=== PATIENT | male | born 1980 | race African-American/Black ===

== ENCOUNTER 2017-09-01 13:06 | Inpatient (IN) | payer OTHER ==
[2017-09-01 18:17] VITALS: BMI 33.3
--- NOTE | 2017-09-01 19:35 | HP ---
CIWA Score - CIWA Score Nausea/Vomitin-Mild Nausea/No Vomiting Muscle Tremors: 4-Moderate,w/Arms Extend Anxiety: 4-Mod. Anxious/Guarded Agitation: 4-Moderately Restless Paroxysmal Sweats: 1-Minimal Palms Moist Orientation: 0-Oriented Tacttile Disturbances: 0-None Auditory Disturbances: 0-None Visual Disturbances: 0-None Headache: 0-None Present CIWA-Ar Total Score: 14 Admission ROS BHS - HPI Chief Complaint: WITHDRAWAL SX Allergies/Adverse Reactions: Allergies Allergy/AdvReac Type Severity Reaction Status Date / Time No Known Allergies Allergy Verified 08/18/15 16:48 History of Present Illness: 36 YEARS OLD MALE WITH LONG HISTORY OF ALCOHOL COCAINE NICOTINE DEPENDENCE, HAS DIABETES II TREATED WITH METFORMIN 500 MG BID DENIES MENTAL ILLNESS IS ADMITTED TO DETOX Exam Limitations: No Limitations - Ebola screening Have you traveled outside of the country in the last 21 days: No (N) Have you had contact with anyone from an Ebola affected area: No Have you been sick,other than usual withdrawal symptoms: No Do you have a fever: No - Review of Systems Constitutional: Changes in sleep, Weight Stable EENT: reports: No Symptoms Reported Respiratory: reports: Cough Cardiac: reports: No Symptoms Reported GI: reports: Nausea, Poor Fluid Intake, Abdominal cramping : reports: No Symptoms Reported Musculoskeletal: reports: No Symptoms Reported Integumentary: reports: Dryness Neuro: reports: Tremors Endocrine: reports: No Symptoms Reported Hematology: reports: No Symptoms Reported Psychiatric: reports: Judgement Intact, Mood/Affect Appropiate, Orientated x3 Other Systems: Reviewed and Negative Patient History - Patient Medical History Hx Anemia: No Hx Asthma: No Hx Chronic Obstructive Pulmonary Disease (COPD): No Hx Cancer: No Hx Cardiac Disorders: No Hx Congestive Heart Failure: No Hx Hypertension: No Hx Hypercholesterolemia: No Hx Pacemaker: No HX Cerebrovascular Accident: No Hx Seizures: No Hx Dementia: No Hx Diabetes: No Hx Gastrointestinal Disorders: No Hx Liver Disease: No Hx Genitourinary Disorders: No Hx Sexually Transmitted Disorders: No Hx Renal Disease (ESRD): Yes (kidney stone 2012 lazer surgery) Hx Thyroid Disease: No Hx Human Immunodeficiency Virus (HIV): No (negative ) Hx Hepatitis C: No Hx Depression: No Hx Suicide Attempt: No Hx Bipolar Disorder: No Hx Schizophrenia: No - Patient Surgical History Past Surgical History: Yes Hx Neurologic Surgery: No Hx Cataract Extraction: No Hx Cardiac Surgery: No Hx Lung Surgery: No Hx Breast Surgery: No Hx Breast Biopsy: No Hx Abdominal Surgery: No Hx Appendectomy: Yes (age 15) Hx Cholecystectomy: No Hx Genitourinary Surgery: No Hx Orthopedic Surgery: No Other Surgical History: kidney stone 2012 Anesthesia Reaction: No - PPD History Previous Implant?: Yes Documented Results: Negative w/proof Implanted On Prior [facility] Admission?: Yes Date: 08/20/15 PPD to be Administered?: Yes - Smoking Cessation Smoking history: Current every day smoker Have you smoked in the past 12 months: Yes Aproximately how many cigarettes per day: 10 Cigars Per Day: 0 Hx Chewing Tobacco Use: No Initiated information on smoking cessation: Yes 'Breaking Loose' booklet given: 09/01/17 - Substance & Tx. History Hx Alcohol Use: Yes Hx Substance Use: Yes Substance Use Type: Alcohol, Cocaine Hx Substance Use Treatment: Yes (2014 [facility]) - Substances Abused Alcohol Route: Oral Frequency: Daily Amount used: [place] Age of first use: 19 Date of Last Use: 09/01/17 Family Disease History - Family Disease History Family Disease History: Diabetes: Father (type 2), Sister (type 2), CA: Mother ( ), Other: Mother Admission Physical Exam S - Vital Signs Vital Signs: Vital Signs - 24 hr 09/01/17 18:15 Temperature 96.4 F L Pulse Rate 93 H Respiratory 20 Rate Blood Pressure 144/76 - Physical General Appearance: Yes: Appropriately Dressed, Mild Distress, Obese, Tremorous , Irritable, Sweating, Anxious HEENTM: Yes: Hearing grossly Normal, Normal ENT Inspection, Normocephalic, Normal Voice Respiratory: Yes: Chest Non-Tender, Lungs Clear, Normal Breath Sounds, No Respiratory Distress, No Accessory Muscle Use Neck: Yes: Supple, Trachea in good position Breast: Yes: Breasts Symetrical Cardiology: Yes: Regular Rhythm, S1, S2, Tachycardia Abdominal: Yes: Normal Bowel Sounds, Non Tender, Soft Genitourinary: Yes: Within Normal Limits Back: Yes: Normal Inspection Musculoskeletal: Yes: full range of Motion, Gait Steady Extremities: Yes: Normal Inspection, Normal Range of Motion, Non-Tender, Tremors Neurological: Yes: Fully Oriented, Alert, Motor Strength 5/5, Normal Mood/Affect , Normal Response Integumentary: Yes: Dry, Warm Lymphatic: Yes: Within Normal Limits - Diagnostic (1) Alcohol dependence with uncomplicated withdrawal Current Visit: Yes Status: Acute (2) Nicotine dependence Current Visit: Yes Status: Acute Qualifiers: Nicotine product type: cigarettes Substance use status: in withdrawal Qualified Code(s): F17.213 - Nicotine dependence, cigarettes, with withdrawal; F17.213 - Nicotine dependence, cigarettes, with withdrawal (3) Cocaine dependence, uncomplicated Current Visit: Yes Status: Chronic (4) Diabetes mellitus type II, controlled, with no complications Current Visit: Yes Status: Chronic Qualifiers: 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
[2017-09-01] MEDS ORDERED: diphenhydrAMINE HCL 50 MG CAPSULE PO PRN (19:36)
[2017-09-01] MEDS ORDERED: MENTHOL/PHENOL 1 EACH UD MM PRN (19:36)
[2017-09-01] MEDS ORDERED: ACETAMINOPHEN 325 MG TABLET (FP) PO PRN (19:36)
[2017-09-01] MEDS ORDERED: MAGNESIUM HYDROX 2400MG/30ML ORAL SUSPENSION 30 ML CUP PO PRN (19:36)
[2017-09-01] MEDS ORDERED: IBUPROFEN 400 MG TABLET (FP) PO PRN (19:36)
[2017-09-01] MEDS ORDERED: P-EPHED 60MG/TRIPROLIDI 2.5MG TABLET PO PRN (19:36)
[2017-09-01] MEDS ORDERED: MAG HYDROX/AL HYDROX/SIMETH 30 ML UNIT-DOSE CUP PO PRN (19:36)
[2017-09-01] MEDS ORDERED: MAGNESIUM CITRATE 300 ML BOTTLE PO PRN (19:36)
[2017-09-01] MEDS ORDERED: LOPERAMIDE HCL 2 MG CAPSULE PO PRN (19:36)
[2017-09-01] MEDS ORDERED: chlordiazePOXIDE HCL 25 MG CAPSULE PO PRN (19:36)
[2017-09-01] MEDS ORDERED: guaiFENesin/D-METHORPHAN HB 10 ML UNIT-DOSE CUPS PO PRN (19:36)
[2017-09-02] MEDS: chlordiazePOXIDE HCL 25 MG CAPSULE PO SCH ×5 (00:01→22:13)
[2017-09-02] MEDS: THIAMINE HCL 100 MG TABLET (FP) PO SCH ×2 (00:01→22:13)
[2017-09-02] MEDS: MINERAL OIL/PETROLAT/WATER TOPICAL CREAM 113 GM JAR TP SCH ×2 (00:01→22:14)
[2017-09-02] MEDS: metFORMIN HCL 500 MG TABLET (FP) PO SCH ×2 (06:16→17:32)
[2017-09-02] MEDS: NICOTINE POLACRILEX 2 MG GUM BUC PRN (06:19)
[2017-09-02 09:47] LABS: MCH 26.8 pg (25.7-33.7); MCHC 31.8 g/dl (32.0-35.9); MEAN CELL VOLUME 84.5 fl (80-96); MEAN PLT VOLUME 8.6 fl (7.5-11.1); PLATELET COUNT 192 K/MM3 (134-434); RDW 17.6 % (11.9-15.9); WHITE BLOOD COUNT 5.5 K/mm3 (4.0-10.0)
[2017-09-02] MEDS: PRENATAL VITAMINS W/ FOLIC ACID TABLET (FP) PO SCH (10:22)
[2017-09-02] MEDS: NICOTINE 14 MG/24 HOURS TOPICAL PATCH TD SCH (10:24)
[2017-09-02 10:29] LABS: ALBUMIN 3.1 g/dl (3.4-5.0); ALK PHOS 125 U/L (45-117); ANION GAP 7 (8-16); BILIRUBIN,TOTAL 0.6 mg/dL (0.2-1.0); CALCIUM 8.1 mg/dL (8.5-10.1); CO2 29 mmol/L (21-32); CREATININE 0.9 mg/dL (0.7-1.3); GLUCOSE,RANDOM 220 mg/dL (74-106); SGOT/AST 17 U/L (15-37); SGPT/ALT 30 U/L (12-78); TOT PROT 6.6 g/dl (6.4-8.2)
--- NOTE | 2017-09-02 10:33 | PN ---
[facility] CIWA - CIWA Score Nausea/Vomitin Muscle Tremors: 3 Anxiety: 3 Agitation: 2 Paroxysmal Sweats: 2 Orientation: 0-Oriented Tacttile Disturbances: 1-Very Mild Itch/Numbness Auditory Disturbances: 1-Very Mild Visual Disturbances: 0-None Headache: 2-Mild CIWA-Ar Total Score: 17 S Progress Note (SOAP) Subjective: alert,irritable,anxious,interrupted sleep,tremor Objective: 09/02/17 10:31 Vital Signs Temperature 96.3 F L 09/02/17 10:00 Pulse Rate 90 09/02/17 10:00 Respiratory Rate 18 09/02/17 10:00 Blood Pressure 138/79 09/02/17 10:00 O2 Sat by Pulse Oximetry (%) ekg nsr no chest pain,no sob,no dizziness Laboratory Last Values WBC 5.5 K/mm3 (4.0-10.0) 09/02/17 07:00 RBC 5.08 M/mm3 (4.00-5.60) 09/02/17 07:00 Hgb 13.6 GM/dL (11.7-16.9) 09/02/17 07:00 Hct 42.9 % (35.4-49) 09/02/17 07:00 MCV 84.5 fl (80-96) 09/02/17 07:00 MCH 26.8 pg (25.7-33.7) 09/02/17 07:00 MCHC 31.8 g/dl (32.0-35.9) L 09/02/17 07:00 RDW 17.6 % (11.9-15.9) H D 09/02/17 07:00 Plt Count 192 K/MM3 (134-434) 09/02/17 07:00 MPV 8.6 fl (7.5-11.1) 09/02/17 07:00 POC Glucometer 210 UNITS (()) 09/02/17 06:12 RPR Titer Nonreactive (NONREACTIVE) 09/02/17 07:00 lab pending Assessment: 09/02/17 10:32 withdrawal symptom Plan: continue detox
--- NOTE | 2017-09-02 15:39 | CONSULT ---
[facility] Psychiatric Consult - Data Date of interview: 09/02/17 Admission source: [facility]
[2017-09-03] MEDS: chlordiazePOXIDE HCL 25 MG CAPSULE PO SCH ×3 (05:55→17:38)
[2017-09-03] MEDS: metFORMIN HCL 500 MG TABLET (FP) PO SCH ×2 (07:03→17:36)
[2017-09-03] MEDS: PRENATAL VITAMINS W/ FOLIC ACID TABLET (FP) PO SCH (10:10)
[2017-09-03] MEDS: NICOTINE 14 MG/24 HOURS TOPICAL PATCH TD SCH (10:10)
[2017-09-03] MEDS: NICOTINE POLACRILEX 2 MG GUM BUC PRN ×2 (10:11→22:10)
--- NOTE | 2017-09-03 11:07 | PN ---
S CIWA - CIWA Score Nausea/Vomitin Muscle Tremors: 3 Anxiety: 2 Agitation: 2 Paroxysmal Sweats: 1-Minimal Palms Moist Orientation: 0-Oriented Tacttile Disturbances: 1-Very Mild Itch/Numbness Auditory Disturbances: 1-Very Mild Visual Disturbances: 0-None Headache: 2-Mild CIWA-Ar Total Score: 15 BHS Progress Note (SOAP) Subjective: alert,irritable,anxious,interrupted sleep,tremor Objective: 09/03/17 11:05 Vital Signs Temperature 96.3 F L 09/03/17 06:26 Pulse Rate 80 09/03/17 10:00 Respiratory Rate 18 09/03/17 10:00 Blood Pressure 142/89 09/03/17 10:00 O2 Sat by Pulse Oximetry (%) Laboratory Last Values WBC 5.5 K/mm3 (4.0-10.0) 09/02/17 07:00 RBC 5.08 M/mm3 (4.00-5.60) 09/02/17 07:00 Hgb 13.6 GM/dL (11.7-16.9) 09/02/17 07:00 Hct 42.9 % (35.4-49) 09/02/17 07:00 MCV 84.5 fl (80-96) 09/02/17 07:00 MCH 26.8 pg (25.7-33.7) 09/02/17 07:00 MCHC 31.8 g/dl (32.0-35.9) L 09/02/17 07:00 RDW 17.6 % (11.9-15.9) H D 09/02/17 07:00 Plt Count 192 K/MM3 (134-434) 09/02/17 07:00 MPV 8.6 fl (7.5-11.1) 09/02/17 07:00 Sodium 139 mmol/L (136-145) 09/02/17 07:00 Potassium 4.0 mmol/L (3.5-5.1) 09/02/17 07:00 Chloride 103 mmol/L (98-107) 09/02/17 07:00 Carbon Dioxide 29 mmol/L (21-32) 09/02/17 07:00 Anion Gap 7 (8-16) L 09/02/17 07:00 BUN 10 mg/dL (7-18) D 09/02/17 07:00 Creatinine 0.9 mg/dL (0.7-1.3) 09/02/17 07:00 Creat Clearance w eGFR > 60 (>60) 09/02/17 07:00 POC Glucometer 197 UNITS (()) 09/03/17 07:00 Random Glucose 220 mg/dL (74-106) H 09/02/17 07:00 Calcium 8.1 mg/dL (8.5-10.1) L 09/02/17 07:00 Total Bilirubin 0.6 mg/dL (0.2-1.0) D 09/02/17 07:00 AST 17 U/L (15-37) 09/02/17 07:00 ALT 30 U/L (12-78) D 09/02/17 07:00 Alkaline Phosphatase 125 U/L (45-117) H 09/02/17 07:00 Total Protein 6.6 g/dl (6.4-8.2) 09/02/17 07:00 Albumin 3.1 g/dl (3.4-5.0) L 09/02/17 07:00 RPR Titer Nonreactive (NONREACTIVE) 09/02/17 07:00 Assessment: 09/03/17 11:05 withdrawal symptom,bgm monitoring Plan: continue detox
--- NOTE | 2017-09-03 11:57 | EKG ---
Test Reason : Blood Pressure : / mmHG Vent. Rate : 079 BPM Atrial Rate : 079 BPM P-R Int : 160 ms QRS Dur : 096 ms QT Int : 390 ms P-R-T Axes : 067 077 031 degrees QTc Int : 447 ms NORMAL SINUS RHYTHM POSSIBLE LEFT ATRIAL ENLARGEMENT BORDERLINE ECG NO PREVIOUS ECGS AVAILABLE Confirmed by MANOLO CUENCA, GRAHAM ([id number]) on 09/03/2017 11:56:50 AM Referred By: Confirmed By:GRAHAM FRENCH MD
[2017-09-03 13:44] LABS: URINE APPEARANCE CLEAR; URINE BILIRUBIN NEGATIVE (NEGATIVE); URINE BLOOD NEGATIVE (NEGATIVE); URINE COLOR YELLOW; URINE GLUCOSE (UA) 3+ (NEGATIVE); URINE KETONE NEGATIVE (NEGATIVE); URINE NITRITE NEGATIVE (NEGATIVE); URINE PROTEIN NEGATIVE (NEGATIVE); URINE UROBILINOGEN NEGATIVE mg/dL (0.2-1.0)
[2017-09-03 17:43] LABS: URINE LEUK ESTERASE Negative (NEGATIVE)
[2017-09-03] MEDS: THIAMINE HCL 100 MG TABLET (FP) PO SCH (22:07)
[2017-09-03] MEDS: chlordiazePOXIDE 5 MG CAPSULE PO SCH (22:07)
[2017-09-03] MEDS: MINERAL OIL/PETROLAT/WATER TOPICAL CREAM 113 GM JAR TP SCH (22:29)
[2017-09-04] MEDS: chlordiazePOXIDE 5 MG CAPSULE PO SCH ×3 (05:12→17:32)
[2017-09-04] MEDS: metFORMIN HCL 500 MG TABLET (FP) PO SCH ×2 (08:33→17:20)
--- NOTE | 2017-09-04 09:43 | PN ---
BHS Progress Note (SOAP) Subjective: alert,irritable,anxious,interrupted sleep Objective: 09/04/17 09:40 Vital Signs Temperature 96.8 F L 09/04/17 06:28 Pulse Rate 95 H 09/04/17 06:28 Respiratory Rate 20 09/04/17 06:28 Blood Pressure 113/69 09/04/17 06:28 O2 Sat by Pulse Oximetry (%) Assessment: 09/04/17 09:40 withdrawal symptom 09/04/17 09:42 Plan: continue detox,discharge in am
[2017-09-04] MEDS: NICOTINE 14 MG/24 HOURS TOPICAL PATCH TD SCH (10:33)
[2017-09-04] MEDS: PRENATAL VITAMINS W/ FOLIC ACID TABLET (FP) PO SCH (10:33)
[2017-09-04] MEDS: NICOTINE POLACRILEX 2 MG GUM BUC PRN ×2 (10:33→22:10)
[2017-09-04] MEDS: THIAMINE HCL 100 MG TABLET (FP) PO SCH (22:10)
[2017-09-04] MEDS: chlordiazePOXIDE HCL 10 MG CAPSULE PO SCH (22:10)
[2017-09-04] MEDS: MINERAL OIL/PETROLAT/WATER TOPICAL CREAM 113 GM JAR TP SCH (22:11)
[2017-09-05] MEDS: chlordiazePOXIDE HCL 10 MG CAPSULE PO SCH ×2 (05:17→10:24)
--- NOTE | 2017-09-05 08:07 | DS ---
[facility] Detox Discharge Summary Admission Date: 09/01/17 Discharge Date: 09/05/17 - History Present History: Alcohol Dependence, Cocaine Dependence Additional Comments: follow up with after care program as arrangement Pertinent Past History: nicotine dependence type 2 dm - Physical Exam Results Vital Signs: Vital Signs Temperature 96.3 F L 09/05/17 06:29 Pulse Rate 70 09/05/17 06:29 Respiratory Rate 18 09/05/17 06:29 Blood Pressure 117/71 09/05/17 06:29 O2 Sat by Pulse Oximetry (%) Pertinent Admission Physical Exam Findings: withdrawal symptom - Treatment Hospital Course: Detox Protocol Followed, Detoxed Safely, Responded well, Discharged Condition Good Patient has Accepted a Rehab Referral to: declined - Medication Discharge Medications: Ambulatory Orders Metformin HCl [Glucophage -] 500 mg PO BID 09/01/17 - Diagnosis (1) Alcohol dependence with uncomplicated withdrawal Current Visit: Yes Status: Acute (2) Nicotine dependence Current Visit: Yes Status: Acute Qualifiers: Nicotine product type: cigarettes Substance use status: in withdrawal Qualified Code(s): F17.213 - Nicotine dependence, cigarettes, with withdrawal; F17.213 - Nicotine dependence, cigarettes, with withdrawal (3) Cocaine dependence, uncomplicated Current Visit: Yes Status: Chronic (4) Diabetes mellitus type II, controlled, with no complications Current Visit: Yes Status: Chronic 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
[2017-09-05] MEDS: metFORMIN HCL 500 MG TABLET (FP) PO SCH (08:13)
[2017-09-05 09:45] VITALS: BP 132/78; PULSE 82; TEMP 98.4
[2017-09-05] MEDS: NICOTINE 14 MG/24 HOURS TOPICAL PATCH TD SCH (10:22)
[2017-09-05] MEDS: NICOTINE POLACRILEX 2 MG GUM BUC PRN (10:22)
[2017-09-05] MEDS: PRENATAL VITAMINS W/ FOLIC ACID TABLET (FP) PO SCH (10:22)
== END 2017-09-05 10:35 | disposition home or self-care (01) | DRG 774 ==
LOC: ASASADMIT 13:06 → YASAS 13:06 → Y6N 23:26
PROVIDERS: ADMIT Internal Medicine; ATTEND Internal Medicine
PROC: HZ2ZZZZ Detoxification Services for Substance Abuse Treatment (ICD-10-PCS; principal; 2017-09-01)
DX: F10.230 Alcohol dependence with withdrawal, uncomplicated (principal); F14.20 Cocaine dependence, uncomplicated; F17.213 Nicotine dependence, cigarettes, with withdrawal; E11.9 Type 2 diabetes mellitus without complications; Z79.84 Long term (current) use of oral hypoglycemic drugs; Z87.442 Personal history of urinary calculi
CPT/HCPCS: 36415; 80053; 81003; 85027; 86593; 93005; 93010

== ENCOUNTER 2018-03-04 12:17 | Inpatient (IN) | payer OTHER ==
[2018-03-04 13:07] VITALS: BMI 34.2
--- NOTE | 2018-03-04 13:47 | HP ---
CIWA Score - CIWA Score Nausea/Vomitin-Mild Nausea/No Vomiting Muscle Tremors: 4-Moderate,w/Arms Extend Anxiety: 4-Mod. Anxious/Guarded Agitation: 4-Moderately Restless Paroxysmal Sweats: 1-Minimal Palms Moist Orientation: 0-Oriented Tacttile Disturbances: 1-Very Mild Itch/Numbness Auditory Disturbances: 0-None Visual Disturbances: 0-None Headache: 0-None Present CIWA-Ar Total Score: 15 Admission ROS S - HPI Chief Complaint: withdrawal sx Allergies/Adverse Reactions: Allergies Allergy/AdvReac Type Severity Reaction Status Date / Time No Known Allergies Allergy Verified 03/04/18 13:34 History of Present Illness: 37 years old male with long history of alcohol nicotine dependence has diabetes ii and depression is admitted to detox Exam Limitations: No Limitations - Ebola screening Have you traveled outside of the country in the last 21 days: No Have you had contact with anyone from an Ebola affected area: No Have you been sick,other than usual withdrawal symptoms: No Do you have a fever: No - Review of Systems Constitutional: Changes in sleep, Weight Stable EENT: reports: No Symptoms Reported Respiratory: reports: No Symptoms reported Cardiac: reports: No Symptoms Reported GI: reports: Diarrhea, Nausea, Poor Fluid Intake, Indigestion, Abdominal cramping : reports: No Symptoms Reported Musculoskeletal: reports: No Symptoms Reported Integumentary: reports: No Symptoms Reported Neuro: reports: Tremors Endocrine: reports: No Symptoms Reported Hematology: reports: No Symptoms Reported Psychiatric: reports: Judgement Intact, Orientated x3, Depressed Other Systems: Reviewed and Negative Patient History - Patient Medical History Hx Anemia: No Hx Asthma: No Hx Chronic Obstructive Pulmonary Disease (COPD): No Hx Cancer: No Hx Cardiac Disorders: No Hx Congestive Heart Failure: No Hx Hypertension: No Hx Hypercholesterolemia: No Hx Pacemaker: No HX Cerebrovascular Accident: No Hx Seizures: No Hx Dementia: No Hx Diabetes: No Hx Gastrointestinal Disorders: Yes Hx Liver Disease: No Hx Genitourinary Disorders: No Hx Sexually Transmitted Disorders: No Hx Renal Disease (ESRD): No (kidney stone 2013 lazer surgery) Hx Thyroid Disease: No Hx Human Immunodeficiency Virus (HIV): No (negative ) Hx Hepatitis C: No Hx Depression: Yes Hx Suicide Attempt: No Hx Bipolar Disorder: No Hx Schizophrenia: No - Patient Surgical History Past Surgical History: Yes Hx Neurologic Surgery: No Hx Cataract Extraction: No Hx Cardiac Surgery: No Hx Lung Surgery: No Hx Breast Surgery: No Hx Breast Biopsy: No Hx Abdominal Surgery: No Hx Appendectomy: Yes (age 15) Hx Cholecystectomy: No Hx Genitourinary Surgery: No Hx Orthopedic Surgery: No Other Surgical History: kidney stone 2012 Anesthesia Reaction: No - PPD History Previous Implant?: Yes Documented Results: Negative w/proof Implanted On Prior [facility] Admission?: Yes Date: 09/04/17 PPD to be Administered?: No - Smoking Cessation Smoking history: Current every day smoker Have you smoked in the past 12 months: Yes Aproximately how many cigarettes per day: 10 Cigars Per Day: 0 Hx Chewing Tobacco Use: No Initiated information on smoking cessation: Yes 'Breaking Loose' booklet given: 03/04/18 - Substance & Tx. History Hx Alcohol Use: Yes Hx Substance Use: Yes Substance Use Type: Alcohol, Cocaine, Tranquilizers Hx Substance Use Treatment: Yes (08/2017) - Substances Abused Alcohol Route: Oral Frequency: Daily Amount used: 8 can beer/ 1 pint vodka Age of first use: 19 Date of Last Use: 03/04/18 Crack Route: Smoking Frequency: Daily Amount used: $50 Age of first use: 21 Date of Last Use: 03/03/18 Family Disease History - Family Disease History Family Disease History: Diabetes: Father (type 2), Sister (type 2), CA: Mother ( ), Other: Mother Admission Physical Exam S - Vital Signs Vital Signs: Vital Signs - 24 hr 03/04/18 13:03 Temperature 98.2 F Pulse Rate 90 Respiratory 20 Rate Blood Pressure 128/78 - Physical General Appearance: Yes: Moderate Distress, Obese, Tremorous, Irritable, Sweating, Anxious HEENTM: Yes: Hearing grossly Normal, Normocephalic, Normal Voice Respiratory: Yes: Chest Non-Tender, Lungs Clear, Normal Breath Sounds, No Respiratory Distress, No Accessory Muscle Use Neck: Yes: Supple, Trachea in good position Breast: Yes: Within Normal Limits, Breasts Symetrical Cardiology: Yes: Regular Rhythm, Regular Rate, S1, S2 Abdominal: Yes: Normal Bowel Sounds, Non Tender, Flat Genitourinary: Yes: Within Normal Limits Back: Yes: Normal Inspection Musculoskeletal: Yes: full range of Motion, Gait Steady Extremities: Yes: Normal Inspection, Normal Range of Motion, Non-Tender, Tremors Neurological: Yes: Fully Oriented, Alert, Motor Strength 5/5, Normal Response, Depressed Affect Integumentary: Yes: Warm Lymphatic: Yes: Within Normal Limits - Diagnostic (1) Dry skin Current Visit: Yes Status: Chronic (2) Alcohol dependence with uncomplicated withdrawal Current Visit: Yes Status: Acute (3) Nicotine dependence Current Visit: Yes Status: Acute Qualifiers: Nicotine product type: cigarettes Substance use status: in withdrawal Qualified Code(s): F17.213 - Nicotine dependence, cigarettes, with withdrawal (4) Diabetes mellitus type II, controlled, with no complications Current Visit: Yes Status: Chronic Qualifiers: 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
[2018-03-04] MEDS ORDERED: chlordiazePOXIDE HCL 25 MG CAPSULE PO PRN (13:53)
[2018-03-04] MEDS ORDERED: LOPERAMIDE HCL 2 MG CAPSULE PO PRN (13:53)
[2018-03-04] MEDS ORDERED: guaiFENesin/D-METHORPHAN HB 10 ML UNIT-DOSE CUPS PO PRN (13:53)
[2018-03-04] MEDS ORDERED: MAGNESIUM CITRATE 300 ML BOTTLE PO PRN (13:53)
[2018-03-04] MEDS ORDERED: ACETAMINOPHEN 325 MG TABLET (FP) PO PRN (13:53)
[2018-03-04] MEDS ORDERED: MENTHOL/PHENOL 1 EACH UD MM PRN (13:53)
[2018-03-04] MEDS ORDERED: MAGNESIUM HYDROX 2400MG/30ML ORAL SUSPENSION 30 ML CUP PO PRN (13:53)
[2018-03-04] MEDS ORDERED: P-EPHED 60MG/TRIPROLIDI 2.5MG TABLET PO PRN (13:53)
[2018-03-04] MEDS ORDERED: MAG HYDROX/AL HYDROX/SIMETH 30 ML UNIT-DOSE CUP PO PRN (13:53)
[2018-03-04] MEDS ORDERED: IBUPROFEN 400 MG TABLET (FP) PO PRN (13:53)
[2018-03-04] MEDS ORDERED: NICOTINE 14 MG/24 HOURS TOPICAL PATCH TD PRN (15:30)
[2018-03-04] MEDS ORDERED: metFORMIN HCL 500 MG TABLET (FP) PO SCH ×2 (16:30→22:00)
--- NOTE | 2018-03-04 16:54 | CONSULT ---
[facility] Psychiatric Consult - Data Date of interview: 03/04/18 Admission source: [facility] Identifying data: Pt. is a 37 year old single male, without kids, unemployed, homeless, and not receiving financial assistance. This is one of multiple admissions for patient. Pt. admitted to detox for alcohol and cocaine dependence. Substance Abuse History: Following information confirmed with Mr. Larose: - Smoking Cessation. Smoking history: Current every day smoker. Have you smoked in the past 12 months: Yes. Aproximately how many cigarettes per day: 10. Cigars Per Day: 0. Hx Chewing Tobacco Use: No. Initiated information on smoking cessation: Yes. 'Breaking Loose' booklet given: 03/04/18. - Substance & Tx. History. Hx Alcohol Use: Yes. Hx Substance Use: Yes. Substance Use Type : Alcohol, Cocaine, Tranquilizers. Hx Substance Use Treatment: Yes (08/2017). - Substances Abused. Alcohol. Route: Oral. Frequency: Daily. Amount used : 8 can beer/ 1 pint vodka. Age of first use: 19. Date of Last Use: 03/04/18. Crack. Route: Smoking. Frequency: Daily. Amount used: $50. Age of first use: 21. Date of Last Use: 03/03/18 Medical History: kidney stone 2012 laser surgery, Appendectomy 2012 Psychiatric History: Pt. denies h/o psychiatric hospitalizations, suicide attempt, and outpatient care. Physical/Sexual Abuse/Trauma History: Denies. Mental Status Exam - Mental Status Exam Alert and Oriented to: Time, Place, Person Cognitive Function: Good Patient Appearance: Unkempt, Disheveled (Patient is maldorous) Mood: Euthymic Affect: Appropriate Patient Behavior: Cooperative Speech Pattern: Appropriate Voice Loudness: Normal Thought Process: Goal Oriented Hallucinations: Denies Suicidal Ideation: Denies Homicidal Ideation: Denies Insight/Judgement: Poor Sleep: Poorly Appetite: Fair Muscle strength/Tone: Normal Gait/Station: Normal Psychiatric Findings - Problem List ([place] 1, 2,3) (1) Alcohol dependence with uncomplicated withdrawal Current Visit: Yes Status: Acute (2) Cocaine dependence, uncomplicated Current Visit: Yes Status: Chronic (3) Nicotine dependence Current Visit: Yes Status: Chronic Qualifiers: Nicotine product type: cigarettes Substance use status: in withdrawal Qualified Code(s): F17.213 - Nicotine dependence, cigarettes, with withdrawal (4) Insomnia Current Visit: Yes Status: Acute - Initial Treatment Plan Initial Treatment Plan: Psychoeducation provided. Detoxification provided. Ambien 5mg qhs prn ordered. Benefits and side effects discussed. Pt. made aware of the risk of parsomnia. Verbal consent given. Will continue to monitor.
[2018-03-04] MEDS ORDERED: INSULIN (NOVOLOG) ASPART 100 UNITS/ML 10ML VIAL ONE (17:16)
[2018-03-04] MEDS: INSULIN SLIDING SCALE (NOVOLOG) 1 VIAL SQ SCH ×2 (17:25→23:04)
[2018-03-04] MEDS: metFORMIN HCL 500 MG TABLET (FP) PO SCH (17:25)
[2018-03-04 19:05] LABS: URINE APPEARANCE CLEAR; URINE BILIRUBIN NEGATIVE (<2.0 mg/dL); URINE BLOOD NEGATIVE (NEGATIVE); URINE COLOR STRAW; URINE GLUCOSE (UA) 2+ (NEGATIVE); URINE KETONE NEGATIVE (NEGATIVE); URINE LEUK ESTERASE NEGATIVE (NEGATIVE); URINE NITRITE NEGATIVE (NEGATIVE); URINE PROTEIN NEGATIVE (NEGATIVE); URINE UROBILINOGEN NEGATIVE mg/dL (0.2-1.0)
[2018-03-04] MEDS ORDERED: MELATONIN 5 MG TABLETS PO PRN (22:00)
[2018-03-04] MEDS: ZOLPIDEM TARTRATE 5 MG TABLET PO PRN (22:36)
[2018-03-04] MEDS: NICOTINE POLACRILEX 2 MG GUM BUC PRN (22:36)
[2018-03-04] MEDS: THIAMINE HCL 100 MG TABLET (FP) PO SCH (22:36)
[2018-03-04] MEDS: chlordiazePOXIDE HCL 25 MG CAPSULE PO SCH (22:36)
[2018-03-05] MEDS: chlordiazePOXIDE HCL 25 MG CAPSULE PO SCH ×4 (05:49→22:04)
[2018-03-05] MEDS ORDERED: INSULIN (NOVOLOG) ASPART 100 UNITS/ML 10ML VIAL ONE ×4 (05:55→21:31)
[2018-03-05] MEDS: INSULIN SLIDING SCALE (NOVOLOG) 1 VIAL SQ SCH ×4 (06:59→22:04)
[2018-03-05] MEDS: metFORMIN HCL 500 MG TABLET (FP) PO SCH ×2 (06:59→17:53)
[2018-03-05] MEDS: PRENATAL VITAMINS W/ FOLIC ACID TABLET (FP) PO SCH (10:09)
[2018-03-05 11:12] LABS: HEMATOCRIT 40.7 % (35.4-49); MCH 27.1 pg (25.7-33.7); MCHC 31.9 g/dl (32.0-35.9); MEAN CELL VOLUME 85.1 fl (80-96); MEAN PLT VOLUME 9.6 fl (7.5-11.1); PLATELET COUNT 238 K/MM3 (134-434); RBC 4.78 M/mm3 (4.00-5.60); RDW 15.8 % (11.9-15.9); WHITE BLOOD COUNT 6.2 K/mm3 (4.0-10.0)
--- NOTE | 2018-03-05 11:26 | EKG ---
Test Reason : Blood Pressure : / mmHG Vent. Rate : 094 BPM Atrial Rate : 094 BPM P-R Int : 160 ms QRS Dur : 086 ms QT Int : 354 ms P-R-T Axes : 072 079 043 degrees QTc Int : 442 ms NORMAL SINUS RHYTHM RIGHT ATRIAL ENLARGEMENT NONSPECIFIC T WAVE ABNORMALITY ABNORMAL ECG WHEN COMPARED WITH ECG OF 01-SEP-2017 23:12, NO SIGNIFICANT CHANGE WAS FOUND Confirmed by KVNG HERNÁNDEZ MD ([id number]) on 03/05/2018 11:25:55 AM Referred By: Confirmed By:KVNG HERNÁNDEZ MD
[2018-03-05 11:29] LABS: CHLORIDE 102 mmol/L (98-107); POTASSIUM 4.4 mmol/L (3.5-5.1); SODIUM 136 mmol/L (136-145)
[2018-03-05 11:51] LABS: ALBUMIN 3.8 g/dl (3.4-5.0); ALK PHOS 124 U/L (45-117); ANION GAP 9 (8-16); BILIRUBIN,TOTAL 0.2 mg/dL (0.2-1.0); BLOOD UREA NITROGEN 7 mg/dL (7-18); CALCIUM 8.4 mg/dL (8.5-10.1); CO2 25 mmol/L (21-32); GLUCOSE,RANDOM 267 mg/dL (74-106); SGOT/AST 21 U/L (15-37); SGPT/ALT 36 U/L (12-78); TOT PROT 7.8 g/dl (6.4-8.2)
--- NOTE | 2018-03-05 12:19 | PN ---
S CIWA - CIWA Score Nausea/Vomitin-Mild Nausea/No Vomiting Muscle Tremors: 4-Moderate,w/Arms Extend Anxiety: 3 Agitation: 3 Paroxysmal Sweats: 1-Minimal Palms Moist Orientation: 0-Oriented Tacttile Disturbances: 1-Very Mild Itch/Numbness Auditory Disturbances: 0-None Visual Disturbances: 0-None Headache: 0-None Present CIWA-Ar Total Score: 13 BHS Progress Note (SOAP) Subjective: sweat tremor gi distress anxiety restlessness Objective: 03/05/18 12:18 Vital Signs Temperature 98.4 F 03/05/18 09:53 Pulse Rate 90 03/05/18 09:53 Respiratory Rate 18 03/05/18 09:53 Blood Pressure 133/76 03/05/18 09:53 O2 Sat by Pulse Oximetry (%) Laboratory Last Values WBC 6.2 K/mm3 (4.0-10.0) 03/05/18 06:00 RBC 4.78 M/mm3 (4.00-5.60) 03/05/18 06:00 Hgb 13.0 GM/dL (11.7-16.9) 03/05/18 06:00 Hct 40.7 % (35.4-49) 03/05/18 06:00 MCV 85.1 fl (80-96) 03/05/18 06:00 MCH 27.1 pg (25.7-33.7) 03/05/18 06:00 MCHC 31.9 g/dl (32.0-35.9) L 03/05/18 06:00 RDW 15.8 % (11.9-15.9) D 03/05/18 06:00 Plt Count 238 K/MM3 (134-434) D 03/05/18 06:00 MPV 9.6 fl (7.5-11.1) D 03/05/18 06:00 Sodium 136 mmol/L (136-145) 03/05/18 06:00 Potassium 4.4 mmol/L (3.5-5.1) 03/05/18 06:00 Chloride 102 mmol/L (98-107) 03/05/18 06:00 Carbon Dioxide 25 mmol/L (21-32) 03/05/18 06:00 Anion Gap 9 (8-16) 03/05/18 06:00 BUN 7 mg/dL (7-18) D 03/05/18 06:00 Creatinine 1.0 mg/dL (0.7-1.3) 03/05/18 06:00 Creat Clearance w eGFR > 60 (>60) 03/05/18 06:00 POC Glucometer 176 UNITS (80-120) 03/05/18 05:51 Random Glucose 267 mg/dL (74-106) H D 03/05/18 06:00 Calcium 8.4 mg/dL (8.5-10.1) L 03/05/18 06:00 Total Bilirubin 0.2 mg/dL (0.2-1.0) D 03/05/18 06:00 AST 21 U/L (15-37) D 03/05/18 06:00 ALT 36 U/L (12-78) 03/05/18 06:00 Alkaline Phosphatase 124 U/L (45-117) H 03/05/18 06:00 Total Protein 7.8 g/dl (6.4-8.2) 03/05/18 06:00 Albumin 3.8 g/dl (3.4-5.0) D 03/05/18 06:00 Urine Color Straw 03/04/18 16:00 Urine Appearance Clear 03/04/18 16:00 Urine pH 5.0 (5.0-8.0) 03/04/18 16:00 Ur Specific Midnight 1.011 (1.001-1.035) 03/04/18 16:00 Urine Protein Negative (NEGATIVE) 03/04/18 16:00 Urine Glucose (UA) 2+ (NEGATIVE) H 03/04/18 16:00 Urine Ketones Negative (NEGATIVE) 03/04/18 16:00 Urine Blood Negative (NEGATIVE) 03/04/18 16:00 Urine Nitrite Negative (NEGATIVE) 03/04/18 16:00 Urine Bilirubin Negative (<2.0 mg/dL) 03/04/18 16:00 Urine Urobilinogen Negative mg/dL (0.2-1.0) 03/04/18 16:00 Ur Leukocyte Esterase Negative (NEGATIVE) 03/04/18 16:00 lab noted Assessment: 03/05/18 12:19 withdrawal sx Plan: continue detox
[2018-03-05] MEDS: THIAMINE HCL 100 MG TABLET (FP) PO SCH (22:04)
[2018-03-05] MEDS: ZOLPIDEM TARTRATE 5 MG TABLET PO PRN (22:41)
[2018-03-06] MEDS: chlordiazePOXIDE HCL 25 MG CAPSULE PO SCH ×3 (05:05→17:26)
[2018-03-06] MEDS: metFORMIN HCL 500 MG TABLET (FP) PO SCH ×2 (07:03→17:25)
[2018-03-06] MEDS ORDERED: INSULIN (NOVOLOG) ASPART 100 UNITS/ML 10ML VIAL ONE ×3 (07:07→17:11)
[2018-03-06] MEDS: INSULIN SLIDING SCALE (NOVOLOG) 1 VIAL SQ SCH ×4 (07:10→22:38)
--- NOTE | 2018-03-06 09:44 | PN ---
S CIWA - CIWA Score Nausea/Vomitin Muscle Tremors: 3 Anxiety: 3 Agitation: 3 Paroxysmal Sweats: 2 Orientation: 0-Oriented Tacttile Disturbances: 0-None Auditory Disturbances: 0-None Visual Disturbances: 0-None Headache: 0-None Present CIWA-Ar Total Score: 14 [facility] Progress Note (SOAP) Subjective: nausea, sweats, interrupted sleep, anxiety, tremors, Objective: 03/06/18 09:43 Vital Signs - 24 hr 03/05/18 03/05/18 03/05/18 09:53 14:19 18:00 Temperature 98.4 F 98.2 F 98.2 F Pulse Rate 90 91 H 92 H Respiratory 18 18 18 Rate Blood Pressure 133/76 149/83 134/67 03/05/18 03/06/18 03/06/18 22:00 00:30 03:30 Temperature 98.1 F Pulse Rate 89 Respiratory 16 18 18 Rate Blood Pressure 138/76 03/06/18 07:13 Temperature 97.2 F L Pulse Rate 76 Respiratory 18 Rate Blood Pressure 115/65 Laboratory Tests 03/04/18 03/04/18 03/04/18 13:56 16:00 16:23 WBC RBC Hgb Hct MCV MCH MCHC RDW Plt Count MPV Sodium Potassium Chloride Carbon Dioxide Anion Gap BUN Creatinine Creat Clearance w eGFR POC Glucometer 294 294 Random Glucose Calcium Total Bilirubin AST ALT Alkaline Phosphatase Total Protein Albumin Urine Color Straw Urine Appearance Clear Urine pH 5.0 Ur Specific [place] 1.011 Urine Protein Negative Urine Glucose (UA) 2+ H Urine Ketones Negative Urine Blood Negative Urine Nitrite Negative Urine Bilirubin Negative Urine Urobilinogen Negative Ur Leukocyte Esterase Negative RPR Titer 03/05/18 03/05/18 03/05/18 05:51 06:00 06:00 WBC 6.2 RBC 4.78 Hgb 13.0 Hct 40.7 MCV 85.1 MCH 27.1 MCHC 31.9 L RDW 15.8 D Plt Count 238 D MPV 9.6 D Sodium 136 Potassium 4.4 Chloride 102 Carbon Dioxide 25 Anion Gap 9 BUN 7 D Creatinine 1.0 Creat Clearance w eGFR > 60 POC Glucometer 176 Random Glucose 267 H D Calcium 8.4 L Total Bilirubin 0.2 D AST 21 D ALT 36 Alkaline Phosphatase 124 H Total Protein 7.8 Albumin 3.8 D Urine Color Urine Appearance Urine pH Ur Specific [place] Urine Protein Urine Glucose (UA) Urine Ketones Urine Blood Urine Nitrite Urine Bilirubin Urine Urobilinogen Ur Leukocyte Esterase RPR Titer 03/05/18 03/05/18 03/05/18 06:00 12:27 16:25 WBC RBC Hgb Hct MCV MCH MCHC RDW Plt Count MPV Sodium Potassium Chloride Carbon Dioxide Anion Gap BUN Creatinine Creat Clearance w eGFR POC Glucometer 230 222 Random Glucose Calcium Total Bilirubin AST ALT Alkaline Phosphatase Total Protein Albumin Urine Color Urine Appearance Urine pH Ur Specific [place] Urine Protein Urine Glucose (UA) Urine Ketones Urine Blood Urine Nitrite Urine Bilirubin Urine Urobilinogen Ur Leukocyte Esterase RPR Titer Nonreactive 03/05/18 03/06/18 21:11 05:06 WBC RBC Hgb Hct MCV MCH MCHC RDW Plt Count MPV Sodium Potassium Chloride Carbon Dioxide Anion Gap BUN Creatinine Creat Clearance w eGFR POC Glucometer 294 187 Random Glucose Calcium Total Bilirubin AST ALT Alkaline Phosphatase Total Protein Albumin Urine Color Urine Appearance Urine pH Ur Specific [place] Urine Protein Urine Glucose (UA) Urine Ketones Urine Blood Urine Nitrite Urine Bilirubin Urine Urobilinogen Ur Leukocyte Esterase RPR Titer Assessment: 03/06/18 09:44 withdrawal sx - cont detox, fluids, encourage ambulation
[2018-03-06] MEDS: PRENATAL VITAMINS W/ FOLIC ACID TABLET (FP) PO SCH (10:26)
[2018-03-06] MEDS: NICOTINE POLACRILEX 2 MG GUM BUC PRN (17:26)
--- NOTE | 2018-03-06 17:33 | PN ---
S Progress Note Note: Psychiatric nurse practitioner note: Pt. reports difficulty sleeping after accepting ambien 5mg. Pt. requesting ambien to be increased to 10mg. Pt. reports favorable effect from accepting ambien 10mg in the past. Will order ambien 10mg. Benefits and side effects discussed. Pt made aware of the risk of parasomnia. Verbal consent given.
[2018-03-06] MEDS: ZOLPIDEM TARTRATE 10 MG TABLET (PARK CARE ONLY) PO PRN (22:13)
[2018-03-06] MEDS: chlordiazePOXIDE 5 MG CAPSULE PO SCH (22:13)
[2018-03-06] MEDS: THIAMINE HCL 100 MG TABLET (FP) PO SCH (22:13)
[2018-03-07] MEDS: chlordiazePOXIDE 5 MG CAPSULE PO SCH ×3 (05:22→18:10)
[2018-03-07] MEDS: NICOTINE POLACRILEX 2 MG GUM BUC PRN ×2 (06:25→22:08)
[2018-03-07] MEDS: metFORMIN HCL 500 MG TABLET (FP) PO SCH ×2 (06:27→18:10)
[2018-03-07] MEDS: INSULIN SLIDING SCALE (NOVOLOG) 1 VIAL SQ SCH ×4 (07:31→22:07)
[2018-03-07] MEDS ORDERED: INSULIN (NOVOLOG) ASPART 100 UNITS/ML 10ML VIAL ONE ×4 (07:32→22:03)
[2018-03-07] MEDS: PRENATAL VITAMINS W/ FOLIC ACID TABLET (FP) PO SCH (10:19)
--- NOTE | 2018-03-07 15:09 | PN ---
BHS Progress Note (SOAP) Subjective: sweats shakes sleep disturbance Objective: 03/07/18 15:08 A & O x 3 Vital Signs Temperature 98.2 F 03/07/18 14:28 Pulse Rate 93 H 03/07/18 14:28 Respiratory Rate 20 03/07/18 14:28 Blood Pressure 142/84 03/07/18 14:28 O2 Sat by Pulse Oximetry (%) Assessment: 03/07/18 15:09 withdrawal sx Plan: continue detox
[2018-03-07] MEDS: chlordiazePOXIDE HCL 10 MG CAPSULE PO SCH (22:07)
[2018-03-07] MEDS: ZOLPIDEM TARTRATE 10 MG TABLET (PARK CARE ONLY) PO PRN (22:08)
[2018-03-07] MEDS: THIAMINE HCL 100 MG TABLET (FP) PO SCH (22:08)
[2018-03-08] MEDS: chlordiazePOXIDE HCL 10 MG CAPSULE PO SCH (05:18)
[2018-03-08] MEDS ORDERED: INSULIN (NOVOLOG) ASPART 100 UNITS/ML 10ML VIAL ONE (05:20)
[2018-03-08 06:22] VITALS: BP 106/82; PULSE 83; TEMP 97.9
[2018-03-08] MEDS: INSULIN SLIDING SCALE (NOVOLOG) 1 VIAL SQ SCH (06:29)
[2018-03-08] MEDS: metFORMIN HCL 500 MG TABLET (FP) PO SCH (06:29)
--- NOTE | 2018-03-08 12:45 | DS ---
[facility] Summary Admission Date: 03/04/18 Discharge Date: 03/08/18 - History Present History: Alcohol Dependence Additional Comments: 37 years old male admitted on 03/04/18 for alcohol withdrawal sx completed detox regimen tolerated well denies alcohol withdrawal sx alert oriented x 3 [facility] to [facility] - Physical Exam Results Vital Signs: Vital Signs Temperature 97.9 F 03/08/18 06:00 Pulse Rate 83 03/08/18 06:00 Respiratory Rate 18 03/08/18 06:00 Blood Pressure 106/82 03/08/18 06:00 O2 Sat by Pulse Oximetry (%) Pertinent Admission Physical Exam Findings: withdrawal sx Vital Signs Temperature 97.9 F 03/08/18 06:00 Pulse Rate 83 03/08/18 06:00 Respiratory Rate 18 03/08/18 06:00 Blood Pressure 106/82 03/08/18 06:00 O2 Sat by Pulse Oximetry (%) Laboratory Last Values WBC 6.2 K/mm3 (4.0-10.0) 03/05/18 06:00 RBC 4.78 M/mm3 (4.00-5.60) 03/05/18 06:00 Hgb 13.0 GM/dL (11.7-16.9) 03/05/18 06:00 Hct 40.7 % (35.4-49) 03/05/18 06:00 MCV 85.1 fl (80-96) 03/05/18 06:00 MCH 27.1 pg (25.7-33.7) 03/05/18 06:00 MCHC 31.9 g/dl (32.0-35.9) L 03/05/18 06:00 RDW 15.8 % (11.9-15.9) D 03/05/18 06:00 Plt Count 238 K/MM3 (134-434) D 03/05/18 06:00 MPV 9.6 fl (7.5-11.1) D 03/05/18 06:00 Sodium 136 mmol/L (136-145) 03/05/18 06:00 Potassium 4.4 mmol/L (3.5-5.1) 03/05/18 06:00 Chloride 102 mmol/L (98-107) 03/05/18 06:00 Carbon Dioxide 25 mmol/L (21-32) 03/05/18 06:00 Anion Gap 9 (8-16) 03/05/18 06:00 BUN 7 mg/dL (7-18) D 03/05/18 06:00 Creatinine 1.0 mg/dL (0.7-1.3) 03/05/18 06:00 Creat Clearance w eGFR > 60 (>60) 03/05/18 06:00 POC Glucometer 176 UNITS (80-120) 03/08/18 05:15 Random Glucose 267 mg/dL (74-106) H D 03/05/18 06:00 Calcium 8.4 mg/dL (8.5-10.1) L 03/05/18 06:00 Total Bilirubin 0.2 mg/dL (0.2-1.0) D 03/05/18 06:00 AST 21 U/L (15-37) D 03/05/18 06:00 ALT 36 U/L (12-78) 03/05/18 06:00 Alkaline Phosphatase 124 U/L (45-117) H 03/05/18 06:00 Total Protein 7.8 g/dl (6.4-8.2) 03/05/18 06:00 Albumin 3.8 g/dl (3.4-5.0) D 03/05/18 06:00 Urine Color Straw 03/04/18 16:00 Urine Appearance Clear 03/04/18 16:00 Urine pH 5.0 (5.0-8.0) 03/04/18 16:00 Ur Specific [place] 1.011 (1.001-1.035) 03/04/18 16:00 Urine Protein Negative (NEGATIVE) 03/04/18 16:00 Urine Glucose (UA) 2+ (NEGATIVE) H 03/04/18 16:00 Urine Ketones Negative (NEGATIVE) 03/04/18 16:00 Urine Blood Negative (NEGATIVE) 03/04/18 16:00 Urine Nitrite Negative (NEGATIVE) 03/04/18 16:00 Urine Bilirubin Negative (<2.0 mg/dL) 03/04/18 16:00 Urine Urobilinogen Negative mg/dL (0.2-1.0) 03/04/18 16:00 Ur Leukocyte Esterase Negative (NEGATIVE) 03/04/18 16:00 RPR Titer Nonreactive (NONREACTIVE) 03/05/18 06:00 lab noted - Treatment Hospital Course: Detox Protocol Followed, Detoxed Safely, Responded well, Discharged Condition Good, Rehab Referral Accepted Patient has Accepted a Rehab Referral to: [facility] - Medication Discharge Medications: Ambulatory Orders metFORMIN HCL [Glucophage -] 500 mg PO BID #60 tab 03/08/18 - Diagnosis (1) Dry skin Status: Chronic (2) Alcohol dependence with uncomplicated withdrawal Status: Acute (3) Nicotine dependence Status: Chronic Qualifiers: Nicotine product type: cigarettes Substance use status: in withdrawal Qualified Code(s): F17.213 - Nicotine dependence, cigarettes, with withdrawal (4) Diabetes mellitus type II, controlled, with no complications Status: Chronic Qualifiers: Diabetes mellitus terminal gauger insulin use: without terminal gauger use Qualified Code(s): E11.9 - Type 2 diabetes mellitus without complications - AMA Did Patient Leave Against Medical Advice: No
== END 2018-03-08 10:05 | disposition home or self-care (01) | DRG 773 ==
LOC: YASAS 12:17 → Y6N 15:17
PROVIDERS: ADMIT Internal Medicine; ATTEND Internal Medicine
PROC: HZ2ZZZZ Detoxification Services for Substance Abuse Treatment (ICD-10-PCS; principal; 2018-03-04)
DX: F11.23 Opioid dependence with withdrawal (principal); F14.20 Cocaine dependence, uncomplicated; F17.213 Nicotine dependence, cigarettes, with withdrawal; F32.9 Major depressive disorder, single episode, unspecified; F10.282 Alcohol dependence with alcohol-induced sleep disorder; E11.9 Type 2 diabetes mellitus without complications; Z79.84 Long term (current) use of oral hypoglycemic drugs; G47.00 Insomnia, unspecified; L85.3 Xerosis cutis; Z87.442 Personal history of urinary calculi
CPT/HCPCS: 36415; 80053; 81003; 82962; 85027; 86593; 93005; 93010

== ENCOUNTER 2018-04-03 11:16 | Inpatient (IN) | payer OTHER ==
[2018-04-03 12:08] VITALS: BMI 33.9
--- NOTE | 2018-04-03 13:26 | HP ---
Admission ROS [facility] - [facility] Chief Complaint: i am here for rehab from alcohol and cocaine Allergies/Adverse Reactions: Allergies Allergy/AdvReac Type Severity Reaction Status Date / Time No Known Allergies Allergy Verified 04/03/18 13:26 History of Present Illness: this 37 years old male with alcohol and ccoaine dependence,seeking rehab,last detox [facility] 03/04/18 to 03/08/18 type 2 dm on medication nicotine dependence appendectomy 1996 lap cholecystectomy 2013 ongest sobriety 7 months - Ebola screening Have you traveled outside of the country in the last 21 days: No (N) Have you had contact with anyone from an Ebola affected area: No Have you been sick,other than usual withdrawal symptoms: No Do you have a fever: No - Review of Systems Constitutional: No Symptoms Reported EENT: reports: No Symptoms Reported Respiratory: reports: No Symptoms reported Cardiac: reports: No Symptoms Reported GI: reports: No Symptoms Reported (s/p appendectomy s/p lap cholecystectomy) : reports: No Symptoms Reported Musculoskeletal: reports: No Symptoms Reported Integumentary: reports: No Symptoms Reported Neuro: reports: No Symptoms reported Endocrine: reports: No Symptoms Reported Hematology: reports: No Symptoms Reported Psychiatric: reports: No Sypmtoms Reported, Mood/Affect Appropiate, Orientated x3 Patient History - Patient Medical History Hx Anemia: No Hx Asthma: No Hx Chronic Obstructive Pulmonary Disease (COPD): No Hx Cancer: No Hx Cardiac Disorders: No Hx Congestive Heart Failure: No Hx Hypertension: No Hx Hypercholesterolemia: No Hx Pacemaker: No HX Cerebrovascular Accident: No Hx Seizures: No Hx Dementia: No Hx Diabetes: No Hx Gastrointestinal Disorders: Yes (s/p lap cholecystectomy) Hx Liver Disease: No Hx Genitourinary Disorders: No Hx Sexually Transmitted Disorders: No Hx Renal Disease (ESRD): No Hx Thyroid Disease: No Hx Human Immunodeficiency Virus (HIV): No (negative 2016 last) Hx Hepatitis C: No Hx Depression: Yes (no medication) Hx Suicide Attempt: No Hx Bipolar Disorder: No Hx Schizophrenia: No Other Medical History: no suicidal,no homicidal - Patient Surgical History Past Surgical History: Yes Hx Neurologic Surgery: No Hx Cataract Extraction: No Hx Cardiac Surgery: No Hx Lung Surgery: No Hx Breast Surgery: No Hx Breast Biopsy: No Hx Abdominal Surgery: No Hx Appendectomy: Yes (age 15) Hx Cholecystectomy: Yes (lap cholecystectomy in 2013) Hx Genitourinary Surgery: No Hx Section: No Hx Orthopedic Surgery: No Anesthesia Reaction: No - PPD History Previous Implant?: Yes Documented Results: Negative w/proof Date: 09/04/17 Results: 0 mm PPD to be Administered?: No - Smoking Cessation Smoking history: Current every day smoker Have you smoked in the past 12 months: Yes Aproximately how many cigarettes per day: 10 Cigars Per Day: 0 Hx Chewing Tobacco Use: No Initiated information on smoking cessation: Yes 'Breaking Loose' booklet given: 04/03/18 - Substance & Tx. History Hx Alcohol Use: Yes Hx Substance Use: No Substance Use Type: Alcohol Hx Substance Use Treatment: Yes ([facility] 03/04/18 to 03/08/18) - Substances Abused Alcohol Route: Oral Frequency: Daily Amount used: 1pint of vodka/8 of 25 ozs of beer Age of first use: 19 Date of Last Use: 03/29/18 Family Disease History - Family Disease History Family Disease History: Diabetes: Father (type 2), Sister (type 2), CA: Mother ( ,cancer of lung,alcohol), Other: Mother Admission Physical Exam [facility] - Vital Signs Vital Signs: Vital Signs - 24 hr 04/03/18 12:04 Temperature 97.8 F Pulse Rate 80 Respiratory 18 Rate Blood Pressure 129/82 - Physical General Appearance: Yes: Within Normal Limits HEENTM: Yes: Normal ENT Inspection, Normocephalic, SHELIA Respiratory: Yes: Lungs Clear, Normal Breath Sounds, No Respiratory Distress Neck: Yes: Within Normal Limits, Supple, Trachea in good position Breast: Yes: Within Normal Limits Cardiology: Yes: Within Normal Limits, Regular Rhythm, Regular Rate, S1, S2 Abdominal: Yes: Within Normal Limits, Normal Bowel Sounds, Non Tender, Flat, Soft Genitourinary: Yes: Within Normal Limits Back: Yes: Within Normal Limits Musculoskeletal: Yes: Back pain, Muscle Pain Extremities: Yes: Within Normal Limits, Normal Range of Motion, Tremors Neurological: Yes: forklift material handler II-XII NML intact, Fully Oriented, Alert, Motor Strength 5/5 Integumentary: Yes: Within Normal Limits - Diagnostic (1) Alcohol dependence Current Visit: Yes Status: Acute (2) DM type 2 (diabetes mellitus, type 2) Current Visit: Yes Status: Acute (3) Nicotine dependence Current Visit: No Status: Chronic Qualifiers: Nicotine product type: cigarettes Substance use status: in withdrawal Qualified Code(s): F17.213 - Nicotine dependence, cigarettes, with withdrawal (4) Insomnia Current Visit: No Status: Acute (5) Depression Current Visit: Yes Status: Acute Cleared for Admission [facility] - Detox or Rehab Claeared for Rehab Admission: Yes [facility] Breath Alcohol Content Breath Alcohol Content: 0 Urine Drug Screen - Results Drug Screen Negative: No Urine Drug Screen Results: JUAN LUIS-Cocaine, BZO-Benzodiazepines, TCA-Tricyclic Antidepress Inpatient Rehab Admission - Initial Determination Are CD services needed?: Yes Free of communicable disease: Yes Not in need of hospitalization: Yes - Rehab Admission Criteria Previous failed treatment: Yes Poor recovery environment: Yes Comorbidities: Yes Lacks judgement: No Patient is meeting Inpatient Rehab admission criteria:: Yes
[2018-04-03] MEDS ORDERED: LOPERAMIDE HCL 2 MG CAPSULE PO PRN (13:39)
[2018-04-03] MEDS ORDERED: MAGNESIUM HYDROX 2400MG/30ML ORAL SUSPENSION 30 ML CUP PO PRN (13:39)
[2018-04-03] MEDS ORDERED: ACETAMINOPHEN 325 MG TABLET (FP) PO PRN (13:39)
[2018-04-03] MEDS ORDERED: MAG HYDROX/AL HYDROX/SIMETH 30 ML UNIT-DOSE CUP PO PRN (13:39)
[2018-04-03] MEDS ORDERED: IBUPROFEN 400 MG TABLET (FP) PO PRN (13:39)
[2018-04-03] MEDS ORDERED: hydrOXYzine PAMOATE 50 MG CAPSULE (FP) PO PRN (13:39)
[2018-04-03] MEDS ORDERED: P-EPHED 60MG/TRIPROLIDI 2.5MG TABLET PO PRN (13:39)
[2018-04-03] MEDS ORDERED: MAGNESIUM CITRATE 300 ML BOTTLE PO PRN (13:39)
[2018-04-03] MEDS ORDERED: MENTHOL/PHENOL 1 EACH UD MM PRN (13:39)
[2018-04-03] MEDS: metFORMIN HCL 500 MG TABLET (FP) PO SCH (18:31)
[2018-04-03] MEDS: NICOTINE POLACRILEX 2 MG GUM BUC PRN (18:31)
[2018-04-03] MEDS: THIAMINE HCL 100 MG TABLET (FP) PO SCH (21:45)
[2018-04-03] MEDS ORDERED: MELATONIN 5 MG TABLETS PO PRN (22:00)
[2018-04-04] MEDS: NICOTINE POLACRILEX 2 MG GUM BUC PRN ×2 (06:40→21:30)
[2018-04-04] MEDS: metFORMIN HCL 500 MG TABLET (FP) PO SCH ×2 (06:40→17:03)
[2018-04-04] MEDS: PRENATAL VITAMINS W/ FOLIC ACID TABLET (FP) PO SCH (10:03)
[2018-04-04 10:42] LABS: HEMATOCRIT 41.3 % (35.4-49); HEMOGLOBIN 13.5 GM/dL (11.7-16.9); MCH 27.4 pg (25.7-33.7); MCHC 32.6 g/dl (32.0-35.9); MEAN PLT VOLUME 9.7 fl (7.5-11.1); PLATELET COUNT 345 K/MM3 (134-434); RBC 4.92 M/mm3 (4.00-5.60); RDW 15.5 % (11.9-15.9); WHITE BLOOD COUNT 7.6 K/mm3 (4.0-10.0)
[2018-04-04 10:47] LABS: CHLORIDE 99 mmol/L (98-107); POTASSIUM 4.3 mmol/L (3.5-5.1); SODIUM 135 mmol/L (136-145)
[2018-04-04 10:54] LABS: ALBUMIN 3.3 g/dl (3.4-5.0); ALK PHOS 119 U/L (45-117); ANION GAP 4 (8-16); BILIRUBIN,TOTAL 0.4 mg/dL (0.2-1.0); BLOOD UREA NITROGEN 13 mg/dL (7-18); CALCIUM 8.3 mg/dL (8.5-10.1); CO2 32 mmol/L (21-32); GLUCOSE,RANDOM 280 mg/dL (74-106); SGOT/AST 34 U/L (15-37); SGPT/ALT 74 U/L (12-78); TOT PROT 7.8 g/dl (6.4-8.2)
[2018-04-04] MEDS ORDERED: MELATONIN 5 MG TABLETS PO PRN ×2 (12:11→22:00)
[2018-04-04] MEDS: THIAMINE HCL 100 MG TABLET (FP) PO SCH (21:30)
[2018-04-04] MEDS ORDERED: SUVOREXANT 10 MG TABLET PO PRN (22:00)
[2018-04-04] MEDS: guaiFENesin/D-METHORPHAN HB 10 ML UNIT-DOSE CUPS PO PRN (22:21)
[2018-04-05] MEDS: metFORMIN HCL 500 MG TABLET (FP) PO SCH ×2 (06:27→16:10)
[2018-04-05] MEDS: NICOTINE POLACRILEX 2 MG GUM BUC PRN ×4 (06:28→23:03)
[2018-04-05] MEDS: PRENATAL VITAMINS W/ FOLIC ACID TABLET (FP) PO SCH (10:01)
[2018-04-05 11:02] LABS: URINE APPEARANCE CLEAR; URINE BILIRUBIN NEGATIVE (<2.0 mg/dL); URINE BLOOD NEGATIVE (NEGATIVE); URINE COLOR STRAW; URINE GLUCOSE (UA) 3+ (NEGATIVE); URINE KETONE NEGATIVE (NEGATIVE); URINE LEUK ESTERASE NEGATIVE (NEGATIVE); URINE NITRITE NEGATIVE (NEGATIVE); URINE PROTEIN NEGATIVE (NEGATIVE); URINE UROBILINOGEN NEGATIVE mg/dL (0.2-1.0)
[2018-04-05] MEDS: THIAMINE HCL 100 MG TABLET (FP) PO SCH (23:01)
--- NOTE | 2018-04-06 06:29 | HP ---
Psychiatrist Admission - Data Date of interview: 04/06/18 Admission source: [facility] detox Identifying data: This is the first [facility] admission for this 37 years old single Black male, unemployed, homeless Medical History: Significant for type 2 diabetes mellitus, history of lap cholecystectomy in 2013 and appendectomy in 1996. Smokes 10 cigarettes daily Psychiatric History: Denies historyof previous psychiatric treatment Physical/Sexual Abuse/Trauma History: Denies history of emotional, physical or sexual abuse as well as DV relationship. No service Additional Comment: Reports history of multiple previous misdemeanor arrests. Denied being on probation at present Vital Signs: Vital Signs - 24 hr 04/05/18 04/05/18 04/06/18 07:20 10:00 00:30 Temperature 97.7 F Pulse Rate 87 86 Respiratory 18 18 16 Rate Blood Pressure 130/73 129/74 04/06/18 03:30 Temperature Pulse Rate Respiratory 18 Rate Blood Pressure Allergies/Adverse Reactions: Allergies Allergy/AdvReac Type Severity Reaction Status Date / Time No Known Allergies Allergy Verified 04/03/18 13:26 Concur with the findings of this exam: Yes - Substance Abuse/Tx History Hx Alcohol Use: Yes Hx Substance Use: No Substance Use Type: Alcohol (Started drinking alcohol at age 19, consumes one pint of vodka & 8x 25oz of beer daily. Last drank on 03/29/18) Hx Substance Use Treatment: Yes (3 previous inpatient detox admissions @ [facility]) Mental Status Exam - Mental Status Exam Alert and Oriented to: Time, Place, Person Cognitive Function: Fair Patient Appearance: Disheveled Mood: Hopeful, Euthymic Patient Behavior: Cooperative Speech Pattern: Clear Voice Loudness: Normal Thought Process: Intact, Goal Oriented Hallucinations: Denies Suicidal Ideation: Denies Homicidal Ideation: Denies Insight/Judgement: Fair Sleep: Poorly Appetite: Good Muscle strength/Tone: Normal Gait/Station: Normal Psychiatric Findings - Problem List ([place] 1, 2,3) (1) Alcohol dependence Current Visit: Yes Status: Acute (2) Nicotine dependence Current Visit: No Status: Chronic Qualifiers: Nicotine product type: cigarettes Substance use status: in withdrawal Qualified Code(s): F17.213 - Nicotine dependence, cigarettes, with withdrawal (3) Alcohol-induced sleep disorder Current Visit: Yes Status: Acute (4) DM type 2 (diabetes mellitus, type 2) Current Visit: Yes Status: Chronic (5) Dry skin Current Visit: No Status: Chronic - Initial Treatment Plan Initial Treatment Plan: 1) Start Belsomra 10 mg po HS prn for insomnia. 2) Monitor progress
[2018-04-06] MEDS: metFORMIN HCL 500 MG TABLET (FP) PO SCH ×2 (07:06→16:57)
[2018-04-06] MEDS: PRENATAL VITAMINS W/ FOLIC ACID TABLET (FP) PO SCH (09:53)
[2018-04-06] MEDS: NICOTINE POLACRILEX 2 MG GUM BUC PRN ×2 (09:54→16:59)
[2018-04-06] MEDS: THIAMINE HCL 100 MG TABLET (FP) PO SCH (23:05)
[2018-04-06] MEDS: MELATONIN 5 MG TABLETS PO PRN (23:06)
--- NOTE | 2018-04-07 00:52 | EKG ---
Test Reason : Blood Pressure : / mmHG Vent. Rate : 087 BPM Atrial Rate : 087 BPM P-R Int : 160 ms QRS Dur : 100 ms QT Int : 362 ms P-R-T Axes : 061 070 024 degrees QTc Int : 435 ms NORMAL SINUS RHYTHM POSSIBLE LEFT ATRIAL ENLARGEMENT LEFT VENTRICULAR HYPERTROPHY ABNORMAL ECG WHEN COMPARED WITH ECG OF 04-MAR-2018 16:22, NO SIGNIFICANT CHANGE WAS FOUND Confirmed by HILARIO CUENCA, HAMILTON ([id number]) on 04/07/2018 12:52:14 AM Referred By: Morenita NATARAJAN Confirmed By:HAMILTON RICH MD
[2018-04-07] MEDS: guaiFENesin/D-METHORPHAN HB 10 ML UNIT-DOSE CUPS PO PRN ×2 (06:31→16:36)
[2018-04-07] MEDS: metFORMIN HCL 500 MG TABLET (FP) PO SCH ×2 (06:32→16:33)
[2018-04-07] MEDS: PRENATAL VITAMINS W/ FOLIC ACID TABLET (FP) PO SCH (10:25)
[2018-04-07] MEDS: NICOTINE POLACRILEX 2 MG GUM BUC PRN ×3 (10:26→22:00)
[2018-04-07] MEDS: THIAMINE HCL 100 MG TABLET (FP) PO SCH (21:58)
[2018-04-07] MEDS: SUVOREXANT 10 MG TABLET PO PRN (22:00)
[2018-04-08] MEDS: PRENATAL VITAMINS W/ FOLIC ACID TABLET (FP) PO SCH (10:19)
[2018-04-08] MEDS: NICOTINE POLACRILEX 2 MG GUM BUC PRN (10:20)
[2018-04-08] MEDS: metFORMIN HCL 500 MG TABLET (FP) PO SCH ×2 (10:20→16:58)
[2018-04-08] MEDS ORDERED: INSULIN (NOVOLOG) ASPART 100 UNITS/ML 10ML VIAL ONE (16:57)
[2018-04-08] MEDS: INSULIN SLIDING SCALE (NOVOLOG) 1 VIAL SQ SCH (16:58)
[2018-04-08] MEDS: THIAMINE HCL 100 MG TABLET (FP) PO SCH (21:55)
[2018-04-08] MEDS: SUVOREXANT 10 MG TABLET PO PRN (21:55)
[2018-04-08] MEDS: guaiFENesin/D-METHORPHAN HB 10 ML UNIT-DOSE CUPS PO PRN (21:56)
[2018-04-09] MEDS: INSULIN SLIDING SCALE (NOVOLOG) 1 VIAL SQ SCH ×2 (06:13→17:43)
[2018-04-09] MEDS: metFORMIN HCL 500 MG TABLET (FP) PO SCH ×2 (06:13→17:42)
[2018-04-09] MEDS: NICOTINE POLACRILEX 2 MG GUM BUC PRN (06:14)
[2018-04-09] MEDS: PRENATAL VITAMINS W/ FOLIC ACID TABLET (FP) PO SCH (10:07)
--- NOTE | 2018-04-09 14:08 | PN ---
S Progress Note Note: Patient reports Belsomra effective, no side-effects, will r/n
[2018-04-09] MEDS ORDERED: INSULIN (NOVOLOG) ASPART 100 UNITS/ML 10ML VIAL ONE (17:06)
[2018-04-09] MEDS: THIAMINE HCL 100 MG TABLET (FP) PO SCH (22:15)
[2018-04-09] MEDS: MELATONIN 5 MG TABLETS PO PRN (22:16)
[2018-04-10] MEDS: metFORMIN HCL 500 MG TABLET (FP) PO SCH ×2 (06:43→16:48)
[2018-04-10] MEDS: INSULIN SLIDING SCALE (NOVOLOG) 1 VIAL SQ SCH ×2 (07:00→16:49)
[2018-04-10] MEDS ORDERED: INSULIN (NOVOLOG) ASPART 100 UNITS/ML 10ML VIAL ONE (07:53)
[2018-04-10] MEDS: PRENATAL VITAMINS W/ FOLIC ACID TABLET (FP) PO SCH (10:11)
[2018-04-10] MEDS: NICOTINE POLACRILEX 2 MG GUM BUC PRN ×2 (14:49→21:39)
[2018-04-10] MEDS: THIAMINE HCL 100 MG TABLET (FP) PO SCH (21:37)
[2018-04-10] MEDS ORDERED: SUVOREXANT 10 MG TABLET PO PRN (21:39)
[2018-04-11] MEDS: metFORMIN HCL 500 MG TABLET (FP) PO SCH ×2 (06:21→16:44)
[2018-04-11] MEDS: INSULIN SLIDING SCALE (NOVOLOG) 1 VIAL SQ SCH ×2 (07:05→16:45)
[2018-04-11] MEDS ORDERED: INSULIN (NOVOLOG) ASPART 100 UNITS/ML 10ML VIAL ONE (07:05)
[2018-04-11] MEDS: NICOTINE POLACRILEX 2 MG GUM BUC PRN ×3 (09:57→19:47)
[2018-04-11] MEDS: PRENATAL VITAMINS W/ FOLIC ACID TABLET (FP) PO SCH (09:57)
[2018-04-11] MEDS: THIAMINE HCL 100 MG TABLET (FP) PO SCH (21:40)
[2018-04-12] MEDS: NICOTINE POLACRILEX 2 MG GUM BUC PRN ×3 (06:23→21:37)
[2018-04-12] MEDS: metFORMIN HCL 500 MG TABLET (FP) PO SCH ×2 (06:23→16:48)
[2018-04-12] MEDS: INSULIN SLIDING SCALE (NOVOLOG) 1 VIAL SQ SCH ×2 (07:34→16:49)
[2018-04-12] MEDS ORDERED: INSULIN (NOVOLOG) ASPART 100 UNITS/ML 10ML VIAL ONE (07:34)
[2018-04-12] MEDS: PRENATAL VITAMINS W/ FOLIC ACID TABLET (FP) PO SCH (10:17)
[2018-04-12] MEDS: MELATONIN 5 MG TABLETS PO PRN (21:37)
[2018-04-12] MEDS: THIAMINE HCL 100 MG TABLET (FP) PO SCH (21:37)
[2018-04-13] MEDS: metFORMIN HCL 500 MG TABLET (FP) PO SCH ×2 (06:14→16:48)
[2018-04-13] MEDS: INSULIN SLIDING SCALE (NOVOLOG) 1 VIAL SQ SCH ×2 (06:14→16:49)
[2018-04-13] MEDS: NICOTINE POLACRILEX 2 MG GUM BUC PRN ×2 (06:16→21:39)
[2018-04-13] MEDS: PRENATAL VITAMINS W/ FOLIC ACID TABLET (FP) PO SCH (10:12)
--- NOTE | 2018-04-13 17:44 | PN ---
Thierry Progress Note Note: Psychiatry Attending's note : Requested renewal of belsomra. Treatment plan revisited. Dose confirmed.No adverse effects. Belsomra 10 mg po hs prn. Re-ordered for 3 days.
[2018-04-13] MEDS: SUVOREXANT 10 MG TABLET PO PRN (21:39)
[2018-04-13] MEDS: THIAMINE HCL 100 MG TABLET (FP) PO SCH (21:39)
[2018-04-14] MEDS: metFORMIN HCL 500 MG TABLET (FP) PO SCH ×2 (06:43→16:45)
[2018-04-14] MEDS ORDERED: INSULIN (NOVOLOG) ASPART 100 UNITS/ML 10ML VIAL ONE ×2 (07:03→16:45)
[2018-04-14] MEDS: INSULIN SLIDING SCALE (NOVOLOG) 1 VIAL SQ SCH ×2 (07:04→16:46)
[2018-04-14] MEDS: PRENATAL VITAMINS W/ FOLIC ACID TABLET (FP) PO SCH (10:26)
[2018-04-14] MEDS: NICOTINE POLACRILEX 2 MG GUM BUC PRN (10:27)
[2018-04-14] MEDS: MELATONIN 5 MG TABLETS PO PRN (21:45)
[2018-04-14] MEDS: SUVOREXANT 10 MG TABLET PO PRN (21:45)
[2018-04-14] MEDS: THIAMINE HCL 100 MG TABLET (FP) PO SCH (21:45)
[2018-04-15] MEDS: metFORMIN HCL 500 MG TABLET (FP) PO SCH ×2 (06:33→16:53)
[2018-04-15] MEDS: NICOTINE POLACRILEX 2 MG GUM BUC PRN ×5 (06:35→21:41)
[2018-04-15] MEDS: INSULIN SLIDING SCALE (NOVOLOG) 1 VIAL SQ SCH ×2 (07:04→16:54)
[2018-04-15] MEDS ORDERED: INSULIN (NOVOLOG) ASPART 100 UNITS/ML 10ML VIAL ONE (07:04)
[2018-04-15] MEDS: PRENATAL VITAMINS W/ FOLIC ACID TABLET (FP) PO SCH (10:23)
[2018-04-15] MEDS: MELATONIN 5 MG TABLETS PO PRN (21:41)
[2018-04-15] MEDS: SUVOREXANT 10 MG TABLET PO PRN (21:41)
[2018-04-15] MEDS: THIAMINE HCL 100 MG TABLET (FP) PO SCH (21:41)
[2018-04-16] MEDS: metFORMIN HCL 500 MG TABLET (FP) PO SCH ×2 (06:28→16:54)
[2018-04-16] MEDS: NICOTINE POLACRILEX 2 MG GUM BUC PRN ×3 (06:31→21:43)
[2018-04-16] MEDS ORDERED: INSULIN (NOVOLOG) ASPART 100 UNITS/ML 10ML VIAL ONE (07:07)
[2018-04-16] MEDS: INSULIN SLIDING SCALE (NOVOLOG) 1 VIAL SQ SCH ×2 (07:07→16:55)
[2018-04-16] MEDS: PRENATAL VITAMINS W/ FOLIC ACID TABLET (FP) PO SCH (09:55)
--- NOTE | 2018-04-16 10:59 | PN ---
[facility] Progress Note Note: Renewal of orders. Belsomra 10 mg po hs prn. Chart reviewed. Drug is well tolerated. Renewed for 3 days.
[2018-04-16] MEDS: SUVOREXANT 10 MG TABLET PO PRN (21:42)
[2018-04-16] MEDS: THIAMINE HCL 100 MG TABLET (FP) PO SCH (21:42)
[2018-04-16] MEDS: MELATONIN 5 MG TABLETS PO PRN (21:43)
[2018-04-17] MEDS: metFORMIN HCL 500 MG TABLET (FP) PO SCH ×2 (06:07→17:42)
[2018-04-17] MEDS ORDERED: INSULIN (NOVOLOG) ASPART 100 UNITS/ML 10ML VIAL ONE ×3 (07:35→17:24)
[2018-04-17] MEDS: INSULIN SLIDING SCALE (NOVOLOG) 1 VIAL SQ SCH ×2 (07:36→17:42)
[2018-04-17] MEDS: NICOTINE POLACRILEX 2 MG GUM BUC PRN ×3 (09:55→22:06)
[2018-04-17] MEDS: PRENATAL VITAMINS W/ FOLIC ACID TABLET (FP) PO SCH (09:55)
[2018-04-17] MEDS: THIAMINE HCL 100 MG TABLET (FP) PO SCH (22:06)
[2018-04-18] MEDS: metFORMIN HCL 500 MG TABLET (FP) PO SCH ×2 (06:39→16:55)
[2018-04-18] MEDS: INSULIN SLIDING SCALE (NOVOLOG) 1 VIAL SQ SCH ×2 (06:41→16:56)
[2018-04-18] MEDS: PRENATAL VITAMINS W/ FOLIC ACID TABLET (FP) PO SCH (10:10)
[2018-04-18] MEDS: NICOTINE POLACRILEX 2 MG GUM BUC PRN ×2 (10:11→17:22)
--- NOTE | 2018-04-18 16:17 | PN ---
S Progress Note Note: Psychiatry Attending's note : Belsomra 10 mg po hs prn. No report of adverse effects. Effective at this dose. Renewed on this date.
--- NOTE | 2018-04-18 17:44 | PN ---
S Progress Note Note: Vital Signs Temperature 97.3 F L 04/18/18 07:02 Pulse Rate 84 04/18/18 07:02 Respiratory Rate 18 04/18/18 07:02 Blood Pressure 131/78 04/18/18 07:02 O2 Sat by Pulse Oximetry (%) lesion on back of head bacitracin top qd continue to monitor
[2018-04-18] MEDS: BACITRACIN 0.9 GM PACKET TP SCH (18:51)
[2018-04-18] MEDS ORDERED: SUVOREXANT 10 MG TABLET PO PRN (22:00)
[2018-04-18] MEDS: THIAMINE HCL 100 MG TABLET (FP) PO SCH (22:32)
[2018-04-19] MEDS: metFORMIN HCL 500 MG TABLET (FP) PO SCH ×2 (06:06→17:33)
[2018-04-19] MEDS: INSULIN SLIDING SCALE (NOVOLOG) 1 VIAL SQ SCH ×2 (06:07→17:33)
[2018-04-19] MEDS: NICOTINE POLACRILEX 2 MG GUM BUC PRN ×4 (06:09→21:21)
[2018-04-19] MEDS: BACITRACIN 0.9 GM PACKET TP SCH (10:07)
[2018-04-19] MEDS: PRENATAL VITAMINS W/ FOLIC ACID TABLET (FP) PO SCH (10:07)
--- NOTE | 2018-04-19 14:49 | PN ---
Psychiatric Progress Note Vital Signs: Vital Signs Period Temp Pulse Resp BP Sys/Nicholson Pulse Ox Last 24 Hr 98.3 F 91 18-18 132/73 Date of Session: 04/19/18 Chief Complaint:: Discharge Note HPI: Patient adressing Alcohol Depenence comorbid with Nicotine Dependence and Alcohol-induced Sleep Disorder Current Medications: Active Medications Generic Name Dose Route Start Last Admin Trade Name Freq PRN Reason Stop Dose Admin Acetaminophen 650 mg 04/03/18 13:39 Tylenol - PO Q4H PRN FEVER Al Hydroxide/Mg Hydroxide 30 ml 04/03/18 13:39 Mylanta Oral Suspension - PO Q6H PRN DYSPEPSIA Bacitracin 0.9 gm 04/18/18 17:45 04/19/18 10:07 Bacitracin - TP 0.[address] Administration Eucalyptus/Menthol/Phenol/Sorbitol 1 each 04/03/18 13:39 Cepastat Lozenge - MM Q4H PRN SORE THROAT Guaifenesin 10 ml 04/03/18 13:39 04/08/18 21:56 Robitussin Dm - PO 10 ml Q6H PRN Administration COUGH Hydroxyzine Pamoate 50 mg 04/03/18 13:39 04/03/18 21:46 Vistaril - PO 50 mg Q4H PRN Administration AGITATION Ibuprofen 400 mg 04/03/18 13:39 Motrin - PO Q6H PRN Pain level 4-6 Insulin Aspart 1 vial 04/08/18 16:30 04/19/18 06:07 Novolog Vial Sliding Scale - SQ [address] Administration Protocol Loperamide HCl 4 mg 04/03/18 13:39 Imodium - PO Q6H PRN DIARRHEA Magnesium Citrate 300 ml 04/03/18 13:39 Citroma - PO Q48H PRN CONSTIPATION Magnesium Hydroxide 30 ml 04/03/18 13:39 Milk Of Magnesia - PO DAILY PRN CONSTIPATION Metformin HCl 500 mg 04/03/18 16:30 04/19/18 06:06 Glucophage - PO 500 mg BID@0700,1630 RD Administration Nicotine Polacrilex 2 mg 04/03/18 13:39 04/19/18 10:08 Nicorette Gum - BUC 2 mg Q2H PRN Administration NICOTINE REPLACEMENT RX Multivit/Folic Acid/Iron 1 tab 04/04/18 10:00 04/19/18 10:07 Vitamins ([facility]) - PO [address] Administration Pseudoephedrine/Triprolidine 1 combo 04/03/18 13:39 Actifed - PO TID PRN NASAL CONGESTION Suvorexant 10 mg 04/18/18 22:00 Belsomra PO HS PRN INSOMNIA Thiamine HCl 100 mg 04/03/18 22:00 04/18/18 22:32 Vitamin B1 - PO Not Given HS RD Current Side Effect: No Lab tests ordered: Yes Lab tests reviewed: Yes Provider note:: Patient will complete this program on 04/20/18. He has met his treatment goals and will continue to address his issues in longterm residential treatment at [facility]. Told selling underwriter that from his participation in this program, he has gained insight into his addiction and has acquired knowledge on relapse prevention. He responded well to Belsomra for insomnia. He is stable for discharge on 04/20/18 Total face to face time:: 35 Mental Status Exam - Mental Status Exam Alert and Oriented to: Time, Place, Person Cognitive Function: Fair Patient Appearance: Well Groomed Mood: Hopeful, Euthymic Affect: Appropriate Patient Behavior: Cooperative Speech Pattern: Clear Voice Loudness: Normal Thought Process: Intact, Goal Oriented Thought Disorder: Not Present Hallucinations: Denies Suicidal Ideation: Denies Homicidal Ideation: Denies Insight/Judgement: Fair Sleep: Fair Appetite: Good Muscle strength/Tone: Normal Gait/Station: Normal Psychiatric Treatment Plan - Problem List (1) Alcohol dependence Current Visit: Yes (2) Nicotine dependence Current Visit: No Qualifiers: Nicotine product type: cigarettes Substance use status: in withdrawal Qualified Code(s): F17.213 - Nicotine dependence, cigarettes, with withdrawal (3) Alcohol-induced sleep disorder Current Visit: Yes (4) DM type 2 (diabetes mellitus, type 2) Current Visit: Yes (5) Dry skin Current Visit: No Initial treatment plan: Patient maria luisa be discharged tomorrow and referred to [facility] for longterm residential treatment
[2018-04-19] MEDS ORDERED: INSULIN (NOVOLOG) ASPART 100 UNITS/ML 10ML VIAL ONE (17:04)
[2018-04-19] MEDS: THIAMINE HCL 100 MG TABLET (FP) PO SCH (21:20)
[2018-04-20] MEDS: metFORMIN HCL 500 MG TABLET (FP) PO SCH (06:03)
[2018-04-20] MEDS: INSULIN SLIDING SCALE (NOVOLOG) 1 VIAL SQ SCH (06:04)
[2018-04-20] MEDS: NICOTINE POLACRILEX 2 MG GUM BUC PRN ×2 (06:17→09:38)
[2018-04-20 07:08] VITALS: BP 126/78; PULSE 86; TEMP 98.7
[2018-04-20] MEDS: PRENATAL VITAMINS W/ FOLIC ACID TABLET (FP) PO SCH (09:37)
[2018-04-20] MEDS: BACITRACIN 0.9 GM PACKET TP SCH (09:38)
== END 2018-04-20 09:45 | disposition home or self-care (01) | DRG 58 ==
LOC: YASAS 11:16 → Y3W 15:03
PROVIDERS: ADMIT Psychiatry & Neurology Psychiatry; ATTEND Psychiatry & Neurology Psychiatry
PROC: HZ42ZZZ Group Counseling for Substance Abuse Treatment, Cognitive-Behavioral (ICD-10-PCS; principal; 2018-04-03)
DX: F10.282 Alcohol dependence with alcohol-induced sleep disorder (principal); F17.213 Nicotine dependence, cigarettes, with withdrawal; F32.9 Major depressive disorder, single episode, unspecified; E11.9 Type 2 diabetes mellitus without complications; L98.8 Other specified disorders of the skin and subcutaneous tissue; Z79.4 Long term (current) use of insulin; Z79.84 Long term (current) use of oral hypoglycemic drugs
CPT/HCPCS: 36415; 80053; 81003; 82962; 85027; 86593; 93005; 93010

== ENCOUNTER 2018-05-25 10:31 | Inpatient (IN) | payer OTHER ==
[2018-05-25 11:54] VITALS: BMI 34.9
--- NOTE | 2018-05-25 13:02 | HP ---
CIWA Score - CIWA Score Nausea/Vomitin-Mild Nausea/No Vomiting Muscle Tremors: 2 Anxiety: 3 Agitation: 3 Paroxysmal Sweats: 1-Minimal Palms Moist Orientation: 2-Disoriented Date<2 days Tacttile Disturbances: 0-None Auditory Disturbances: 0-None Visual Disturbances: 0-None Headache: 0-None Present CIWA-Ar Total Score: 12 Admission ROS S - HPI Chief Complaint: ETOH WITHDRAWAL SYMPTOMS AND CRACK/COCAINE DEPENDENCE. Allergies/Adverse Reactions: Allergies Allergy/AdvReac Type Severity Reaction Status Date / Time No Known Allergies Allergy Verified 05/25/18 12:09 History of Present Illness: PATIENT PRESENT WITH ETOH WITHDRAWAL SYMPTOMS AND CRACK/COCAINE DEPENDENCE. PATIENT STARTED DRINKING AT AGE 19. DRINKS UP TO 80 OZ. OF BEER AND ONE PINT OF LIQUOR DAILY. DENIES HX OF SEIZURES. STARTED ALSO SMOKING CRACK/COCAINE AT AGE 21. SMOKES UP TO 50 DOLLARS A DAY. LAST DRINK AND CRACK USE WAS YESTERDAY. LONGEST PERIOD OF SOBRIETY OF 7 MONTHS. PMH INCLUDES DM. NONCOMPLIANT WITH MEDS AND DIET. DENIES SI/HI AND SUICIDE ATTEMPTS. Exam Limitations: No Limitations - Ebola screening Have you traveled outside of the country in the last 21 days: No Have you had contact with anyone from an Ebola affected area: No Have you been sick,other than usual withdrawal symptoms: No Do you have a fever: No - Review of Systems Constitutional: Chills, Changes in sleep EENT: reports: No Symptoms Reported Respiratory: reports: No Symptoms reported Cardiac: reports: No Symptoms Reported GI: reports: Diarrhea, Poor Fluid Intake, Abdominal cramping : reports: No Symptoms Reported Musculoskeletal: reports: No Symptoms Reported Integumentary: reports: Sweating Neuro: reports: Headache, Tremors Endocrine: reports: No Symptoms Reported Hematology: reports: No Symptoms Reported Psychiatric: reports: Anxious, Depressed, other (DATE UNKNOWN) Patient History - Patient Medical History Hx Anemia: No Hx Asthma: No Hx Chronic Obstructive Pulmonary Disease (COPD): No Hx Cancer: No Hx Cardiac Disorders: No Hx Congestive Heart Failure: No Hx Hypertension: No Hx Hypercholesterolemia: No Hx Pacemaker: No HX Cerebrovascular Accident: No Hx Seizures: No Hx Dementia: No Hx Diabetes: Yes (tYPE ii) Hx Gastrointestinal Disorders: No Hx Liver Disease: No Hx Genitourinary Disorders: No Hx Sexually Transmitted Disorders: No Hx Renal Disease (ESRD): No Hx Thyroid Disease: No Hx Human Immunodeficiency Virus (HIV): No (negative 2016 last) Hx Hepatitis C: No Hx Depression: Yes Hx Suicide Attempt: No Hx Bipolar Disorder: No Hx Schizophrenia: No - Patient Surgical History Past Surgical History: Yes Hx Neurologic Surgery: No Hx Cataract Extraction: No Hx Cardiac Surgery: No Hx Lung Surgery: No Hx Breast Surgery: No Hx Breast Biopsy: No Hx Abdominal Surgery: No Hx Appendectomy: Yes (age 15) Hx Cholecystectomy: Yes (lap cholecystectomy in 2013) Hx Genitourinary Surgery: No Hx Orthopedic Surgery: No Anesthesia Reaction: No - PPD History Previous Implant?: Yes Documented Results: Negative w/proof Implanted On Prior R Admission?: Yes Date: 09/04/17 Results: 0 MM PPD to be Administered?: No - Smoking Cessation Smoking history: Current every day smoker Have you smoked in the past 12 months: Yes Aproximately how many cigarettes per day: 10 Cigars Per Day: 0 Hx Chewing Tobacco Use: No Initiated information on smoking cessation: Yes 'Breaking Loose' booklet given: 05/25/18 - Substance & Tx. History Hx Alcohol Use: Yes Hx Substance Use: Yes Substance Use Type: Alcohol, Cocaine Hx Substance Use Treatment: Yes - Substances Abused Alcohol Route: Oral Frequency: Daily Amount used: 2 40 OZ BEERS Age of first use: 19 Date of Last Use: 05/24/18 Crack Route: Smoking Frequency: Daily Amount used: $50 Age of first use: 21 Date of Last Use: 05/24/18 Family Disease History - Family Disease History Family Disease History: Diabetes: Father (type 2), Sister (type 2), CA: Mother ( ,cancer of lung,alcohol), Other: Mother Admission Physical Exam S - Vital Signs Vital Signs: Vital Signs - 24 hr 05/25/18 11:52 Temperature 97.2 F L Pulse Rate 105 H Respiratory 20 Rate Blood Pressure 162/89 Cleared for Admission S - Detox or Rehab S Level of Care: Medically Managed Detox Regimen/Protocol: Librium S Breath Alcohol Content Breath Alcohol Content: 0 Urine Drug Screen - Results Drug Screen Negative: No Urine Drug Screen Results: JUAN LUIS-Cocaine
[2018-05-25] MEDS ORDERED: MENTHOL/PHENOL 1 EACH UD MM PRN (13:09)
[2018-05-25] MEDS ORDERED: hydrOXYzine PAMOATE 50 MG CAPSULE (FP) PO PRN (13:09)
[2018-05-25] MEDS ORDERED: MAGNESIUM HYDROX 2400MG/30ML ORAL SUSPENSION 30 ML CUP PO PRN (13:09)
[2018-05-25] MEDS ORDERED: LOPERAMIDE HCL 2 MG CAPSULE PO PRN (13:09)
[2018-05-25] MEDS ORDERED: MAG HYDROX/AL HYDROX/SIMETH 30 ML UNIT-DOSE CUP PO PRN (13:09)
[2018-05-25] MEDS ORDERED: MAGNESIUM CITRATE 300 ML BOTTLE PO PRN (13:09)
[2018-05-25] MEDS ORDERED: ACETAMINOPHEN 325 MG TABLET (FP) PO PRN (13:09)
[2018-05-25] MEDS ORDERED: P-EPHED 60MG/TRIPROLIDI 2.5MG TABLET PO PRN (13:09)
[2018-05-25] MEDS ORDERED: guaiFENesin/D-METHORPHAN HB 10 ML UNIT-DOSE CUPS PO PRN (13:09)
[2018-05-25] MEDS ORDERED: IBUPROFEN 400 MG TABLET (FP) PO PRN (13:09)
[2018-05-25] MEDS ORDERED: chlordiazePOXIDE HCL 25 MG CAPSULE PO PRN (13:13)
[2018-05-25] MEDS ORDERED: INSULIN (NOVOLOG) ASPART 100 UNITS/ML 10ML VIAL SQ ONE (14:15)
[2018-05-25] MEDS ORDERED: chlordiazePOXIDE HCL 25 MG CAPSULE PO ONE (14:15)
[2018-05-25 14:53] LABS: HEMATOCRIT 39.5 % (35.4-49); HEMOGLOBIN 12.8 GM/dL (11.7-16.9); MCH 26.3 pg (25.7-33.7); MCHC 32.5 g/dl (32.0-35.9); PLATELET COUNT 214 K/MM3 (134-434); RBC 4.88 M/mm3 (4.00-5.60); RDW 14.9 % (11.9-15.9); WHITE BLOOD COUNT 7.7 K/mm3 (4.0-10.0)
[2018-05-25 15:02] LABS: CHLORIDE 95 mmol/L (98-107); POTASSIUM 4.3 mmol/L (3.5-5.1); SODIUM 133 mmol/L (136-145)
[2018-05-25 15:09] LABS: ALBUMIN 3.7 g/dl (3.4-5.0); ALK PHOS 119 U/L (45-117); ANION GAP 9 (8-16); BLOOD UREA NITROGEN 10 mg/dL (7-18); CALCIUM 8.6 mg/dL (8.5-10.1); CO2 29 mmol/L (21-32); CREATININE 1.2 mg/dL (0.7-1.3); SGOT/AST 36 U/L (15-37); SGPT/ALT 49 U/L (12-78); TOT PROT 7.9 g/dl (6.4-8.2)
[2018-05-25 15:29] LABS: GLUCOSE,RANDOM 404 mg/dL (74-106)
[2018-05-25] MEDS ORDERED: INSULIN (NOVOLOG) ASPART 100 UNITS/ML 10ML VIAL ONE (17:20)
[2018-05-25] MEDS: metFORMIN HCL 500 MG TABLET (FP) PO SCH (17:31)
[2018-05-25] MEDS: INSULIN SLIDING SCALE (NOVOLOG) 1 VIAL SQ SCH (17:32)
[2018-05-25] MEDS: chlordiazePOXIDE HCL 25 MG CAPSULE PO SCH ×2 (17:32→22:07)
[2018-05-25] MEDS: NICOTINE POLACRILEX 4 MG GUM BUC PRN ×2 (18:10→23:42)
[2018-05-25 18:48] LABS: URINE APPEARANCE CLEAR; URINE BILIRUBIN NEGATIVE (<2.0 mg/dL); URINE COLOR YELLOW; URINE GLUCOSE (UA) 2+ (NEGATIVE); URINE KETONE TRACE (NEGATIVE); URINE LEUK ESTERASE NEGATIVE (NEGATIVE); URINE NITRITE NEGATIVE (NEGATIVE)
[2018-05-25 19:15] LABS: URINE PROTEIN 1+ (NEGATIVE)
[2018-05-25 19:18] LABS: URINE HYALINE CAST 3 /lpf; URINE MUCUS FEW
[2018-05-25] MEDS ORDERED: MELATONIN 5 MG TABLETS PO PRN (22:00)
[2018-05-25] MEDS: THIAMINE HCL 100 MG TABLET (FP) PO SCH (22:06)
[2018-05-26] MEDS: chlordiazePOXIDE HCL 25 MG CAPSULE PO SCH ×4 (06:00→22:25)
[2018-05-26] MEDS: metFORMIN HCL 500 MG TABLET (FP) PO SCH ×2 (06:11→16:44)
[2018-05-26] MEDS ORDERED: INSULIN (NOVOLOG) ASPART 100 UNITS/ML 10ML VIAL ONE ×2 (06:39→16:29)
[2018-05-26] MEDS: INSULIN SLIDING SCALE (NOVOLOG) 1 VIAL SQ SCH ×2 (06:44→16:44)
[2018-05-26] MEDS: NICOTINE POLACRILEX 4 MG GUM BUC PRN ×2 (10:40→22:25)
[2018-05-26] MEDS: PRENATAL VITAMINS W/ FOLIC ACID TABLET (FP) PO SCH (10:40)
--- NOTE | 2018-05-26 12:10 | EKG ---
Test Reason : Blood Pressure : / mmHG Vent. Rate : 088 BPM Atrial Rate : 088 BPM P-R Int : 158 ms QRS Dur : 088 ms QT Int : 372 ms P-R-T Axes : 069 075 021 degrees QTc Int : 450 ms NORMAL SINUS RHYTHM RIGHT ATRIAL ENLARGEMENT BORDERLINE ECG Confirmed by MD BENJI, SHIRA (2012) on 05/26/2018 12:09:30 PM Referred By: Confirmed By:SHIRA LEBLANC MD
--- NOTE | 2018-05-26 12:22 | PN ---
S CIWA - CIWA Score Nausea/Vomitin-No Nausea/No Vomiting Muscle Tremors: 4-Moderate,w/Arms Extend Anxiety: 4-Mod. Anxious/Guarded Agitation: 3 Paroxysmal Sweats: 1-Minimal Palms Moist Orientation: 0-Oriented Tacttile Disturbances: 0-None Auditory Disturbances: 0-None Visual Disturbances: 0-None Headache: 0-None Present CIWA-Ar Total Score: 12 BHS Progress Note (SOAP) Subjective: ANXIETY,SWEATS,FATIGUE. Objective: 05/26/18 12:22 Vital Signs 05/26/18 05/26/18 06:12 09:17 Temperature 97.9 F 98.1 F Pulse Rate 98 H 95 H Respiratory 18 20 Rate Blood Pressure 142/85 144/80 Laboratory Tests 05/25/18 05/25/18 05/25/18 12:16 13:00 13:00 WBC 7.7 RBC 4.88 Hgb 12.8 Hct 39.5 MCV 81.0 MCH 26.3 MCHC 32.5 RDW 14.9 Plt Count 214 D MPV 9.0 Sodium 133 L Potassium 4.3 Chloride 95 L Carbon Dioxide 29 Anion Gap 9 BUN 10 Creatinine 1.2 Creat Clearance w eGFR > 60 POC Glucometer 425 Random Glucose 404 H* D Calcium 8.6 Total Bilirubin 1.0 AST 36 ALT 49 D Alkaline Phosphatase 119 H Total Protein 7.9 Albumin 3.7 Urine Color Urine Appearance Urine pH Ur Specific [place] Urine Protein Urine Glucose (UA) Urine Ketones Urine Blood Urine Nitrite Urine Bilirubin Urine Urobilinogen Ur Leukocyte Esterase Urine WBC (Auto) Urine RBC (Auto) Hyaline Casts Urine Mucus 05/25/18 05/25/18 05/25/18 15:37 16:46 17:30 WBC RBC Hgb Hct MCV MCH MCHC RDW Plt Count MPV Sodium Potassium Chloride Carbon Dioxide Anion Gap BUN Creatinine Creat Clearance w eGFR POC Glucometer 346 209 Random Glucose Calcium Total Bilirubin AST ALT Alkaline Phosphatase Total Protein Albumin Urine Color Yellow Urine Appearance Clear Urine pH 5.0 Ur Specific [place] 1.018 Urine Protein 1+ H Urine Glucose (UA) 2+ H Urine Ketones Trace H Urine Blood Negative Urine Nitrite Negative Urine Bilirubin Negative Urine Urobilinogen 2.0 Ur Leukocyte Esterase Negative Urine WBC (Auto) 1 Urine RBC (Auto) 1 Hyaline Casts 3 Urine Mucus Few 05/26/18 06:09 WBC RBC Hgb Hct MCV MCH MCHC RDW Plt Count MPV Sodium Potassium Chloride Carbon Dioxide Anion Gap BUN Creatinine Creat Clearance w eGFR POC Glucometer 360 Random Glucose Calcium Total Bilirubin AST ALT Alkaline Phosphatase Total Protein Albumin Urine Color Urine Appearance Urine pH Ur Specific [place] Urine Protein Urine Glucose (UA) Urine Ketones Urine Blood Urine Nitrite Urine Bilirubin Urine Urobilinogen Ur Leukocyte Esterase Urine WBC (Auto) Urine RBC (Auto) Hyaline Casts Urine Mucus Assessment: 05/26/18 12:22 WITHDRAWAL SX Plan: CONTINUE DETOX
--- NOTE | 2018-05-26 13:23 | CONSULT ---
[facility] Psychiatric Consult - Data Date of interview: 05/26/18 Admission source: [facility] Identifying data: Readmission to [facility] for this 37 y/o AA male seeking detox treatment on for alcohol and cocaine (crack) dependence.Patient is single without children,homeless,unemployed and reportedly deprived of any source of income. Substance Abuse History: Confirmed by patient.Smoking history: Current every day smoker. Have you smoked in the past 12 months: Yes. Aproximately how many cigarettes per day: 10. Cigars Per Day: 0. Hx Chewing Tobacco Use: No. Initiated information on smoking cessation: Yes. 'Breaking Loose' booklet given : 05/25/18. - Substance & Tx. History. Hx Alcohol Use: Yes. Hx Substance Use : Yes. Substance Use Type: Alcohol, Cocaine. Hx Substance Use Treatment: Yes. - Substances Abused. Alcohol. Route: Oral. Frequency: Daily. Amount used: 2 40 OZ BEERS. Age of first use: 19. Date of Last Use: 05/24/18. Crack. Route: Smoking. Frequency: Daily. Amount used: $50. Age of first use : 21. Date of Last Use: 05/24/18 Medical History: Diabetes mellitus and a history of appendectomy (1996) + cholecystectomy (2013). Psychiatric History: Patient denies. Physical/Sexual Abuse/Trauma History: Patient denies. Additional Comment: Urine Drug Screen Results: JUAN LUIS-Cocaine.Noted. Mental Status Exam - Mental Status Exam Alert and Oriented to: Time, Place, Person Cognitive Function: Good Patient Appearance: Well Groomed (obese) Mood: Withdrawn, Hopeful Affect: Appropriate, Normal Range Patient Behavior: Fatigued, Cooperative Speech Pattern: Clear, Appropriate Voice Loudness: Normal Thought Process: Intact, Goal Oriented Thought Disorder: Not Present Hallucinations: Denies Suicidal Ideation: Denies Homicidal Ideation: Denies Insight/Judgement: Poor Sleep: Well Appetite: Good Muscle strength/Tone: Normal Gait/Station: Normal Psychiatric Findings - Problem List ([place] 1, 2,3) (1) Alcohol dependence with uncomplicated withdrawal Current Visit: Yes Status: Acute (2) Cocaine dependence, uncomplicated Current Visit: Yes Status: Acute (3) Nicotine dependence Current Visit: Yes Status: Acute Qualifiers: Nicotine product type: cigarettes Substance use status: in withdrawal Qualified Code(s): F17.213 - Nicotine dependence, cigarettes, with withdrawal - Initial Treatment Plan Initial Treatment Plan: Psychoeducation.Sleep hygiene.Detoxification.Observation.
[2018-05-26] MEDS: THIAMINE HCL 100 MG TABLET (FP) PO SCH (22:25)
[2018-05-27] MEDS: chlordiazePOXIDE HCL 25 MG CAPSULE PO SCH ×2 (06:06→10:44)
[2018-05-27] MEDS: metFORMIN HCL 500 MG TABLET (FP) PO SCH ×2 (07:55→16:40)
[2018-05-27] MEDS: INSULIN SLIDING SCALE (NOVOLOG) 1 VIAL SQ SCH ×2 (07:55→16:40)
--- NOTE | 2018-05-27 10:40 | PN ---
[facility] CIWA - CIWA Score Nausea/Vomitin-No Nausea/No Vomiting Muscle Tremors: 4-Moderate,w/Arms Extend Anxiety: 4-Mod. Anxious/Guarded Agitation: 4-Moderately Restless Paroxysmal Sweats: 1-Minimal Palms Moist Orientation: 0-Oriented Tacttile Disturbances: 0-None Auditory Disturbances: 0-None Visual Disturbances: 0-None Headache: 0-None Present CIWA-Ar Total Score: 13 S Progress Note (SOAP) Subjective: ANXIETY,SWEATS,FATIGUE. OOB AMBULATING WITH STEADY GAIT. Objective: 05/27/18 10:38 Vital Signs 05/27/18 05/27/18 05/27/18 03:30 06:14 09:18 Temperature 97.4 F L 97.7 F Pulse Rate 85 98 H Respiratory 20 18 20 Rate Blood Pressure 124/83 135/86 Laboratory Tests 05/25/18 05/25/18 05/25/18 12:16 13:00 13:00 WBC 7.7 RBC 4.88 Hgb 12.8 Hct 39.5 MCV 81.0 MCH 26.3 MCHC 32.5 RDW 14.9 Plt Count 214 D MPV 9.0 Sodium 133 L Potassium 4.3 Chloride 95 L Carbon Dioxide 29 Anion Gap 9 BUN 10 Creatinine 1.2 Creat Clearance w eGFR > 60 POC Glucometer 425 Random Glucose 404 H* D Calcium 8.6 Total Bilirubin 1.0 AST 36 ALT 49 D Alkaline Phosphatase 119 H Total Protein 7.9 Albumin 3.7 Urine Color Urine Appearance Urine pH Ur Specific [place] Urine Protein Urine Glucose (UA) Urine Ketones Urine Blood Urine Nitrite Urine Bilirubin Urine Urobilinogen Ur Leukocyte Esterase Urine WBC (Auto) Urine RBC (Auto) Hyaline Casts Urine Mucus 05/25/18 05/25/18 05/25/18 15:37 16:46 17:30 WBC RBC Hgb Hct MCV MCH MCHC RDW Plt Count MPV Sodium Potassium Chloride Carbon Dioxide Anion Gap BUN Creatinine Creat Clearance w eGFR POC Glucometer 346 209 Random Glucose Calcium Total Bilirubin AST ALT Alkaline Phosphatase Total Protein Albumin Urine Color Yellow Urine Appearance Clear Urine pH 5.0 Ur Specific [place] 1.018 Urine Protein 1+ H Urine Glucose (UA) 2+ H Urine Ketones Trace H Urine Blood Negative Urine Nitrite Negative Urine Bilirubin Negative Urine Urobilinogen 2.0 Ur Leukocyte Esterase Negative Urine WBC (Auto) 1 Urine RBC (Auto) 1 Hyaline Casts 3 Urine Mucus Few 05/26/18 05/26/18 06:09 16:19 WBC RBC Hgb Hct MCV MCH MCHC RDW Plt Count MPV Sodium Potassium Chloride Carbon Dioxide Anion Gap BUN Creatinine Creat Clearance w eGFR POC Glucometer 360 458 Random Glucose Calcium Total Bilirubin AST ALT Alkaline Phosphatase Total Protein Albumin Urine Color Urine Appearance Urine pH Ur Specific [place] Urine Protein Urine Glucose (UA) Urine Ketones Urine Blood Urine Nitrite Urine Bilirubin Urine Urobilinogen Ur Leukocyte Esterase Urine WBC (Auto) Urine RBC (Auto) Hyaline Casts Urine Mucus Assessment: 05/27/18 10:39 WITHDRAWAL SX Plan: CONTINUE DETOX
[2018-05-27] MEDS: PRENATAL VITAMINS W/ FOLIC ACID TABLET (FP) PO SCH (10:43)
[2018-05-27] MEDS: NICOTINE POLACRILEX 4 MG GUM BUC PRN ×3 (11:04→22:06)
[2018-05-27] MEDS ORDERED: INSULIN (NOVOLOG) ASPART 100 UNITS/ML 10ML VIAL ONE (16:30)
[2018-05-27] MEDS: chlordiazePOXIDE 5 MG CAPSULE PO SCH ×2 (16:40→22:06)
[2018-05-27] MEDS: THIAMINE HCL 100 MG TABLET (FP) PO SCH (22:06)
[2018-05-28] MEDS: chlordiazePOXIDE 5 MG CAPSULE PO SCH ×2 (05:39→10:59)
[2018-05-28] MEDS ORDERED: INSULIN (NOVOLOG) ASPART 100 UNITS/ML 10ML VIAL ONE ×2 (06:07→16:32)
[2018-05-28] MEDS: metFORMIN HCL 500 MG TABLET (FP) PO SCH ×2 (06:16→16:44)
[2018-05-28] MEDS: INSULIN SLIDING SCALE (NOVOLOG) 1 VIAL SQ SCH ×2 (06:17→16:46)
[2018-05-28] MEDS: PRENATAL VITAMINS W/ FOLIC ACID TABLET (FP) PO SCH (10:59)
[2018-05-28] MEDS: NICOTINE POLACRILEX 4 MG GUM BUC PRN ×3 (11:00→22:07)
--- NOTE | 2018-05-28 11:13 | PN ---
B[facility] Progress Note (SOAP) Subjective: ALERT O X 3. OOB AMBULATING WITH STEADY GAIT. REPORTS DETOX PROCEEDING WELL. Objective: 05/28/18 11:12 Vital Signs 05/28/18 05/28/18 05/28/18 03:30 06:22 09:39 Temperature 97.8 F 98.8 F Pulse Rate 78 103 H Respiratory 18 18 20 Rate Blood Pressure 126/88 150/89 Laboratory Results - last 24 hr 05/25/18 05/27/18 13:00 16:21 POC Glucometer 420 RPR Titer Nonreactive Assessment: 05/28/18 11:12 WITHDRAWAL SX Plan: CONTINUE DETOX
[2018-05-28] MEDS: chlordiazePOXIDE HCL 10 MG CAPSULE PO SCH ×2 (16:44→22:06)
[2018-05-28] MEDS: THIAMINE HCL 100 MG TABLET (FP) PO SCH (22:06)
[2018-05-29] MEDS: chlordiazePOXIDE HCL 10 MG CAPSULE PO SCH ×2 (06:03→10:34)
[2018-05-29] MEDS: metFORMIN HCL 500 MG TABLET (FP) PO SCH (06:03)
[2018-05-29] MEDS: NICOTINE POLACRILEX 4 MG GUM BUC PRN ×2 (06:05→10:34)
[2018-05-29] MEDS: INSULIN SLIDING SCALE (NOVOLOG) 1 VIAL SQ SCH (06:55)
[2018-05-29 09:55] VITALS: BP 129/79; PULSE 60; TEMP 97.6
[2018-05-29] MEDS: PRENATAL VITAMINS W/ FOLIC ACID TABLET (FP) PO SCH (10:34)
--- NOTE | 2018-05-29 13:26 | PN ---
BHS Progress Note (SOAP) Subjective: DETOX COMPLETED. ALERT O X 3. NAD. PT IS REFERRED TO [facility]. Objective: 05/29/18 13:23 Vital Signs 05/29/18 05/29/18 06:31 09:54 Temperature 97.1 F L 97.6 F Pulse Rate 80 60 Respiratory 18 20 Rate Blood Pressure 126/82 129/79 Laboratory Tests 05/25/18 05/25/18 05/25/18 12:16 13:00 13:00 WBC 7.7 RBC 4.88 Hgb 12.8 Hct 39.5 MCV 81.0 MCH 26.3 MCHC 32.5 RDW 14.9 Plt Count 214 D MPV 9.0 Sodium 133 L Potassium 4.3 Chloride 95 L Carbon Dioxide 29 Anion Gap 9 BUN 10 Creatinine 1.2 Creat Clearance w eGFR > 60 POC Glucometer 425 Random Glucose 404 H* D Calcium 8.6 Total Bilirubin 1.0 AST 36 ALT 49 D Alkaline Phosphatase 119 H Total Protein 7.9 Albumin 3.7 Urine Color Urine Appearance Urine pH Ur Specific [place] Urine Protein Urine Glucose (UA) Urine Ketones Urine Blood Urine Nitrite Urine Bilirubin Urine Urobilinogen Ur Leukocyte Esterase Urine WBC (Auto) Urine RBC (Auto) Hyaline Casts Urine Mucus RPR Titer 05/25/18 05/25/18 05/25/18 13:00 15:37 16:46 WBC RBC Hgb Hct MCV MCH MCHC RDW Plt Count MPV Sodium Potassium Chloride Carbon Dioxide Anion Gap BUN Creatinine Creat Clearance w eGFR POC Glucometer 346 209 Random Glucose Calcium Total Bilirubin AST ALT Alkaline Phosphatase Total Protein Albumin Urine Color Urine Appearance Urine pH Ur Specific [place] Urine Protein Urine Glucose (UA) Urine Ketones Urine Blood Urine Nitrite Urine Bilirubin Urine Urobilinogen Ur Leukocyte Esterase Urine WBC (Auto) Urine RBC (Auto) Hyaline Casts Urine Mucus RPR Titer Nonreactive 05/25/18 05/26/18 05/26/18 17:30 06:09 16:19 WBC RBC Hgb Hct MCV MCH MCHC RDW Plt Count MPV Sodium Potassium Chloride Carbon Dioxide Anion Gap BUN Creatinine Creat Clearance w eGFR POC Glucometer 360 458 Random Glucose Calcium Total Bilirubin AST ALT Alkaline Phosphatase Total Protein Albumin Urine Color Yellow Urine Appearance Clear Urine pH 5.0 Ur Specific [place] 1.018 Urine Protein 1+ H Urine Glucose (UA) 2+ H Urine Ketones Trace H Urine Blood Negative Urine Nitrite Negative Urine Bilirubin Negative Urine Urobilinogen 2.0 Ur Leukocyte Esterase Negative Urine WBC (Auto) 1 Urine RBC (Auto) 1 Hyaline Casts 3 Urine Mucus Few RPR Titer 05/27/18 05/28/18 05/29/18 16:21 16:25 06:02 WBC RBC Hgb Hct MCV MCH MCHC RDW Plt Count MPV Sodium Potassium Chloride Carbon Dioxide Anion Gap BUN Creatinine Creat Clearance w eGFR POC Glucometer 420 486 248 Random Glucose Calcium Total Bilirubin AST ALT Alkaline Phosphatase Total Protein Albumin Urine Color Urine Appearance Urine pH Ur Specific [place] Urine Protein Urine Glucose (UA) Urine Ketones Urine Blood Urine Nitrite Urine Bilirubin Urine Urobilinogen Ur Leukocyte Esterase Urine WBC (Auto) Urine RBC (Auto) Hyaline Casts Urine Mucus RPR Titer Assessment: 05/29/18 13:24 MEDICALLY STABLE Plan: D/C PT TODAY.
--- NOTE | 2018-05-29 13:31 | DS ---
[facility] Detox Discharge Summary Admission Date: 05/25/18 Discharge Date: 05/29/18 - History Present History: Alcohol Dependence, Cocaine Dependence Additional Comments: DETOX COMPLETED. ALERT O X 3. NAD. Pertinent Past History: PLEASE SEE DX BELOW - Physical Exam Results Vital Signs: Vital Signs Temperature 97.6 F 05/29/18 09:54 Pulse Rate 60 05/29/18 09:54 Respiratory Rate 20 05/29/18 09:54 Blood Pressure 129/79 05/29/18 09:54 O2 Sat by Pulse Oximetry (%) Pertinent Admission Physical Exam Findings: WITHDRAWAL SX - Treatment Hospital Course: Detox Protocol Followed, Detoxed Safely, Responded well, Discharged Condition Good, Rehab Referral Accepted Patient has Accepted a Rehab Referral to: [facility] - Medication Discharge Medications: Ambulatory Orders metFORMIN HCL [Glucophage -] 500 mg PO BID@[id number],1630 #60 tablet 05/29/18 - Diagnosis (1) Alcohol dependence with uncomplicated withdrawal Status: Acute (2) Cocaine dependence, uncomplicated Status: Acute (3) Nicotine dependence Status: Acute Qualifiers: Nicotine product type: cigarettes Substance use status: in withdrawal Qualified Code(s): F17.213 - Nicotine dependence, cigarettes, with withdrawal (4) DM type 2 (diabetes mellitus, type 2) Status: Chronic Qualifiers: Diabetes mellitus senior living insulin use: without senior living use Diabetes mellitus complication status: without complication Qualified Code(s): E11.9 - Type 2 diabetes mellitus without complications (5) Dry skin Status: Chronic (6) Obesity (BMI 30.0-34.9) Status: Chronic - AMA Did Patient Leave Against Medical Advice: No
== END 2018-05-29 10:42 | disposition home or self-care (01) | DRG 774 ==
LOC: YASAS 10:31 → Y3N 14:06
PROVIDERS: ADMIT Surgery; ATTEND Surgery
PROC: HZ2ZZZZ Detoxification Services for Substance Abuse Treatment (ICD-10-PCS; principal; 2018-05-25)
DX: F10.230 Alcohol dependence with withdrawal, uncomplicated (principal); F14.20 Cocaine dependence, uncomplicated; F17.213 Nicotine dependence, cigarettes, with withdrawal; F32.9 Major depressive disorder, single episode, unspecified; E11.9 Type 2 diabetes mellitus without complications; Z79.84 Long term (current) use of oral hypoglycemic drugs; L85.3 Xerosis cutis; E66.9 Obesity, unspecified; Z68.34 Body mass index [BMI] 34.0-34.9, adult; Z59.0 Homelessness
CPT/HCPCS: 36415; 80053; 81003; 81015; 82962; 85027; 86593; 93005; 93010

== ENCOUNTER 2018-06-22 14:58 | Inpatient (IN) | payer OTHER ==
[2018-06-22 15:42] VITALS: BMI 34.4
--- NOTE | 2018-06-22 17:53 | HP ---
"CIWA Score - CIWA Score Nausea/Vomitin-No Nausea/No Vomiting Muscle Tremors: 4-Moderate,w/Arms Extend Anxiety: 3 Agitation: 3 Paroxysmal Sweats: 4-Forehead w/Sweat Beads Orientation: 0-Oriented Tacttile Disturbances: 0-None Auditory Disturbances: 0-None Visual Disturbances: 0-None Headache: 0-None Present CIWA-Ar Total Score: 14 Admission ROS BHS - HPI Chief Complaint: Here for detox from alcohol but I also smoke crack. Allergies/Adverse Reactions: Allergies Allergy/AdvReac Type Severity Reaction Status Date / Time No Known Allergies Allergy Verified 06/22/18 18:36 History of Present Illness: 37 yom w/ hx alcohol use since age 19. Cocaine/crack use since age 20. Currently uses both daily. Recently detoxed, but because of uncontrolled diabetes this admission is necessary. Denies hx seizures or blackouts. Smokes 1/2 PPD . Started smoking at age 21. States does not want the nicotine patch but will take the gum. Hx depression w/o medication hx. Denies thoughts of harming self or others. Hx. DM. Last took Metformin on 05/29/18 at [facility]. Current FBG is 276. Search Terms: Magdiel Larose, 1980 Search Date: 06/22/2018 05:30:57 PM The Drug Utilization Report below displays all of the controlled substance prescriptions, if any, that your patient has filled in the last twelve months. The information displayed on this report is compiled from pharmacy submissions to the Department, and accurately reflects the information as submitted by the pharmacies. This report was requested by: Faviola Troy | Reference #: [id number] There are no results for the search terms that you entered. Exam Limitations: No Limitations - Ebola screening Have you traveled outside of the country in the last 21 days: No Have you had contact with anyone from an Ebola affected area: No Have you been sick,other than usual withdrawal symptoms: No Do you have a fever: No - Review of Systems Constitutional: Diaphoresis, Changes in sleep (Difficulty falling asleep) EENT: reports: No Symptoms Reported Respiratory: reports: No Symptoms reported, Other (Snores a lot.) Cardiac: reports: No Symptoms Reported GI: reports: No Symptoms Reported : reports: No Symptoms Reported Musculoskeletal: reports: No Symptoms Reported Integumentary: reports: No Symptoms Reported Neuro: reports: Tremors, Weakness Endocrine: reports: Increased Thirst (In past few days.), Increased Urine ( During last few days. Denies burning, pain, blood w/ urination.) Hematology: reports: No Symptoms Reported Psychiatric: reports: Orientated x3, Agitated, Anxious, Depressed (Hx depression x 1 year, associated w/ grief. Denies thoughts of harm to self or others.) Patient History - Patient Medical History Hx Anemia: No Hx Asthma: No Hx Chronic Obstructive Pulmonary Disease (COPD): No Hx Cancer: No Hx Cardiac Disorders: No Hx Congestive Heart Failure: No Hx Hypertension: No Hx Hypercholesterolemia: No Hx Pacemaker: No HX Cerebrovascular Accident: No Hx Seizures: No Hx Dementia: No Hx Diabetes: Yes (Type II DM ) Hx Gastrointestinal Disorders: No Hx Liver Disease: No Hx Genitourinary Disorders: No Hx Sexually Transmitted Disorders: No Hx Renal Disease (ESRD): No Hx Thyroid Disease: No Hx Human Immunodeficiency Virus (HIV): No (negative 2015 last ) Hx Hepatitis C: No Hx Depression: Yes (Denies suicide or violent ideation) Hx Suicide Attempt: No Hx Bipolar Disorder: No Hx Schizophrenia: No - Patient Surgical History Past Surgical History: Yes Hx Neurologic Surgery: No Hx Cataract Extraction: No Hx Cardiac Surgery: No Hx Lung Surgery: No Hx Breast Surgery: No Hx Breast Biopsy: No Hx Abdominal Surgery: No Hx Appendectomy: Yes (age 15) Hx Cholecystectomy: Yes (lap cholecystectomy in 2013) Hx Genitourinary Surgery: No Hx Section: No Hx Orthopedic Surgery: No Anesthesia Reaction: No - PPD History Previous Implant?: Yes Documented Results: Negative w/proof Implanted On Prior [facility] Admission?: Yes Date: 09/04/17 Results: 0 MM PPD to be Administered?: No - Smoking Cessation Smoking history: Current every day smoker Have you smoked in the past 12 months: Yes Aproximately how many cigarettes per day: 10 Cigars Per Day: 0 Hx Chewing Tobacco Use: No Initiated information on smoking cessation: Yes 'Breaking Loose' booklet given: 06/22/18 - Substance & Tx. History Hx Alcohol Use: Yes Hx Substance Use: Yes Substance Use Type: Alcohol, Cocaine (Crack) Hx Substance Use Treatment: Yes (Detoxes and rehab) - Substances Abused Alcohol Route: Oral Frequency: Daily Amount used: 8 cans - 25 oz beers Age of first use: 19 Date of Last Use: 06/22/18 ( 2 am) Crack Route: Smoking Frequency: Daily Amount used: $100 Age of first use: 21 Date of Last Use: 06/22/18 (2 am ) Family Disease History - Family Disease History Family Disease History: Diabetes: Father (type 2), Sister (type 2), CA: Mother ( ,cancer of lung,alcohol), Other: Mother Admission Physical Exam [facility] - Vital Signs Vital Signs: Vital Signs - 24 hr 06/22/18 15:33 Temperature 97.8 F Pulse Rate 90 Respiratory 18 Rate Blood Pressure 136/76 - Physical General Appearance: Yes: Mild Distress, Tremorous, Irritable, Sweating, Anxious HEENTM: Yes: EOMI, Hearing grossly Normal, Normal Voice, SHELIA Respiratory: Yes: Chest Non-Tender, Lungs Clear, Normal Breath Sounds Neck: Yes: No masses,lesions,Nodules, Supple Breast: Yes: Breast Exam Deferred Cardiology: Yes: Regular Rhythm, Regular Rate, S1, S2 Abdominal: Yes: Normal Bowel Sounds, Non Tender, Soft, Protuberent (Increased abdominal adiposity.) Genitourinary: Yes: Within Normal Limits Back: Yes: Normal Inspection Musculoskeletal: Yes: full range of Motion, Gait Steady Extremities: Yes: Normal Capillary Refill, Normal Range of Motion, Non-Tender, Tremors (Mild tremors of hands when arms extended) Neurological: Yes: english horn player II-XII NML intact, Fully Oriented, Motor Strength 5/5, Normal Mood/Affect Integumentary: Yes: Normal Color, Dry, Warm Lymphatic: Yes: Within Normal Limits - Diagnostic (1) Alcohol dependence with uncomplicated withdrawal Current Visit: No Status: Acute (2) Cocaine dependence, uncomplicated Current Visit: No Status: Acute (3) Nicotine dependence Current Visit: No Status: Acute Qualifiers: Nicotine product type: cigarettes Substance use status: in withdrawal Qualified Code(s): F17.213 - Nicotine dependence, cigarettes, with withdrawal (4) DM type 2 (diabetes mellitus, type 2) Current Visit: Yes Status: Chronic Qualifiers: Diabetes mellitus superintendent terminal insulin use: without superintendent terminal use Diabetes mellitus complication status: without complication Qualified Code(s): E11.9 - Type 2 diabetes mellitus without complications Cleared for Admission [facility] - Detox or Rehab [facility] Level of Care: Medically Managed Detox Regimen/Protocol: Librium BHS Breath Alcohol Content Breath Alcohol Content: 0 Urine Drug Screen - Results Drug Screen Negative: No Urine Drug Screen Results: THC-Marijuana, JUAN LUIS-Cocaine"
[2018-06-22] MEDS ORDERED: guaiFENesin/D-METHORPHAN HB 10 ML UNIT-DOSE CUPS PO PRN (19:11)
[2018-06-22] MEDS ORDERED: MAGNESIUM CITRATE 300 ML BOTTLE PO PRN (19:11)
[2018-06-22] MEDS ORDERED: P-EPHED 60MG/TRIPROLIDI 2.5MG TABLET PO PRN (19:11)
[2018-06-22] MEDS ORDERED: chlordiazePOXIDE HCL 25 MG CAPSULE PO PRN (19:11)
[2018-06-22] MEDS ORDERED: IBUPROFEN 400 MG TABLET (FP) PO PRN (19:11)
[2018-06-22] MEDS ORDERED: hydrOXYzine PAMOATE 25 MG CAPSULE (FP) PO PRN (19:11)
[2018-06-22] MEDS ORDERED: MAG HYDROX/AL HYDROX/SIMETH 30 ML UNIT-DOSE CUP PO PRN (19:11)
[2018-06-22] MEDS ORDERED: ACETAMINOPHEN 325 MG TABLET (FP) PO PRN (19:11)
[2018-06-22] MEDS ORDERED: MENTHOL/PHENOL 1 EACH UD MM PRN (19:11)
[2018-06-22] MEDS ORDERED: LOPERAMIDE HCL 2 MG CAPSULE PO PRN (19:11)
[2018-06-22] MEDS ORDERED: MAGNESIUM HYDROX 2400MG/30ML ORAL SUSPENSION 30 ML CUP PO PRN (19:11)
[2018-06-22] MEDS ORDERED: chlordiazePOXIDE HCL 25 MG CAPSULE PO ONE (20:23)
[2018-06-22] MEDS: metFORMIN HCL 500 MG TABLET (FP) PO SCH (20:27)
[2018-06-22] MEDS: THIAMINE HCL 100 MG TABLET (FP) PO SCH (22:11)
[2018-06-22] MEDS ORDERED: INSULIN (NOVOLOG) ASPART 100 UNITS/ML 10ML VIAL ONE (22:15)
[2018-06-22] MEDS: INSULIN SLIDING SCALE (NOVOLOG) 1 VIAL SQ SCH (22:16)
[2018-06-22] MEDS: chlordiazePOXIDE HCL 25 MG CAPSULE PO SCH (22:49)
[2018-06-23 01:39] LABS: URINE APPEARANCE CLEAR; URINE BILIRUBIN NEGATIVE (<2.0 mg/dL); URINE COLOR LTYELLOW; URINE GLUCOSE (UA) 3+ (NEGATIVE); URINE KETONE NEGATIVE (NEGATIVE); URINE LEUK ESTERASE NEGATIVE (NEGATIVE); URINE NITRITE NEGATIVE (NEGATIVE); URINE PROTEIN NEGATIVE (NEGATIVE); URINE UROBILINOGEN NEGATIVE mg/dL (0.2-1.0)
[2018-06-23] MEDS: chlordiazePOXIDE HCL 25 MG CAPSULE PO SCH ×4 (06:27→22:18)
[2018-06-23] MEDS: metFORMIN HCL 500 MG TABLET (FP) PO SCH ×2 (06:29→16:58)
[2018-06-23] MEDS: NICOTINE POLACRILEX 2 MG GUM BC PRN ×3 (06:31→22:18)
[2018-06-23] MEDS ORDERED: INSULIN (NOVOLOG) ASPART 100 UNITS/ML 10ML VIAL ONE ×4 (07:20→22:16)
[2018-06-23] MEDS: INSULIN SLIDING SCALE (NOVOLOG) 1 VIAL SQ SCH ×4 (08:36→22:16)
[2018-06-23] MEDS: PRENATAL VITAMINS W/ FOLIC ACID TABLET (FP) PO SCH (10:15)
[2018-06-23 11:03] LABS: HEMATOCRIT 40.5 % (35.4-49); HEMOGLOBIN 12.9 GM/dL (11.7-16.9); MCH 27.3 pg (25.7-33.7); MCHC 31.9 g/dl (32.0-35.9); MEAN CELL VOLUME 85.5 fl (80-96); PLATELET COUNT 171 K/MM3 (134-434); RBC 4.73 M/mm3 (4.00-5.60); RDW 17.3 % (11.9-15.9); WHITE BLOOD COUNT 8.8 K/mm3 (4.0-10.0)
[2018-06-23 11:16] LABS: ALBUMIN 3.6 g/dl (3.4-5.0); ALK PHOS 125 U/L (45-117); ANION GAP 9 (8-16); BILIRUBIN,TOTAL 0.2 mg/dL (0.2-1.0); BLOOD UREA NITROGEN 17 mg/dL (7-18); CALCIUM 8.5 mg/dL (8.5-10.1); CHLORIDE 102 mmol/L (98-107); CO2 28 mmol/L (21-32); CREATININE 1.2 mg/dL (0.7-1.3); POTASSIUM 4.1 mmol/L (3.5-5.1); SGOT/AST 17 U/L (15-37); SGPT/ALT 30 U/L (12-78); SODIUM 139 mmol/L (136-145); TOT PROT 7.6 g/dl (6.4-8.2)
[2018-06-23 11:29] LABS: GLUCOSE,RANDOM 306 mg/dL (74-106)
--- NOTE | 2018-06-23 14:31 | PN ---
S CIWA - CIWA Score Nausea/Vomitin Muscle Tremors: 3 Anxiety: 3 Agitation: 3 Paroxysmal Sweats: 1-Minimal Palms Moist Orientation: 0-Oriented Tacttile Disturbances: 1-Very Mild Itch/Numbness Auditory Disturbances: 1-Very Mild Visual Disturbances: 0-None Headache: 2-Mild CIWA-Ar Total Score: 17 BHS Progress Note (SOAP) Subjective: alert,irritable,anxious,interrupted sleep,tremor,pain in the body Objective: 06/23/18 14:28 Vital Signs Temperature 96.3 F L 06/23/18 13:19 Pulse Rate 84 06/23/18 13:19 Respiratory Rate 18 06/23/18 13:19 Blood Pressure 121/77 06/23/18 13:19 O2 Sat by Pulse Oximetry (%) ekg nsr,normal ecg qt/qtc 370/424 Laboratory Last Values WBC 8.8 K/mm3 (4.0-10.0) 06/23/18 07:00 RBC 4.73 M/mm3 (4.00-5.60) 06/23/18 07:00 Hgb 12.9 GM/dL (11.7-16.9) 06/23/18 07:00 Hct 40.5 % (35.4-49) 06/23/18 07:00 MCV 85.5 fl (80-96) 06/23/18 07:00 MCH 27.3 pg (25.7-33.7) 06/23/18 07:00 MCHC 31.9 g/dl (32.0-35.9) L 06/23/18 07:00 RDW 17.3 % (11.9-15.9) H 06/23/18 07:00 Plt Count 171 K/MM3 (134-434) D 06/23/18 07:00 MPV 10.0 fl (7.5-11.1) D 06/23/18 07:00 Platelet Comment No clumping noted 06/23/18 07:00 Sodium 139 mmol/L (136-145) 06/23/18 07:00 Potassium 4.1 mmol/L (3.5-5.1) 06/23/18 07:00 Chloride 102 mmol/L (98-107) 06/23/18 07:00 Carbon Dioxide 28 mmol/L (21-32) 06/23/18 07:00 Anion Gap 9 (8-16) 06/23/18 07:00 BUN 17 mg/dL (7-18) 06/23/18 07:00 Creatinine 1.2 mg/dL (0.7-1.3) 06/23/18 07:00 Creat Clearance w eGFR > 60 (>60) 06/23/18 07:00 POC Glucometer 296 UNITS (80-120) 06/23/18 11:23 Random Glucose 306 mg/dL (74-106) H* D 06/23/18 07:00 Calcium 8.5 mg/dL (8.5-10.1) 06/23/18 07:00 Total Bilirubin 0.2 mg/dL (0.2-1.0) 06/23/18 07:00 AST 17 U/L (15-37) D 06/23/18 07:00 ALT 30 U/L (12-78) D 06/23/18 07:00 Alkaline Phosphatase 125 U/L (45-117) H 06/23/18 07:00 Total Protein 7.6 g/dl (6.4-8.2) 06/23/18 07:00 Albumin 3.6 g/dl (3.4-5.0) 06/23/18 07:00 Urine Color Ltyellow 06/22/18 23:19 Urine Appearance Clear 06/22/18 23:19 Urine pH 5.0 (5.0-8.0) 06/22/18 23:19 Ur Specific [place] 1.032 (1.001-1.035) 06/22/18 23:19 Urine Protein Negative (NEGATIVE) 06/22/18 23:19 Urine Glucose (UA) 3+ (NEGATIVE) H 06/22/18 23:19 Urine Ketones Negative (NEGATIVE) 06/22/18 23:19 Urine Blood Negative (NEGATIVE) 06/22/18 23:19 Urine Nitrite Negative (NEGATIVE) 06/22/18 23:19 Urine Bilirubin Negative (<2.0 mg/dL) 06/22/18 23:19 Urine Urobilinogen Negative mg/dL (0.2-1.0) 06/22/18 23:19 Ur Leukocyte Esterase Negative (NEGATIVE) 06/22/18 23:19 HIV 1&2 Antibody Screen Negative 06/23/18 07:00 HIV P24 Antigen Negative 08/07/18 07:00 Assessment: 06/23/18 14:30 withdrawal symptom Plan: continue detox,bgm monitoring
--- NOTE | 2018-06-23 16:29 | EKG ---
Test Reason : Blood Pressure : / mmHG Vent. Rate : 079 BPM Atrial Rate : 079 BPM P-R Int : 160 ms QRS Dur : 084 ms QT Int : 370 ms P-R-T Axes : 064 072 034 degrees QTc Int : 424 ms NORMAL SINUS RHYTHM NORMAL ECG WHEN COMPARED WITH ECG OF 25-MAY-2018 15:07, NO SIGNIFICANT CHANGE WAS FOUND Confirmed by Yony Oneal MD ([id number]) on 06/23/2018 4:29:05 PM Referred By: Confirmed By:Yony Oneal MD
[2018-06-23] MEDS: THIAMINE HCL 100 MG TABLET (FP) PO SCH (22:17)
[2018-06-24] MEDS: chlordiazePOXIDE HCL 25 MG CAPSULE PO SCH ×3 (05:17→16:38)
[2018-06-24] MEDS: metFORMIN HCL 500 MG TABLET (FP) PO SCH ×2 (07:00→16:38)
[2018-06-24] MEDS ORDERED: INSULIN (NOVOLOG) ASPART 100 UNITS/ML 10ML VIAL ONE ×4 (07:33→22:20)
[2018-06-24] MEDS: INSULIN SLIDING SCALE (NOVOLOG) 1 VIAL SQ SCH ×4 (07:35→22:20)
[2018-06-24] MEDS: PRENATAL VITAMINS W/ FOLIC ACID TABLET (FP) PO SCH (10:47)
--- NOTE | 2018-06-24 13:25 | PN ---
S CIWA - CIWA Score Nausea/Vomitin Muscle Tremors: 3 Anxiety: 2 Agitation: 2 Paroxysmal Sweats: 1-Minimal Palms Moist Orientation: 0-Oriented Tacttile Disturbances: 1-Very Mild Itch/Numbness Auditory Disturbances: 1-Very Mild Visual Disturbances: 0-None Headache: 2-Mild CIWA-Ar Total Score: 15 S Progress Note (SOAP) Subjective: alert,irritable,anxious,interrupted sleep,tremor Objective: 06/24/18 13:21 Vital Signs Temperature 97.5 F L 06/24/18 09:30 Pulse Rate 80 06/24/18 09:30 Respiratory Rate 18 06/24/18 09:30 Blood Pressure 119/70 06/24/18 09:30 O2 Sat by Pulse Oximetry (%) Assessment: 06/24/18 13:22 withdrawal symptom 06/24/18 13:22 Laboratory Last Values WBC 8.8 K/mm3 (4.0-10.0) 06/23/18 07:00 RBC 4.73 M/mm3 (4.00-5.60) 06/23/18 07:00 Hgb 12.9 GM/dL (11.7-16.9) 06/23/18 07:00 Hct 40.5 % (35.4-49) 06/23/18 07:00 MCV 85.5 fl (80-96) 06/23/18 07:00 MCH 27.3 pg (25.7-33.7) 06/23/18 07:00 MCHC 31.9 g/dl (32.0-35.9) L 06/23/18 07:00 RDW 17.3 % (11.9-15.9) H 06/23/18 07:00 Plt Count 171 K/MM3 (134-434) D 06/23/18 07:00 MPV 10.0 fl (7.5-11.1) D 06/23/18 07:00 Platelet Comment No clumping noted 06/23/18 07:00 Sodium 139 mmol/L (136-145) 06/23/18 07:00 Potassium 4.1 mmol/L (3.5-5.1) 06/23/18 07:00 Chloride 102 mmol/L (98-107) 06/23/18 07:00 Carbon Dioxide 28 mmol/L (21-32) 06/23/18 07:00 Anion Gap 9 (8-16) 06/23/18 07:00 BUN 17 mg/dL (7-18) 06/23/18 07:00 Creatinine 1.2 mg/dL (0.7-1.3) 06/23/18 07:00 Creat Clearance w eGFR > 60 (>60) 06/23/18 07:00 POC Glucometer 261 UNITS (80-120) 06/24/18 10:54 Random Glucose 306 mg/dL (74-106) H* D 06/23/18 07:00 Calcium 8.5 mg/dL (8.5-10.1) 06/23/18 07:00 Total Bilirubin 0.2 mg/dL (0.2-1.0) 06/23/18 07:00 AST 17 U/L (15-37) D 06/23/18 07:00 ALT 30 U/L (12-78) D 06/23/18 07:00 Alkaline Phosphatase 125 U/L (45-117) H 06/23/18 07:00 Total Protein 7.6 g/dl (6.4-8.2) 06/23/18 07:00 Albumin 3.6 g/dl (3.4-5.0) 06/23/18 07:00 Urine Color Ltyellow 06/22/18 23:19 Urine Appearance Clear 06/22/18 23:19 Urine pH 5.0 (5.0-8.0) 06/22/18 23:19 Ur Specific [place] 1.032 (1.001-1.035) 06/22/18 23:19 Urine Protein Negative (NEGATIVE) 06/22/18 23:19 Urine Glucose (UA) 3+ (NEGATIVE) H 06/22/18 23:19 Urine Ketones Negative (NEGATIVE) 06/22/18 23:19 Urine Blood Negative (NEGATIVE) 06/22/18 23:19 Urine Nitrite Negative (NEGATIVE) 06/22/18 23:19 Urine Bilirubin Negative (<2.0 mg/dL) 06/22/18 23:19 Urine Urobilinogen Negative mg/dL (0.2-1.0) 06/22/18 23:19 Ur Leukocyte Esterase Negative (NEGATIVE) 06/22/18 23:19 RPR Titer Nonreactive (NONREACTIVE) 06/23/18 07:00 HIV 1&2 Antibody Screen Negative 06/23/18 07:00 HIV P24 Antigen Negative 06/23/18 07:00 06/24/18 13:23 Plan: continue detox,bgm monitoring
--- NOTE | 2018-06-24 15:12 | CONSULT ---
[facility] Psychiatric Consult - Data Date of interview: 06/24/18 Admission source: [facility] Identifying data: Patient is a 37 year old single male, without kids, unemployed , and currently homeless. This is one of multiple admissions for patient. Pt. admitted for alcohol and crack dependence. Substance Abuse History: Smoking Cessation. Smoking history: Current every day smoker. Have you smoked in the past 12 months: Yes. Aproximately how many cigarettes per day: 10. Cigars Per Day: 0. Hx Chewing Tobacco Use: No. Initiated information on smoking cessation: Yes. 'Breaking Loose' booklet given : 06/22/18. - Substance & Tx. History. Hx Alcohol Use: Yes. Hx Substance Use : Yes. Substance Use Type: Alcohol, Cocaine (Crack). Hx Substance Use Treatment: Yes (Detoxes and rehab). - Substances Abused. Alcohol. Route: Oral. Frequency: Daily. Amount used: 8 cans - 25 oz beers. Age of first use: 19. Date of Last Use: 06/22/18 ( 2 am). Crack. Route: Smoking. Frequency : Daily. Amount used: $100. Age of first use: 21. Date of Last Use: 06/22/18 (2 am ) Medical History: Diabetes, Appendectomy Psychiatric History: Patient denies h/o psychiatric hospitalization, outpatient care, and suicide attempt. Pt. reports depression sadness due to mother's (2016) and sister's on (11/2017). Physical/Sexual Abuse/Trauma History: Denies. Mental Status Exam - Mental Status Exam Alert and Oriented to: Time, Place, Person Cognitive Function: Good Patient Appearance: Well Groomed Mood: Euthymic Affect: Mood Congruent Patient Behavior: Appropriate, Cooperative Speech Pattern: Clear, Appropriate Voice Loudness: Normal Thought Process: Intact, Goal Oriented Thought Disorder: Not Present Hallucinations: Denies Suicidal Ideation: Denies Homicidal Ideation: Denies Insight/Judgement: Poor Sleep: Fair Appetite: Fair Muscle strength/Tone: Normal Gait/Station: Normal Psychiatric Findings - Problem List ([place] 1, 2,3) (1) Substance induced mood disorder Current Visit: Yes Status: Suspected (2) Alcohol dependence with uncomplicated withdrawal Current Visit: Yes Status: Acute (3) Cocaine dependence, uncomplicated Current Visit: Yes Status: Acute (4) Nicotine dependence Current Visit: Yes Status: Acute Qualifiers: Nicotine product type: cigarettes Substance use status: in withdrawal Qualified Code(s): F17.213 - Nicotine dependence, cigarettes, with withdrawal - Initial Treatment Plan Initial Treatment Plan: Psychoeducation provided. Detoxification in progress. Observation.
[2018-06-24] MEDS: NICOTINE POLACRILEX 2 MG GUM BC PRN ×2 (18:46→22:21)
[2018-06-24] MEDS: THIAMINE HCL 100 MG TABLET (FP) PO SCH (22:21)
[2018-06-24] MEDS: chlordiazePOXIDE 5 MG CAPSULE PO SCH (22:21)
[2018-06-24] MEDS: MELATONIN 5 MG TABLETS PO PRN (22:22)
[2018-06-25] MEDS: chlordiazePOXIDE 5 MG CAPSULE PO SCH ×3 (06:27→17:44)
[2018-06-25] MEDS: metFORMIN HCL 500 MG TABLET (FP) PO SCH ×2 (06:29→17:42)
[2018-06-25] MEDS: INSULIN SLIDING SCALE (NOVOLOG) 1 VIAL SQ SCH ×4 (06:30→23:13)
[2018-06-25] MEDS: NICOTINE POLACRILEX 2 MG GUM BC PRN ×2 (06:32→10:24)
[2018-06-25] MEDS: PRENATAL VITAMINS W/ FOLIC ACID TABLET (FP) PO SCH (10:22)
[2018-06-25] MEDS ORDERED: INSULIN (NOVOLOG) ASPART 100 UNITS/ML 10ML VIAL ONE (12:00)
--- NOTE | 2018-06-25 12:09 | PN ---
S Progress Note (SOAP) Subjective: alert,irritable,interrupted sleep Objective: 06/25/18 12:08 Vital Signs Temperature 97.7 F 06/25/18 10:34 Pulse Rate 77 06/25/18 10:34 Respiratory Rate 18 06/25/18 10:34 Blood Pressure 122/74 06/25/18 10:34 O2 Sat by Pulse Oximetry (%) withdrawal symptom Assessment: 06/25/18 12:08 withdrawal symptom Plan: continue detox,discharge in am
[2018-06-25] MEDS: THIAMINE HCL 100 MG TABLET (FP) PO SCH (22:19)
[2018-06-25] MEDS: chlordiazePOXIDE HCL 10 MG CAPSULE PO SCH (22:20)
[2018-06-25] MEDS: MELATONIN 5 MG TABLETS PO PRN (22:20)
[2018-06-26 06:25] VITALS: BP 125/75; PULSE 73; TEMP 97.3
[2018-06-26] MEDS: metFORMIN HCL 500 MG TABLET (FP) PO SCH (06:30)
[2018-06-26] MEDS: chlordiazePOXIDE HCL 10 MG CAPSULE PO SCH ×2 (06:31→11:30)
[2018-06-26] MEDS ORDERED: INSULIN (NOVOLOG) ASPART 100 UNITS/ML 10ML VIAL ONE ×2 (07:48→12:20)
[2018-06-26] MEDS: INSULIN SLIDING SCALE (NOVOLOG) 1 VIAL SQ SCH ×2 (07:49→12:28)
--- NOTE | 2018-06-26 08:28 | PN ---
S Progress Note (SOAP) Subjective: alert,no complaint Objective: 06/26/18 08:27 Vital Signs Temperature 97.3 F L 06/26/18 06:24 Pulse Rate 73 06/26/18 06:24 Respiratory Rate 20 06/26/18 06:24 Blood Pressure 125/75 06/26/18 06:24 O2 Sat by Pulse Oximetry (%) Assessment: 06/26/18 08:27 detox completed,no withdrawal symptom Plan: discharge today,follow up with after care program as arrangement
[2018-06-26] MEDS: NICOTINE POLACRILEX 2 MG GUM BC PRN (08:31)
--- NOTE | 2018-06-26 08:31 | DS ---
[facility] Detox Discharge Summary Admission Date: 06/22/18 Discharge Date: 06/26/18 - History Present History: Alcohol Dependence, Cocaine Dependence Additional Comments: follow up with after care program as arrangement Pertinent Past History: type 2 dm nicotine dependence - Physical Exam Results Vital Signs: Vital Signs Temperature 97.3 F L 06/26/18 06:24 Pulse Rate 73 06/26/18 06:24 Respiratory Rate 20 06/26/18 06:24 Blood Pressure 125/75 06/26/18 06:24 O2 Sat by Pulse Oximetry (%) Pertinent Admission Physical Exam Findings: withdrawal signs and symptom Vital Signs Temperature 97.3 F L 06/26/18 06:24 Pulse Rate 73 06/26/18 06:24 Respiratory Rate 20 06/26/18 06:24 Blood Pressure 125/75 06/26/18 06:24 O2 Sat by Pulse Oximetry (%) Laboratory Last Values WBC 8.8 K/mm3 (4.0-10.0) 06/23/18 07:00 RBC 4.73 M/mm3 (4.00-5.60) 06/23/18 07:00 Hgb 12.9 GM/dL (11.7-16.9) 06/23/18 07:00 Hct 40.5 % (35.4-49) 06/23/18 07:00 MCV 85.5 fl (80-96) 06/23/18 07:00 MCH 27.3 pg (25.7-33.7) 06/23/18 07:00 MCHC 31.9 g/dl (32.0-35.9) L 06/23/18 07:00 RDW 17.3 % (11.9-15.9) H 06/23/18 07:00 Plt Count 171 K/MM3 (134-434) D 06/23/18 07:00 MPV 10.0 fl (7.5-11.1) D 06/23/18 07:00 Platelet Comment No clumping noted 06/23/18 07:00 Sodium 139 mmol/L (136-145) 06/23/18 07:00 Potassium 4.1 mmol/L (3.5-5.1) 06/23/18 07:00 Chloride 102 mmol/L (98-107) 06/23/18 07:00 Carbon Dioxide 28 mmol/L (21-32) 06/23/18 07:00 Anion Gap 9 (8-16) 06/23/18 07:00 BUN 17 mg/dL (7-18) 06/23/18 07:00 Creatinine 1.2 mg/dL (0.7-1.3) 06/23/18 07:00 Creat Clearance w eGFR > 60 (>60) 06/23/18 07:00 POC Glucometer 224 UNITS (80-120) 06/26/18 06:29 Random Glucose 306 mg/dL (74-106) H* D 06/23/18 07:00 Calcium 8.5 mg/dL (8.5-10.1) 06/23/18 07:00 Total Bilirubin 0.2 mg/dL (0.2-1.0) 06/23/18 07:00 AST 17 U/L (15-37) D 06/23/18 07:00 ALT 30 U/L (12-78) D 06/23/18 07:00 Alkaline Phosphatase 125 U/L (45-117) H 06/23/18 07:00 Total Protein 7.6 g/dl (6.4-8.2) 06/23/18 07:00 Albumin 3.6 g/dl (3.4-5.0) 06/23/18 07:00 Urine Color Ltyellow 06/22/18 23:19 Urine Appearance Clear 06/22/18 23:19 Urine pH 5.0 (5.0-8.0) 06/22/18 23:19 Ur Specific [place] 1.032 (1.001-1.035) 06/22/18 23:19 Urine Protein Negative (NEGATIVE) 06/22/18 23:19 Urine Glucose (UA) 3+ (NEGATIVE) H 06/22/18 23:19 Urine Ketones Negative (NEGATIVE) 06/22/18 23:19 Urine Blood Negative (NEGATIVE) 06/22/18 23:19 Urine Nitrite Negative (NEGATIVE) 06/22/18 23:19 Urine Bilirubin Negative (<2.0 mg/dL) 06/22/18 23:19 Urine Urobilinogen Negative mg/dL (0.2-1.0) 06/22/18 23:19 Ur Leukocyte Esterase Negative (NEGATIVE) 06/22/18 23:19 RPR Titer Nonreactive (NONREACTIVE) 06/23/18 07:00 HIV 1&2 Antibody Screen Negative 06/23/18 07:00 HIV P24 Antigen Negative 06/23/18 07:00 - Treatment Hospital Course: Detox Protocol Followed, Detoxed Safely, Responded well, Rehab Referral Accepted Patient has Accepted a Rehab Referral to: [facility] - Medication Discharge Medications: Ambulatory Orders metFORMIN HCL [Glucophage -] 500 mg PO BID@0700,1630 #60 tablet 05/29/18 - Diagnosis (1) Alcohol dependence with uncomplicated withdrawal Current Visit: Yes Status: Acute (2) DM type 2 (diabetes mellitus, type 2) Current Visit: Yes Status: Chronic Qualifiers: Diabetes mellitus terminal make up operator insulin use: without terminal make up operator use Diabetes mellitus complication status: without complication Qualified Code(s): E11.9 - Type 2 diabetes mellitus without complications (3) Cocaine dependence, uncomplicated Current Visit: Yes Status: Acute (4) Nicotine dependence Current Visit: Yes Status: Acute Qualifiers: Nicotine product type: cigarettes Substance use status: in withdrawal Qualified Code(s): F17.213 - Nicotine dependence, cigarettes, with withdrawal - AMA Did Patient Leave Against Medical Advice: No
[2018-06-26] MEDS: PRENATAL VITAMINS W/ FOLIC ACID TABLET (FP) PO SCH (11:16)
== END 2018-06-26 14:16 | disposition home or self-care (01) | DRG 774 ==
LOC: YASAS 14:58 → Y6N 19:30
PROVIDERS: ADMIT Surgery; ATTEND Surgery
PROC: HZ2ZZZZ Detoxification Services for Substance Abuse Treatment (ICD-10-PCS; principal; 2018-06-22)
DX: F10.230 Alcohol dependence with withdrawal, uncomplicated (principal); F14.20 Cocaine dependence, uncomplicated; F17.213 Nicotine dependence, cigarettes, with withdrawal; F19.24 Other psychoactive substance dependence with psychoactive substance-induced mood disorder; E11.9 Type 2 diabetes mellitus without complications; Z79.4 Long term (current) use of insulin; Z79.82 Long term (current) use of aspirin; Z59.0 Homelessness
CPT/HCPCS: 36415; 80053; 81003; 82962; 85027; 86593; 87389; 93005; 93010

== ENCOUNTER 2018-08-12 14:00 | Inpatient (IN) | payer OTHER ==
[2018-08-12 14:37] VITALS: BMI 34.2
--- NOTE | 2018-08-12 18:47 | HP ---
CIWA Score - CIWA Score Nausea/Vomitin-Mild Nausea/No Vomiting Muscle Tremors: 1-None Visible, but [place] Anxiety: 2 Agitation: 2 Paroxysmal Sweats: 1-Minimal Palms Moist Orientation: 1-Uncertain about Date Tacttile Disturbances: 1-Very Mild Itch/Numbness Auditory Disturbances: 1-Very Mild Visual Disturbances: 1-Very Mild Sensitivity Headache: 1-Very Mild CIWA-Ar Total Score: 12 Admission ROS S - HPI Chief Complaint: WITHDRAWAL SYMPTOMS Allergies/Adverse Reactions: Allergies Allergy/AdvReac Type Severity Reaction Status Date / Time No Known Allergies Allergy Verified 08/12/18 15:05 History of Present Illness: 37 Y.O. MAN WITH AN EXTENSIVE HISTORY OF ALCOHOL AND CRACK-COCAINE DEPENDENCE IS HERE SEEKING DETOX. HE HAS HAD MULTIPLE ADMISSIONS HERE FOR DETOX WITH THE LAST BEING ON 06/22/18-06/26/18. LONGEST PERIOD OF SOBRIETY HAS BEEN 7 MONTHS. Exam Limitations: No Limitations - Ebola screening Have you traveled outside of the country in the last 21 days: No (N) Have you had contact with anyone from an Ebola affected area: No Have you been sick,other than usual withdrawal symptoms: No Do you have a fever: No - Review of Systems Constitutional: Loss of Appetite, Changes in sleep, Unintentional Wgt. Loss EENT: reports: No Symptoms Reported Respiratory: reports: Cough Cardiac: reports: No Symptoms Reported GI: reports: No Symptoms Reported : reports: No Symptoms Reported Musculoskeletal: reports: No Symptoms Reported Integumentary: reports: No Symptoms Reported Neuro: reports: No Symptoms reported Endocrine: reports: No Symptoms Reported Hematology: reports: No Symptoms Reported Psychiatric: reports: Mood/Affect Appropiate, Depressed Other Systems: Reviewed and Negative Patient History - Patient Medical History Hx Anemia: No Hx Asthma: No Hx Chronic Obstructive Pulmonary Disease (COPD): No Hx Cancer: No Hx Cardiac Disorders: No Hx Congestive Heart Failure: No Hx Hypertension: No Hx Hypercholesterolemia: No Hx Pacemaker: No HX Cerebrovascular Accident: No Hx Seizures: No Hx Dementia: No Hx Diabetes: Yes (NIDDM) Hx Gastrointestinal Disorders: No Hx Liver Disease: No Hx Genitourinary Disorders: No Hx Sexually Transmitted Disorders: No Hx Renal Disease (ESRD): No Hx Thyroid Disease: No Hx Human Immunodeficiency Virus (HIV): No (negative 2016 last ) Hx Hepatitis C: No Hx Depression: No Hx Suicide Attempt: No Hx Bipolar Disorder: No Hx Schizophrenia: No - Patient Surgical History Past Surgical History: Yes Hx Neurologic Surgery: No Hx Cataract Extraction: No Hx Cardiac Surgery: No Hx Lung Surgery: No Hx Breast Surgery: No Hx Breast Biopsy: No Hx Abdominal Surgery: No Hx Appendectomy: Yes (age 15) Hx Cholecystectomy: Yes (lap cholecystectomy in 2013) Hx Genitourinary Surgery: No Hx Section: No Hx Orthopedic Surgery: No Other Surgical History: kidney stone 2012 Anesthesia Reaction: No - PPD History Previous Implant?: Yes Documented Results: Negative w/proof Implanted On Prior R Admission?: Yes Date: 09/04/17 Results: 0 mm PPD to be Administered?: No - Reproductive History Patient is a Female of Child Bearing Age (11 -55 yrs old): No - Smoking Cessation Smoking history: Current every day smoker Have you smoked in the past 12 months: Yes Aproximately how many cigarettes per day: 10 Cigars Per Day: 0 Hx Chewing Tobacco Use: No Initiated information on smoking cessation: Yes 'Breaking Loose' booklet given: 08/12/18 - Substance & Tx. History Hx Alcohol Use: Yes Hx Substance Use: Yes Substance Use Type: Alcohol, Cocaine Hx Substance Use Treatment: Yes (DETOX: 06/2018) - Substances Abused Crack Route: Smoking Frequency: Daily Amount used: $50 Age of first use: 21 Date of Last Use: 08/12/18 Alcohol-beer Route: Oral Frequency: Daily Amount used: 8 (25 oz.) Age of first use: 19 Date of Last Use: 08/12/18 Family Disease History - Family Disease History Family Disease History: Diabetes: Father (type 2), Sister (type 2), CA: Mother ( ,cancer of lung,alcohol), Other: Mother Admission Physical Exam BHS - Vital Signs Vital Signs: Vital Signs - 24 hr 08/12/18 14:25 Temperature 98.8 F Pulse Rate 99 H Respiratory 20 Rate Blood Pressure 134/91 - Physical General Appearance: Yes: Disheveled, Alcohol on Breath, Anxious HEENTM: Yes: Hearing grossly Normal, Normal ENT Inspection, Normocephalic Respiratory: Yes: Chest Non-Tender, Lungs Clear, Normal Breath Sounds, No Respiratory Distress, No Accessory Muscle Use Neck: Yes: No masses,lesions,Nodules, Trachea in good position Breast: Yes: Breast Exam Deferred Cardiology: Yes: Regular Rhythm, Regular Rate Abdominal: Yes: Normal Bowel Sounds, Non Tender, Flat Genitourinary: Yes: Other (NO COMPLAINTS REPORTED) Back: Yes: Normal Inspection Musculoskeletal: Yes: full range of Motion, Gait Steady, Pelvis Stable Extremities: Yes: Normal Inspection, Normal Range of Motion, Non-Tender Neurological: Yes: Alert, Normal Mood/Affect, Normal Response Integumentary: Yes: Normal Color, Dry, Warm Lymphatic: Yes: Within Normal Limits - Diagnostic (1) Alcohol dependence with uncomplicated withdrawal Current Visit: Yes Status: Chronic (2) Cocaine dependence, uncomplicated Current Visit: Yes Status: Chronic (3) Nicotine dependence Current Visit: Yes Status: Chronic Qualifiers: Nicotine product type: cigarettes Substance use status: in withdrawal Qualified Code(s): F17.213 - Nicotine dependence, cigarettes, with withdrawal (4) DM type 2 (diabetes mellitus, type 2) Current Visit: Yes Status: Chronic Qualifiers: Diabetes mellitus [facility] insulin use: without superintendent container terminal use Diabetes mellitus complication status: without complication Qualified Code(s): E11.9 - Type 2 diabetes mellitus without complications (5) Obesity (BMI 30.0-34.9) Current Visit: Yes Status: Chronic Cleared for Admission [facility] - Detox or Rehab [facility] Level of Care: Medically Managed Detox Regimen/Protocol: Librium [facility] Breath Alcohol Content Breath Alcohol Content: 0.047 Urine Drug Screen - Results Drug Screen Negative: No Urine Drug Screen Results: JUAN LUIS-Cocaine
[2018-08-12] MEDS ORDERED: MENTHOL/PHENOL 1 EACH UD MM PRN (18:49)
[2018-08-12] MEDS ORDERED: hydrOXYzine PAMOATE 25 MG CAPSULE (FP) PO PRN (18:49)
[2018-08-12] MEDS ORDERED: guaiFENesin/D-METHORPHAN HB 10 ML UNIT-DOSE CUPS PO PRN (18:49)
[2018-08-12] MEDS ORDERED: MAGNESIUM HYDROX 2400MG/30ML ORAL SUSPENSION 30 ML CUP PO PRN (18:49)
[2018-08-12] MEDS ORDERED: chlordiazePOXIDE HCL 25 MG CAPSULE PO PRN (18:49)
[2018-08-12] MEDS ORDERED: ACETAMINOPHEN 325 MG TABLET (FP) PO PRN (18:49)
[2018-08-12] MEDS ORDERED: IBUPROFEN 400 MG TABLET (FP) PO PRN (18:49)
[2018-08-12] MEDS ORDERED: LOPERAMIDE HCL 2 MG CAPSULE PO PRN (18:49)
[2018-08-12] MEDS ORDERED: MAG HYDROX/AL HYDROX/SIMETH 30 ML UNIT-DOSE CUP PO PRN (18:49)
[2018-08-12] MEDS ORDERED: MAGNESIUM CITRATE 300 ML BOTTLE PO PRN (18:49)
[2018-08-12] MEDS ORDERED: P-EPHED 60MG/TRIPROLIDI 2.5MG TABLET PO PRN (18:49)
[2018-08-12] MEDS ORDERED: INSULIN (NOVOLOG) ASPART 100 UNITS/ML 10ML VIAL SQ ONE (19:27)
[2018-08-12] MEDS ORDERED: MELATONIN 5 MG TABLETS PO PRN (22:00)
[2018-08-12] MEDS: chlordiazePOXIDE HCL 25 MG CAPSULE PO SCH (22:01)
[2018-08-12] MEDS: THIAMINE HCL 100 MG TABLET (FP) PO SCH (22:01)
[2018-08-12] MEDS: NICOTINE POLACRILEX 2 MG GUM BC PRN (22:02)
[2018-08-12 23:44] LABS: URINE APPEARANCE CLEAR; URINE BILIRUBIN NEGATIVE (<2.0 mg/dL); URINE COLOR LTYELLOW; URINE GLUCOSE (UA) 3+ (NEGATIVE); URINE KETONE NEGATIVE (NEGATIVE); URINE LEUK ESTERASE NEGATIVE (NEGATIVE); URINE NITRITE NEGATIVE (NEGATIVE); URINE PROTEIN NEGATIVE (NEGATIVE); URINE UROBILINOGEN NEGATIVE mg/dL (0.2-1.0)
[2018-08-13] MEDS: chlordiazePOXIDE HCL 25 MG CAPSULE PO SCH ×4 (05:15→22:03)
[2018-08-13] MEDS ORDERED: INSULIN (NOVOLOG) ASPART 100 UNITS/ML 10ML VIAL ONE ×2 (06:45→16:50)
[2018-08-13] MEDS: INSULIN SLIDING SCALE (NOVOLOG) 1 VIAL SQ SCH ×2 (06:46→17:12)
[2018-08-13] MEDS: metFORMIN HCL 500 MG TABLET (FP) PO SCH ×2 (06:46→17:09)
--- NOTE | 2018-08-13 09:35 | CONSULT ---
[facility] Psychiatric Consult - Data Date of interview: 08/13/18 Admission source: [facility] Identifying data: Patient is a 37 year old single male, without children, unemployed, and currently homeless. This is one of multiple admissions for patient. Pt. admitted to for alcohol and cocaine dependence. Substance Abuse History: Smoking Cessation. Smoking history: Current every day smoker. Have you smoked in the past 12 months: Yes. Aproximately how many cigarettes per day: 10. Cigars Per Day: 0. Hx Chewing Tobacco Use: No. Initiated information on smoking cessation: Yes. 'Breaking Loose' booklet given : 08/12/18. - Substance & Tx. History. Hx Alcohol Use: Yes. Hx Substance Use : Yes. Substance Use Type: Alcohol, Cocaine. Hx Substance Use Treatment: Yes ( DETOX: 06/2018). - Substances Abused. Crack. Route: Smoking. Frequency: Daily. Amount used: $50. Age of first use: 21. Date of Last Use: 08/12/18. * * Alcohol-beer. Route: Oral. Frequency: Daily. Amount used: 8 (25 oz.). Age of first use: 19. Date of Last Use: 08/12/18 Medical History: diabetes, lap cholecystectomy in 2013 Psychiatric History: Patient denies h/o psychiatric hospitalization, outpatient care, and suicide attempt. Patient reports poor sleep. Physical/Sexual Abuse/Trauma History: denies. Mental Status Exam - Mental Status Exam Alert and Oriented to: Time, Place, Person Cognitive Function: Good Patient Appearance: Well Groomed Mood: Euthymic Affect: Mood Congruent Patient Behavior: Cooperative Speech Pattern: Appropriate Voice Loudness: Normal Thought Process: Intact, Goal Oriented Thought Disorder: Not Present Hallucinations: Denies Suicidal Ideation: Denies Homicidal Ideation: Denies Insight/Judgement: Poor Sleep: Poorly Appetite: Poor Muscle strength/Tone: Normal Gait/Station: Normal Psychiatric Findings - Problem List ([place] 1, 2,3) (1) Substance-induced sleep disorder Current Visit: Yes Status: Acute (2) Alcohol dependence with uncomplicated withdrawal Current Visit: Yes Status: Acute (3) Cocaine dependence, uncomplicated Current Visit: Yes Status: Chronic (4) Nicotine dependence Current Visit: Yes Status: Chronic Qualifiers: Nicotine product type: cigarettes Substance use status: in withdrawal Qualified Code(s): F17.213 - Nicotine dependence, cigarettes, with withdrawal - Initial Treatment Plan Initial Treatment Plan: Psychoeducation provided. Detoxification in progress. Will increase Melatonin to 10mg.
--- NOTE | 2018-08-13 09:40 | EKG ---
Test Reason : Blood Pressure : / mmHG Vent. Rate : 093 BPM Atrial Rate : 093 BPM P-R Int : 156 ms QRS Dur : 082 ms QT Int : 358 ms P-R-T Axes : 069 070 013 degrees QTc Int : 445 ms NORMAL SINUS RHYTHM RIGHT ATRIAL ENLARGEMENT BORDERLINE ECG WHEN COMPARED WITH ECG OF 22-JUN-2018 19:59, NO SIGNIFICANT CHANGE WAS FOUND Confirmed by KVNG HERNÁNDEZ MD ([id number]) on 08/13/2018 9:39:35 AM Referred By: Confirmed By:KVNG HERNÁNDEZ MD
[2018-08-13 10:09] LABS: HEMATOCRIT 39.5 % (35.4-49); HEMOGLOBIN 12.6 GM/dL (11.7-16.9); MCH 26.4 pg (25.7-33.7); MCHC 31.8 g/dl (32.0-35.9); MEAN CELL VOLUME 82.9 fl (80-96); MEAN PLT VOLUME 10.2 fl (7.5-11.1); PLATELET COUNT 232 K/MM3 (134-434); RBC 4.77 M/mm3 (4.00-5.60); RDW 15.2 % (11.9-15.9); WHITE BLOOD COUNT 6.3 K/mm3 (4.0-10.0)
[2018-08-13 10:45] LABS: ALBUMIN 3.5 g/dl (3.4-5.0); ALK PHOS 117 U/L (45-117); ANION GAP 16 MMOL/L (8-16); BILIRUBIN,TOTAL 0.2 mg/dL (0.2-1); BLOOD UREA NITROGEN 5 mg/dL (7-18); CHLORIDE 102 mmol/L (98-107); CO2 23 mmol/L (21-32); CREATININE 1.1 mg/dL (0.55-1.3); GLUCOSE,RANDOM 299 mg/dL (74-106); POTASSIUM 4.4 mmol/L (3.5-5.1); SGOT/AST 31 U/L (15-37); SGPT/ALT 46 U/L (13-61); SODIUM 140 mmol/L (136-145); TOT PROT 7.4 g/dl (6.4-8.2)
[2018-08-13] MEDS: PRENATAL VITAMINS W/ FOLIC ACID TABLET (FP) PO SCH (11:02)
--- NOTE | 2018-08-13 11:10 | PN ---
S CIWA - CIWA Score Nausea/Vomitin Muscle Tremors: None Anxiety: 0-No Anxiety, at Ease Agitation: 0-Normal Activity Paroxysmal Sweats: No Perspiration Orientation: 0-Oriented Tacttile Disturbances: 0-None Auditory Disturbances: 0-None Visual Disturbances: 0-None Headache: 0-None Present CIWA-Ar Total Score: 2 BHS Progress Note (SOAP) Subjective: +patient states having some nausea and diarrhea. Objective: 08/13/18 11:08 Vital Signs Temperature 96.7 F L 08/13/18 09:13 Pulse Rate 87 08/13/18 09:13 Respiratory Rate 18 08/13/18 09:13 Blood Pressure 119/84 08/13/18 09:13 O2 Sat by Pulse Oximetry (%) Laboratory Tests 08/12/18 08/12/18 08/12/18 15:17 19:22 21:15 WBC RBC Hgb Hct MCV MCH MCHC RDW Plt Count MPV Sodium Potassium Chloride Carbon Dioxide Anion Gap BUN Creatinine Creat Clearance w eGFR POC Glucometer 315 335 Random Glucose Calcium Total Bilirubin AST ALT Alkaline Phosphatase Total Protein Albumin Urine Color Ltyellow Urine Appearance Clear Urine pH 5.0 Ur Specific [place] 1.024 Urine Protein Negative Urine Glucose (UA) 3+ H Urine Ketones Negative Urine Blood Negative Urine Nitrite Negative Urine Bilirubin Negative Urine Urobilinogen Negative Ur Leukocyte Esterase Negative RPR Titer 08/13/18 08/13/18 08/13/18 05:21 06:00 06:00 WBC 6.3 RBC 4.77 Hgb 12.6 Hct 39.5 MCV 82.9 MCH 26.4 MCHC 31.8 L RDW 15.2 D Plt Count 232 D MPV 10.2 Sodium 140 Potassium 4.4 Chloride 102 Carbon Dioxide 23 Anion Gap 16 BUN 5 L Creatinine 1.1 Creat Clearance w eGFR > 60 POC Glucometer 348 Random Glucose 299 H Calcium 9.0 Total Bilirubin 0.2 AST 31 ALT 46 Alkaline Phosphatase 117 Total Protein 7.4 Albumin 3.5 Urine Color Urine Appearance Urine pH Ur Specific [place] Urine Protein Urine Glucose (UA) Urine Ketones Urine Blood Urine Nitrite Urine Bilirubin Urine Urobilinogen Ur Leukocyte Esterase RPR Titer 08/13/18 06:00 WBC RBC Hgb Hct MCV MCH MCHC RDW Plt Count MPV Sodium Potassium Chloride Carbon Dioxide Anion Gap BUN Creatinine Creat Clearance w eGFR POC Glucometer Random Glucose Calcium Total Bilirubin AST ALT Alkaline Phosphatase Total Protein Albumin Urine Color Urine Appearance Urine pH Ur Specific [place] Urine Protein Urine Glucose (UA) Urine Ketones Urine Blood Urine Nitrite Urine Bilirubin Urine Urobilinogen Ur Leukocyte Esterase RPR Titer Nonreactive pe: alert and oriented x 3 skin warm and dry car s1s2 rrr resp cta bl gi soft, nt, nd, bs+ Assessment: 08/13/18 11:09 withdrawal syndrome Plan: continue detox as ordered continue oral fluids continue to monitor clinically immodium ordered as per prn
[2018-08-13] MEDS: NICOTINE POLACRILEX 2 MG GUM BC PRN ×2 (15:26→22:06)
[2018-08-13] MEDS: THIAMINE HCL 100 MG TABLET (FP) PO SCH (22:03)
[2018-08-13] MEDS: MELATONIN 5 MG TABLETS PO PRN (22:05)
[2018-08-14] MEDS: chlordiazePOXIDE HCL 25 MG CAPSULE PO SCH ×3 (05:41→17:04)
[2018-08-14] MEDS ORDERED: INSULIN (NOVOLOG) ASPART 100 UNITS/ML 10ML VIAL ONE ×3 (07:33→21:42)
[2018-08-14] MEDS: INSULIN SLIDING SCALE (NOVOLOG) 1 VIAL SQ SCH ×3 (07:35→22:04)
[2018-08-14] MEDS: metFORMIN HCL 500 MG TABLET (FP) PO SCH ×2 (07:36→17:04)
[2018-08-14] MEDS: PRENATAL VITAMINS W/ FOLIC ACID TABLET (FP) PO SCH (10:12)
--- NOTE | 2018-08-14 10:35 | PN ---
[facility] CIWA - CIWA Score Nausea/Vomitin-No Nausea/No Vomiting Muscle Tremors: None Anxiety: 0-No Anxiety, at Ease Agitation: 0-Normal Activity Paroxysmal Sweats: No Perspiration Orientation: 0-Oriented Tacttile Disturbances: 0-None Auditory Disturbances: 0-None Visual Disturbances: 0-None Headache: 0-None Present CIWA-Ar Total Score: 0 S COWS - Scale GI Upset > 30mins: 1= Stomach Cramp S Progress Note (SOAP) Subjective: PATIENT C/O INTERMITTENT STOMACH CRAMPS Objective: 08/14/18 10:34 Laboratory Tests 08/12/18 08/12/18 08/12/18 15:17 19:22 21:15 WBC RBC Hgb Hct MCV MCH MCHC RDW Plt Count MPV Sodium Potassium Chloride Carbon Dioxide Anion Gap BUN Creatinine Creat Clearance w eGFR POC Glucometer 315 335 Random Glucose Calcium Total Bilirubin AST ALT Alkaline Phosphatase Total Protein Albumin Urine Color Ltyellow Urine Appearance Clear Urine pH 5.0 Ur Specific [place] 1.024 Urine Protein Negative Urine Glucose (UA) 3+ H Urine Ketones Negative Urine Blood Negative Urine Nitrite Negative Urine Bilirubin Negative Urine Urobilinogen Negative Ur Leukocyte Esterase Negative RPR Titer 08/13/18 08/13/18 08/13/18 05:21 06:00 06:00 WBC 6.3 RBC 4.77 Hgb 12.6 Hct 39.5 MCV 82.9 MCH 26.4 MCHC 31.8 L RDW 15.2 D Plt Count 232 D MPV 10.2 Sodium 140 Potassium 4.4 Chloride 102 Carbon Dioxide 23 Anion Gap 16 BUN 5 L Creatinine 1.1 Creat Clearance w eGFR > 60 POC Glucometer 348 Random Glucose 299 H Calcium 9.0 Total Bilirubin 0.2 AST 31 ALT 46 Alkaline Phosphatase 117 Total Protein 7.4 Albumin 3.5 Urine Color Urine Appearance Urine pH Ur Specific [place] Urine Protein Urine Glucose (UA) Urine Ketones Urine Blood Urine Nitrite Urine Bilirubin Urine Urobilinogen Ur Leukocyte Esterase RPR Titer 08/13/18 08/13/18 08/14/18 06:00 16:11 05:39 WBC RBC Hgb Hct MCV MCH MCHC RDW Plt Count MPV Sodium Potassium Chloride Carbon Dioxide Anion Gap BUN Creatinine Creat Clearance w eGFR POC Glucometer 296 355 Random Glucose Calcium Total Bilirubin AST ALT Alkaline Phosphatase Total Protein Albumin Urine Color Urine Appearance Urine pH Ur Specific [place] Urine Protein Urine Glucose (UA) Urine Ketones Urine Blood Urine Nitrite Urine Bilirubin Urine Urobilinogen Ur Leukocyte Esterase RPR Titer Nonreactive PE: ALERT AND ORIENTED SKIN WARM AND DRY CAR S1S2 RESP CTA BL GI SOFT BS + NT Assessment: 08/14/18 10:35 WITHDRAWAL SYNDROME Plan: CONTINUE DETOX ORDERED ENCOURAGE ORAL FLUIDS CONTINUE TO MONITOR CLINICALLY
[2018-08-14] MEDS: NICOTINE POLACRILEX 2 MG GUM BC PRN (17:07)
[2018-08-14] MEDS: THIAMINE HCL 100 MG TABLET (FP) PO SCH (22:01)
[2018-08-14] MEDS: chlordiazePOXIDE 5 MG CAPSULE PO SCH (22:01)
[2018-08-14] MEDS: MELATONIN 5 MG TABLETS PO PRN (22:01)
[2018-08-15] MEDS: chlordiazePOXIDE 5 MG CAPSULE PO SCH ×3 (05:14→17:16)
[2018-08-15] MEDS: INSULIN SLIDING SCALE (NOVOLOG) 1 VIAL SQ SCH ×4 (07:40→22:32)
[2018-08-15] MEDS: metFORMIN HCL 500 MG TABLET (FP) PO SCH ×2 (07:40→17:16)
--- NOTE | 2018-08-15 09:47 | PN ---
S Progress Note (SOAP) Subjective: Interrupted sleep, muscle aches and mild tremors Objective: 08/15/18 09:47 Vital Signs 08/15/18 08/15/18 03:59 06:14 Temperature 97 F L Pulse Rate 74 Respiratory 20 18 Rate Blood Pressure 128/85 Laboratory Last Values WBC 6.3 K/mm3 (4.0-10.0) 08/13/18 06:00 RBC 4.77 M/mm3 (4.00-5.60) 08/13/18 06:00 Hgb 12.6 GM/dL (11.7-16.9) 08/13/18 06:00 Hct 39.5 % (35.4-49) 08/13/18 06:00 MCV 82.9 fl (80-96) 08/13/18 06:00 MCH 26.4 pg (25.7-33.7) 08/13/18 06:00 MCHC 31.8 g/dl (32.0-35.9) L 08/13/18 06:00 RDW 15.2 % (11.9-15.9) D 08/13/18 06:00 Plt Count 232 K/MM3 (134-434) D 08/13/18 06:00 MPV 10.2 fl (7.5-11.1) 08/13/18 06:00 Sodium 140 mmol/L (136-145) 08/13/18 06:00 Potassium 4.4 mmol/L (3.5-5.1) 08/13/18 06:00 Chloride 102 mmol/L (98-107) 08/13/18 06:00 Carbon Dioxide 23 mmol/L (21-32) 08/13/18 06:00 Anion Gap 16 MMOL/L (8-16) 08/13/18 06:00 BUN 5 mg/dL (7-18) L 08/13/18 06:00 Creatinine 1.1 mg/dL (0.55-1.3) 08/13/18 06:00 Creat Clearance w eGFR > 60 (>60) 08/13/18 06:00 POC Glucometer 259 UNITS (80-120) 08/15/18 05:20 Random Glucose 299 mg/dL (74-106) H 08/13/18 06:00 Calcium 9.0 mg/dL (8.5-10.1) 08/13/18 06:00 Total Bilirubin 0.2 mg/dL (0.2-1) 08/13/18 06:00 AST 31 U/L (15-37) 08/13/18 06:00 ALT 46 U/L (13-61) 08/13/18 06:00 Alkaline Phosphatase 117 U/L (45-117) 08/13/18 06:00 Total Protein 7.4 g/dl (6.4-8.2) 08/13/18 06:00 Albumin 3.5 g/dl (3.4-5.0) 08/13/18 06:00 Urine Color Ltyellow 08/12/18 21:15 Urine Appearance Clear 08/12/18 21:15 Urine pH 5.0 (5.0-8.0) 08/12/18 21:15 Ur Specific [place] 1.024 (1.001-1.035) 08/12/18 21:15 Urine Protein Negative (NEGATIVE) 08/12/18 21:15 Urine Glucose (UA) 3+ (NEGATIVE) H 08/12/18 21:15 Urine Ketones Negative (NEGATIVE) 08/12/18 21:15 Urine Blood Negative (NEGATIVE) 08/12/18 21:15 Urine Nitrite Negative (NEGATIVE) 08/12/18 21:15 Urine Bilirubin Negative (<2.0 mg/dL) 08/12/18 21:15 Urine Urobilinogen Negative mg/dL (0.2-1.0) 08/12/18 21:15 Ur Leukocyte Esterase Negative (NEGATIVE) 08/12/18 21:15 RPR Titer Nonreactive (NONREACTIVE) 08/13/18 06:00 Labs noted Assessment: 08/15/18 09:47 Withdrawal sx Plan: Continue detox
[2018-08-15] MEDS: PRENATAL VITAMINS W/ FOLIC ACID TABLET (FP) PO SCH (10:14)
[2018-08-15] MEDS: NICOTINE POLACRILEX 2 MG GUM BC PRN ×3 (10:19→22:34)
[2018-08-15] MEDS ORDERED: INSULIN (NOVOLOG) ASPART 100 UNITS/ML 10ML VIAL ONE ×3 (11:52→23:22)
[2018-08-15] MEDS: chlordiazePOXIDE HCL 10 MG CAPSULE PO SCH (22:31)
[2018-08-15] MEDS: THIAMINE HCL 100 MG TABLET (FP) PO SCH (22:31)
[2018-08-15] MEDS: MELATONIN 5 MG TABLETS PO PRN (22:32)
[2018-08-16] MEDS: chlordiazePOXIDE HCL 10 MG CAPSULE PO SCH ×2 (06:29→10:26)
[2018-08-16] MEDS ORDERED: INSULIN (NOVOLOG) ASPART 100 UNITS/ML 10ML VIAL ONE (06:40)
[2018-08-16] MEDS: INSULIN SLIDING SCALE (NOVOLOG) 1 VIAL SQ SCH (06:44)
[2018-08-16] MEDS: metFORMIN HCL 500 MG TABLET (FP) PO SCH (06:46)
[2018-08-16 09:38] VITALS: BP 133/83; PULSE 77; TEMP 96.5
[2018-08-16] MEDS: PRENATAL VITAMINS W/ FOLIC ACID TABLET (FP) PO SCH (10:26)
--- NOTE | 2018-08-16 13:00 | DS ---
[facility] Detox Discharge Summary Admission Date: 08/12/18 Discharge Date: 08/16/18 - History Present History: Alcohol Dependence, Cocaine Dependence Pertinent Past History: DMT2 Obesity - Physical Exam Results Vital Signs: Vital Signs Temperature 96.5 F L 08/16/18 09:37 Pulse Rate 77 08/16/18 09:37 Respiratory Rate 18 08/16/18 09:37 Blood Pressure 133/83 08/16/18 09:37 O2 Sat by Pulse Oximetry (%) Pertinent Admission Physical Exam Findings: Withdrawal symptoms Laboratory Tests 08/12/18 08/12/18 08/12/18 15:17 19:22 21:15 WBC RBC Hgb Hct MCV MCH MCHC RDW Plt Count MPV Sodium Potassium Chloride Carbon Dioxide Anion Gap BUN Creatinine Creat Clearance w eGFR POC Glucometer 315 335 Random Glucose Calcium Total Bilirubin AST ALT Alkaline Phosphatase Total Protein Albumin Urine Color Ltyellow Urine Appearance Clear Urine pH 5.0 Ur Specific [place] 1.024 Urine Protein Negative Urine Glucose (UA) 3+ H Urine Ketones Negative Urine Blood Negative Urine Nitrite Negative Urine Bilirubin Negative Urine Urobilinogen Negative Ur Leukocyte Esterase Negative RPR Titer 08/13/18 08/13/18 08/13/18 05:21 06:00 06:00 WBC 6.3 RBC 4.77 Hgb 12.6 Hct 39.5 MCV 82.9 MCH 26.4 MCHC 31.8 L RDW 15.2 D Plt Count 232 D MPV 10.2 Sodium 140 Potassium 4.4 Chloride 102 Carbon Dioxide 23 Anion Gap 16 BUN 5 L Creatinine 1.1 Creat Clearance w eGFR > 60 POC Glucometer 348 Random Glucose 299 H Calcium 9.0 Total Bilirubin 0.2 AST 31 ALT 46 Alkaline Phosphatase 117 Total Protein 7.4 Albumin 3.5 Urine Color Urine Appearance Urine pH Ur Specific [place] Urine Protein Urine Glucose (UA) Urine Ketones Urine Blood Urine Nitrite Urine Bilirubin Urine Urobilinogen Ur Leukocyte Esterase RPR Titer 08/13/18 08/13/18 08/14/18 06:00 16:11 05:39 WBC RBC Hgb Hct MCV MCH MCHC RDW Plt Count MPV Sodium Potassium Chloride Carbon Dioxide Anion Gap BUN Creatinine Creat Clearance w eGFR POC Glucometer 296 355 Random Glucose Calcium Total Bilirubin AST ALT Alkaline Phosphatase Total Protein Albumin Urine Color Urine Appearance Urine pH Ur Specific [place] Urine Protein Urine Glucose (UA) Urine Ketones Urine Blood Urine Nitrite Urine Bilirubin Urine Urobilinogen Ur Leukocyte Esterase RPR Titer Nonreactive 08/14/18 08/15/18 08/15/18 16:26 05:20 11:48 WBC RBC Hgb Hct MCV MCH MCHC RDW Plt Count MPV Sodium Potassium Chloride Carbon Dioxide Anion Gap BUN Creatinine Creat Clearance w eGFR POC Glucometer 266 259 286 Random Glucose Calcium Total Bilirubin AST ALT Alkaline Phosphatase Total Protein Albumin Urine Color Urine Appearance Urine pH Ur Specific [place] Urine Protein Urine Glucose (UA) Urine Ketones Urine Blood Urine Nitrite Urine Bilirubin Urine Urobilinogen Ur Leukocyte Esterase RPR Titer 08/15/18 08/15/18 08/16/18 16:17 20:51 06:23 WBC RBC Hgb Hct MCV MCH MCHC RDW Plt Count MPV Sodium Potassium Chloride Carbon Dioxide Anion Gap BUN Creatinine Creat Clearance w eGFR POC Glucometer 374 289 264 Random Glucose Calcium Total Bilirubin AST ALT Alkaline Phosphatase Total Protein Albumin Urine Color Urine Appearance Urine pH Ur Specific [place] Urine Protein Urine Glucose (UA) Urine Ketones Urine Blood Urine Nitrite Urine Bilirubin Urine Urobilinogen Ur Leukocyte Esterase RPR Titer Labs reviewed: noted with glycosuria and hyperglycemia r/t DMT2 - Treatment Hospital Course: Detox Protocol Followed, Detoxed Safely, Responded well, Discharged Condition Good - Medication Discharge Medications: Ambulatory Orders metFORMIN HCL [Glucophage -] 500 mg PO BID@0700,1630 #60 tablet 06/26/18 - Diagnosis (1) Type 2 diabetes mellitus with hyperglycemia Status: Chronic (2) Alcohol dependence with uncomplicated withdrawal Status: Acute (3) Substance-induced sleep disorder Status: Acute (4) Cocaine dependence, uncomplicated Status: Chronic (5) Nicotine dependence Status: Chronic Qualifiers: Nicotine product type: cigarettes Substance use status: in withdrawal Qualified Code(s): F17.213 - Nicotine dependence, cigarettes, with withdrawal (6) Obesity (BMI 30.0-34.9) Status: Chronic (7) Glycosuria Status: Acute - AMA Did Patient Leave Against Medical Advice: No (F/U with your PCP within 1-2 weeks )
== END 2018-08-16 10:39 | disposition home or self-care (01) | DRG 774 ==
LOC: YASAS 14:00 → Y3N 17:46
PROC: HZ2ZZZZ Detoxification Services for Substance Abuse Treatment (ICD-10-PCS; principal; 2018-08-12)
DX: F10.230 Alcohol dependence with withdrawal, uncomplicated (principal); F14.20 Cocaine dependence, uncomplicated; F17.213 Nicotine dependence, cigarettes, with withdrawal; F19.282 Other psychoactive substance dependence with psychoactive substance-induced sleep disorder; E11.65 Type 2 diabetes mellitus with hyperglycemia; Z79.84 Long term (current) use of oral hypoglycemic drugs; R81 Glycosuria; E66.9 Obesity, unspecified; Z68.30 Body mass index [BMI] 30.0-30.9, adult; Z59.0 Homelessness
CPT/HCPCS: 36415; 80053; 81003; 82962; 85027; 86593; 93005; 93010

== ENCOUNTER 2018-11-20 12:43 | Inpatient (IN) | payer OTHER ==
[2018-11-20 15:43] VITALS: BMI 35.2
--- NOTE | 2018-11-20 19:26 | HP ---
CIWA Score Nausea/Vomitin-Mild Nausea/No Vomiting Muscle Tremors: 4-Moderate,w/Arms Extend Anxiety: 3 Agitation: 3 Paroxysmal Sweats: 3 (Facial moisture w/o beads) Orientation: 0-Oriented Tacttile Disturbances: 0-None Auditory Disturbances: 0-None Visual Disturbances: 0-None Headache: 0-None Present CIWA-Ar Total Score: 14 - Admission Criteria [facility]ASAS Guidelines: Admission for Medically Managed Detox: Requires at least one of the followin. CIWA greater than 12 2. Seizures within the past 24 hours 3. Delirium tremens within the past 24 hours 4. Hallucinations within the past 24 hours 5. Acute intervention needed for co occurring medical disorder 6. Acute intervention needed for co occurring psychiatric disorder 7. Severe withdrawal that cannot be handled at a lower level of care (continued vomiting, continued diarrhea, abnormal vital signs) requiring intravenous medication and/or fluids 8. Patient presents the following: CIWA greater than 12 Admission Criteria Met: Admission criteria met Admission ROS [facility] Chief Complaint: Here with alcohol withdrawal. Allergies/Adverse Reactions: Allergies Allergy/AdvReac Type Severity Reaction Status Date / Time No Known Allergies Allergy Verified 11/20/18 17:24 History of Present Illness: Here for alcohol withdrawal w/ co-occurring crack use disorder. Alcohol use began at age 19/ Cocaine/crack use began at age 21. Nicotine use began at age 17. Decline patch. Only want nicotine gum. Denies hx seizures. Hx Blackouts - last 4 years ago Longest length of sobriety 7 months. DM - states not always compliant w/ medications. States on metformin. Discussed risks of uncontrolled diabetes. Encouraged f/u w/ ophthalmology, podiatry, and PCP upon discharge. Hx difficulty sleeping. States hx depression. Denies thoughts of harming self or others. Denies mental health medications. Search Terms: Magdiel Larose, 1980 Search Date: 11/20/2018 07:19:22 PM The Drug Utilization Report below displays all of the controlled substance prescriptions, if any, that your patient has filled in the last twelve months. The information displayed on this report is compiled from pharmacy submissions to the Department, and accurately reflects the information as submitted by the pharmacies. This report was requested by: Faviola Troy | Reference #: [id number] There are no results for the search terms that you entered. Exam Limitations: No Limitations - Ebola screening Have you traveled outside of the country in the last 21 days: No Have you had contact with anyone from an Ebola affected area: No Have you been sick,other than usual withdrawal symptoms: No Do you have a fever: No - Review of Systems Constitutional: Diaphoresis, Changes in sleep (Difficulty falling asleep) EENT: reports: Blurred Vision Respiratory: reports: No Symptoms reported Cardiac: reports: No Symptoms Reported GI: reports: Nausea : reports: No Symptoms Reported Musculoskeletal: reports: Other (Foot pain r/t wearing sneakers. Pain bottom of (L) foot sharp when steps on it and becomes a "10".) Integumentary: reports: No Symptoms Reported Neuro: reports: Tremors Endocrine: reports: Increased Thirst Hematology: reports: No Symptoms Reported Psychiatric: reports: Judgement Intact, Mood/Affect Appropiate, Orientated x3, Agitated, Anxious, Depressed (Denies thoughts of harming self or others) Patient History - Patient Medical History Hx Anemia: No Hx Asthma: No Hx Chronic Obstructive Pulmonary Disease (COPD): No Hx Cancer: No Hx Cardiac Disorders: No Hx Congestive Heart Failure: No Hx Hypertension: No Hx Hypercholesterolemia: No Hx Pacemaker: No HX Cerebrovascular Accident: No Hx Seizures: No Hx Dementia: No Hx Diabetes: Yes (NIDDM) Hx Gastrointestinal Disorders: No Hx Liver Disease: No Hx Genitourinary Disorders: No Hx Sexually Transmitted Disorders: No Hx Renal Disease (ESRD): No Hx Thyroid Disease: No Hx Human Immunodeficiency Virus (HIV): No (negative 2016 last ) Hx Hepatitis C: No Hx Depression: Yes Hx Suicide Attempt: No Hx Bipolar Disorder: No Hx Schizophrenia: No - Patient Surgical History Past Surgical History: Yes Hx Neurologic Surgery: No Hx Cataract Extraction: No Hx Cardiac Surgery: No Hx Lung Surgery: No Hx Breast Surgery: No Hx Breast Biopsy: No Hx Abdominal Surgery: No Hx Appendectomy: Yes (age 15) Hx Cholecystectomy: Yes (lap cholecystectomy in 2013) Hx Genitourinary Surgery: No Hx Section: No Hx Orthopedic Surgery: No Other Surgical History: kidney stone 2013 Anesthesia Reaction: No - PPD History Previous Implant?: Yes Documented Results: Negative w/proof Date: 09/04/17 Results: 0 mm PPD to be Administered?: Yes - Smoking Cessation Smoking history: Current every day smoker Have you smoked in the past 12 months: Yes Aproximately how many cigarettes per day: 10 Cigars Per Day: 0 Hx Chewing Tobacco Use: No Initiated information on smoking cessation: Yes 'Breaking Loose' booklet given: 11/20/18 - Substance & Tx. History Hx Alcohol Use: Yes Hx Substance Use: Yes Substance Use Type: Alcohol, Cocaine (crack) Hx Substance Use Treatment: Yes (detox, rehab) - Substances Abused Alcohol Route: Oral Frequency: Daily Amount used: liquor- 1 pint, beer- 8(25oz) Age of first use: 19 Date of Last Use: 11/20/18 Crack Route: Smoking Frequency: Daily Amount used: $100 Age of first use: 21 Date of Last Use: 11/19/18 Family Disease History - Family Disease History Family Disease History: Diabetes: Father (type 2), Sister (type 2), CA: Mother ( ,cancer of lung,alcohol), Other: Mother Admission Physical Exam S - Vital Signs Vital Signs: Vital Signs - 24 hr 11/20/18 15:41 Temperature 98.1 F Pulse Rate 103 H Respiratory 20 Rate Blood Pressure 131/70 - Physical General Appearance: Yes: Nourished, Appropriately Dressed, Mild Distress, Tremorous, Irritable, Sweating, Anxious HEENTM: Yes: EOMI, Hearing grossly Normal, Normal Voice, SHELIA, Pharynx Normal Respiratory: Yes: Lungs Clear, Normal Breath Sounds, No Respiratory Distress Neck: Yes: No masses,lesions,Nodules, Supple Breast: Yes: Breast Exam Deferred Cardiology: Yes: Regular Rhythm, S1, S2, Tachycardia (Last EKG, on 08/12/18, reviewed.) Abdominal: Yes: Non Tender, Soft, Increased Bowel Sounds, Protuberent ( increased abdominal adiposity) Genitourinary: Yes: Within Normal Limits Back: Yes: Normal Inspection Musculoskeletal: Yes: full range of Motion, Other (Limping r/t pain bottom of (L ) foot) Extremities: Yes: Normal Capillary Refill, Normal Range of Motion, Non-Tender, Tremors Neurological: Yes: clinical dietician II-XII NML intact, Fully Oriented, Alert, Motor Strength 5/5, Normal Mood/Affect Integumentary: Yes: Normal Color, Dry (Decreased skin turgor), Warm, Other ( Thickened skin on bottom of feet w/ thickened hardened layers of skin. Crack between toes. Pedal pulses (+). Thickened, dark, curling toe nails.) Lymphatic: Yes: Adenopathy - Diagnostic (1) Obesity (BMI 30-39.9) Current Visit: Yes Status: Chronic (2) Tinea pedis Current Visit: Yes Status: Chronic Qualifiers: Laterality: bilateral Qualified Code(s): B35.3 - Tinea pedis (3) Alcohol dependence with uncomplicated withdrawal Current Visit: Yes Status: Acute (4) Cocaine dependence, uncomplicated Current Visit: Yes Status: Chronic (5) DM type 2 (diabetes mellitus, type 2) Current Visit: Yes Status: Chronic Qualifiers: Diabetes mellitus retirement insulin use: without retirement use Diabetes mellitus complication status: without complication Qualified Code(s): E11.9 - Type 2 diabetes mellitus without complications (6) Nicotine dependence Current Visit: Yes Status: Chronic Qualifiers: Nicotine product type: cigarettes Substance use status: in withdrawal Qualified Code(s): F17.213 - Nicotine dependence, cigarettes, with withdrawal (7) Tachycardia Current Visit: Yes Status: Acute (8) Dermatophytosis, unspecified Current Visit: Yes Status: Chronic Comment: Nails, skin of feet Cleared for Admission [facility] - Detox or Rehab [facility] Level of Care: Medically Managed Detox Regimen/Protocol: Librium [facility] Breath Alcohol Content Breath Alcohol Content: 0 Urine Drug Screen - Results Drug Screen Negative: No Urine Drug Screen Results: JUAN LUIS-Cocaine
[2018-11-20] MEDS ORDERED: P-EPHED 60MG/TRIPROLIDI 2.5MG TABLET PO PRN (19:57)
[2018-11-20] MEDS ORDERED: MENTHOL/PHENOL 1 EACH UD MM PRN (19:57)
[2018-11-20] MEDS ORDERED: MAG HYDROX/AL HYDROX/SIMETH 30 ML UNIT-DOSE CUP PO PRN (19:57)
[2018-11-20] MEDS ORDERED: MAGNESIUM CITRATE 300 ML BOTTLE PO PRN (19:57)
[2018-11-20] MEDS ORDERED: IBUPROFEN 400 MG TABLET (FP) PO PRN (19:57)
[2018-11-20] MEDS ORDERED: LOPERAMIDE HCL 2 MG CAPSULE PO PRN (19:57)
[2018-11-20] MEDS ORDERED: chlordiazePOXIDE HCL 25 MG CAPSULE PO PRN (19:57)
[2018-11-20] MEDS ORDERED: MAGNESIUM HYDROX 2400MG/30ML ORAL SUSPENSION 30 ML CUP PO PRN (19:57)
[2018-11-20] MEDS: INSULIN SLIDING SCALE (NOVOLOG) 1 VIAL SQ SCH (22:45)
[2018-11-20] MEDS: THIAMINE HCL 100 MG TABLET (FP) PO SCH (22:45)
[2018-11-20] MEDS: chlordiazePOXIDE HCL 25 MG CAPSULE PO SCH (22:45)
[2018-11-20] MEDS: TOLNAFTATE 1% POWDER 45 GM POW TP SCH (22:45)
[2018-11-20] MEDS: MELATONIN 5 MG TABLETS PO PRN (22:45)
[2018-11-20] MEDS: NICOTINE POLACRILEX 2 MG GUM BUC PRN (22:48)
[2018-11-21] MEDS: chlordiazePOXIDE HCL 25 MG CAPSULE PO SCH ×4 (05:46→22:34)
[2018-11-21] MEDS: ACETAMINOPHEN 325 MG TABLET (FP) PO PRN ×3 (05:46→22:35)
[2018-11-21] MEDS: metFORMIN HCL 500 MG TABLET (FP) PO SCH ×2 (06:15→17:27)
[2018-11-21] MEDS: INSULIN SLIDING SCALE (NOVOLOG) 1 VIAL SQ SCH ×4 (08:13→22:34)
[2018-11-21] MEDS ORDERED: NICOTINE 21 MG/24 HOURS TOPICAL PATCH TD SCH (10:00)
[2018-11-21 10:18] LABS: HEMATOCRIT 38.1 % (35.4-49); HEMOGLOBIN 11.9 GM/dL (11.7-16.9); MCH 25.2 pg (25.7-33.7); MCHC 31.2 g/dl (32.0-35.9); MEAN CELL VOLUME 80.8 fl (80-96); MEAN PLT VOLUME 8.8 fl (7.5-11.1); PLATELET COUNT 256 K/MM3 (134-434); RBC 4.71 M/mm3 (4.00-5.60); RDW 14.8 % (11.9-15.9); WHITE BLOOD COUNT 7.2 K/mm3 (4.0-10.0)
[2018-11-21] MEDS: PRENATAL VITAMINS W/ FOLIC ACID TABLET (FP) PO SCH (10:34)
[2018-11-21] MEDS: NICOTINE POLACRILEX 2 MG GUM BUC PRN ×3 (10:35→22:37)
[2018-11-21] MEDS: TOLNAFTATE 1% POWDER 45 GM POW TP SCH ×2 (11:06→22:33)
[2018-11-21 11:07] LABS: ALBUMIN 3.6 g/dl (3.4-5.0); ALK PHOS 102 U/L (45-117); ANION GAP 8 MMOL/L (8-16); BILIRUBIN,TOTAL 0.3 mg/dL (0.2-1); BLOOD UREA NITROGEN 18 mg/dL (7-18); CALCIUM 8.2 mg/dL (8.5-10.1); CHLORIDE 100 mmol/L (98-107); CO2 27 mmol/L (21-32); GLUCOSE,RANDOM 256 mg/dL (74-106); POTASSIUM 4.3 mmol/L (3.5-5.1); SGOT/AST 40 U/L (15-37); SGPT/ALT 37 U/L (13-61); SODIUM 135 mmol/L (136-145); TOT PROT 7.5 g/dl (6.4-8.2)
--- NOTE | 2018-11-21 14:25 | PN ---
S CIWA - CIWA Score Nausea/Vomitin-No Nausea/No Vomiting Muscle Tremors: 3 Anxiety: 4-Mod. Anxious/Guarded Agitation: 4-Moderately Restless Paroxysmal Sweats: 3 Orientation: 0-Oriented Tacttile Disturbances: 0-None Auditory Disturbances: 0-None Visual Disturbances: 0-None Headache: 0-None Present CIWA-Ar Total Score: 14 BHS Progress Note (SOAP) Subjective: ANXIETY, NIGHT SWEATS, INTERMITTENT SLEEP, FATIGUE. Objective: 11/21/18 14:24 Vital Signs 11/21/18 10:35 Temperature 97.8 F Pulse Rate 88 Respiratory 18 Rate Blood Pressure 133/73 Laboratory Tests 11/20/18 11/21/18 11/21/18 22:39 06:13 08:00 WBC 7.2 RBC 4.71 Hgb 11.9 Hct 38.1 MCV 80.8 MCH 25.2 L MCHC 31.2 L RDW 14.8 Plt Count 256 MPV 8.8 D Sodium Potassium Chloride Carbon Dioxide Anion Gap BUN Creatinine Creat Clearance w eGFR POC Glucometer 270 243 Random Glucose Calcium Total Bilirubin AST ALT Alkaline Phosphatase Total Protein Albumin RPR Titer 11/21/18 11/21/18 08:00 08:00 WBC RBC Hgb Hct MCV MCH MCHC RDW Plt Count MPV Sodium 135 L Potassium 4.3 Chloride 100 Carbon Dioxide 27 Anion Gap 8 BUN 18 Creatinine 1.0 Creat Clearance w eGFR > 60 POC Glucometer Random Glucose 256 H Calcium 8.2 L Total Bilirubin 0.3 AST 40 H ALT 37 Alkaline Phosphatase 102 Total Protein 7.5 Albumin 3.6 RPR Titer Nonreactive Assessment: 11/21/18 14:25 WITHDRAWAL SX Plan: CONTINUE DETOX INCREASE PO FLUIDS
[2018-11-21] MEDS ORDERED: INSULIN SLIDING SCALE (NOVOLOG) 1 VIAL SQ ONE (17:39)
[2018-11-21] MEDS: THIAMINE HCL 100 MG TABLET (FP) PO SCH (22:33)
[2018-11-21] MEDS: MELATONIN 5 MG TABLETS PO PRN (22:35)
[2018-11-22] MEDS: chlordiazePOXIDE HCL 25 MG CAPSULE PO SCH ×3 (05:50→16:59)
[2018-11-22] MEDS: ACETAMINOPHEN 325 MG TABLET (FP) PO PRN ×2 (05:50→22:13)
[2018-11-22] MEDS: INSULIN SLIDING SCALE (NOVOLOG) 1 VIAL SQ SCH ×4 (07:00→21:40)
[2018-11-22] MEDS: metFORMIN HCL 500 MG TABLET (FP) PO SCH ×2 (07:01→16:59)
[2018-11-22] MEDS: TOLNAFTATE 1% POWDER 45 GM POW TP SCH ×2 (11:20→22:49)
[2018-11-22] MEDS: PRENATAL VITAMINS W/ FOLIC ACID TABLET (FP) PO SCH (11:20)
--- NOTE | 2018-11-22 16:37 | PN ---
S CIWA - CIWA Score Nausea/Vomitin Muscle Tremors: 4-Moderate,w/Arms Extend Anxiety: 4-Mod. Anxious/Guarded Agitation: 3 Paroxysmal Sweats: 3 Orientation: 0-Oriented Tacttile Disturbances: 0-None Auditory Disturbances: 0-None Visual Disturbances: 0-None Headache: 1-Very Mild CIWA-Ar Total Score: 17 BHS Progress Note (SOAP) Subjective: Sweating, anxious Objective: 11/22/18 16:36 Last Vital Signs Temp Pulse Resp BP Pulse Ox 96.9 F L 111 H 18 107/71 11/22/18 15:20 11/22/18 15:20 11/22/18 15:20 11/22/18 15:20 Laboratory Tests 11/20/18 11/21/18 11/21/18 22:39 06:13 08:00 WBC 7.2 RBC 4.71 Hgb 11.9 Hct 38.1 MCV 80.8 MCH 25.2 L MCHC 31.2 L RDW 14.8 Plt Count 256 MPV 8.8 D Sodium Potassium Chloride Carbon Dioxide Anion Gap BUN Creatinine Creat Clearance w eGFR POC Glucometer 270 243 Random Glucose Calcium Total Bilirubin AST ALT Alkaline Phosphatase Total Protein Albumin RPR Titer 11/21/18 11/21/18 11/21/18 08:00 08:00 16:26 WBC RBC Hgb Hct MCV MCH MCHC RDW Plt Count MPV Sodium 135 L Potassium 4.3 Chloride 100 Carbon Dioxide 27 Anion Gap 8 BUN 18 Creatinine 1.0 Creat Clearance w eGFR > 60 POC Glucometer 371 Random Glucose 256 H Calcium 8.2 L Total Bilirubin 0.3 AST 40 H ALT 37 Alkaline Phosphatase 102 Total Protein 7.5 Albumin 3.6 RPR Titer Nonreactive 11/21/18 11/22/18 11/22/18 20:55 05:48 11:22 WBC RBC Hgb Hct MCV MCH MCHC RDW Plt Count MPV Sodium Potassium Chloride Carbon Dioxide Anion Gap BUN Creatinine Creat Clearance w eGFR POC Glucometer 217 237 203 Random Glucose Calcium Total Bilirubin AST ALT Alkaline Phosphatase Total Protein Albumin RPR Titer Labs reviewed Assessment: 11/22/18 16:37 Withdrawal symptoms Plan: Continue detox Encouraged PO water intake
[2018-11-22] MEDS ORDERED: INSULIN SLIDING SCALE (NOVOLOG) 1 VIAL SQ ONE (17:02)
[2018-11-22] MEDS: NICOTINE POLACRILEX 2 MG GUM BUC PRN ×3 (17:21→22:13)
[2018-11-22] MEDS: THIAMINE HCL 100 MG TABLET (FP) PO SCH (22:11)
[2018-11-22] MEDS: chlordiazePOXIDE 5 MG CAPSULE PO SCH (22:12)
[2018-11-22] MEDS: MELATONIN 5 MG TABLETS PO PRN (22:12)
[2018-11-23] MEDS: chlordiazePOXIDE 5 MG CAPSULE PO SCH ×3 (05:48→17:17)
[2018-11-23] MEDS: metFORMIN HCL 500 MG TABLET (FP) PO SCH ×2 (07:13→16:57)
[2018-11-23] MEDS: INSULIN SLIDING SCALE (NOVOLOG) 1 VIAL SQ SCH ×4 (08:11→22:12)
[2018-11-23] MEDS: TOLNAFTATE 1% POWDER 45 GM POW TP SCH ×2 (10:15→22:12)
[2018-11-23] MEDS: PRENATAL VITAMINS W/ FOLIC ACID TABLET (FP) PO SCH (10:15)
[2018-11-23] MEDS: NICOTINE POLACRILEX 2 MG GUM BUC PRN ×3 (10:17→22:14)
--- NOTE | 2018-11-23 11:48 | PN ---
BHS Progress Note (SOAP) Subjective: feeling better less sweat little tremor sleep better at night Objective: 11/23/18 11:47 Vital Signs Temperature 97.1 F L 11/23/18 09:24 Pulse Rate 95 H 11/23/18 09:24 Respiratory Rate 20 11/23/18 09:24 Blood Pressure 128/81 11/23/18 09:24 O2 Sat by Pulse Oximetry (%) Laboratory Last Values WBC 7.2 K/mm3 (4.0-10.0) 11/21/18 08:00 RBC 4.71 M/mm3 (4.00-5.60) 11/21/18 08:00 Hgb 11.9 GM/dL (11.7-16.9) 11/21/18 08:00 Hct 38.1 % (35.4-49) 11/21/18 08:00 MCV 80.8 fl (80-96) 11/21/18 08:00 MCH 25.2 pg (25.7-33.7) L 11/21/18 08:00 MCHC 31.2 g/dl (32.0-35.9) L 11/21/18 08:00 RDW 14.8 % (11.9-15.9) 11/21/18 08:00 Plt Count 256 K/MM3 (134-434) 11/21/18 08:00 MPV 8.8 fl (7.5-11.1) D 11/21/18 08:00 Sodium 135 mmol/L (136-145) L 11/21/18 08:00 Potassium 4.3 mmol/L (3.5-5.1) 11/21/18 08:00 Chloride 100 mmol/L (98-107) 11/21/18 08:00 Carbon Dioxide 27 mmol/L (21-32) 11/21/18 08:00 Anion Gap 8 MMOL/L (8-16) 11/21/18 08:00 BUN 18 mg/dL (7-18) 11/21/18 08:00 Creatinine 1.0 mg/dL (0.55-1.3) 11/21/18 08:00 Creat Clearance w eGFR > 60 (>60) 11/21/18 08:00 POC Glucometer 235 UNITS (80-120) 11/23/18 05:47 Random Glucose 256 mg/dL (74-106) H 11/21/18 08:00 Calcium 8.2 mg/dL (8.5-10.1) L 11/21/18 08:00 Total Bilirubin 0.3 mg/dL (0.2-1) 11/21/18 08:00 AST 40 U/L (15-37) H 11/21/18 08:00 ALT 37 U/L (13-61) 11/21/18 08:00 Alkaline Phosphatase 102 U/L (45-117) 11/21/18 08:00 Total Protein 7.5 g/dl (6.4-8.2) 11/21/18 08:00 Albumin 3.6 g/dl (3.4-5.0) 11/21/18 08:00 RPR Titer Nonreactive (NONREACTIVE) 11/21/18 08:00 lab noted Assessment: 11/23/18 11:48 mild withdrawal sx Plan: continue detox
[2018-11-23 17:40] LABS: URINE APPEARANCE CLEAR; URINE BILIRUBIN NEGATIVE (<2.0 mg/dL); URINE COLOR STRAW; URINE GLUCOSE (UA) 3+ (NEGATIVE); URINE KETONE NEGATIVE (NEGATIVE); URINE LEUK ESTERASE NEGATIVE (NEGATIVE); URINE NITRITE NEGATIVE (NEGATIVE); URINE PROTEIN NEGATIVE (NEGATIVE); URINE UROBILINOGEN NEGATIVE mg/dL (0.2-1.0)
[2018-11-23] MEDS: chlordiazePOXIDE HCL 10 MG CAPSULE PO SCH (22:12)
[2018-11-23] MEDS: MELATONIN 5 MG TABLETS PO PRN (22:37)
[2018-11-23] MEDS: THIAMINE HCL 100 MG TABLET (FP) PO SCH (22:37)
[2018-11-24] MEDS: guaiFENesin 200 MG/10 ML 10 ML UNIT-DOSE CUPS PO PRN ×2 (00:29→07:36)
[2018-11-24] MEDS: chlordiazePOXIDE HCL 10 MG CAPSULE PO SCH ×2 (05:47→10:07)
[2018-11-24] MEDS: INSULIN SLIDING SCALE (NOVOLOG) 1 VIAL SQ SCH ×2 (06:15→12:14)
[2018-11-24] MEDS: metFORMIN HCL 500 MG TABLET (FP) PO SCH (06:15)
[2018-11-24 06:28] VITALS: TEMP 98.4
[2018-11-24 09:21] VITALS: BP 123/78; PULSE 96
[2018-11-24] MEDS: PRENATAL VITAMINS W/ FOLIC ACID TABLET (FP) PO SCH (10:06)
[2018-11-24] MEDS: TOLNAFTATE 1% POWDER 45 GM POW TP SCH (10:07)
--- NOTE | 2018-11-24 13:18 | DS ---
[facility] Detox Discharge Summary Admission Date: 11/20/18 Discharge Date: 11/24/18 - History Present History: Alcohol Dependence Additional Comments: 37 years old male admitted on 11/20/18 for alcohol withdrawal stabilization completed detox regimen [facility] Physical Exam Results Vital Signs: Vital Signs Temperature 98.4 F 11/24/18 09:21 Pulse Rate 96 H 11/24/18 09:21 Respiratory Rate 20 11/24/18 09:21 Blood Pressure 123/78 11/24/18 09:21 O2 Sat by Pulse Oximetry (%) Pertinent Admission Physical Exam Findings: alcohol withdrawal sx Vital Signs Temperature 98.4 F 11/24/18 09:21 Pulse Rate 96 H 11/24/18 09:21 Respiratory Rate 20 11/24/18 09:21 Blood Pressure 123/78 11/24/18 09:21 O2 Sat by Pulse Oximetry (%) Laboratory Last Values WBC 7.2 K/mm3 (4.0-10.0) 11/21/18 08:00 RBC 4.71 M/mm3 (4.00-5.60) 11/21/18 08:00 Hgb 11.9 GM/dL (11.7-16.9) 11/21/18 08:00 Hct 38.1 % (35.4-49) 11/21/18 08:00 MCV 80.8 fl (80-96) 11/21/18 08:00 MCH 25.2 pg (25.7-33.7) L 11/21/18 08:00 MCHC 31.2 g/dl (32.0-35.9) L 11/21/18 08:00 RDW 14.8 % (11.9-15.9) 11/21/18 08:00 Plt Count 256 K/MM3 (134-434) 11/21/18 08:00 MPV 8.8 fl (7.5-11.1) D 11/21/18 08:00 Sodium 135 mmol/L (136-145) L 11/21/18 08:00 Potassium 4.3 mmol/L (3.5-5.1) 11/21/18 08:00 Chloride 100 mmol/L (98-107) 11/21/18 08:00 Carbon Dioxide 27 mmol/L (21-32) 11/21/18 08:00 Anion Gap 8 MMOL/L (8-16) 11/21/18 08:00 BUN 18 mg/dL (7-18) 11/21/18 08:00 Creatinine 1.0 mg/dL (0.55-1.3) 11/21/18 08:00 Creat Clearance w eGFR > 60 (>60) 11/21/18 08:00 POC Glucometer 295 UNITS (80-120) 11/24/18 12:08 Random Glucose 256 mg/dL (74-106) H 11/21/18 08:00 Calcium 8.2 mg/dL (8.5-10.1) L 11/21/18 08:00 Total Bilirubin 0.3 mg/dL (0.2-1) 11/21/18 08:00 AST 40 U/L (15-37) H 11/21/18 08:00 ALT 37 U/L (13-61) 11/21/18 08:00 Alkaline Phosphatase 102 U/L (45-117) 11/21/18 08:00 Total Protein 7.5 g/dl (6.4-8.2) 11/21/18 08:00 Albumin 3.6 g/dl (3.4-5.0) 11/21/18 08:00 Urine Color Straw 11/23/18 17:00 Urine Appearance Clear 11/23/18 17:00 Urine pH 7.0 (5.0-8.0) D 11/23/18 17:00 Ur Specific Dobson 1.025 (1.010-1.035) 11/23/18 17:00 Urine Protein Negative (NEGATIVE) 11/23/18 17:00 Urine Glucose (UA) 3+ (NEGATIVE) H 11/23/18 17:00 Urine Ketones Negative (NEGATIVE) 11/23/18 17:00 Urine Blood Negative (NEGATIVE) 11/23/18 17:00 Urine Nitrite Negative (NEGATIVE) 11/23/18 17:00 Urine Bilirubin Negative (<2.0 mg/dL) 11/23/18 17:00 Urine Urobilinogen Negative mg/dL (0.2-1.0) 11/23/18 17:00 Ur Leukocyte Esterase Negative (NEGATIVE) 11/23/18 17:00 RPR Titer Nonreactive (NONREACTIVE) 11/21/18 08:00 lab noted - Treatment Hospital Course: Detox Protocol Followed, Detoxed Safely, Responded well, Discharged Condition Good, Rehab Referral Accepted Patient has Accepted a Rehab Referral to: [facility] - Medication Discharge Medications: Ambulatory Orders metFORMIN HCL [Glucophage -] 500 mg PO BID@0700,1630 #60 tablet 11/23/18 - Diagnosis (1) Alcohol dependence with uncomplicated withdrawal Current Visit: Yes Status: Acute (2) DM type 2 (diabetes mellitus, type 2) Current Visit: Yes Status: Chronic Qualifiers: Diabetes mellitus [facility] insulin use: without [facility] use Diabetes mellitus complication status: without complication Qualified Code(s): E11.9 - Type 2 diabetes mellitus without complications (3) Nicotine dependence Current Visit: Yes Status: Acute Qualifiers: Nicotine product type: cigarettes Substance use status: in withdrawal Qualified Code(s): F17.213 - Nicotine dependence, cigarettes, with withdrawal (4) Substance induced mood disorder Current Visit: No Status: Suspected - AMA Did Patient Leave Against Medical Advice: No
== END 2018-11-24 13:52 | disposition other institution (70) | DRG 774 ==
LOC: YASAS 12:43 → Y3N 18:24
PROC: HZ2ZZZZ Detoxification Services for Substance Abuse Treatment (ICD-10-PCS; principal; 2018-11-20)
DX: F10.230 Alcohol dependence with withdrawal, uncomplicated (principal); F14.20 Cocaine dependence, uncomplicated; F17.213 Nicotine dependence, cigarettes, with withdrawal; F19.24 Other psychoactive substance dependence with psychoactive substance-induced mood disorder; E11.9 Type 2 diabetes mellitus without complications; Z79.84 Long term (current) use of oral hypoglycemic drugs; B35.3 Tinea pedis; B35.9 Dermatophytosis, unspecified; L85.3 Xerosis cutis; E66.9 Obesity, unspecified; Z68.35 Body mass index [BMI] 35.0-35.9, adult; R00.0 Tachycardia, unspecified; Z59.0 Homelessness
CPT/HCPCS: 36415; 80053; 81003; 82962; 85027; 86593

== ENCOUNTER 2018-11-24 13:57 | Inpatient (IN) | payer OTHER ==
--- NOTE | 2018-11-24 13:54 | HP ---
[facility] Rehab Assess/Revision - Admission History Admitted to Rehab from: [facility] Date of Admission to Rehab: 11/24/18 - Findings Detox History & Physical reviewed: Yes Concur with findings: Yes Comments/Additional Findings: transferred from detox to rehab admission as per protocol Inpatient Rehab Admission - Initial Determination Are CD services needed?: Yes Free of communicable disease: Yes Not in need of hospitalization: Yes - Rehab Admission Criteria Previous failed treatment: Yes Poor recovery environment: Yes Comorbidities: Yes Lacks judgement: No Patient is meeting Inpatient Rehab admission criteria:: Yes
[~2018-11-24 13:57] MED LIST: ACETAMINOPHEN 325 MG TABLET (FP) PO PRN; IBUPROFEN 400 MG TABLET (FP) PO PRN; LOPERAMIDE HCL 2 MG CAPSULE PO PRN; MAG HYDROX/AL HYDROX/SIMETH 30 ML UNIT-DOSE CUP PO PRN; MAGNESIUM CITRATE 300 ML BOTTLE PO PRN; MAGNESIUM HYDROX 2400MG/30ML ORAL SUSPENSION 30 ML CUP PO PRN; MENTHOL/PHENOL 1 EACH UD MM PRN; NICOTINE 14 MG/24 HOURS TOPICAL PATCH TD PRN
[2018-11-24 14:17] VITALS: BMI 37.9
[2018-11-24] MEDS ORDERED: TUBERCULIN PPD 5 TU/0.1ML VIAL ID ONE (15:18)
[2018-11-24] MEDS: metFORMIN HCL 500 MG TABLET (FP) PO SCH (16:51)
[2018-11-24] MEDS: guaiFENesin/D-METHORPHAN HB 10 ML UNIT-DOSE CUPS PO PRN (16:53)
[2018-11-24] MEDS: NICOTINE POLACRILEX 2 MG GUM BUC PRN (21:34)
[2018-11-24] MEDS: MELATONIN 5 MG TABLETS PO PRN (21:34)
[2018-11-24] MEDS: THIAMINE HCL 100 MG TABLET (FP) PO SCH (21:34)
[2018-11-25] MEDS ORDERED: PT OWN MED DRAWER 7, Y5N ONE (04:21)
--- NOTE | 2018-11-25 06:08 | HP ---
Psychiatrist Admission - Data Date of interview: 11/25/18 Admission source: 3N Identifying data: This is the second [facility] Inpatient Rehabilitation admission for this 37 years old single Black male, unemployed with no source of income, homeless Medical History: Significant for type 2 diabetes mellitus, history of lap cholecystectomy in 2013 and appendectomy in 1996. Smokes 10 cigarettes daily Psychiatric History: Denies history of previous psychiatric treatment Physical/Sexual Abuse/Trauma History: Denies history of emotional, physical or sexual abuse as well as DV relationship. No service Additional Comment: Reports history of multiple previous misdemeanor arrests. Denied being on probation at present Vital Signs: Vital Signs - 24 hr 11/24/18 11/25/18 14:07 03:30 Temperature 98 F Pulse Rate 97 H Respiratory 18 18 Rate Blood Pressure 134/88 Allergies/Adverse Reactions: Allergies Allergy/AdvReac Type Severity Reaction Status Date / Time No Known Allergies Allergy Verified 11/20/18 17:24 Date of last physical exam: 11/20/18 Concur with the findings of this exam: Yes - Substance Abuse/Tx History Hx Alcohol Use: Yes Hx Substance Use: Yes Substance Use Type: Alcohol (Started drinking alcohol at age19, Consumes one pint of liquor & 8x 25oz of beer daily. Last drank on 11/20/18), Cocaine (Started smking crack cocaine at age 21, consumes $100 worth. Last smoked on 11/19/18) Hx Substance Use Treatment: Yes (7 previous inpt detox & one inpt rehab admissions @ [facility]) Mental Status Exam - Mental Status Exam Alert and Oriented to: Time, Place, Person Cognitive Function: Fair Patient Appearance: Well Groomed Mood: Hopeful, Euthymic Patient Behavior: Cooperative Speech Pattern: Clear Voice Loudness: Normal Thought Process: Intact Hallucinations: Denies Suicidal Ideation: Denies Homicidal Ideation: Denies Insight/Judgement: Fair Sleep: Poorly Appetite: Good Muscle strength/Tone: Normal Gait/Station: Normal Psychiatric Findings - Problem List ([place] 1, 2,3) (1) Alcohol dependence Current Visit: No Status: Acute (2) Cocaine dependence Current Visit: Yes Status: Acute (3) Nicotine dependence Current Visit: No Status: Chronic Qualifiers: Nicotine product type: cigarettes Substance use status: in withdrawal Qualified Code(s): F17.213 - Nicotine dependence, cigarettes, with withdrawal (4) Substance-induced sleep disorder Current Visit: Yes Status: Acute (5) DM type 2 (diabetes mellitus, type 2) Current Visit: No Status: Chronic Qualifiers: Diabetes mellitus assisted insulin use: without assisted use Diabetes mellitus complication status: without complication Qualified Code(s): E11.9 - Type 2 diabetes mellitus without complications (6) Obesity (BMI 30-39.9) Current Visit: No Status: Chronic - Initial Treatment Plan Initial Treatment Plan: 1) Start Melatonin 5mg po HS prn for insomnia. 2) Monitor progress
[2018-11-25] MEDS: metFORMIN HCL 500 MG TABLET (FP) PO SCH ×2 (06:09→16:53)
[2018-11-25] MEDS: glipiZIDE 5 MG TABLET (FP) PO SCH (06:09)
[2018-11-25] MEDS: PRENATAL VITAMINS W/ FOLIC ACID TABLET (FP) PO SCH (11:00)
[2018-11-25] MEDS: NICOTINE POLACRILEX 2 MG GUM BUC PRN ×3 (11:01→21:49)
[2018-11-25] MEDS: THIAMINE HCL 100 MG TABLET (FP) PO SCH (21:48)
[2018-11-25] MEDS: MELATONIN 5 MG TABLETS PO PRN (21:48)
[2018-11-26] MEDS: NICOTINE POLACRILEX 2 MG GUM BUC PRN ×3 (06:01→21:44)
[2018-11-26] MEDS: glipiZIDE 5 MG TABLET (FP) PO SCH (07:14)
[2018-11-26] MEDS: metFORMIN HCL 500 MG TABLET (FP) PO SCH ×2 (07:14→16:47)
[2018-11-26] MEDS: PRENATAL VITAMINS W/ FOLIC ACID TABLET (FP) PO SCH (10:01)
[2018-11-26] MEDS: MELATONIN 5 MG TABLETS PO PRN (21:43)
[2018-11-26] MEDS: THIAMINE HCL 100 MG TABLET (FP) PO SCH (21:43)
[2018-11-27] MEDS: NICOTINE POLACRILEX 2 MG GUM BUC PRN ×3 (06:24→22:04)
[2018-11-27] MEDS: glipiZIDE 5 MG TABLET (FP) PO SCH (06:49)
[2018-11-27] MEDS: metFORMIN HCL 500 MG TABLET (FP) PO SCH ×2 (06:49→16:57)
[2018-11-27] MEDS: PRENATAL VITAMINS W/ FOLIC ACID TABLET (FP) PO SCH (10:31)
[2018-11-27] MEDS ORDERED: metFORMIN HCL 500 MG TABLET (FP) PO SCH ×2 (16:30→22:00)
[2018-11-27] MEDS: INSULIN SLIDING SCALE (NOVOLOG) 1 VIAL SQ SCH (17:06)
[2018-11-27] MEDS: THIAMINE HCL 100 MG TABLET (FP) PO SCH (22:03)
[2018-11-27] MEDS: MELATONIN 5 MG TABLETS PO PRN (22:03)
[2018-11-28] MEDS: INSULIN SLIDING SCALE (NOVOLOG) 1 VIAL SQ SCH ×2 (06:13→16:48)
[2018-11-28] MEDS: metFORMIN HCL 500 MG TABLET (FP) PO SCH ×2 (06:13→16:49)
[2018-11-28] MEDS: glipiZIDE 5 MG TABLET (FP) PO SCH (06:13)
[2018-11-28] MEDS: NICOTINE POLACRILEX 2 MG GUM BUC PRN ×4 (06:47→21:25)
[2018-11-28] MEDS: PRENATAL VITAMINS W/ FOLIC ACID TABLET (FP) PO SCH (09:43)
[2018-11-28] MEDS: THIAMINE HCL 100 MG TABLET (FP) PO SCH (21:25)
[2018-11-29] MEDS: metFORMIN HCL 500 MG TABLET (FP) PO SCH ×2 (06:15→17:09)
[2018-11-29] MEDS: INSULIN SLIDING SCALE (NOVOLOG) 1 VIAL SQ SCH ×2 (06:15→16:55)
[2018-11-29] MEDS: glipiZIDE 5 MG TABLET (FP) PO SCH (06:15)
[2018-11-29] MEDS: NICOTINE POLACRILEX 2 MG GUM BUC PRN ×4 (08:55→22:11)
[2018-11-29] MEDS: PRENATAL VITAMINS W/ FOLIC ACID TABLET (FP) PO SCH (09:18)
[2018-11-29] MEDS: THIAMINE HCL 100 MG TABLET (FP) PO SCH (22:10)
[2018-11-30] MEDS: metFORMIN HCL 500 MG TABLET (FP) PO SCH ×2 (07:09→16:44)
[2018-11-30] MEDS: glipiZIDE 5 MG TABLET (FP) PO SCH (07:11)
[2018-11-30] MEDS: INSULIN SLIDING SCALE (NOVOLOG) 1 VIAL SQ SCH ×2 (07:11→16:46)
[2018-11-30] MEDS: PRENATAL VITAMINS W/ FOLIC ACID TABLET (FP) PO SCH (10:10)
[2018-11-30] MEDS: NICOTINE POLACRILEX 2 MG GUM BUC PRN ×3 (10:11→22:06)
[2018-11-30] MEDS: THIAMINE HCL 100 MG TABLET (FP) PO SCH (22:07)
[2018-11-30] MEDS: MELATONIN 5 MG TABLETS PO PRN (22:07)
[2018-12-01] MEDS: INSULIN SLIDING SCALE (NOVOLOG) 1 VIAL SQ SCH ×2 (07:04→16:38)
[2018-12-01] MEDS: metFORMIN HCL 500 MG TABLET (FP) PO SCH ×2 (07:04→16:37)
[2018-12-01] MEDS: glipiZIDE 5 MG TABLET (FP) PO SCH (07:04)
[2018-12-01] MEDS: NICOTINE POLACRILEX 2 MG GUM BUC PRN ×3 (09:57→21:29)
[2018-12-01] MEDS: PRENATAL VITAMINS W/ FOLIC ACID TABLET (FP) PO SCH (09:57)
[2018-12-01] MEDS: THIAMINE HCL 100 MG TABLET (FP) PO SCH (21:28)
[2018-12-01] MEDS: MELATONIN 5 MG TABLETS PO PRN (21:28)
[2018-12-02] MEDS: glipiZIDE 5 MG TABLET (FP) PO SCH (07:01)
[2018-12-02] MEDS: metFORMIN HCL 500 MG TABLET (FP) PO SCH ×2 (07:01→16:42)
[2018-12-02] MEDS: INSULIN SLIDING SCALE (NOVOLOG) 1 VIAL SQ SCH ×2 (07:01→16:43)
[2018-12-02] MEDS: PRENATAL VITAMINS W/ FOLIC ACID TABLET (FP) PO SCH (10:13)
[2018-12-02] MEDS: NICOTINE POLACRILEX 2 MG GUM BUC PRN ×2 (10:15→21:41)
[2018-12-02] MEDS: THIAMINE HCL 100 MG TABLET (FP) PO SCH (21:40)
[2018-12-02] MEDS: MELATONIN 5 MG TABLETS PO PRN (21:40)
[2018-12-03] MEDS: metFORMIN HCL 500 MG TABLET (FP) PO SCH ×2 (06:03→16:36)
[2018-12-03] MEDS: glipiZIDE 5 MG TABLET (FP) PO SCH (06:03)
[2018-12-03] MEDS: INSULIN SLIDING SCALE (NOVOLOG) 1 VIAL SQ SCH ×2 (06:31→16:37)
[2018-12-03] MEDS: PRENATAL VITAMINS W/ FOLIC ACID TABLET (FP) PO SCH (10:00)
[2018-12-03] MEDS: NICOTINE POLACRILEX 2 MG GUM BUC PRN ×3 (10:00→19:54)
[2018-12-03] MEDS: guaiFENesin/D-METHORPHAN HB 10 ML UNIT-DOSE CUPS PO PRN (16:37)
[2018-12-03] MEDS: MELATONIN 5 MG TABLETS PO PRN (21:19)
[2018-12-03] MEDS: THIAMINE HCL 100 MG TABLET (FP) PO SCH (21:19)
[2018-12-03] MEDS: P-EPHED 60MG/TRIPROLIDI 2.5MG TABLET PO PRN (21:21)
[2018-12-04] MEDS: metFORMIN HCL 500 MG TABLET (FP) PO SCH ×2 (06:31→16:34)
[2018-12-04] MEDS: glipiZIDE 5 MG TABLET (FP) PO SCH (06:31)
[2018-12-04] MEDS: INSULIN SLIDING SCALE (NOVOLOG) 1 VIAL SQ SCH ×2 (06:33→16:34)
[2018-12-04] MEDS ORDERED: INSULIN (NOVOLOG) ASPART 100 UNITS/ML 10ML VIAL ONE (06:35)
[2018-12-04] MEDS: guaiFENesin/D-METHORPHAN HB 10 ML UNIT-DOSE CUPS PO PRN ×2 (10:21→21:22)
[2018-12-04] MEDS: P-EPHED 60MG/TRIPROLIDI 2.5MG TABLET PO PRN (10:21)
[2018-12-04] MEDS: PRENATAL VITAMINS W/ FOLIC ACID TABLET (FP) PO SCH (10:21)
[2018-12-04] MEDS: NICOTINE POLACRILEX 2 MG GUM BUC PRN (16:36)
[2018-12-04] MEDS: THIAMINE HCL 100 MG TABLET (FP) PO SCH (21:21)
[2018-12-04] MEDS: MELATONIN 5 MG TABLETS PO PRN (21:22)
[2018-12-05] MEDS: guaiFENesin/D-METHORPHAN HB 10 ML UNIT-DOSE CUPS PO PRN ×2 (05:55→21:40)
[2018-12-05] MEDS: P-EPHED 60MG/TRIPROLIDI 2.5MG TABLET PO PRN (05:55)
[2018-12-05] MEDS: NICOTINE POLACRILEX 2 MG GUM BUC PRN ×3 (05:56→21:40)
[2018-12-05] MEDS: glipiZIDE 5 MG TABLET (FP) PO SCH (06:53)
[2018-12-05] MEDS: metFORMIN HCL 500 MG TABLET (FP) PO SCH ×2 (06:53→16:46)
[2018-12-05] MEDS: PRENATAL VITAMINS W/ FOLIC ACID TABLET (FP) PO SCH (10:04)
[2018-12-05] MEDS: INSULIN SLIDING SCALE (NOVOLOG) 1 VIAL SQ SCH ×2 (10:54→16:49)
[2018-12-05] MEDS: THIAMINE HCL 100 MG TABLET (FP) PO SCH (21:40)
[2018-12-05] MEDS: MELATONIN 5 MG TABLETS PO PRN (21:40)
[2018-12-06] MEDS: guaiFENesin/D-METHORPHAN HB 10 ML UNIT-DOSE CUPS PO PRN ×2 (06:24→21:41)
[2018-12-06] MEDS: metFORMIN HCL 500 MG TABLET (FP) PO SCH ×2 (07:02→16:38)
[2018-12-06] MEDS: INSULIN SLIDING SCALE (NOVOLOG) 1 VIAL SQ SCH ×2 (07:02→16:39)
[2018-12-06] MEDS: glipiZIDE 5 MG TABLET (FP) PO SCH (07:02)
[2018-12-06] MEDS: PRENATAL VITAMINS W/ FOLIC ACID TABLET (FP) PO SCH (09:54)
[2018-12-06] MEDS: NICOTINE POLACRILEX 2 MG GUM BUC PRN ×3 (09:54→21:42)
[2018-12-06] MEDS: THIAMINE HCL 100 MG TABLET (FP) PO SCH (21:40)
[2018-12-06] MEDS: MELATONIN 5 MG TABLETS PO PRN (21:40)
[2018-12-07] MEDS: glipiZIDE 5 MG TABLET (FP) PO SCH (06:28)
[2018-12-07] MEDS: metFORMIN HCL 500 MG TABLET (FP) PO SCH ×2 (06:28→16:45)
[2018-12-07] MEDS: INSULIN SLIDING SCALE (NOVOLOG) 1 VIAL SQ SCH ×2 (06:28→16:46)
[2018-12-07] MEDS: PRENATAL VITAMINS W/ FOLIC ACID TABLET (FP) PO SCH (10:05)
[2018-12-07] MEDS: guaiFENesin/D-METHORPHAN HB 10 ML UNIT-DOSE CUPS PO PRN (10:07)
[2018-12-07] MEDS: NICOTINE POLACRILEX 2 MG GUM BUC PRN ×3 (12:37→21:34)
[2018-12-07] MEDS: THIAMINE HCL 100 MG TABLET (FP) PO SCH (21:33)
[2018-12-07] MEDS: MELATONIN 5 MG TABLETS PO PRN (21:33)
[2018-12-08] MEDS: guaiFENesin/D-METHORPHAN HB 10 ML UNIT-DOSE CUPS PO PRN ×2 (05:56→21:46)
[2018-12-08] MEDS: NICOTINE POLACRILEX 2 MG GUM BUC PRN ×4 (05:58→21:44)
[2018-12-08] MEDS: glipiZIDE 5 MG TABLET (FP) PO SCH (07:02)
[2018-12-08] MEDS: INSULIN SLIDING SCALE (NOVOLOG) 1 VIAL SQ SCH ×2 (07:02→17:03)
[2018-12-08] MEDS: metFORMIN HCL 500 MG TABLET (FP) PO SCH ×2 (07:02→17:04)
[2018-12-08] MEDS: PRENATAL VITAMINS W/ FOLIC ACID TABLET (FP) PO SCH (09:59)
[2018-12-08] MEDS: THIAMINE HCL 100 MG TABLET (FP) PO SCH (21:44)
[2018-12-09] MEDS ORDERED: INSULIN (NOVOLOG) ASPART 100 UNITS/ML 10ML VIAL ONE (05:09)
[2018-12-09] MEDS: metFORMIN HCL 500 MG TABLET (FP) PO SCH ×2 (06:14→16:38)
[2018-12-09] MEDS: glipiZIDE 5 MG TABLET (FP) PO SCH (06:14)
[2018-12-09] MEDS: INSULIN SLIDING SCALE (NOVOLOG) 1 VIAL SQ SCH ×2 (06:14→16:39)
[2018-12-09] MEDS: guaiFENesin/D-METHORPHAN HB 10 ML UNIT-DOSE CUPS PO PRN ×2 (06:15→21:36)
[2018-12-09 07:01] VITALS: TEMP 97.6
[2018-12-09] MEDS: PRENATAL VITAMINS W/ FOLIC ACID TABLET (FP) PO SCH (10:01)
[2018-12-09] MEDS: NICOTINE POLACRILEX 2 MG GUM BUC PRN ×4 (10:01→21:36)
--- NOTE | 2018-12-09 11:10 | PN ---
[facility] Progress Note Note: PT COMPLETED REHAB AND REPORTS [facility]. PT REPORTS HAS NO PMD AND HAS BEEN INSTRUCTED TO SEEK MEDICAL CARE AT [facility] AFTER DISCHARGE FOR MEDICAL MANAGEMENT. SPOKE TO PT'S COUNSELOR CONCERNING THE NEED TO FOLLOW UP AT RECOMMENDED CLINIC IF STAYING IN THE [place]. Vital Signs 12/09/18 12/09/18 03:30 07:00 Temperature 97.6 F Pulse Rate 81 Respiratory 18 20 Rate Blood Pressure 120/77 Laboratory Tests 11/24/18 11/25/18 11/25/18 16:51 05:57 16:53 POC Glucometer 274 236 309 11/26/18 11/26/18 11/27/18 05:59 16:46 06:23 POC Glucometer 209 300 213 11/27/18 11/28/18 11/28/18 16:56 06:12 16:47 POC Glucometer 256 220 233 11/29/18 11/29/18 11/30/18 06:14 16:37 06:17 POC Glucometer 222 250 199 11/30/18 12/01/18 12/01/18 16:44 06:25 16:37 POC Glucometer 301 227 286 12/02/18 12/02/18 12/03/18 06:11 16:42 06:03 POC Glucometer 230 201 260 12/03/18 12/04/18 12/04/18 16:35 06:30 16:24 POC Glucometer 249 293 228 12/05/18 12/05/18 12/06/18 05:54 16:46 06:22 POC Glucometer 245 264 225 12/06/18 12/07/18 12/07/18 16:37 06:27 16:44 POC Glucometer 131 172 227 12/08/18 12/08/18 12/09/18 05:56 16:36 06:13 POC Glucometer 220 250 198 PLAN:FOLLOW UP AT [facility] FOR MEDICAL MANAGEMENT. F/U WITH CD AFTERCARE RECOMMENDATION.
--- NOTE | 2018-12-09 11:38 | PN ---
Psychiatric Progress Note Vital Signs: Vital Signs Period Temp Pulse Resp BP Sys/Nicholson Pulse Ox Last 24 Hr 97.6 F 81 18-20 120/77 Date of Session: 12/09/18 Chief Complaint:: Discharge Note HPI: Patient addressing Alcohol and Cocaine Dependence comorbid with Nicotine Dependence and Substsance-Induced Sleep Disorder ROS: DM, Obesity were medically managed Current Medications: Active Medications Generic Name Dose Route Start Last Admin Trade Name Freq PRN Reason Stop Dose Admin Acetaminophen 650 mg 11/24/18 13:55 Tylenol - PO Q4H PRN FEVER Al Hydroxide/Mg Hydroxide 30 ml 11/24/18 13:55 Mylanta Oral Suspension - PO Q6H PRN DYSPEPSIA Eucalyptus/Menthol/Phenol/Sorbitol 1 each 11/24/18 13:55 Cepastat Lozenge - MM Q4H PRN SORE THROAT Glipizide 5 mg 11/25/18 07:00 12/09/18 06:14 Glucotrol - PO [address] Administration Guaifenesin 10 ml 11/24/18 13:55 12/09/18 06:15 Robitussin Dm - PO 10 ml Q6H PRN Administration COUGH Ibuprofen 400 mg 11/24/18 13:55 Motrin - PO Q6H PRN Pain Level 4-6 Insulin Aspart 1 vial 11/27/18 16:30 12/09/18 06:14 Novolog Vial Sliding Scale - SQ Not Given BIDAC [facility] Protocol Loperamide HCl 4 mg 11/24/18 13:55 Imodium - PO Q6H PRN DIARRHEA Magnesium Citrate 300 ml 11/24/18 13:55 Citroma - PO Q48H PRN CONSTIPATION Magnesium Hydroxide 30 ml 11/24/18 13:55 Milk Of Magnesia - PO DAILY PRN CONSTIPATION Melatonin 5 mg 11/24/18 22:00 12/07/18 21:33 Melatonin PO 5 mg HS PRN Administration INSOMNIA Metformin HCl 1,000 mg 11/24/18 16:30 12/09/18 06:14 Glucophage - PO 1,000 mg BID@0700,1630 RD Administration Nicotine 14 mg 11/24/18 13:55 Nicoderm Patch - TD DAILY PRN WITHDRAWAL(CONT SUBST) Nicotine Polacrilex 2 mg 11/24/18 13:55 12/09/18 10:01 Nicorette Gum - BUC 2 mg Q2H PRN Administration NICOTINE REPLACEMENT RX Multivit/Folic Acid/Iron 1 tab 11/25/18 10:00 12/09/18 10:01 Vitamins (Sjr) - PO [address] Administration Pseudoephedrine/Triprolidine 1 combo 11/24/18 13:55 12/05/18 05:55 Actifed - PO 1 combo TID PRN Administration NASAL CONGESTION Thiamine HCl 100 mg 11/24/18 22:00 12/08/18 21:44 Vitamin B1 - PO [address] Administration Current Side Effect: No Lab tests ordered: Yes Lab tests reviewed: Yes Provider note:: Patient will complete this program on 12/10/18. He has met his treatment goals and will continue to address his issues in [facility] residential treatment at the [facility]. Told editorial writer that from his participation in this program, he has learned the importance of making meetings and get a sponsor. He is stable for discharge on 12/10/18 Total face to face time:: 35 Mental Status Exam - Mental Status Exam Alert and Oriented to: Time, Place, Person Cognitive Function: Fair Patient Appearance: Well Groomed Mood: Hopeful, Euthymic Affect: Appropriate Patient Behavior: Cooperative Speech Pattern: Clear Voice Loudness: Normal Thought Process: Intact, Goal Oriented Thought Disorder: Not Present Hallucinations: Denies Suicidal Ideation: Denies Homicidal Ideation: Denies Insight/Judgement: Fair Sleep: Fair Appetite: Good Muscle strength/Tone: Normal Gait/Station: Normal Psychiatric Treatment Plan - Problem List (1) Alcohol dependence Current Visit: No (2) Cocaine dependence Current Visit: Yes (3) Nicotine dependence Current Visit: No Qualifiers: Nicotine product type: cigarettes Substance use status: in withdrawal Qualified Code(s): F17.213 - Nicotine dependence, cigarettes, with withdrawal (4) Substance-induced sleep disorder Current Visit: Yes (5) DM type 2 (diabetes mellitus, type 2) Current Visit: No Qualifiers: Diabetes mellitus [facility] insulin use: without terminal press operator use Diabetes mellitus complication status: without complication Qualified Code(s): E11.9 - Type 2 diabetes mellitus without complications (6) Obesity (BMI 30-39.9) Current Visit: No Initial treatment plan: Patient is discharged tomorrow and referred to the [facility] for terminal press operator residential treatment
[2018-12-09] MEDS: MELATONIN 5 MG TABLETS PO PRN (21:35)
[2018-12-09] MEDS: THIAMINE HCL 100 MG TABLET (FP) PO SCH (21:35)
[2018-12-10] MEDS: metFORMIN HCL 500 MG TABLET (FP) PO SCH (06:01)
[2018-12-10] MEDS: glipiZIDE 5 MG TABLET (FP) PO SCH (06:02)
[2018-12-10] MEDS: NICOTINE POLACRILEX 2 MG GUM BUC PRN ×2 (06:03→10:01)
[2018-12-10 06:49] VITALS: BP 123/78; PULSE 82
[2018-12-10] MEDS: INSULIN SLIDING SCALE (NOVOLOG) 1 VIAL SQ SCH (07:25)
[2018-12-10] MEDS: guaiFENesin/D-METHORPHAN HB 10 ML UNIT-DOSE CUPS PO PRN (10:00)
[2018-12-10] MEDS: PRENATAL VITAMINS W/ FOLIC ACID TABLET (FP) PO SCH (10:00)
== END 2018-12-10 10:10 | disposition home or self-care (01) | DRG 772 ==
LOC: YASAS 13:57 → Y3W 13:58
PROVIDERS: ADMIT Psychiatry & Neurology Psychiatry; ATTEND Psychiatry & Neurology Psychiatry
PROC: HZ42ZZZ Group Counseling for Substance Abuse Treatment, Cognitive-Behavioral (ICD-10-PCS; principal; 2018-11-24)
DX: F10.20 Alcohol dependence, uncomplicated (principal); F14.20 Cocaine dependence, uncomplicated; F17.213 Nicotine dependence, cigarettes, with withdrawal; F19.282 Other psychoactive substance dependence with psychoactive substance-induced sleep disorder; E11.9 Type 2 diabetes mellitus without complications; Z79.84 Long term (current) use of oral hypoglycemic drugs; E66.9 Obesity, unspecified; Z68.37 Body mass index [BMI] 37.0-37.9, adult; Z59.0 Homelessness
CPT/HCPCS: 82962

== ENCOUNTER 2019-02-22 08:51 | Inpatient (IN) | payer OTHER ==
[2019-02-22 10:23] VITALS: BMI 34.2
--- NOTE | 2019-02-22 11:39 | HP ---
CIWA Score Nausea/Vomitin Muscle Tremors: 2 Anxiety: 2 Agitation: 2 Paroxysmal Sweats: 1-Minimal Palms Moist Orientation: 0-Oriented Tacttile Disturbances: 1-Very Mild Itch/Numbness Auditory Disturbances: 1-Very Mild Visual Disturbances: 0-None Headache: 2-Mild CIWA-Ar Total Score: 13 - Admission Criteria OASAS Guidelines: Admission for Medically Managed Detox: Requires at least one of the followin. CIWA greater than 12 2. Seizures within the past 24 hours 3. Delirium tremens within the past 24 hours 4. Hallucinations within the past 24 hours 5. Acute intervention needed for co occurring medical disorder 6. Acute intervention needed for co occurring psychiatric disorder 7. Severe withdrawal that cannot be handled at a lower level of care (continued vomiting, continued diarrhea, abnormal vital signs) requiring intravenous medication and/or fluids 8. Admission ROS BHS - HPI Chief Complaint: i need help to stop drinking alcohol and cocaine Allergies/Adverse Reactions: Allergies Allergy/AdvReac Type Severity Reaction Status Date / Time No Known Allergies Allergy Verified 02/22/19 10:10 History of Present Illness: this 38 years old male with alcohol and cocaine dependence seeking detox, withdrawal symptom, multiple admissions in detox but keep relapsing withdrawal symptom type 2 dm non compliance nicotine dependence e1 pack/day,requesting gum longest period of sobriety 7 months plan for [facility] housing after detox Exam Limitations: No Limitations - Ebola screening Have you traveled outside of the country in the last 21 days: Yes Have you had contact with anyone from an Ebola affected area: No - Review of Systems Constitutional: Loss of Appetite, Malaise, Night Sweats, Changes in sleep, Weakness EENT: reports: Tearing, Nose Congestion Respiratory: reports: No Symptoms reported Cardiac: reports: No Symptoms Reported GI: reports: Nausea, Poor Appetite, Vomiting, Abdominal cramping : reports: No Symptoms Reported Musculoskeletal: reports: Back Pain, Muscle Pain Integumentary: reports: Dryness Neuro: reports: Headache, Tremors Endocrine: reports: No Symptoms Reported Hematology: reports: No Symptoms Reported Psychiatric: reports: No Sypmtoms Reported, Judgement Intact, Mood/Affect Appropiate, Orientated x3, other Other Systems: Reviewed and Negative Patient History - Patient Medical History Hx Anemia: No Hx Asthma: No Hx Chronic Obstructive Pulmonary Disease (COPD): No Hx Cancer: No Hx Cardiac Disorders: No Hx Congestive Heart Failure: No Hx Hypertension: No Hx Hypercholesterolemia: No Hx Pacemaker: No HX Cerebrovascular Accident: No Hx Seizures: No Hx Dementia: No Hx Diabetes: Yes (NIDDM noncompliance) Hx Gastrointestinal Disorders: No Hx Liver Disease: No Hx Genitourinary Disorders: No Hx Sexually Transmitted Disorders: No Hx Renal Disease (ESRD): No Hx Thyroid Disease: No Hx Human Immunodeficiency Virus (HIV): No (negative 2016 last ) Hx Hepatitis C: No Hx Depression: No Hx Suicide Attempt: No Hx Bipolar Disorder: No Hx Schizophrenia: No Other Medical History: no suicidal,no homicidal - Patient Surgical History Past Surgical History: Yes Hx Neurologic Surgery: No Hx Cataract Extraction: No Hx Cardiac Surgery: No Hx Lung Surgery: No Hx Breast Surgery: No Hx Breast Biopsy: No Hx Abdominal Surgery: No Hx Appendectomy: Yes (age 15) Hx Cholecystectomy: Yes (lap cholecystectomy in 2013) Hx Genitourinary Surgery: No Hx Section: No Hx Orthopedic Surgery: No Other Surgical History: kidney stone 2012 Anesthesia Reaction: No - PPD History Previous Implant?: Yes Documented Results: Negative w/proof Date: 11/26/18 Results: 0 mm PPD to be Administered?: No - Smoking Cessation Smoking history: Current every day smoker Have you smoked in the past 12 months: Yes Aproximately how many cigarettes per day: 20 Cigars Per Day: 0 Hx Chewing Tobacco Use: No Initiated information on smoking cessation: Yes 'Breaking Loose' booklet given: 02/22/19 - Substance & Tx. History Hx Alcohol Use: Yes Hx Substance Use: Yes Substance Use Type: Alcohol, Cocaine Hx Substance Use Treatment: Yes ([facility] 11/20/18 to 11/24/18,11/24/18 to 12/10/18 rehab) - Substances abused Alcohol Substance route: Oral Frequency: Daily Amount used: (5) 25 ounce cans of beer Age of first use: 19 Date of last use: 02/22/19 Cocaine Substance route: Smoking Frequency: Daily Amount used: $50 Age of first use: 21 Date of last use: 02/22/19 Family Disease History - Family Disease History Family Disease History: Diabetes: Father (type 2), Sister (type 2), CA: Mother ( ,cancer of lung,alcohol), Other: Mother Admission Physical Exam BHS - Vital Signs Vital Signs: Vital Signs - 24 hr 02/22/19 02/22/19 10:14 10:28 Pulse Rate 98 H 98 H Respiratory 16 16 Rate Blood Pressure 142/78 142/78 - Physical General Appearance: Yes: Moderate Distress, Tremorous, Irritable, Sweating, Anxious HEENTM: Yes: Normal ENT Inspection, Normocephalic, SHELIA, Pharynx Normal Respiratory: Yes: Within Normal Limits, Lungs Clear, Normal Breath Sounds Neck: Yes: Within Normal Limits, Supple, Trachea in good position Breast: Yes: Within Normal Limits Cardiology: Yes: Within Normal Limits, Regular Rhythm, Regular Rate, S1, S2 Abdominal: Yes: Within Normal Limits, Normal Bowel Sounds, Non Tender, Flat, Soft Genitourinary: Yes: Within Normal Limits Back: Yes: Muscle Spasm Musculoskeletal: Yes: Back pain, Muscle Pain Extremities: Yes: Tremors Neurological: Yes: automatic driller and reamer II-XII NML intact, Fully Oriented, Alert, Motor Strength 5/5 Integumentary: Yes: Dry Lymphatic: Yes: Within Normal Limits - Diagnostic (1) Alcohol dependence with uncomplicated withdrawal Current Visit: No Status: Acute (2) Cocaine dependence Current Visit: No Status: Acute (3) DM type 2 (diabetes mellitus, type 2) Current Visit: No Status: Chronic Qualifiers: Diabetes mellitus usp insulin use: without termite control servicer use Diabetes mellitus complication status: without complication Qualified Code(s): E11.9 - Type 2 diabetes mellitus without complications (4) Nicotine dependence Current Visit: No Status: Chronic Qualifiers: Nicotine product type: cigarettes Substance use status: in withdrawal Qualified Code(s): F17.213 - Nicotine dependence, cigarettes, with withdrawal (5) History of appendectomy Current Visit: Yes Status: Acute (6) History of laparoscopic cholecystectomy Current Visit: Yes Status: Acute Cleared for Admission S - Detox or Rehab [facility] Level of Care: Medically Managed Detox Regimen/Protocol: Librium Breathalyzer - Breathalyzer Breathalyzer: 0.088 Urine Drug Screen - Test Device Lot number: [id number] Expiration date: 10/16/20 - Control Is test valid?: Yes - Results Drug screen NEGATIVE: No Urine drug screen results: JUAN LUIS-Cocaine Inpatient Rehab Admission - Rehab Decision to Admit Inpatient rehab admission?: No
[2019-02-22] MEDS ORDERED: hydrOXYzine PAMOATE 25 MG CAPSULE (FP) PO PRN (11:47)
[2019-02-22] MEDS ORDERED: BISMUTH SUBSALICYLATE 262 MG/15 ML BTL PO PRN (11:47)
[2019-02-22] MEDS ORDERED: MENTHOL/PHENOL 1 EACH UD MM PRN (11:47)
[2019-02-22] MEDS ORDERED: chlordiazePOXIDE HCL 10 MG CAPSULE PO PRN (11:47)
[2019-02-22] MEDS ORDERED: ACETAMINOPHEN 325 MG TABLET (FP) PO PRN ×2 (11:47)
[2019-02-22] MEDS ORDERED: MAGNESIUM HYDROX 2400MG/30ML ORAL SUSPENSION 30 ML CUP PO PRN (11:47)
[2019-02-22] MEDS ORDERED: IBUPROFEN 400 MG TABLET (FP) PO PRN (11:47)
[2019-02-22] MEDS ORDERED: MAGNESIUM CITRATE 300 ML BOTTLE PO PRN (11:47)
[2019-02-22] MEDS ORDERED: MAG HYDROX/AL HYDROX/SIMETH 30 ML UNIT-DOSE CUP PO PRN (11:47)
[2019-02-22] MEDS ORDERED: METHOCARBAMOL 500 MG TABLET PO PRN (11:47)
[2019-02-22] MEDS: chlordiazePOXIDE HCL 25 MG CAPSULE PO SCH ×2 (13:21→22:22)
[2019-02-22] MEDS: NICOTINE POLACRILEX 4 MG GUM BUC PRN ×3 (15:03→22:22)
[2019-02-22 15:21] LABS: HEMATOCRIT 41.9 % (35.4-49); HEMOGLOBIN 13.3 GM/dL (11.7-16.9); MCH 25.7 pg (25.7-33.7); MCHC 31.7 g/dl (32.0-35.9); MEAN CELL VOLUME 81.3 fl (80-96); PLATELET COUNT 220 K/MM3 (134-434); RBC 5.16 M/mm3 (4.00-5.60); RDW 15.8 % (11.9-15.9)
[2019-02-22 16:05] LABS: ALBUMIN 3.7 g/dl (3.4-5.0); ALK PHOS 120 U/L (45-117); ANION GAP 7 MMOL/L (8-16); BILIRUBIN,TOTAL 0.3 mg/dL (0.2-1); BLOOD UREA NITROGEN 6 mg/dL (7-18); CALCIUM 8.7 mg/dL (8.5-10.1); CHLORIDE 100 mmol/L (98-107); CO2 27 mmol/L (21-32); POTASSIUM 4.4 mmol/L (3.5-5.1); SGOT/AST 21 U/L (15-37); SGPT/ALT 38 U/L (13-61); SODIUM 134 mmol/L (136-145)
[2019-02-22 16:09] LABS: GLUCOSE,RANDOM 350 mg/dL (74-106)
--- NOTE | 2019-02-22 17:05 | PN ---
[facility] Progress Note Note: Vital Signs Temperature 97.6 F 02/22/19 13:28 Pulse Rate 93 H 02/22/19 13:28 Respiratory Rate 18 02/22/19 13:28 Blood Pressure 139/82 02/22/19 13:28 O2 Sat by Pulse Oximetry (%) Laboratory Last Values WBC 5.0 K/mm3 (4.0-10.0) 02/22/19 11:40 RBC 5.16 M/mm3 (4.00-5.60) 02/22/19 11:40 Hgb 13.3 GM/dL (11.7-16.9) 02/22/19 11:40 Hct 41.9 % (35.4-49) 02/22/19 11:40 MCV 81.3 fl (80-96) 02/22/19 11:40 MCH 25.7 pg (25.7-33.7) 02/22/19 11:40 MCHC 31.7 g/dl (32.0-35.9) L 02/22/19 11:40 RDW 15.8 % (11.9-15.9) 02/22/19 11:40 Plt Count 220 K/MM3 (134-434) 02/22/19 11:40 MPV 9.0 fl (7.5-11.1) 02/22/19 11:40 Sodium 134 mmol/L (136-145) L 02/22/19 11:40 Potassium 4.4 mmol/L (3.5-5.1) 02/22/19 11:40 Chloride 100 mmol/L (98-107) 02/22/19 11:40 Carbon Dioxide 27 mmol/L (21-32) 02/22/19 11:40 Anion Gap 7 MMOL/L (8-16) L 02/22/19 11:40 BUN 6 mg/dL (7-18) L 02/22/19 11:40 Creatinine 1.0 mg/dL (0.55-1.3) 02/22/19 11:40 Creat Clearance w eGFR 84.55 (>60) 02/22/19 11:40 POC Glucometer 361 UNITS (80-120) 02/22/19 16:27 Random Glucose 350 mg/dL (74-106) H* 02/22/19 11:40 Calcium 8.7 mg/dL (8.5-10.1) 02/22/19 11:40 Total Bilirubin 0.3 mg/dL (0.2-1) 02/22/19 11:40 AST 21 U/L (15-37) 02/22/19 11:40 ALT 38 U/L (13-61) 02/22/19 11:40 Alkaline Phosphatase 120 U/L (45-117) H 02/22/19 11:40 Total Protein 8.0 g/dl (6.4-8.2) 02/22/19 11:40 Albumin 3.7 g/dl (3.4-5.0) 02/22/19 11:40 Patient currently in detox with hx of DM on metformin and glipezide. BGM at this time 361, patient received metformin 1 gm glipizide which he takes home will order in the morning increase po fluids change BGM monitoring to TID continue to monitor
[2019-02-22] MEDS: metFORMIN HCL 500 MG TABLET (FP) PO SCH (17:20)
[2019-02-22] MEDS: THIAMINE HCL 100 MG TABLET (FP) PO SCH (22:22)
[2019-02-22] MEDS: MELATONIN 5 MG TABLETS PO PRN (22:22)
[2019-02-23] MEDS: chlordiazePOXIDE HCL 25 MG CAPSULE PO SCH (07:05)
[2019-02-23] MEDS: glipiZIDE 5 MG TABLET (FP) PO SCH (07:07)
[2019-02-23] MEDS: metFORMIN HCL 500 MG TABLET (FP) PO SCH ×2 (07:07→17:38)
[2019-02-23] MEDS: NICOTINE POLACRILEX 4 MG GUM BUC PRN ×2 (10:14→14:02)
[2019-02-23] MEDS: PRENATAL VITAMINS W/ FOLIC ACID TABLET (FP) PO SCH (10:14)
--- NOTE | 2019-02-23 11:22 | PN ---
S CIWA - CIWA Score Nausea/Vomitin-No Nausea/No Vomiting Muscle Tremors: 3 Anxiety: 2 Agitation: 1-Slight > Activity Paroxysmal Sweats: 1-Minimal Palms Moist Orientation: 1-Uncertain about Date Tacttile Disturbances: 0-None Auditory Disturbances: 0-None Visual Disturbances: 0-None Headache: 1-Very Mild CIWA-Ar Total Score: 9 BHS Progress Note (SOAP) Subjective: long history of diabetes recent none adherence to dietary regimen using insulin coverage at the hospital due to uncontrolled glycemia begin insulin sliding scale Objective: 02/23/19 11:21 Vital Signs Temperature 97.6 F 02/23/19 09:10 Pulse Rate 98 H 02/23/19 09:10 Respiratory Rate 18 02/23/19 09:10 Blood Pressure 139/98 02/23/19 09:10 O2 Sat by Pulse Oximetry (%) Laboratory Last Values WBC 5.0 K/mm3 (4.0-10.0) 02/22/19 11:40 RBC 5.16 M/mm3 (4.00-5.60) 02/22/19 11:40 Hgb 13.3 GM/dL (11.7-16.9) 02/22/19 11:40 Hct 41.9 % (35.4-49) 02/22/19 11:40 MCV 81.3 fl (80-96) 02/22/19 11:40 MCH 25.7 pg (25.7-33.7) 02/22/19 11:40 MCHC 31.7 g/dl (32.0-35.9) L 02/22/19 11:40 RDW 15.8 % (11.9-15.9) 02/22/19 11:40 Plt Count 220 K/MM3 (134-434) 02/22/19 11:40 MPV 9.0 fl (7.5-11.1) 02/22/19 11:40 Sodium 134 mmol/L (136-145) L 02/22/19 11:40 Potassium 4.4 mmol/L (3.5-5.1) 02/22/19 11:40 Chloride 100 mmol/L (98-107) 02/22/19 11:40 Carbon Dioxide 27 mmol/L (21-32) 02/22/19 11:40 Anion Gap 7 MMOL/L (8-16) L 02/22/19 11:40 BUN 6 mg/dL (7-18) L 02/22/19 11:40 Creatinine 1.0 mg/dL (0.55-1.3) 02/22/19 11:40 Creat Clearance w eGFR 84.55 (>60) 02/22/19 11:40 POC Glucometer 310 UNITS (80-120) 02/23/19 07:06 Random Glucose 350 mg/dL (74-106) H* 02/22/19 11:40 Calcium 8.7 mg/dL (8.5-10.1) 02/22/19 11:40 Total Bilirubin 0.3 mg/dL (0.2-1) 02/22/19 11:40 AST 21 U/L (15-37) 02/22/19 11:40 ALT 38 U/L (13-61) 02/22/19 11:40 Alkaline Phosphatase 120 U/L (45-117) H 02/22/19 11:40 Total Protein 8.0 g/dl (6.4-8.2) 02/22/19 11:40 Albumin 3.7 g/dl (3.4-5.0) 02/22/19 11:40 RPR Titer Nonreactive (NONREACTIVE) 02/22/19 11:40 lab noted Assessment: 02/23/19 11:22 alcohol withdrawal sx diabetes Plan: continue detox insulin sliding scale
[2019-02-23] MEDS: INSULIN SLIDING SCALE (NOVOLOG) 1 VIAL SQ SCH ×2 (11:54→17:04)
[2019-02-23] MEDS: chlordiazePOXIDE 5 MG CAPSULE PO SCH ×2 (14:01→22:00)
[2019-02-23 15:09] LABS: PH,URINE 5.5 (5.0-8.0); URINE APPEARANCE CLEAR; URINE BILIRUBIN NEGATIVE (NEGATIVE); URINE COLOR YELLOW; URINE GLUCOSE (UA) 3+ (NEGATIVE); URINE KETONE NEGATIVE (NEGATIVE); URINE LEUK ESTERASE NEGATIVE (NEGATIVE); URINE NITRITE NEGATIVE (NEGATIVE); URINE PROTEIN NEGATIVE (NEGATIVE); URINE UROBILINOGEN 0.2 mg/dL (0.2-1.0)
[2019-02-23] MEDS ORDERED: hydrOXYzine HCL 25 MG TABLET (FP) PO PRN (18:49)
[2019-02-23] MEDS: THIAMINE HCL 100 MG TABLET (FP) PO SCH (22:00)
[2019-02-24] MEDS: chlordiazePOXIDE 5 MG CAPSULE PO SCH (05:46)
[2019-02-24] MEDS: NICOTINE POLACRILEX 4 MG GUM BUC PRN ×4 (05:47→22:09)
[2019-02-24] MEDS: metFORMIN HCL 500 MG TABLET (FP) PO SCH ×2 (06:27→17:27)
[2019-02-24] MEDS: glipiZIDE 5 MG TABLET (FP) PO SCH (06:27)
[2019-02-24] MEDS ORDERED: INSULIN SLIDING SCALE (NOVOLOG) 1 VIAL SQ ONE (07:26)
[2019-02-24] MEDS: INSULIN SLIDING SCALE (NOVOLOG) 1 VIAL SQ SCH ×3 (07:32→17:29)
[2019-02-24] MEDS: PRENATAL VITAMINS W/ FOLIC ACID TABLET (FP) PO SCH (10:17)
[2019-02-24] MEDS ORDERED: chlordiazePOXIDE HCL 10 MG CAPSULE PO PRN (13:00)
[2019-02-24] MEDS: chlordiazePOXIDE HCL 10 MG CAPSULE PO SCH ×2 (13:56→22:09)
--- NOTE | 2019-02-24 15:55 | PN ---
S CIWA - CIWA Score Nausea/Vomitin-No Nausea/No Vomiting Muscle Tremors: 1-None Visible, but [place] Anxiety: 1-Mildly Anxious Agitation: 1-Slight > Activity Paroxysmal Sweats: No Perspiration Orientation: 0-Oriented Tacttile Disturbances: 0-None Auditory Disturbances: 0-None Visual Disturbances: 0-None Headache: 0-None Present CIWA-Ar Total Score: 3 BHS Progress Note (SOAP) Subjective: pt states he is feeling fine- on alcohol detox protocol O: Vital Signs - 24 hr 02/23/19 02/23/19 02/24/19 17:52 21:36 00:30 Temperature 98.5 F 99.6 F Pulse Rate 95 H 100 H Respiratory 16 18 18 Rate Blood Pressure 139/99 125/83 02/24/19 02/24/19 02/24/19 03:30 06:27 09:12 Temperature 98.0 F 98.7 F Pulse Rate 87 96 H Respiratory 18 18 20 Rate Blood Pressure 143/86 140/90 02/24/19 13:22 Temperature 98.4 F Pulse Rate 84 Respiratory 18 Rate Blood Pressure 120/79 Laboratory Tests 02/22/19 02/22/19 02/22/19 11:40 11:40 11:40 WBC 5.0 RBC 5.16 Hgb 13.3 Hct 41.9 MCV 81.3 MCH 25.7 MCHC 31.7 L RDW 15.8 Plt Count 220 MPV 9.0 Sodium 134 L Potassium 4.4 Chloride 100 Carbon Dioxide 27 Anion Gap 7 L BUN 6 L Creatinine 1.0 Creat Clearance w eGFR 84.55 POC Glucometer Random Glucose 350 H* Calcium 8.7 Total Bilirubin 0.3 AST 21 ALT 38 Alkaline Phosphatase 120 H Total Protein 8.0 Albumin 3.7 Urine Color Urine Appearance Urine pH Ur Specific [place] Urine Protein Urine Glucose (UA) Urine Ketones Urine Blood Urine Nitrite Urine Bilirubin Urine Urobilinogen Ur Leukocyte Esterase RPR Titer Nonreactive 02/22/19 02/22/19 02/23/19 12:24 16:27 07:06 WBC RBC Hgb Hct MCV MCH MCHC RDW Plt Count MPV Sodium Potassium Chloride Carbon Dioxide Anion Gap BUN Creatinine Creat Clearance w eGFR POC Glucometer 308 361 310 Random Glucose Calcium Total Bilirubin AST ALT Alkaline Phosphatase Total Protein Albumin Urine Color Urine Appearance Urine pH Ur Specific [place] Urine Protein Urine Glucose (UA) Urine Ketones Urine Blood Urine Nitrite Urine Bilirubin Urine Urobilinogen Ur Leukocyte Esterase RPR Titer 02/23/19 02/23/19 02/23/19 11:20 11:35 16:23 WBC RBC Hgb Hct MCV MCH MCHC RDW Plt Count MPV Sodium Potassium Chloride Carbon Dioxide Anion Gap BUN Creatinine Creat Clearance w eGFR POC Glucometer 277 195 Random Glucose Calcium Total Bilirubin AST ALT Alkaline Phosphatase Total Protein Albumin Urine Color Yellow Urine Appearance Clear Urine pH 5.5 D Ur Specific [place] 1.032 Urine Protein Negative Urine Glucose (UA) 3+ H Urine Ketones Negative Urine Blood Negative Urine Nitrite Negative Urine Bilirubin Negative Urine Urobilinogen 0.2 Ur Leukocyte Esterase Negative RPR Titer 02/24/19 02/24/19 05:46 11:43 WBC RBC Hgb Hct MCV MCH MCHC RDW Plt Count MPV Sodium Potassium Chloride Carbon Dioxide Anion Gap BUN Creatinine Creat Clearance w eGFR POC Glucometer 275 177 Random Glucose Calcium Total Bilirubin AST ALT Alkaline Phosphatase Total Protein Albumin Urine Color Urine Appearance Urine pH Ur Specific [place] Urine Protein Urine Glucose (UA) Urine Ketones Urine Blood Urine Nitrite Urine Bilirubin Urine Urobilinogen Ur Leukocyte Esterase RPR Titer a/p: continue alcohol detox protocol- pt doing well, labs and VS ess nl
[2019-02-24] MEDS: MELATONIN 5 MG TABLETS PO PRN (22:09)
[2019-02-24] MEDS: THIAMINE HCL 100 MG TABLET (FP) PO SCH (22:09)
[2019-02-25] MEDS: chlordiazePOXIDE HCL 10 MG CAPSULE PO SCH (05:13)
[2019-02-25] MEDS: NICOTINE POLACRILEX 4 MG GUM BUC PRN (05:13)
[2019-02-25 06:36] VITALS: BP 130/79; PULSE 87; TEMP 98.7
[2019-02-25] MEDS: glipiZIDE 5 MG TABLET (FP) PO SCH (07:22)
[2019-02-25] MEDS: metFORMIN HCL 500 MG TABLET (FP) PO SCH (07:22)
[2019-02-25] MEDS: INSULIN SLIDING SCALE (NOVOLOG) 1 VIAL SQ SCH (07:22)
--- NOTE | 2019-02-25 16:27 | DS ---
[facility] Detox Discharge Summary Admission Date: 02/22/19 Discharge Date: 02/25/19 - History Present History: Alcohol Dependence Additional Comments: 38 years old male admtted on 02/22/19 for alcohol withdrawal stabilization completed detox regimen [facility] - Physical Exam Results Vital Signs: Vital Signs Temperature 98.7 F 02/25/19 06:35 Pulse Rate 87 02/25/19 06:35 Respiratory Rate 18 02/25/19 06:35 Blood Pressure 130/79 02/25/19 06:35 O2 Sat by Pulse Oximetry (%) Pertinent Admission Physical Exam Findings: alcohol withdrawal sx Laboratory Last Values WBC 5.0 K/mm3 (4.0-10.0) 02/22/19 11:40 RBC 5.16 M/mm3 (4.00-5.60) 02/22/19 11:40 Hgb 13.3 GM/dL (11.7-16.9) 02/22/19 11:40 Hct 41.9 % (35.4-49) 02/22/19 11:40 MCV 81.3 fl (80-96) 02/22/19 11:40 MCH 25.7 pg (25.7-33.7) 02/22/19 11:40 MCHC 31.7 g/dl (32.0-35.9) L 02/22/19 11:40 RDW 15.8 % (11.9-15.9) 02/22/19 11:40 Plt Count 220 K/MM3 (134-434) 02/22/19 11:40 MPV 9.0 fl (7.5-11.1) 02/22/19 11:40 Sodium 134 mmol/L (136-145) L 02/22/19 11:40 Potassium 4.4 mmol/L (3.5-5.1) 02/22/19 11:40 Chloride 100 mmol/L (98-107) 02/22/19 11:40 Carbon Dioxide 27 mmol/L (21-32) 02/22/19 11:40 Anion Gap 7 MMOL/L (8-16) L 02/22/19 11:40 BUN 6 mg/dL (7-18) L 02/22/19 11:40 Creatinine 1.0 mg/dL (0.55-1.3) 02/22/19 11:40 Creat Clearance w eGFR 84.55 (>60) 02/22/19 11:40 POC Glucometer 306 UNITS (80-120) 02/25/19 05:11 Random Glucose 350 mg/dL (74-106) H* 02/22/19 11:40 Calcium 8.7 mg/dL (8.5-10.1) 02/22/19 11:40 Total Bilirubin 0.3 mg/dL (0.2-1) 02/22/19 11:40 AST 21 U/L (15-37) 02/22/19 11:40 ALT 38 U/L (13-61) 02/22/19 11:40 Alkaline Phosphatase 120 U/L (45-117) H 02/22/19 11:40 Total Protein 8.0 g/dl (6.4-8.2) 02/22/19 11:40 Albumin 3.7 g/dl (3.4-5.0) 02/22/19 11:40 Urine Color Yellow 02/23/19 11:20 Urine Appearance Clear 02/23/19 11:20 Urine pH 5.5 (5.0-8.0) D 02/23/19 11:20 Ur Specific [place] 1.032 (1.010-1.035) 02/23/19 11:20 Urine Protein Negative (NEGATIVE) 02/23/19 11:20 Urine Glucose (UA) 3+ (NEGATIVE) H 02/23/19 11:20 Urine Ketones Negative (NEGATIVE) 02/23/19 11:20 Urine Blood Negative (NEGATIVE) 02/23/19 11:20 Urine Nitrite Negative (NEGATIVE) 02/23/19 11:20 Urine Bilirubin Negative (NEGATIVE) 02/23/19 11:20 Urine Urobilinogen 0.2 mg/dL (0.2-1.0) 02/23/19 11:20 Ur Leukocyte Esterase Negative (NEGATIVE) 02/23/19 11:20 RPR Titer Nonreactive (NONREACTIVE) 02/22/19 11:40 lab noted - Treatment Hospital Course: Detox Protocol Followed, Detoxed Safely, Responded well, Discharged Condition Good, Rehab Referral Accepted Patient has Accepted a Rehab Referral to: [facility] - Medication Discharge Medications: Ambulatory Orders Glipizide 5 mg PO DAILY #30 tablet 12/10/18 metFORMIN HCL [Metformin HCl] 1,000 mg PO BID 02/22/19 - Diagnosis (1) Alcohol dependence with uncomplicated withdrawal Status: Acute (2) DM type 2 (diabetes mellitus, type 2) Status: Chronic Qualifiers: Diabetes mellitus intermodal owner operator truck driver insulin use: without intermodal owner operator truck driver use Diabetes mellitus complication status: without complication Qualified Code(s): E11.9 - Type 2 diabetes mellitus without complications (3) Nicotine dependence Status: Acute Qualifiers: Nicotine product type: cigarettes Substance use status: in withdrawal Qualified Code(s): F17.213 - Nicotine dependence, cigarettes, with withdrawal (4) Obesity (BMI 30.0-34.9) Status: Chronic (5) Substance induced mood disorder Status: Suspected - AMA Did Patient Leave Against Medical Advice: No
== END 2019-02-25 09:37 | disposition home or self-care (01) | DRG 774 ==
LOC: YASAS 08:51 → Y3N 12:16
PROVIDERS: ADMIT Surgery; ATTEND Surgery
PROC: HZ2ZZZZ Detoxification Services for Substance Abuse Treatment (ICD-10-PCS; principal; 2019-02-22)
DX: F10.230 Alcohol dependence with withdrawal, uncomplicated (principal); F14.20 Cocaine dependence, uncomplicated; F17.210 Nicotine dependence, cigarettes, uncomplicated; F19.24 Other psychoactive substance dependence with psychoactive substance-induced mood disorder; E11.9 Type 2 diabetes mellitus without complications; E66.9 Obesity, unspecified; Z68.34 Body mass index [BMI] 34.0-34.9, adult; Z91.14 Patient's other noncompliance with medication regimen; Z79.84 Long term (current) use of oral hypoglycemic drugs; Z59.0 Homelessness
CPT/HCPCS: 36415; 80053; 81003; 82962; 85027; 86593

== ENCOUNTER 2019-07-12 08:36 | Inpatient (IN) | payer OTHER ==
[2019-07-12 09:23] VITALS: BMI 32.9
--- NOTE | 2019-07-12 10:29 | HP ---
CIWA Score Nausea/Vomitin Muscle Tremors: 2 Anxiety: 3 Agitation: 3 Paroxysmal Sweats: 1-Minimal Palms Moist Orientation: 0-Oriented Tacttile Disturbances: 1-Very Mild Itch/Numbness Auditory Disturbances: 0-None Visual Disturbances: 0-None Headache: 2-Mild CIWA-Ar Total Score: 14 - Admission Criteria OASAS Guidelines: Admission for Medically Managed Detox: Requires at least one of the followin. CIWA greater than 12 2. Seizures within the past 24 hours 3. Delirium tremens within the past 24 hours 4. Hallucinations within the past 24 hours 5. Acute intervention needed for co occurring medical disorder 6. Acute intervention needed for co occurring psychiatric disorder 7. Severe withdrawal that cannot be handled at a lower level of care (continued vomiting, continued diarrhea, abnormal vital signs) requiring intravenous medication and/or fluids 8. Admission ROS S - HPI Chief Complaint: i need help to stop drinking alcohol and crack Allergies/Adverse Reactions: Allergies Allergy/AdvReac Type Severity Reaction Status Date / Time No Known Allergies Allergy Verified 07/12/19 09:18 History of Present Illness: this 38 years old male with alcohol and crack dependence,seeking detox, withdrawal symptom, history of extensive alcohol dependence since age of [age] years old,multiple admissions in detox and rehab but keep relapsing patient is homeless denied seizure denied syncope nicotine dependence 1/2 pack/day,would like to have nicotine gum depression longest sobriety 7 moths plan for relocate [facility] - Ebola screening Have you traveled outside of the country in the last 21 days: No Have you had contact with anyone from an Ebola affected area: No - Review of Systems Constitutional: Loss of Appetite, Malaise, Night Sweats, Changes in sleep EENT: reports: Nose Congestion Respiratory: reports: No Symptoms reported Cardiac: reports: Palpitations GI: reports: Nausea, Poor Appetite, Indigestion : reports: No Symptoms Reported Musculoskeletal: reports: Back Pain, Muscle Pain Integumentary: reports: Dryness Endocrine: reports: No Symptoms Reported Hematology: reports: No Symptoms Reported Psychiatric: reports: No Sypmtoms Reported, Judgement Intact, Mood/Affect Appropiate, Orientated x3, Depressed Other Systems: Reviewed and Negative Patient History - Patient Medical History Hx Anemia: No Hx Asthma: No Hx Chronic Obstructive Pulmonary Disease (COPD): No Hx Cancer: No Hx Cardiac Disorders: No Hx Congestive Heart Failure: No Hx Hypertension: No Hx Hypercholesterolemia: No Hx Pacemaker: No HX Cerebrovascular Accident: No Hx Seizures: No Hx Dementia: No Hx Diabetes: Yes (NIDDM noncompliance) Hx Gastrointestinal Disorders: No Hx Liver Disease: No Hx Genitourinary Disorders: No Hx Sexually Transmitted Disorders: No Hx Renal Disease (ESRD): No Hx Thyroid Disease: No Hx Human Immunodeficiency Virus (HIV): No (negative 2016 last ) Hx Hepatitis C: No Hx Depression: No Hx Suicide Attempt: No Hx Bipolar Disorder: No Hx Schizophrenia: No Other Medical History: no suicidal,no homicidal - Patient Surgical History Past Surgical History: Yes Hx Neurologic Surgery: No Hx Cataract Extraction: No Hx Cardiac Surgery: No Hx Lung Surgery: No Hx Breast Surgery: No Hx Breast Biopsy: No Hx Abdominal Surgery: No Hx Appendectomy: Yes (age 15) Hx Cholecystectomy: Yes (lap cholecystectomy in 2013) Hx Genitourinary Surgery: No Hx Section: No Hx Orthopedic Surgery: No Other Surgical History: kidney stone 2012 Anesthesia Reaction: No - PPD History Previous Implant?: Yes Documented Results: Negative w/proof Date: 11/26/18 Results: 0 mm PPD to be Administered?: No - Smoking Cessation Smoking history: Current every day smoker Have you smoked in the past 12 months: Yes Aproximately how many cigarettes per day: 10 Cigars Per Day: 0 Hx Chewing Tobacco Use: No Initiated information on smoking cessation: Yes 'Breaking Loose' booklet given: 07/12/19 - Substance & Tx. History Hx Alcohol Use: Yes Hx Substance Use: Yes Substance Use Type: Alcohol, Cocaine Hx Substance Use Treatment: Yes (06/04 [facility]) - Substances abused Alcohol Other (specify): Beer Substance route: Oral Frequency: Daily Amount used: 8 of 25 ounce beers/1 pint of vodka Age of first use: 19 Date of last use: 07/11/19 Cocaine Substance route: Smoking Frequency: Daily Amount used: $50 Age of first use: 21 Date of last use: 07/11/19 Family Disease History - Family Disease History Family Disease History: Diabetes: Father (type 2), Sister (type 2), CA: Mother ( ,cancer of lung,alcohol), Other: Mother Admission Physical Exam B[facility] - Vital Signs Vital Signs: Vital Signs - 24 hr 07/12/19 07/12/19 09:14 10:15 Temperature 97.9 F 97.9 F Pulse Rate 105 H 105 H Respiratory 18 18 Rate Blood Pressure 136/84 136/84 - Physical General Appearance: Yes: Moderate Distress, Tremorous, Irritable, Sweating, Anxious HEENTM: Yes: Normal ENT Inspection, Normocephalic, SHELIA, Pharynx Normal Respiratory: Yes: Lungs Clear, Normal Breath Sounds, No Respiratory Distress Neck: Yes: Within Normal Limits Breast: Yes: Within Normal Limits Cardiology: Yes: Within Normal Limits, Regular Rhythm, Regular Rate, S1, S2 Abdominal: Yes: Within Normal Limits, Normal Bowel Sounds, Non Tender, Flat, Soft Genitourinary: Yes: Within Normal Limits Back: Yes: Muscle Spasm Musculoskeletal: Yes: full range of Motion, Back pain, Muscle Pain Extremities: Yes: Within Normal Limits, Normal Range of Motion, Tremors Neurological: Yes: cto II-XII NML intact, Fully Oriented, Alert, Motor Strength 5/5 Integumentary: Yes: Dry Lymphatic: Yes: Within Normal Limits - Diagnostic (1) Alcohol dependence with uncomplicated withdrawal Current Visit: No Status: Acute (2) Cocaine dependence Current Visit: No Status: Acute (3) Depression Current Visit: No Status: Acute Qualifiers: Depression Type: unspecified Qualified Code(s): F32.9 - Major depressive disorder, single episode, unspecified (4) History of appendectomy Current Visit: No Status: Resolved (5) DM2 (diabetes mellitus, type 2) Current Visit: Yes Status: Chronic (6) Dehydration Current Visit: Yes Status: Acute (7) History of laparoscopic cholecystectomy Current Visit: No Status: Resolved Cleared for Admission [facility] - Detox or Rehab [facility] Level of Care: Medically Managed Detox Regimen/Protocol: Librium Breathalyzer - Breathalyzer Breathalyzer: 0 Urine Drug Screen - Test Device Lot number: [id number] Expiration date: 04/16/21 - Control Is test valid?: Yes - Results Drug screen NEGATIVE: No Urine drug screen results: [facility] Inpatient Rehab Admission - Rehab Decision to Admit Inpatient rehab admission?: No
[2019-07-12] MEDS ORDERED: ACETAMINOPHEN 325 MG TABLET (FP) PO PRN ×2 (10:39)
[2019-07-12] MEDS ORDERED: IBUPROFEN 400 MG TABLET (FP) PO PRN (10:39)
[2019-07-12] MEDS ORDERED: MAGNESIUM HYDROX 2400MG/30ML ORAL SUSPENSION 30 ML CUP PO PRN (10:39)
[2019-07-12] MEDS ORDERED: METHOCARBAMOL 500 MG TABLET PO PRN (10:39)
[2019-07-12] MEDS ORDERED: chlordiazePOXIDE HCL 25 MG CAPSULE PO PRN (10:39)
[2019-07-12] MEDS ORDERED: MAGNESIUM CITRATE 300 ML BOTTLE PO PRN (10:39)
[2019-07-12] MEDS ORDERED: MENTHOL/PHENOL 1 EACH UD MM PRN (10:39)
[2019-07-12] MEDS ORDERED: hydrOXYzine PAMOATE 25 MG CAPSULE (FP) PO PRN (10:39)
[2019-07-12] MEDS ORDERED: BISMUTH SUBSALICYLATE 262 MG/15 ML BTL PO PRN (10:39)
[2019-07-12] MEDS ORDERED: MAG HYDROX/AL HYDROX/SIMETH 30 ML UNIT-DOSE CUP PO PRN (10:39)
--- NOTE | 2019-07-12 13:16 | CONSULT ---
[facility] Psychiatric Consult - Data Date of interview: 07/12/19 Admission source: Self-referred Identifying data: Mr Larose is a 38 years old single Black male, unemployed with no source of income, homeless seeking detox treatment for alcohol and cocaine Substance Abuse History: Reports history of alcohol and cocaine use. Refer to addiction counselor's summary for further information Medical History: Significant for type 2 diabetes mellitus, history of lap cholecystectomy in 2013 and appendectomy in 1996. Smokes 10 cigarettes daily Psychiatric History: Reports that while at [facility] for inpatient rehab 3 weeks, he was diagnosed with depression by a psychiatrist and he was started on Zoloft 50 mg/day. He requests to continue taking medication during this current admission. Denies previous psychiatric hospitalization or suicidal attemt. At present, denies experiencing depressive symptoms, S/H ideations. However, reports sleeping poorly Physical/Sexual Abuse/Trauma History: Denies history of emotional, physical or sexual abuse as well as DV relationship. No service Additional Comment: Reports history of multiple previous misdemeanor arrests. Denied being on probation at present Mental Status Exam - Mental Status Exam Alert and Oriented to: Time, Place, Person Cognitive Function: Fair Patient Appearance: Disheveled Mood: Hopeful, Euthymic Patient Behavior: Cooperative Speech Pattern: Clear Voice Loudness: Normal Thought Process: Intact, Goal Oriented Thought Disorder: Not Present Hallucinations: Denies Suicidal Ideation: Denies Homicidal Ideation: Denies Insight/Judgement: Poor Sleep: Poorly Appetite: Good Muscle strength/Tone: Normal Gait/Station: Normal Psychiatric Findings - Problem List ([place] 1, 2,3) (1) Depressive disorder Current Visit: Yes Status: Chronic (2) Substance induced mood disorder Current Visit: Yes Status: Ruled-out (3) Alcohol dependence with uncomplicated withdrawal Current Visit: No Status: Acute (4) Cocaine dependence Current Visit: No Status: Acute (5) Nicotine dependence Current Visit: No Status: Chronic Qualifiers: Nicotine product type: cigarettes Substance use status: in withdrawal Qualified Code(s): F17.213 - Nicotine dependence, cigarettes, with withdrawal (6) DM2 (diabetes mellitus, type 2) Current Visit: Yes Status: Chronic (7) History of appendectomy Current Visit: No Status: Resolved (8) History of laparoscopic cholecystectomy Current Visit: No Status: Resolved - Initial Treatment Plan Initial Treatment Plan: 1) Continue Zoloft 50 mg po daily. 2) Start Melatonin 5 mg po HS prn for insomnia. 3) Continue inpatient detoxification
[2019-07-12] MEDS: SERTRALINE HCL 50 MG TABLET (FP) PO SCH (13:50)
[2019-07-12] MEDS: NICOTINE POLACRILEX 2 MG GUM BUC PRN ×3 (13:52→22:19)
[2019-07-12] MEDS: metFORMIN HCL 500 MG TABLET (FP) PO SCH (17:25)
[2019-07-12] MEDS: chlordiazePOXIDE HCL 25 MG CAPSULE PO SCH ×2 (17:46→22:18)
[2019-07-12 17:57] LABS: HEMATOCRIT 36.9 % (35.4-49); HEMOGLOBIN 11.6 GM/dL (11.7-16.9); MCH 26.5 pg (25.7-33.7); MCHC 31.4 g/dl (32.0-35.9); MEAN CELL VOLUME 84.3 fl (80-96); MEAN PLT VOLUME 8.5 fl (7.5-11.1); PLATELET COUNT 341 K/MM3 (134-434); RBC 4.38 M/mm3 (4.00-5.60); RDW 17.4 % (11.9-15.9); WHITE BLOOD COUNT 9.9 K/mm3 (4.0-10.0)
[2019-07-12 18:11] LABS: ALBUMIN 3.3 g/dl (3.4-5.0); BILIRUBIN,TOTAL 0.4 mg/dL (0.2-1); BLOOD UREA NITROGEN 11.7 mg/dL (7-18); CREATININE 1.2 mg/dL (0.55-1.3); POTASSIUM 5.2 mmol/L (3.5-5.1); TOT PROT 7.6 g/dl (6.4-8.2)
[2019-07-12] MEDS: THIAMINE HCL 100 MG TABLET (FP) PO SCH (22:18)
[2019-07-13] MEDS: chlordiazePOXIDE HCL 25 MG CAPSULE PO SCH ×4 (06:09→22:28)
[2019-07-13] MEDS: metFORMIN HCL 500 MG TABLET (FP) PO SCH ×2 (06:11→16:47)
[2019-07-13] MEDS: glipiZIDE 5 MG TABLET (FP) PO SCH (06:12)
[2019-07-13] MEDS: SERTRALINE HCL 50 MG TABLET (FP) PO SCH (11:10)
[2019-07-13] MEDS: PRENATAL VITAMINS W/ FOLIC ACID TABLET (FP) PO SCH (11:10)
--- NOTE | 2019-07-13 11:28 | PN ---
S CIWA - CIWA Score Nausea/Vomitin Muscle Tremors: 2 Anxiety: 2 Agitation: 2 Paroxysmal Sweats: 1-Minimal Palms Moist Orientation: 0-Oriented Tacttile Disturbances: 1-Very Mild Itch/Numbness Auditory Disturbances: 0-None Visual Disturbances: 0-None Headache: 2-Mild CIWA-Ar Total Score: 12 BHS Progress Note (SOAP) Subjective: alert,irritable,anxious,interrupted sleep,tremor,pain in the body Objective: 07/13/19 11:25 Vital Signs Temperature 98.1 F 07/13/19 09:20 Pulse Rate 100 H 07/13/19 09:20 Respiratory Rate 18 07/13/19 09:20 Blood Pressure 125/74 07/13/19 09:20 O2 Sat by Pulse Oximetry (%) 07/13/19 11:25 Laboratory Last Values WBC 9.9 K/mm3 (4.0-10.0) 07/12/19 13:40 RBC 4.38 M/mm3 (4.00-5.60) 07/12/19 13:40 Hgb 11.6 GM/dL (11.7-16.9) L 07/12/19 13:40 Hct 36.9 % (35.4-49) 07/12/19 13:40 MCV 84.3 fl (80-96) 07/12/19 13:40 MCH 26.5 pg (25.7-33.7) 07/12/19 13:40 MCHC 31.4 g/dl (32.0-35.9) L 07/12/19 13:40 RDW 17.4 % (11.9-15.9) H 07/12/19 13:40 Plt Count 341 K/MM3 (134-434) D 07/12/19 13:40 MPV 8.5 fl (7.5-11.1) 07/12/19 13:40 Sodium 135 mmol/L (136-145) L 07/12/19 13:40 Potassium 5.2 mmol/L (3.5-5.1) H 07/12/19 13:40 Chloride 99 mmol/L (98-107) 07/12/19 13:40 Carbon Dioxide 29 mmol/L (21-32) 07/12/19 13:40 Anion Gap 6 MMOL/L (8-16) L 07/12/19 13:40 BUN 11.7 mg/dL (7-18) 07/12/19 13:40 Creatinine 1.2 mg/dL (0.55-1.3) 07/12/19 13:40 Est GFR (CKD-EPI)AfAm 89.62 07/12/19 13:40 Est GFR (CKD-EPI)NonAf 77.33 07/12/19 13:40 POC Glucometer 223 UNITS (80-120) 07/13/19 06:10 Random Glucose 390 mg/dL (74-106) H* 07/12/19 13:40 Calcium 8.0 mg/dL (8.5-10.1) L 07/12/19 13:40 Total Bilirubin 0.4 mg/dL (0.2-1) 07/12/19 13:40 AST 27 U/L (15-37) 07/12/19 13:40 ALT 82 U/L (13-61) H 07/12/19 13:40 Alkaline Phosphatase 142 U/L (45-117) H 07/12/19 13:40 Total Protein 7.6 g/dl (6.4-8.2) 07/12/19 13:40 Albumin 3.3 g/dl (3.4-5.0) L 07/12/19 13:40 RPR Titer Nonreactive (NONREACTIVE) 07/12/19 13:40 Assessment: 07/13/19 11:27 withdrawal symptom Plan: continue detox librium regimen,bgm monitoring
--- NOTE | 2019-07-13 11:32 | PN ---
[facility] Progress Note Note: k 5.2,na is 135,glucose 223,encourage oral fluid,hydration,repeat amp in am
[2019-07-13] MEDS: NICOTINE POLACRILEX 2 MG GUM BUC PRN ×2 (16:48→22:30)
[2019-07-13] MEDS: MELATONIN 5 MG TABLETS PO PRN (22:28)
[2019-07-13] MEDS: THIAMINE HCL 100 MG TABLET (FP) PO SCH (22:28)
[2019-07-14] MEDS: metFORMIN HCL 500 MG TABLET (FP) PO SCH ×2 (06:09→17:22)
[2019-07-14] MEDS: glipiZIDE 5 MG TABLET (FP) PO SCH (06:09)
[2019-07-14] MEDS: chlordiazePOXIDE HCL 25 MG CAPSULE PO SCH ×4 (06:09→22:04)
[2019-07-14] MEDS: NICOTINE POLACRILEX 2 MG GUM BUC PRN ×4 (06:11→22:05)
--- NOTE | 2019-07-14 10:07 | PN ---
S CIWA - CIWA Score Nausea/Vomitin-Mild Nausea/No Vomiting Muscle Tremors: 2 Anxiety: 3 Agitation: 2 Paroxysmal Sweats: No Perspiration Orientation: 0-Oriented Tacttile Disturbances: 0-None Auditory Disturbances: 0-None Visual Disturbances: 0-None Headache: 2-Mild CIWA-Ar Total Score: 10 S Progress Note (SOAP) Subjective: alert,irritable,anxious,interrupted sleep,pain in the body Objective: 07/14/19 10:05 Vital Signs Temperature 97.5 F L 07/14/19 09:16 Pulse Rate 91 H 07/14/19 09:16 Respiratory Rate 18 07/14/19 09:16 Blood Pressure 153/96 07/14/19 09:16 O2 Sat by Pulse Oximetry (%) 07/14/19 10:05 bgm 177 Assessment: 07/14/19 10:06 withdrawal symptom repeat cmp pending Plan: continue detox librium regimen,repeated cmp pending
[2019-07-14] MEDS: PRENATAL VITAMINS W/ FOLIC ACID TABLET (FP) PO SCH (10:17)
[2019-07-14] MEDS: SERTRALINE HCL 50 MG TABLET (FP) PO SCH (10:17)
[2019-07-14 10:23] LABS: BILIRUBIN,TOTAL 0.4 mg/dL (0.2-1); BLOOD UREA NITROGEN 6.9 mg/dL (7-18); CREATININE 0.8 mg/dL (0.55-1.3); POTASSIUM 4.2 mmol/L (3.5-5.1); TOT PROT 6.8 g/dl (6.4-8.2)
[2019-07-14] MEDS: THIAMINE HCL 100 MG TABLET (FP) PO SCH (22:05)
[2019-07-14] MEDS: MELATONIN 5 MG TABLETS PO PRN (22:05)
[2019-07-15] MEDS ORDERED: chlordiazePOXIDE HCL 10 MG CAPSULE PO PRN
[2019-07-15] MEDS: chlordiazePOXIDE HCL 10 MG CAPSULE PO SCH ×4 (06:18→22:05)
[2019-07-15] MEDS: metFORMIN HCL 500 MG TABLET (FP) PO SCH ×2 (06:19→17:25)
[2019-07-15] MEDS: glipiZIDE 5 MG TABLET (FP) PO SCH (06:19)
[2019-07-15] MEDS: NICOTINE POLACRILEX 2 MG GUM BUC PRN ×4 (06:20→22:08)
--- NOTE | 2019-07-15 10:36 | PN ---
S CIWA - CIWA Score Nausea/Vomitin-Mild Nausea/No Vomiting Muscle Tremors: 2 Anxiety: 2 Agitation: 2 Paroxysmal Sweats: No Perspiration Orientation: 0-Oriented Tacttile Disturbances: 0-None Auditory Disturbances: 0-None Visual Disturbances: 0-None Headache: 1-Very Mild CIWA-Ar Total Score: 8 BHS Progress Note (SOAP) Subjective: alert,irritable,anxious,interrupted sleep,body ache Objective: 07/15/19 10:34 Vital Signs Temperature 97.9 F 07/15/19 07:17 Pulse Rate 84 07/15/19 07:17 Respiratory Rate 17 07/15/19 07:17 Blood Pressure 137/82 07/15/19 07:17 O2 Sat by Pulse Oximetry (%) Laboratory 07/12/19 07/12/19 07/12/19 11:03 11:52 13:40 WBC 9.9 K/mm3 K/mm3 (4.0-10.0) RBC 4.38 M/mm3 M/mm3 (4.00-5.60) Hgb 11.6 GM/dL L GM/dL (11.7-16.9) Hct 36.9 % % (35.4-49) MCV 84.3 fl fl (80-96) MCH 26.5 pg pg (25.7-33.7) MCHC 31.4 g/dl L g/dl (32.0-35.9) RDW 17.4 % H % (11.9-15.9) Plt Count 341 K/MM3 D K/MM3 (134-434) MPV 8.5 fl fl (7.5-11.1) Sodium Potassium Chloride Carbon Dioxide Anion Gap BUN Creatinine Est GFR (CKD-EPI)AfAm Est GFR (CKD-EPI)NonAf POC Glucometer 364 UNITS UNITS 322 UNITS UNITS (80-120) (80-120) Random Glucose Calcium Total Bilirubin AST ALT Alkaline Phosphatase Total Protein Albumin RPR Titer 07/12/19 07/12/19 07/12/19 13:40 13:40 16:33 WBC RBC Hgb Hct MCV MCH MCHC RDW Plt Count MPV Sodium 135 mmol/L L mmol/L (136-145) Potassium 5.2 mmol/L H mmol/L (3.5-5.1) Chloride 99 mmol/L mmol/L (98-107) Carbon Dioxide 29 mmol/L mmol/L (21-32) Anion Gap 6 MMOL/L L MMOL/L (8-16) BUN 11.7 mg/dL mg/dL (7-18) Creatinine 1.2 mg/dL mg/dL (0.55-1.3) Est GFR (CKD-EPI)AfAm 89.62 Est GFR (CKD-EPI)NonAf 77.33 POC Glucometer 303 UNITS UNITS (80-120) Random Glucose 390 mg/dL H* mg/dL (74-106) Calcium 8.0 mg/dL L mg/dL (8.5-10.1) Total Bilirubin 0.4 mg/dL mg/dL (0.2-1) AST 27 U/L U/L (15-37) ALT 82 U/L H U/L (13-61) Alkaline Phosphatase 142 U/L H U/L (45-117) Total Protein 7.6 g/dl g/dl (6.4-8.2) Albumin 3.3 g/dl L g/dl (3.4-5.0) RPR Titer Nonreactive (NONREACTIVE) 07/13/19 07/13/19 07/14/19 06:10 16:44 06:07 WBC RBC Hgb Hct MCV MCH MCHC RDW Plt Count MPV Sodium Potassium Chloride Carbon Dioxide Anion Gap BUN Creatinine Est GFR (CKD-EPI)AfAm Est GFR (CKD-EPI)NonAf POC Glucometer 223 UNITS UNITS 213 UNITS UNITS 177 UNITS UNITS (80-120) (80-120) (80-120) Random Glucose Calcium Total Bilirubin AST ALT Alkaline Phosphatase Total Protein Albumin RPR Titer 07/14/19 07/14/19 07/15/19 07:00 16:39 06:17 WBC RBC Hgb Hct MCV MCH MCHC RDW Plt Count MPV Sodium 137 mmol/L mmol/L (136-145) Potassium 4.2 mmol/L mmol/L (3.5-5.1) Chloride 100 mmol/L mmol/L (98-107) Carbon Dioxide 32 mmol/L mmol/L (21-32) Anion Gap 5 MMOL/L L MMOL/L (8-16) BUN 6.9 mg/dL L mg/dL (7-18) Creatinine 0.8 mg/dL mg/dL (0.55-1.3) Est GFR (CKD-EPI)AfAm 133.20 Est GFR (CKD-EPI)NonAf 114.93 POC Glucometer 143 UNITS UNITS 241 UNITS UNITS (80-120) (80-120) Random Glucose 200 mg/dL H mg/dL (74-106) Calcium 9.0 mg/dL mg/dL (8.5-10.1) Total Bilirubin 0.4 mg/dL mg/dL (0.2-1) AST 21 U/L U/L (15-37) ALT 53 U/L U/L (13-61) Alkaline Phosphatase 85 U/L U/L (45-117) Total Protein 6.8 g/dl g/dl (6.4-8.2) Albumin 3.0 g/dl L g/dl (3.4-5.0) RPR Titer Assessment: 07/15/19 10:34 withdrawal symptom Plan: continue detox librium regimen,bgm monitoring
[2019-07-15] MEDS: SERTRALINE HCL 50 MG TABLET (FP) PO SCH (10:37)
[2019-07-15] MEDS: PRENATAL VITAMINS W/ FOLIC ACID TABLET (FP) PO SCH (10:37)
[2019-07-15] MEDS: THIAMINE HCL 100 MG TABLET (FP) PO SCH (22:05)
[2019-07-15] MEDS: MELATONIN 5 MG TABLETS PO PRN (22:06)
[2019-07-16] MEDS ORDERED: chlordiazePOXIDE HCL 10 MG CAPSULE PO SCH (05:00)
[2019-07-16] MEDS: glipiZIDE 5 MG TABLET (FP) PO SCH (06:29)
[2019-07-16] MEDS: metFORMIN HCL 500 MG TABLET (FP) PO SCH (06:29)
--- NOTE | 2019-07-16 08:51 | DS ---
[facility] Detox Discharge Summary Admission Date: 07/12/19 Discharge Date: 07/16/19 - History Present History: Alcohol Dependence, Cocaine Dependence - Physical Exam Results Vital Signs: Vital Signs Temperature 97.3 F L 07/16/19 06:00 Pulse Rate 85 07/16/19 06:00 Respiratory Rate 18 07/16/19 06:00 Blood Pressure 129/72 07/16/19 06:00 O2 Sat by Pulse Oximetry (%) Pertinent Admission Physical Exam Findings: pt arrived in withdrawals Laboratory Tests 07/12/19 07/12/19 07/12/19 11:03 11:52 13:40 WBC 9.9 RBC 4.38 Hgb 11.6 L Hct 36.9 MCV 84.3 MCH 26.5 MCHC 31.4 L RDW 17.4 H Plt Count 341 D MPV 8.5 Sodium Potassium Chloride Carbon Dioxide Anion Gap BUN Creatinine Est GFR (CKD-EPI)AfAm Est GFR (CKD-EPI)NonAf POC Glucometer 364 322 Random Glucose Calcium Total Bilirubin AST ALT Alkaline Phosphatase Total Protein Albumin RPR Titer 07/12/19 07/12/19 07/12/19 13:40 13:40 16:33 WBC RBC Hgb Hct MCV MCH MCHC RDW Plt Count MPV Sodium 135 L Potassium 5.2 H Chloride 99 Carbon Dioxide 29 Anion Gap 6 L BUN 11.7 Creatinine 1.2 Est GFR (CKD-EPI)AfAm 89.62 Est GFR (CKD-EPI)NonAf 77.33 POC Glucometer 303 Random Glucose 390 H* Calcium 8.0 L Total Bilirubin 0.4 AST 27 ALT 82 H Alkaline Phosphatase 142 H Total Protein 7.6 Albumin 3.3 L RPR Titer Nonreactive 07/13/19 07/13/19 07/14/19 06:10 16:44 06:07 WBC RBC Hgb Hct MCV MCH MCHC RDW Plt Count MPV Sodium Potassium Chloride Carbon Dioxide Anion Gap BUN Creatinine Est GFR (CKD-EPI)AfAm Est GFR (CKD-EPI)NonAf POC Glucometer 223 213 177 Random Glucose Calcium Total Bilirubin AST ALT Alkaline Phosphatase Total Protein Albumin RPR Titer 07/14/19 07/14/19 07/15/19 07:00 16:39 06:17 WBC RBC Hgb Hct MCV MCH MCHC RDW Plt Count MPV Sodium 137 Potassium 4.2 Chloride 100 Carbon Dioxide 32 Anion Gap 5 L BUN 6.9 L Creatinine 0.8 Est GFR (CKD-EPI)AfAm 133.20 Est GFR (CKD-EPI)NonAf 114.93 POC Glucometer 143 241 Random Glucose 200 H Calcium 9.0 Total Bilirubin 0.4 AST 21 ALT 53 Alkaline Phosphatase 85 Total Protein 6.8 Albumin 3.0 L RPR Titer 07/15/19 07/16/19 16:30 06:28 WBC RBC Hgb Hct MCV MCH MCHC RDW Plt Count MPV Sodium Potassium Chloride Carbon Dioxide Anion Gap BUN Creatinine Est GFR (CKD-EPI)AfAm Est GFR (CKD-EPI)NonAf POC Glucometer 164 193 Random Glucose Calcium Total Bilirubin AST ALT Alkaline Phosphatase Total Protein Albumin RPR Titer pt is feeling better pt is aaox3 ambulating no acute distress - Treatment Hospital Course: Detox Protocol Followed, Detoxed Safely, Responded well, Discharged Condition Good, Rehab Referral Accepted Patient has Accepted a Rehab Referral to: pt accepted to go to [facility] rehab - Medication Discharge Medications: Ambulatory Orders Glipizide 5 mg PO DAILY #30 tablet 12/10/18 metFORMIN HCL [Metformin HCl] 1,000 mg PO BID 02/22/19 Sertraline HCl [Zoloft -] 50 mg PO DAILY 07/12/19 - Diagnosis (1) DM2 (diabetes mellitus, type 2) Current Visit: Yes Status: Chronic Qualifiers: Diabetes mellitus terminal gauger supervisor insulin use: unspecified terminal gauger supervisor insulin use status Diabetes mellitus complication status: without complication Qualified Code(s): E11.9 - Type 2 diabetes mellitus without complications (2) Depressive disorder Current Visit: Yes Status: Chronic (3) Substance induced mood disorder Current Visit: Yes Status: Ruled-out (4) Alcohol dependence with uncomplicated withdrawal Current Visit: No Status: Acute (5) Alcohol-induced sleep disorder Current Visit: No Status: Acute (6) Cocaine dependence Current Visit: Yes Status: Chronic Qualifiers: Substance use status: uncomplicated Qualified Code(s): F14.20 - Cocaine dependence, uncomplicated (7) Depression Current Visit: No Status: Acute Qualifiers: Depression Type: unspecified Qualified Code(s): F32.9 - Major depressive disorder, single episode, unspecified (8) Insomnia Current Visit: No Status: Acute (9) Substance-induced sleep disorder Current Visit: No Status: Acute (10) 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
[2019-07-16 09:32] VITALS: BP 137/93; PULSE 87; TEMP 98.6
[2019-07-16] MEDS: PRENATAL VITAMINS W/ FOLIC ACID TABLET (FP) PO SCH (10:20)
[2019-07-16] MEDS: SERTRALINE HCL 50 MG TABLET (FP) PO SCH (10:20)
[2019-07-16] MEDS: NICOTINE POLACRILEX 2 MG GUM BUC PRN (12:02)
[2019-07-17] MEDS ORDERED: chlordiazePOXIDE HCL 10 MG CAPSULE PO ONE (05:00)
== END 2019-07-16 12:32 | disposition home or self-care (01) | DRG 774 ==
LOC: YASAS 08:36 → Y6N 11:20
PROVIDERS: ADMIT Surgery; ATTEND Surgery
PROC: HZ2ZZZZ Detoxification Services for Substance Abuse Treatment (ICD-10-PCS; principal; 2019-07-12)
DX: F10.230 Alcohol dependence with withdrawal, uncomplicated (principal); F14.20 Cocaine dependence, uncomplicated; F17.210 Nicotine dependence, cigarettes, uncomplicated; F19.24 Other psychoactive substance dependence with psychoactive substance-induced mood disorder; F19.282 Other psychoactive substance dependence with psychoactive substance-induced sleep disorder; F10.282 Alcohol dependence with alcohol-induced sleep disorder; F32.9 Major depressive disorder, single episode, unspecified; E86.0 Dehydration; E11.65 Type 2 diabetes mellitus with hyperglycemia; Z79.84 Long term (current) use of oral hypoglycemic drugs; E66.9 Obesity, unspecified; Z68.32 Body mass index [BMI] 32.0-32.9, adult; Z59.0 Homelessness
CPT/HCPCS: 36415; 80053; 82962; 85027; 86593

== ENCOUNTER 2019-08-16 16:47 | Inpatient (IN) | payer OTHER ==
[2019-08-16 18:21] VITALS: BMI 33.3
--- NOTE | 2019-08-16 20:45 | HP ---
CIWA Score Nausea/Vomitin-No Nausea/No Vomiting Muscle Tremors: 4-Moderate,w/Arms Extend Anxiety: 1-Mildly Anxious Agitation: 1-Slight > Activity Paroxysmal Sweats: 3 (Increased facial moisture) Orientation: 0-Oriented Tacttile Disturbances: 0-None Auditory Disturbances: 0-None Visual Disturbances: 0-None Headache: 0-None Present CIWA-Ar Total Score: 9 - Admission Criteria OASAS Guidelines: Admission for Medically Managed Detox: Requires at least one of the followin. CIWA greater than 12 2. Seizures within the past 24 hours 3. Delirium tremens within the past 24 hours 4. Hallucinations within the past 24 hours 5. Acute intervention needed for co occurring medical disorder 6. Acute intervention needed for co occurring psychiatric disorder 7. Severe withdrawal that cannot be handled at a lower level of care (continued vomiting, continued diarrhea, abnormal vital signs) requiring intravenous medication and/or fluids 8. Patient presents the following: Acute intervention needed for co-occurring med or psych disorder (Patient w/ uncontrolled DM) Admission Criteria Met: Admission criteria met Admitting History and Physical - Smoking History Smoking history: Current every day smoker Have you smoked in the past 12 months: Yes Aproximately how many cigarettes per day: 10 - Alcohol/Substance Use Hx Alcohol Use: Yes Admission ROS BHS - HPI Chief Complaint: HERE FOR DETOX FOR ALCOHOL WITHDRAWAL. Allergies/Adverse Reactions: Allergies Allergy/AdvReac Type Severity Reaction Status Date / Time No Known Allergies Allergy Verified 08/16/19 18:15 History of Present Illness: Multiple admissions for this 38 yo who presents w/ alcohol withdrawal and co- occurring crack use disorder seeking detox. States interested in rehab after detox. Utox: + JUAN LUIS/BZO DARRYL: 0.0 Discharged 07/16/19 and states began drinking and using crack the same day. Alcohol use began at age 19. Currently drinking 8 - 25 oz cans beer. Cocaine/crack use began at age 21. Nicotine use began at age 17. Current use 1/2 PPD. Denies benzo use. Denies hx seizures or overdoses. Hx Blackouts - last 4 years ago. Longest length of sobriety 7 months. PMHx: NIDDM: . Encouraged f/u w/ ophthalmology, podiatry, and PCP upon discharge. MHHx: Depression. Denies thoughts of harming self or others. States non-compliant w/ all medications SHx: Homeless: Unemployed. Search Terms: Magdiel Larose, 1980 Search Date: 08/16/2019 08:37:59 PM The Drug Utilization Report below displays all of the controlled substance prescriptions, if any, that your patient has filled in the last twelve months. The information displayed on this report is compiled from pharmacy submissions to the Department, and accurately reflects the information as submitted by the pharmacies. This report was requested by: Faviola Troy | Reference #: [id number] There are no results for the search terms that you entered. Search Terms: Magdiel Larose, 1980 Search Date: 08/16/2019 08:57:54 PM States Searched: [place], [place], [place], [place], [place], [place], [place] The Drug Utilization Report below displays the controlled substance prescriptions, if any, that were dispensed in the indicated state(s). The information displayed on this report is compiled from requests submitted to other states' PMPs, and accurately reflects the information as returned by them. Blank wick indicate data not provided by other state. This report was requested by: Faviola Troy | Reference #: [id number] There are no results for the search terms that you entered. Exam Limitations: No Limitations - Ebola screening Have you traveled outside of the country in the last 21 days: No (N) Have you had contact with anyone from an Ebola affected area: No Have you been sick,other than usual withdrawal symptoms: No Do you have a fever: No - Review of Systems Constitutional: Diaphoresis, Changes in sleep (Difficulty falling asleep.) EENT: reports: No Symptoms Reported Respiratory: reports: Cough (Cough x off and on x 2 years - states a ' cigarrette cough") Cardiac: reports: No Symptoms Reported GI: reports: No Symptoms Reported : reports: No Symptoms Reported Musculoskeletal: reports: No Symptoms Reported Integumentary: reports: Lesions (Small cuts on fingers.) Neuro: reports: Numbness (Bottom of feet), Tremors Endocrine: reports: Increased Thirst Hematology: reports: No Symptoms Reported Psychiatric: reports: Orientated x3, Agitated, Anxious, Depressed (Denies thoughts of harming self or others.) Patient History - Patient Medical History Hx Anemia: No Hx Asthma: No Hx Chronic Obstructive Pulmonary Disease (COPD): No Hx Cancer: No Hx Cardiac Disorders: No Hx Congestive Heart Failure: No Hx Hypertension: No Hx Hypercholesterolemia: No Hx Pacemaker: No HX Cerebrovascular Accident: No Hx Seizures: No Hx Dementia: No Hx Diabetes: Yes (NIDDM noncompliance) Hx Gastrointestinal Disorders: No Hx Liver Disease: No Hx Genitourinary Disorders: No Hx Sexually Transmitted Disorders: No Hx Renal Disease (ESRD): No Hx Thyroid Disease: No Hx Human Immunodeficiency Virus (HIV): No (negative 2016 last ) Hx Hepatitis C: No Hx Depression: No Hx Suicide Attempt: No Hx Bipolar Disorder: No Hx Schizophrenia: No - Patient Surgical History Past Surgical History: Yes Hx Neurologic Surgery: No Hx Cataract Extraction: No Hx Cardiac Surgery: No Hx Lung Surgery: No Hx Breast Surgery: No Hx Breast Biopsy: No Hx Abdominal Surgery: No Hx Appendectomy: Yes (age 15) Hx Cholecystectomy: Yes (lap cholecystectomy in 2013) Hx Genitourinary Surgery: No Hx Section: No Hx Orthopedic Surgery: No Other Surgical History: kidney stone 2012 Anesthesia Reaction: No - PPD History Previous Implant?: Yes Documented Results: Negative w/proof Implanted On Prior [facility] Admission?: Yes Date: 11/26/18 Results: 0 mm PPD to be Administered?: No - Smoking Cessation Smoking history: Current every day smoker Have you smoked in the past 12 months: Yes Aproximately how many cigarettes per day: 10 Cigars Per Day: 0 Hx Chewing Tobacco Use: No Initiated information on smoking cessation: Yes 'Breaking Loose' booklet given: 08/16/19 - Substance & Tx. History Hx Alcohol Use: Yes Hx Substance Use: Yes Substance Use Type: Alcohol, Cocaine Hx Substance Use Treatment: Yes (detox, rehab) - Substances abused Alcohol Other (specify): Beer Substance route: Oral Frequency: Daily Amount used: 8 of 25 ounce beers/1 pint of vodka Age of first use: 19 Date of last use: 08/16/19 Cocaine Substance route: Smoking Frequency: Daily Amount used: $50 Age of first use: 21 Date of last use: 08/15/19 Admission Physical Exam BHS - Vital Signs Vital Signs: Vital Signs - 24 hr 08/16/19 18:16 Temperature 97.1 F L Respiratory 18 Rate - Physical General Appearance: Yes: Nourished, Mild Distress, Tremorous, Sweating ( Increased facial moisture) HEENTM: Yes: EOMI, Hearing grossly Normal, Normocephalic, Normal Voice, SHELIA, Pharynx Normal Respiratory: Yes: Lungs Clear, Normal Breath Sounds, No Respiratory Distress Neck: Yes: No masses,lesions,Nodules, Supple Breast: Yes: Breast Exam Deferred Cardiology: Yes: Regular Rhythm, S1, S2, Tachycardia (HR: 102) Abdominal: Yes: Non Tender, Soft, Increased Bowel Sounds, Protuberent ( Increased abdominal adiposity) Genitourinary: Yes: Within Normal Limits Back: Yes: Normal Inspection Musculoskeletal: Yes: full range of Motion, Gait Steady Neurological: Yes: harness worker II-XII NML intact, Fully Oriented, Alert, Motor Strength 5/5 Integumentary: Yes: Normal Color, Warm, Diaphoresis (Increased facial moisture) , Other (macerated skin between toes; elongated, thickened toe nails) Lymphatic: Yes: Within Normal Limits - Diagnostic (1) Alcohol dependence with uncomplicated withdrawal Current Visit: Yes Status: Acute (2) Cocaine dependence Current Visit: Yes Status: Chronic Qualifiers: Substance use status: uncomplicated Qualified Code(s): F14.20 - Cocaine dependence, uncomplicated (3) Nicotine dependence Current Visit: Yes Status: Chronic Qualifiers: Nicotine product type: cigarettes Substance use status: uncomplicated Qualified Code(s): F17.210 - Nicotine dependence, cigarettes, uncomplicated (4) Obesity (BMI 30.0-34.9) Current Visit: Yes Status: Chronic (5) Type 2 diabetes mellitus with hyperglycemia Current Visit: Yes Status: Chronic Qualifiers: Diabetes mellitus termination clerk insulin use: without mcfp use Qualified Code(s): E11.65 - Type 2 diabetes mellitus with hyperglycemia (6) Tinea pedis Current Visit: Yes Status: Chronic Qualifiers: Laterality: bilateral Qualified Code(s): B35.3 - Tinea pedis Cleared for Admission S - Detox or Rehab [facility] Level of Care: Medically Managed Detox Regimen/Protocol: Librium Claeared for Rehab Admission: No Breathalyzer - Breathalyzer Breathalyzer: 0 Urine Drug Screen - Test Device Lot number: [id number] Expiration date: 04/16/21 - Control Is test valid?: Yes - Results Drug screen NEGATIVE: Yes Urine drug screen results: JUAN LUIS-Cocaine, BZO-Benzodiazepines Inpatient Rehab Admission - Rehab Decision to Admit Inpatient rehab admission?: No
[2019-08-16] MEDS ORDERED: MAG HYDROX/AL HYDROX/SIMETH 30 ML UNIT-DOSE CUP PO PRN (21:17)
[2019-08-16] MEDS ORDERED: IBUPROFEN 400 MG TABLET (FP) PO PRN (21:17)
[2019-08-16] MEDS ORDERED: METHOCARBAMOL 500 MG TABLET PO PRN (21:17)
[2019-08-16] MEDS ORDERED: ACETAMINOPHEN 325 MG TABLET (FP) PO PRN ×2 (21:17)
[2019-08-16] MEDS ORDERED: MENTHOL/PHENOL 1 EACH UD MM PRN (21:17)
[2019-08-16] MEDS ORDERED: MAGNESIUM CITRATE 300 ML BOTTLE PO PRN (21:17)
[2019-08-16] MEDS ORDERED: chlordiazePOXIDE HCL 10 MG CAPSULE PO PRN (21:17)
[2019-08-16] MEDS ORDERED: BISMUTH SUBSALICYLATE 524 MG/30 ML UD PO PRN (21:17)
[2019-08-16] MEDS ORDERED: MAGNESIUM HYDROX 2400MG/30ML ORAL SUSPENSION 30 ML CUP PO PRN (21:17)
[2019-08-16] MEDS ORDERED: INSULIN (NOVOLOG) ASPART 100 UNITS/ML 10ML VIAL SQ ONE (21:24)
[2019-08-16] MEDS ORDERED: metFORMIN HCL 500 MG TABLET (FP) PO ONE (21:25)
[2019-08-16] MEDS ORDERED: metFORMIN HCL 500 MG TABLET (FP) PO SCH (22:00)
[2019-08-16] MEDS: THIAMINE HCL 100 MG TABLET (FP) PO SCH (22:12)
[2019-08-16] MEDS: chlordiazePOXIDE HCL 25 MG CAPSULE PO SCH (22:12)
[2019-08-16] MEDS: TOLNAFTATE 1% CREAM 15 GM TUBE TP SCH (22:13)
[2019-08-16] MEDS: NICOTINE POLACRILEX 2 MG GUM BUC PRN (22:13)
[2019-08-16] MEDS: INSULIN SLIDING SCALE (NOVOLOG) 1 VIAL SQ SCH (22:59)
[2019-08-17] MEDS: chlordiazePOXIDE HCL 25 MG CAPSULE PO SCH ×3 (05:54→21:22)
[2019-08-17] MEDS: metFORMIN HCL 500 MG TABLET (FP) PO SCH ×2 (06:04→16:48)
[2019-08-17] MEDS: glipiZIDE 5 MG TABLET (FP) PO SCH (06:23)
[2019-08-17] MEDS: INSULIN SLIDING SCALE (NOVOLOG) 1 VIAL SQ SCH ×4 (07:02→21:22)
[2019-08-17] MEDS: NICOTINE 14 MG/24 HOURS TOPICAL PATCH TD SCH (10:32)
[2019-08-17] MEDS: PRENATAL VITAMINS W/ FOLIC ACID TABLET (FP) PO SCH (10:32)
[2019-08-17] MEDS: NICOTINE POLACRILEX 2 MG GUM BUC PRN ×4 (10:33→21:24)
[2019-08-17] MEDS: TOLNAFTATE 1% CREAM 15 GM TUBE TP SCH ×2 (10:33→21:22)
--- NOTE | 2019-08-17 11:09 | CONSULT ---
[facility] Psychiatric Consult - Data Date of interview: 08/17/19 Admission source: [facility] Identifying data: Patient is a 38 year old single male, without children, unemployed, and currently homeless. This is one of multiple admissions for patient. Patient admitted to for alcohol and cocaine dependence. Substance Abuse History: Smoking Cessation. Smoking history: Current every day smoker. Have you smoked in the past 12 months: Yes. Aproximately how many cigarettes per day: 10. Cigars Per Day: 0. Hx Chewing Tobacco Use: No. Initiated information on smoking cessation: Yes. 'Breaking Loose' booklet given : 08/16/19. - Substance & Tx. History. Hx Alcohol Use: Yes. Hx Substance Use : Yes. Substance Use Type: Alcohol, Cocaine. Hx Substance Use Treatment: Yes ( detox, rehab). - Substances abused. Alcohol. Other (specify): Beer. Substance route: Oral. Frequency: Daily. Amount used: 8 of 25 ounce beers/1 pint of vodka. Age of first use: 19. Date of last use: 08/16/19. Cocaine. Substance route: Smoking. Frequency: Daily. Amount used: $50. Age of first use: 21. Date of last use: 08/15/19 Medical History: Significant for type 2 diabetes mellitus, history of lap cholecystectomy in 2013 and appendectomy in 1996 Psychiatric History: Patient denies history of psychiatric hospitalizations and suicide attempt. Reports receiving treatment at [facility] in June of 2019 and was prescribed zoloft 50mg. Patient also received zoloft while in detox at [facility] on 07/12/19. Mr. Larose denies history of outpatient psychiatric care. At present, patient reports stable mood and is requesting to restart zoloft. Physical/Sexual Abuse/Trauma History: denies. Mental Status Exam - Mental Status Exam Alert and Oriented to: Time, Place, Person Cognitive Function: Good Patient Appearance: Well Groomed Mood: Euthymic Affect: Mood Congruent Patient Behavior: Cooperative Speech Pattern: Appropriate Voice Loudness: Normal Thought Process: Goal Oriented Thought Disorder: Not Present Hallucinations: Denies Suicidal Ideation: Denies Homicidal Ideation: Denies Insight/Judgement: Poor Sleep: Fair Appetite: Fair Muscle strength/Tone: Normal Gait/Station: Normal Psychiatric Findings - Problem List ([place] 1, 2,3) (1) Alcohol dependence with uncomplicated withdrawal Status: Acute (2) Cocaine dependence Status: Chronic Qualifiers: Substance use status: uncomplicated Qualified Code(s): F14.20 - Cocaine dependence, uncomplicated (3) Depressive disorder Status: Chronic - Initial Treatment Plan Initial Treatment Plan: Psychoeducation provided. Detoxification in progress. Will order Zoloft 50mg daily. Benefits and side effects discussed. Verbal consent given.
[2019-08-17 12:08] LABS: HEMATOCRIT 37.5 % (35.4-49); MCH 26.6 pg (25.7-33.7); MCHC 32.1 g/dl (32.0-35.9); MEAN CELL VOLUME 82.9 fl (80-96); MEAN PLT VOLUME 8.5 fl (7.5-11.1); PLATELET COUNT 287 K/MM3 (134-434); RBC 4.52 M/mm3 (4.00-5.60); WHITE BLOOD COUNT 8.4 K/mm3 (4.0-10.0)
[2019-08-17 12:49] LABS: ALBUMIN 3.8 g/dl (3.4-5.0); BILIRUBIN,TOTAL 0.5 mg/dL (0.2-1); BLOOD UREA NITROGEN 10.2 mg/dL (7-18); CALCIUM 9.1 mg/dL (8.5-10.1); POTASSIUM 4.3 mmol/L (3.5-5.1)
--- NOTE | 2019-08-17 16:25 | PN ---
[facility] CIWA - CIWA Score Nausea/Vomitin-No Nausea/No Vomiting Muscle Tremors: 3 Anxiety: 3 Agitation: 1-Slight > Activity Paroxysmal Sweats: 3 Orientation: 0-Oriented Tacttile Disturbances: 1-Very Mild Itch/Numbness Auditory Disturbances: 0-None Visual Disturbances: 0-None Headache: 0-None Present CIWA-Ar Total Score: 11 S Progress Note (SOAP) Subjective: Fatigue, Anxious, Tremors, Sweating. Objective: PATIENT A & O X 3, OBSERVED AMBULATING ON DETOX UNIT UNASSISTED. IN NO ACUTE DISTRESS. 08/17/19 16:26 Vital Signs Temperature 97.6 F 08/17/19 09:24 Pulse Rate 96 H 08/17/19 09:24 Respiratory Rate 18 08/17/19 09:24 Blood Pressure 137/96 08/17/19 09:24 O2 Sat by Pulse Oximetry (%) Laboratory Tests 08/16/19 08/16/19 08/17/19 21:22 22:10 05:51 WBC RBC Hgb Hct MCV MCH MCHC RDW Plt Count MPV Sodium Potassium Chloride Carbon Dioxide Anion Gap BUN Creatinine Est GFR (CKD-EPI)AfAm Est GFR (CKD-EPI)NonAf POC Glucometer 300 279 277 Random Glucose Calcium Total Bilirubin AST ALT Alkaline Phosphatase Total Protein Albumin 08/17/19 08/17/19 08/17/19 08:45 08:45 10:55 WBC 8.4 RBC 4.52 Hgb 12.0 Hct 37.5 MCV 82.9 MCH 26.6 MCHC 32.1 RDW 17.0 H Plt Count 287 MPV 8.5 Sodium 139 Potassium 4.3 Chloride 103 Carbon Dioxide 29 Anion Gap 7 L BUN 10.2 Creatinine 1.0 Est GFR (CKD-EPI)AfAm 111.73 Est GFR (CKD-EPI)NonAf 96.40 POC Glucometer 113 Random Glucose 186 H Calcium 9.1 Total Bilirubin 0.5 AST 30 ALT 43 Alkaline Phosphatase 144 H Total Protein 8.0 Albumin 3.8 08/17/19 16:16 WBC RBC Hgb Hct MCV MCH MCHC RDW Plt Count MPV Sodium Potassium Chloride Carbon Dioxide Anion Gap BUN Creatinine Est GFR (CKD-EPI)AfAm Est GFR (CKD-EPI)NonAf POC Glucometer 165 Random Glucose Calcium Total Bilirubin AST ALT Alkaline Phosphatase Total Protein Albumin LABS NOTED. PATIENT HAS HAD ELEVATED ALAKALINE PHOSPHATASE LEVELS ON PREVIOUS ADMISSIONS. 08/17/19 16:28 Assessment: 08/17/19 16:26 WITHDRAWAL SYMPTOMS. HYPERGLYCEMIA. ELEVATED ALKALINE PHOSPHATASE LEVEL. ELEVATED BLOOD PRESSURE READING WITHOUT DIAGNOSIS OF HYPERTENSION (PATIENT DENIED KNOWN HISTORY OF HYPERTENSION ON DETOX ADMISSION HISTORY AND PHYSICAL ASSESSMENT). Plan: CONTINUE DETOX.
[2019-08-17] MEDS: MELATONIN 5 MG TABLETS PO PRN (21:22)
[2019-08-17] MEDS: THIAMINE HCL 100 MG TABLET (FP) PO SCH (21:22)
[2019-08-18] MEDS: chlordiazePOXIDE 5 MG CAPSULE PO SCH ×3 (05:27→21:54)
[2019-08-18] MEDS: metFORMIN HCL 500 MG TABLET (FP) PO SCH ×2 (06:24→16:39)
[2019-08-18] MEDS: INSULIN SLIDING SCALE (NOVOLOG) 1 VIAL SQ SCH ×4 (06:24→21:54)
[2019-08-18] MEDS: glipiZIDE 5 MG TABLET (FP) PO SCH (06:24)
[2019-08-18] MEDS: NICOTINE POLACRILEX 2 MG GUM BUC PRN ×3 (08:29→21:54)
[2019-08-18] MEDS: SERTRALINE HCL 50 MG TABLET (FP) PO SCH (10:23)
[2019-08-18] MEDS: PRENATAL VITAMINS W/ FOLIC ACID TABLET (FP) PO SCH (10:23)
[2019-08-18] MEDS: TOLNAFTATE 1% CREAM 15 GM TUBE TP SCH ×2 (10:23→21:54)
[2019-08-18] MEDS: NICOTINE 14 MG/24 HOURS TOPICAL PATCH TD SCH (10:23)
--- NOTE | 2019-08-18 14:19 | PN ---
S CIWA - CIWA Score Nausea/Vomitin-Mild Nausea/No Vomiting Muscle Tremors: 2 Anxiety: 2 Agitation: 2 Paroxysmal Sweats: No Perspiration Orientation: 0-Oriented Tacttile Disturbances: 1-Very Mild Itch/Numbness Auditory Disturbances: 0-None Visual Disturbances: 0-None Headache: 1-Very Mild CIWA-Ar Total Score: 9 BHS Progress Note (SOAP) Subjective: alert,irritable,anxious,interrupted sleep,pain in the body Objective: 08/18/19 14:17 Vital Signs Temperature 97.4 F L 08/18/19 13:15 Pulse Rate 90 08/18/19 13:15 Respiratory Rate 18 08/18/19 13:15 Blood Pressure 127/86 08/18/19 13:15 O2 Sat by Pulse Oximetry (%) Laboratory Last Values WBC 8.4 K/mm3 (4.0-10.0) 08/17/19 08:45 RBC 4.52 M/mm3 (4.00-5.60) 08/17/19 08:45 Hgb 12.0 GM/dL (11.7-16.9) 08/17/19 08:45 Hct 37.5 % (35.4-49) 08/17/19 08:45 MCV 82.9 fl (80-96) 08/17/19 08:45 MCH 26.6 pg (25.7-33.7) 08/17/19 08:45 MCHC 32.1 g/dl (32.0-35.9) 08/17/19 08:45 RDW 17.0 % (11.9-15.9) H 08/17/19 08:45 Plt Count 287 K/MM3 (134-434) 08/17/19 08:45 MPV 8.5 fl (7.5-11.1) 08/17/19 08:45 Sodium 139 mmol/L (136-145) 08/17/19 08:45 Potassium 4.3 mmol/L (3.5-5.1) 08/17/19 08:45 Chloride 103 mmol/L (98-107) 08/17/19 08:45 Carbon Dioxide 29 mmol/L (21-32) 08/17/19 08:45 Anion Gap 7 MMOL/L (8-16) L 08/17/19 08:45 BUN 10.2 mg/dL (7-18) 08/17/19 08:45 Creatinine 1.0 mg/dL (0.55-1.3) 08/17/19 08:45 Est GFR (CKD-EPI)AfAm 111.73 08/17/19 08:45 Est GFR (CKD-EPI)NonAf 96.40 08/17/19 08:45 POC Glucometer 227 UNITS (80-120) 08/18/19 10:43 Random Glucose 186 mg/dL (74-106) H 08/17/19 08:45 Calcium 9.1 mg/dL (8.5-10.1) 08/17/19 08:45 Total Bilirubin 0.5 mg/dL (0.2-1) 08/17/19 08:45 AST 30 U/L (15-37) 08/17/19 08:45 ALT 43 U/L (13-61) 08/17/19 08:45 Alkaline Phosphatase 144 U/L (45-117) H 08/17/19 08:45 Total Protein 8.0 g/dl (6.4-8.2) 08/17/19 08:45 Albumin 3.8 g/dl (3.4-5.0) 08/17/19 08:45 Assessment: 08/18/19 14:18 withdrawal symptom,continue detox librium regimen,bgm monitoring Plan: continue detox,librium regimen,bgm monitoring
[2019-08-18 14:25] LABS: URINE APPEARANCE CLEAR; URINE BILIRUBIN NEGATIVE (NEGATIVE); URINE COLOR YELLOW; URINE GLUCOSE (UA) NEGATIVE (NEGATIVE); URINE KETONE NEGATIVE (NEGATIVE); URINE LEUK ESTERASE NEGATIVE (NEGATIVE); URINE NITRITE NEGATIVE (NEGATIVE); URINE PROTEIN NEGATIVE (NEGATIVE); URINE UROBILINOGEN 0.2 mg/dL (0.2-1.0)
[2019-08-18] MEDS: THIAMINE HCL 100 MG TABLET (FP) PO SCH (21:54)
[2019-08-18] MEDS: MELATONIN 5 MG TABLETS PO PRN (21:55)
[2019-08-19] MEDS ORDERED: chlordiazePOXIDE HCL 10 MG CAPSULE PO PRN
[2019-08-19] MEDS: chlordiazePOXIDE HCL 10 MG CAPSULE PO SCH ×3 (05:49→21:55)
[2019-08-19] MEDS: INSULIN SLIDING SCALE (NOVOLOG) 1 VIAL SQ SCH ×4 (06:18→21:55)
[2019-08-19] MEDS: glipiZIDE 5 MG TABLET (FP) PO SCH (06:18)
[2019-08-19] MEDS: metFORMIN HCL 500 MG TABLET (FP) PO SCH ×2 (06:18→17:41)
[2019-08-19] MEDS: NICOTINE POLACRILEX 2 MG GUM BUC PRN ×4 (08:18→21:56)
[2019-08-19] MEDS: SERTRALINE HCL 50 MG TABLET (FP) PO SCH (10:37)
[2019-08-19] MEDS: PRENATAL VITAMINS W/ FOLIC ACID TABLET (FP) PO SCH (10:37)
[2019-08-19] MEDS: TOLNAFTATE 1% CREAM 15 GM TUBE TP SCH ×2 (10:37→21:55)
[2019-08-19] MEDS: NICOTINE 14 MG/24 HOURS TOPICAL PATCH TD SCH (10:39)
--- NOTE | 2019-08-19 16:28 | PN ---
S CIWA - CIWA Score Nausea/Vomitin-No Nausea/No Vomiting Muscle Tremors: None Anxiety: 0-No Anxiety, at Ease Agitation: 2 Paroxysmal Sweats: No Perspiration Orientation: 0-Oriented Tacttile Disturbances: 0-None Auditory Disturbances: 0-None Visual Disturbances: 0-None Headache: 0-None Present CIWA-Ar Total Score: 2 BHS Progress Note (SOAP) Subjective: Patient denies current Withdrawal / Detox symptoms and reports that he feels well overall at this time. Objective: PATIENT A & O X 3, OBSERVED AMBULATING ON DETOX UNIT UNASSISTED. IN NO ACUTE DISTRESS. 08/19/19 16:25 Vital Signs Temperature 97.9 F 08/19/19 13:10 Pulse Rate 84 08/19/19 13:10 Respiratory Rate 18 08/19/19 13:10 Blood Pressure 122/85 08/19/19 13:10 O2 Sat by Pulse Oximetry (%) Laboratory Tests 08/16/19 08/16/19 08/17/19 21:22 22:10 05:51 WBC RBC Hgb Hct MCV MCH MCHC RDW Plt Count MPV Sodium Potassium Chloride Carbon Dioxide Anion Gap BUN Creatinine Est GFR (CKD-EPI)AfAm Est GFR (CKD-EPI)NonAf POC Glucometer 300 279 277 Random Glucose Calcium Total Bilirubin AST ALT Alkaline Phosphatase Total Protein Albumin Urine Color Urine Appearance Urine pH Ur Specific [place] Urine Protein Urine Glucose (UA) Urine Ketones Urine Blood Urine Nitrite Urine Bilirubin Urine Urobilinogen Ur Leukocyte Esterase 08/17/19 08/17/19 08/17/19 08:45 08:45 10:55 WBC 8.4 RBC 4.52 Hgb 12.0 Hct 37.5 MCV 82.9 MCH 26.6 MCHC 32.1 RDW 17.0 H Plt Count 287 MPV 8.5 Sodium 139 Potassium 4.3 Chloride 103 Carbon Dioxide 29 Anion Gap 7 L BUN 10.2 Creatinine 1.0 Est GFR (CKD-EPI)AfAm 111.73 Est GFR (CKD-EPI)NonAf 96.40 POC Glucometer 113 Random Glucose 186 H Calcium 9.1 Total Bilirubin 0.5 AST 30 ALT 43 Alkaline Phosphatase 144 H Total Protein 8.0 Albumin 3.8 Urine Color Urine Appearance Urine pH Ur Specific [place] Urine Protein Urine Glucose (UA) Urine Ketones Urine Blood Urine Nitrite Urine Bilirubin Urine Urobilinogen Ur Leukocyte Esterase 08/17/19 08/18/19 08/18/19 16:16 05:25 08:15 WBC RBC Hgb Hct MCV MCH MCHC RDW Plt Count MPV Sodium Potassium Chloride Carbon Dioxide Anion Gap BUN Creatinine Est GFR (CKD-EPI)AfAm Est GFR (CKD-EPI)NonAf POC Glucometer 165 205 Random Glucose Calcium Total Bilirubin AST ALT Alkaline Phosphatase Total Protein Albumin Urine Color Yellow Urine Appearance Clear Urine pH 5.0 Ur Specific [place] 1.017 Urine Protein Negative Urine Glucose (UA) Negative Urine Ketones Negative Urine Blood Negative Urine Nitrite Negative Urine Bilirubin Negative Urine Urobilinogen 0.2 Ur Leukocyte Esterase Negative 08/18/19 08/18/19 08/19/19 10:43 16:20 05:51 WBC RBC Hgb Hct MCV MCH MCHC RDW Plt Count MPV Sodium Potassium Chloride Carbon Dioxide Anion Gap BUN Creatinine Est GFR (CKD-EPI)AfAm Est GFR (CKD-EPI)NonAf POC Glucometer 227 157 179 Random Glucose Calcium Total Bilirubin AST ALT Alkaline Phosphatase Total Protein Albumin Urine Color Urine Appearance Urine pH Ur Specific [place] Urine Protein Urine Glucose (UA) Urine Ketones Urine Blood Urine Nitrite Urine Bilirubin Urine Urobilinogen Ur Leukocyte Esterase 08/19/19 08/19/19 10:38 16:18 WBC RBC Hgb Hct MCV MCH MCHC RDW Plt Count MPV Sodium Potassium Chloride Carbon Dioxide Anion Gap BUN Creatinine Est GFR (CKD-EPI)AfAm Est GFR (CKD-EPI)NonAf POC Glucometer 160 189 Random Glucose Calcium Total Bilirubin AST ALT Alkaline Phosphatase Total Protein Albumin Urine Color Urine Appearance Urine pH Ur Specific [place] Urine Protein Urine Glucose (UA) Urine Ketones Urine Blood Urine Nitrite Urine Bilirubin Urine Urobilinogen Ur Leukocyte Esterase LABS NOTED. PATIENT HAS HAD ELEVATED ALK. PHOS. LEVELS ON PREVIOUS ADMISSIONS. 08/19/19 16:26 Assessment: 08/19/19 16:25 WITHDRAWAL SYMPTOMS. ELEVATED ALKALINE PHOSPHATASE LEVEL. 08/19/19 16:27 Plan: CONTINUE DETOX. PATIENT SCHEDULED FOR D/C FROM DETOX UNIT TOMORROW.
[2019-08-19] MEDS: THIAMINE HCL 100 MG TABLET (FP) PO SCH (21:55)
[2019-08-20] MEDS ORDERED: chlordiazePOXIDE HCL 10 MG CAPSULE PO ONE (05:00)
[2019-08-20 06:53] VITALS: BP 137/88; PULSE 84; TEMP 97
[2019-08-20] MEDS: metFORMIN HCL 500 MG TABLET (FP) PO SCH (08:31)
[2019-08-20] MEDS: glipiZIDE 5 MG TABLET (FP) PO SCH (08:32)
[2019-08-20] MEDS: INSULIN SLIDING SCALE (NOVOLOG) 1 VIAL SQ SCH (08:32)
[2019-08-20] MEDS: NICOTINE POLACRILEX 2 MG GUM BUC PRN (08:59)
--- NOTE | 2019-08-20 18:31 | DS ---
[facility] Detox Discharge Summary Admission Date: 08/16/19 Discharge Date: 08/20/19 - History Present History: Alcohol Dependence, Cocaine Dependence Additional Comments: PATIENT RETURNING HOME, WILL ATTEND LOCAL 12-STEP / NA / AA OUTPATIENT SUPPORT GROUP PROGRAMS FOR AFTERCARE. PATIENT WAS DISHCARGED FROM DETOX UNIT IN STABLE MEDICAL CONDITION. Pertinent Past History: Nicotine Dependence, Type II DM, Tinea Pedis, Elevated Alkaline Phosphatase Level, Depressive Disorder. - Physical Exam Results Vital Signs: Vital Signs Temperature 97.0 F L 08/20/19 06:00 Pulse Rate 84 08/20/19 06:00 Respiratory Rate 18 08/20/19 06:00 Blood Pressure 137/88 08/20/19 06:00 O2 Sat by Pulse Oximetry (%) Pertinent Admission Physical Exam Findings: WITHDRAWAL SYMPTOMS. Laboratory Tests 08/16/19 08/16/19 08/17/19 21:22 22:10 05:51 WBC RBC Hgb Hct MCV MCH MCHC RDW Plt Count MPV Sodium Potassium Chloride Carbon Dioxide Anion Gap BUN Creatinine Est GFR (CKD-EPI)AfAm Est GFR (CKD-EPI)NonAf POC Glucometer 300 279 277 Random Glucose Calcium Total Bilirubin AST ALT Alkaline Phosphatase Total Protein Albumin Urine Color Urine Appearance Urine pH Ur Specific Conway Urine Protein Urine Glucose (UA) Urine Ketones Urine Blood Urine Nitrite Urine Bilirubin Urine Urobilinogen Ur Leukocyte Esterase 08/17/19 08/17/19 08/17/19 08:45 08:45 10:55 WBC 8.4 RBC 4.52 Hgb 12.0 Hct 37.5 MCV 82.9 MCH 26.6 MCHC 32.1 RDW 17.0 H Plt Count 287 MPV 8.5 Sodium 139 Potassium 4.3 Chloride 103 Carbon Dioxide 29 Anion Gap 7 L BUN 10.2 Creatinine 1.0 Est GFR (CKD-EPI)AfAm 111.73 Est GFR (CKD-EPI)NonAf 96.40 POC Glucometer 113 Random Glucose 186 H Calcium 9.1 Total Bilirubin 0.5 AST 30 ALT 43 Alkaline Phosphatase 144 H Total Protein 8.0 Albumin 3.8 Urine Color Urine Appearance Urine pH Ur Specific Conway Urine Protein Urine Glucose (UA) Urine Ketones Urine Blood Urine Nitrite Urine Bilirubin Urine Urobilinogen Ur Leukocyte Esterase 08/17/19 08/18/19 08/18/19 16:16 05:25 08:15 WBC RBC Hgb Hct MCV MCH MCHC RDW Plt Count MPV Sodium Potassium Chloride Carbon Dioxide Anion Gap BUN Creatinine Est GFR (CKD-EPI)AfAm Est GFR (CKD-EPI)NonAf POC Glucometer 165 205 Random Glucose Calcium Total Bilirubin AST ALT Alkaline Phosphatase Total Protein Albumin Urine Color Yellow Urine Appearance Clear Urine pH 5.0 Ur Specific Conway 1.017 Urine Protein Negative Urine Glucose (UA) Negative Urine Ketones Negative Urine Blood Negative Urine Nitrite Negative Urine Bilirubin Negative Urine Urobilinogen 0.2 Ur Leukocyte Esterase Negative 08/18/19 08/18/19 08/19/19 10:43 16:20 05:51 WBC RBC Hgb Hct MCV MCH MCHC RDW Plt Count MPV Sodium Potassium Chloride Carbon Dioxide Anion Gap BUN Creatinine Est GFR (CKD-EPI)AfAm Est GFR (CKD-EPI)NonAf POC Glucometer 227 157 179 Random Glucose Calcium Total Bilirubin AST ALT Alkaline Phosphatase Total Protein Albumin Urine Color Urine Appearance Urine pH Ur Specific Conway Urine Protein Urine Glucose (UA) Urine Ketones Urine Blood Urine Nitrite Urine Bilirubin Urine Urobilinogen Ur Leukocyte Esterase 08/19/19 08/19/19 10:38 16:18 WBC RBC Hgb Hct MCV MCH MCHC RDW Plt Count MPV Sodium Potassium Chloride Carbon Dioxide Anion Gap BUN Creatinine Est GFR (CKD-EPI)AfAm Est GFR (CKD-EPI)NonAf POC Glucometer 160 189 Random Glucose Calcium Total Bilirubin AST ALT Alkaline Phosphatase Total Protein Albumin Urine Color Urine Appearance Urine pH Ur Specific Conway Urine Protein Urine Glucose (UA) Urine Ketones Urine Blood Urine Nitrite Urine Bilirubin Urine Urobilinogen Ur Leukocyte Esterase LABS NOTED. - Treatment Hospital Course: Detox Protocol Followed, Detoxed Safely, Responded well, Discharged Condition Good Patient has Accepted a Rehab Referral to: PATIENT WILL ATTEND LOCAL OUTPATIENT 12-STEP/NA/AA SUPPORT GROUP. - Medication Discharge Medications: Ambulatory Orders Glipizide 5 mg PO DAILY #30 tablet 12/10/18 metFORMIN HCL [Metformin HCl] 1,000 mg PO BID 02/22/19 Sertraline HCl [Zoloft -] 50 mg PO DAILY 07/12/19 - Diagnosis (1) Alcohol dependence with uncomplicated withdrawal Status: Acute (2) Cocaine dependence Status: Chronic Qualifiers: Substance use status: uncomplicated Qualified Code(s): F14.20 - Cocaine dependence, uncomplicated (3) Nicotine dependence Status: Chronic Qualifiers: Nicotine product type: cigarettes Substance use status: uncomplicated Qualified Code(s): F17.210 - Nicotine dependence, cigarettes, uncomplicated (4) Obesity (BMI 30.0-34.9) Status: Chronic (5) Tinea pedis Status: Chronic Qualifiers: Laterality: bilateral Qualified Code(s): B35.3 - Tinea pedis (6) Type 2 diabetes mellitus with hyperglycemia Status: Chronic Qualifiers: Diabetes mellitus livestock haulier insulin use: without livestock haulier use Qualified Code(s): E11.65 - Type 2 diabetes mellitus with hyperglycemia (7) Elevated alkaline phosphatase level Status: Acute - AMA Did Patient Leave Against Medical Advice: No BHS CIWA - CIWA Score Nausea/Vomitin-No Nausea/No Vomiting Muscle Tremors: None Anxiety: 1-Mildly Anxious Agitation: 0-Normal Activity Paroxysmal Sweats: No Perspiration Orientation: 0-Oriented Tacttile Disturbances: 0-None Auditory Disturbances: 0-None Visual Disturbances: 0-None Headache: 0-None Present CIWA-Ar Total Score: 1
== END 2019-08-20 09:05 | disposition home or self-care (01) | DRG 774 ==
LOC: YASAS 16:47 → Y3N 21:11
PROVIDERS: ADMIT Surgery; ATTEND Surgery
PROC: HZ2ZZZZ Detoxification Services for Substance Abuse Treatment (ICD-10-PCS; principal; 2019-08-16)
DX: F10.230 Alcohol dependence with withdrawal, uncomplicated (principal); F14.20 Cocaine dependence, uncomplicated; F17.210 Nicotine dependence, cigarettes, uncomplicated; F32.9 Major depressive disorder, single episode, unspecified; E11.65 Type 2 diabetes mellitus with hyperglycemia; Z79.84 Long term (current) use of oral hypoglycemic drugs; R94.5 Abnormal results of liver function studies; B35.3 Tinea pedis; R03.0 Elevated blood-pressure reading, without diagnosis of hypertension; R63.4 Abnormal weight loss; Z68.33 Body mass index [BMI] 33.0-33.9, adult
CPT/HCPCS: 36415; 80053; 81003; 82962; 85027

== ENCOUNTER 2019-09-16 09:48 | Inpatient (IN) | payer OTHER ==
[2019-09-16 10:04] VITALS: BMI 34.9
--- NOTE | 2019-09-16 10:52 | HP ---
CIWA Score Nausea/Vomitin-No Nausea/No Vomiting Muscle Tremors: None Anxiety: 1-Mildly Anxious Agitation: 0-Normal Activity Paroxysmal Sweats: No Perspiration Orientation: 0-Oriented Tacttile Disturbances: 0-None Auditory Disturbances: 0-None Visual Disturbances: 0-None Headache: 2-Mild CIWA-Ar Total Score: 3 - Admission Criteria OASAS Guidelines: Admission for Medically Managed Detox: Requires at least one of the followin. CIWA greater than 12 2. Seizures within the past 24 hours 3. Delirium tremens within the past 24 hours 4. Hallucinations within the past 24 hours 5. Acute intervention needed for co occurring medical disorder 6. Acute intervention needed for co occurring psychiatric disorder 7. Severe withdrawal that cannot be handled at a lower level of care (continued vomiting, continued diarrhea, abnormal vital signs) requiring intravenous medication and/or fluids 8. Admitting History and Physical - Smoking History Smoking history: Current every day smoker Have you smoked in the past 12 months: Yes Aproximately how many cigarettes per day: 10 - Alcohol/Substance Use Hx Alcohol Use: Yes Admission ROS [facility] - HPI Allergies/Adverse Reactions: Allergies Allergy/AdvReac Type Severity Reaction Status Date / Time No Known Allergies Allergy Verified 09/16/19 09:59 History of Present Illness: pt here reports relapse on etoh upon d/c, current daily use 8 cans beer , latest use yesterday , current symptoms as above, reports no symptoms if not drinking , denies blackouts/ seizures, tremors. cocaine : 50 $/day via inhalation tobacco : 11/18 ppd Utox: + JUAN LUIS/BZO DARRYL: 0.0 PMHx: NIDDM non- compliant w/ meds Exam Limitations: No Limitations - Ebola screening Have you traveled outside of the country in the last 21 days: No Have you had contact with anyone from an Ebola affected area: No Do you have a fever: No - Review of Systems Constitutional: No Symptoms Reported EENT: reports: No Symptoms Reported Respiratory: reports: No Symptoms reported Cardiac: reports: No Symptoms Reported GI: reports: No Symptoms Reported : reports: No Symptoms Reported Musculoskeletal: reports: No Symptoms Reported Integumentary: reports: Other (callused feet) Neuro: reports: No Symptoms reported Endocrine: reports: See HPI Psychiatric: reports: Orientated x3, Depressed Patient History - Patient Medical History Hx Anemia: No Hx Asthma: No Hx Chronic Obstructive Pulmonary Disease (COPD): No Hx Cancer: No Hx Cardiac Disorders: No Hx Congestive Heart Failure: No Hx Hypertension: No Hx Hypercholesterolemia: No Hx Pacemaker: No HX Cerebrovascular Accident: No Hx Seizures: No Hx Dementia: No Hx Diabetes: Yes (NIDDM noncompliance) Hx Gastrointestinal Disorders: No Hx Liver Disease: No Hx Genitourinary Disorders: No Hx Sexually Transmitted Disorders: No Hx Renal Disease (ESRD): No Hx Thyroid Disease: No Hx Human Immunodeficiency Virus (HIV): No (negative 2015 last ) Hx Hepatitis C: No Hx Depression: No Hx Suicide Attempt: No Hx Bipolar Disorder: No Hx Schizophrenia: No - Patient Surgical History Past Surgical History: Yes Hx Neurologic Surgery: No Hx Cataract Extraction: No Hx Cardiac Surgery: No Hx Lung Surgery: No Hx Breast Surgery: No Hx Breast Biopsy: No Hx Abdominal Surgery: No Hx Appendectomy: Yes (age 15) Hx Cholecystectomy: Yes (lap cholecystectomy in 2013) Hx Genitourinary Surgery: No Hx Section: No Hx Orthopedic Surgery: No Other Surgical History: kidney stone 2012 Anesthesia Reaction: No - PPD History Date: 11/26/18 Results: 0 mm - Smoking Cessation Smoking history: Current every day smoker Have you smoked in the past 12 months: Yes Aproximately how many cigarettes per day: 10 Cigars Per Day: 0 Hx Chewing Tobacco Use: No Initiated information on smoking cessation: Yes 'Breaking Loose' booklet given: 09/16/19 - Substances abused Alcohol Other (specify): Beer Substance route: Oral Frequency: Daily Amount used: (8) 25 oz beers Age of first use: 19 Date of last use: 09/15/19 Cocaine Substance route: Smoking Frequency: Daily Amount used: $50 Age of first use: 21 Date of last use: 09/15/19 Admission Physical Exam BHS - Vital Signs Vital Signs: Vital Signs - 24 hr 09/16/19 09:59 Temperature 97.2 F L Pulse Rate 89 Respiratory 16 Rate Blood Pressure 142/82 - Physical General Appearance: Yes: No Apparent Distress, Anxious HEENTM: Yes: EOMI, Hearing grossly Normal, Normocephalic, Normal Voice Respiratory: Yes: Chest Non-Tender, Lungs Clear, Normal Breath Sounds, No Respiratory Distress, No Accessory Muscle Use Neck: Yes: No masses,lesions,Nodules, Trachea in good position Cardiology: Yes: Regular Rhythm, Regular Rate, S1, S2 Abdominal: Yes: Non Tender, Soft Musculoskeletal: Yes: Gait Steady Extremities: Yes: Normal Capillary Refill, Normal Range of Motion, Non-Tender Neurological: Yes: Fully Oriented, Alert, Motor Strength 5/5, Normal Mood/Affect Integumentary: Yes: Warm - Diagnostic (1) Cocaine dependence Current Visit: Yes Status: Chronic Qualifiers: Substance use status: uncomplicated Qualified Code(s): F14.20 - Cocaine dependence, uncomplicated (2) Nicotine dependence Current Visit: Yes Status: Chronic Qualifiers: Nicotine product type: cigarettes Substance use status: uncomplicated Qualified Code(s): F17.210 - Nicotine dependence, cigarettes, uncomplicated (3) Alcohol dependence Current Visit: Yes Status: Chronic Qualifiers: Substance use status: uncomplicated Qualified Code(s): F10.20 - Alcohol dependence, uncomplicated Breathalyzer - Breathalyzer Breathalyzer: 0 Urine Drug Screen - Test Device Lot number: [id number] Expiration date: 05/16/21 - Control Is test valid?: Yes - Results Drug screen NEGATIVE: No Urine drug screen results: JUAN LUIS-Cocaine, BZO-Benzodiazepines Inpatient Rehab Admission - Rehab Decision to Admit Inpatient rehab admission?: Yes - Initial Determination Are CD services needed?: Yes Free of communicable disease: Yes Not in need of hospitalization: Yes - Rehab Admission Criteria Previous failed treatment: No Poor recovery environment: No Comorbidities: No Lacks judgement: Yes Patient is meeting Inpatient Rehab admission criteria:: Yes
[2019-09-16] MEDS ORDERED: MAGNESIUM HYDROX 2400MG/30ML ORAL SUSPENSION 30 ML CUP PO PRN (11:05)
[2019-09-16] MEDS ORDERED: MENTHOL/PHENOL 1 EACH UD MM PRN (11:05)
[2019-09-16] MEDS ORDERED: P-EPHED 60MG/TRIPROLIDI 2.5MG TABLET PO PRN (11:05)
[2019-09-16] MEDS ORDERED: ACETAMINOPHEN 325 MG TABLET (FP) PO PRN (11:05)
[2019-09-16] MEDS ORDERED: IBUPROFEN 400 MG TABLET (FP) PO PRN (11:05)
[2019-09-16] MEDS ORDERED: LOPERAMIDE HCL 2 MG CAPSULE PO PRN (11:05)
[2019-09-16] MEDS ORDERED: MAG HYDROX/AL HYDROX/SIMETH 30 ML UNIT-DOSE CUP PO PRN (11:05)
[2019-09-16] MEDS ORDERED: guaiFENesin 200 MG/10 ML 10 ML UNIT-DOSE CUPS PO PRN (11:05)
[2019-09-16] MEDS ORDERED: MAGNESIUM CITRATE 300 ML BOTTLE PO PRN (11:05)
[2019-09-16] MEDS ORDERED: hydrOXYzine PAMOATE 25 MG CAPSULE (FP) PO PRN (11:05)
[2019-09-16] MEDS ORDERED: metFORMIN HCL 500 MG TABLET (FP) PO SCH (12:10)
[2019-09-16] MEDS: glipiZIDE 5 MG TABLET (FP) PO SCH (14:17)
[2019-09-16] MEDS: NICOTINE POLACRILEX 2 MG GUM BUC PRN ×2 (16:10→21:22)
[2019-09-16] MEDS: NICOTINE 14 MG/24 HOURS TOPICAL PATCH TD SCH (16:10)
[2019-09-16] MEDS ORDERED: metFORMIN HCL 500 MG TABLET (FP) PO ONE (18:30)
[2019-09-16] MEDS: MELATONIN 5 MG TABLETS PO PRN (21:20)
[2019-09-16] MEDS: THIAMINE HCL 100 MG TABLET (FP) PO SCH (21:20)
[2019-09-17] MEDS: metFORMIN HCL 500 MG TABLET (FP) PO SCH ×2 (07:19→16:38)
[2019-09-17] MEDS: NICOTINE POLACRILEX 2 MG GUM BUC PRN ×4 (09:07→21:34)
[2019-09-17] MEDS: glipiZIDE 5 MG TABLET (FP) PO SCH (09:08)
[2019-09-17] MEDS: PRENATAL VITAMINS W/ FOLIC ACID TABLET (FP) PO SCH (09:45)
[2019-09-17] MEDS: NICOTINE 14 MG/24 HOURS TOPICAL PATCH TD SCH (09:45)
[2019-09-17 12:34] LABS: PH,URINE 5.5 (5.0-8.0); URINE APPEARANCE CLEAR; URINE BILIRUBIN NEGATIVE (NEGATIVE); URINE COLOR YELLOW; URINE GLUCOSE (UA) 3+ (NEGATIVE); URINE KETONE NEGATIVE (NEGATIVE); URINE LEUK ESTERASE NEGATIVE (NEGATIVE); URINE NITRITE NEGATIVE (NEGATIVE); URINE PROTEIN NEGATIVE (NEGATIVE); URINE UROBILINOGEN 0.2 mg/dL (0.2-1.0)
[2019-09-17] MEDS: THIAMINE HCL 100 MG TABLET (FP) PO SCH (21:34)
[2019-09-17] MEDS: MELATONIN 5 MG TABLETS PO PRN (21:34)
[2019-09-18] MEDS: metFORMIN HCL 500 MG TABLET (FP) PO SCH ×2 (06:32→16:22)
[2019-09-18] MEDS: glipiZIDE 5 MG TABLET (FP) PO SCH (06:32)
[2019-09-18] MEDS: NICOTINE POLACRILEX 2 MG GUM BUC PRN ×6 (06:34→21:07)
[2019-09-18] MEDS: NICOTINE 14 MG/24 HOURS TOPICAL PATCH TD SCH (09:57)
[2019-09-18] MEDS: PRENATAL VITAMINS W/ FOLIC ACID TABLET (FP) PO SCH (09:57)
[2019-09-18] MEDS: THIAMINE HCL 100 MG TABLET (FP) PO SCH (21:06)
[2019-09-18] MEDS: MELATONIN 5 MG TABLETS PO PRN (21:06)
[2019-09-19] MEDS: metFORMIN HCL 500 MG TABLET (FP) PO SCH ×2 (06:14→16:25)
[2019-09-19] MEDS: glipiZIDE 5 MG TABLET (FP) PO SCH (06:14)
[2019-09-19] MEDS: NICOTINE 14 MG/24 HOURS TOPICAL PATCH TD SCH (09:51)
[2019-09-19] MEDS: NICOTINE POLACRILEX 2 MG GUM BUC PRN ×3 (09:51→21:36)
[2019-09-19] MEDS: PRENATAL VITAMINS W/ FOLIC ACID TABLET (FP) PO SCH (09:51)
[2019-09-19] MEDS: THIAMINE HCL 100 MG TABLET (FP) PO SCH (21:36)
[2019-09-19] MEDS: MELATONIN 5 MG TABLETS PO PRN (21:36)
[2019-09-20] MEDS: NICOTINE POLACRILEX 2 MG GUM BUC PRN ×4 (06:24→21:23)
[2019-09-20] MEDS: metFORMIN HCL 500 MG TABLET (FP) PO SCH ×2 (06:57→16:48)
[2019-09-20] MEDS: glipiZIDE 5 MG TABLET (FP) PO SCH (06:57)
[2019-09-20] MEDS: NICOTINE 14 MG/24 HOURS TOPICAL PATCH TD SCH (12:00)
[2019-09-20] MEDS: PRENATAL VITAMINS W/ FOLIC ACID TABLET (FP) PO SCH (12:01)
[2019-09-20] MEDS: MELATONIN 5 MG TABLETS PO PRN (21:23)
[2019-09-20] MEDS: THIAMINE HCL 100 MG TABLET (FP) PO SCH (21:24)
[2019-09-21] MEDS: NICOTINE POLACRILEX 2 MG GUM BUC PRN ×3 (06:28→21:29)
[2019-09-21] MEDS: glipiZIDE 5 MG TABLET (FP) PO SCH (07:28)
[2019-09-21] MEDS: metFORMIN HCL 500 MG TABLET (FP) PO SCH ×2 (07:28→16:35)
[2019-09-21] MEDS: PRENATAL VITAMINS W/ FOLIC ACID TABLET (FP) PO SCH (10:09)
[2019-09-21] MEDS: NICOTINE 14 MG/24 HOURS TOPICAL PATCH TD SCH (10:09)
[2019-09-21] MEDS: MELATONIN 5 MG TABLETS PO PRN (21:28)
[2019-09-21] MEDS: THIAMINE HCL 100 MG TABLET (FP) PO SCH (21:28)
[2019-09-22] MEDS: NICOTINE POLACRILEX 2 MG GUM BUC PRN ×5 (06:19→22:00)
[2019-09-22] MEDS: glipiZIDE 5 MG TABLET (FP) PO SCH (06:43)
[2019-09-22] MEDS: metFORMIN HCL 500 MG TABLET (FP) PO SCH ×2 (06:43→16:23)
[2019-09-22] MEDS: PRENATAL VITAMINS W/ FOLIC ACID TABLET (FP) PO SCH (09:36)
[2019-09-22] MEDS: NICOTINE 14 MG/24 HOURS TOPICAL PATCH TD SCH (09:36)
[2019-09-22] MEDS: MELATONIN 5 MG TABLETS PO PRN (21:04)
[2019-09-22] MEDS: THIAMINE HCL 100 MG TABLET (FP) PO SCH (21:04)
[2019-09-23] MEDS: glipiZIDE 5 MG TABLET (FP) PO SCH (06:41)
[2019-09-23] MEDS: metFORMIN HCL 500 MG TABLET (FP) PO SCH ×2 (06:41→16:33)
[2019-09-23] MEDS: NICOTINE POLACRILEX 2 MG GUM BUC PRN ×5 (06:42→21:48)
[2019-09-23] MEDS: PRENATAL VITAMINS W/ FOLIC ACID TABLET (FP) PO SCH (09:38)
[2019-09-23] MEDS: NICOTINE 14 MG/24 HOURS TOPICAL PATCH TD SCH (09:38)
[2019-09-23] MEDS: THIAMINE HCL 100 MG TABLET (FP) PO SCH (21:23)
[2019-09-23] MEDS: MELATONIN 5 MG TABLETS PO PRN (21:23)
[2019-09-24] MEDS: metFORMIN HCL 500 MG TABLET (FP) PO SCH ×2 (06:25→16:30)
[2019-09-24] MEDS: NICOTINE POLACRILEX 2 MG GUM BUC PRN ×5 (06:25→21:06)
[2019-09-24] MEDS: glipiZIDE 5 MG TABLET (FP) PO SCH (06:25)
[2019-09-24] MEDS: PRENATAL VITAMINS W/ FOLIC ACID TABLET (FP) PO SCH (09:31)
[2019-09-24] MEDS: NICOTINE 14 MG/24 HOURS TOPICAL PATCH TD SCH (09:32)
[2019-09-24] MEDS: INSULIN SLIDING SCALE (NOVOLOG) 1 VIAL SQ SCH ×2 (11:53→16:31)
[2019-09-24] MEDS ORDERED: INSULIN (NOVOLOG) ASPART 100 UNITS/ML 10ML VIAL ONE (16:27)
[2019-09-24] MEDS: MELATONIN 5 MG TABLETS PO PRN (21:06)
[2019-09-24] MEDS: THIAMINE HCL 100 MG TABLET (FP) PO SCH (21:06)
[2019-09-25] MEDS: NICOTINE POLACRILEX 2 MG GUM BUC PRN ×4 (06:50→21:54)
[2019-09-25] MEDS: glipiZIDE 5 MG TABLET (FP) PO SCH (07:05)
[2019-09-25] MEDS: metFORMIN HCL 500 MG TABLET (FP) PO SCH ×2 (07:05→17:46)
[2019-09-25] MEDS: INSULIN SLIDING SCALE (NOVOLOG) 1 VIAL SQ SCH ×3 (07:05→17:43)
[2019-09-25] MEDS ORDERED: INSULIN (NOVOLOG) ASPART 100 UNITS/ML 10ML VIAL ONE ×3 (07:05→17:45)
[2019-09-25] MEDS: NICOTINE 14 MG/24 HOURS TOPICAL PATCH TD SCH (10:11)
[2019-09-25] MEDS: PRENATAL VITAMINS W/ FOLIC ACID TABLET (FP) PO SCH (10:11)
[2019-09-25] MEDS: THIAMINE HCL 100 MG TABLET (FP) PO SCH (21:53)
[2019-09-25] MEDS: MELATONIN 5 MG TABLETS PO PRN (21:53)
[2019-09-26] MEDS: NICOTINE POLACRILEX 2 MG GUM BUC PRN ×5 (06:19→21:10)
[2019-09-26] MEDS: metFORMIN HCL 500 MG TABLET (FP) PO SCH ×2 (07:04→16:42)
[2019-09-26] MEDS: glipiZIDE 5 MG TABLET (FP) PO SCH (07:04)
[2019-09-26] MEDS: INSULIN SLIDING SCALE (NOVOLOG) 1 VIAL SQ SCH ×3 (07:04→16:41)
[2019-09-26] MEDS: PRENATAL VITAMINS W/ FOLIC ACID TABLET (FP) PO SCH (09:46)
[2019-09-26] MEDS: NICOTINE 14 MG/24 HOURS TOPICAL PATCH TD SCH (09:46)
[2019-09-26] MEDS ORDERED: INSULIN (NOVOLOG) ASPART 100 UNITS/ML 10ML VIAL ONE (16:42)
[2019-09-26] MEDS: MELATONIN 5 MG TABLETS PO PRN (21:09)
[2019-09-26] MEDS: THIAMINE HCL 100 MG TABLET (FP) PO SCH (21:09)
[2019-09-27] MEDS: glipiZIDE 5 MG TABLET (FP) PO SCH (06:09)
[2019-09-27] MEDS: metFORMIN HCL 500 MG TABLET (FP) PO SCH ×2 (06:09→16:30)
[2019-09-27] MEDS: NICOTINE POLACRILEX 2 MG GUM BUC PRN ×4 (06:10→21:40)
[2019-09-27] MEDS ORDERED: INSULIN (NOVOLOG) ASPART 100 UNITS/ML 10ML VIAL ONE (06:57)
[2019-09-27] MEDS: PRENATAL VITAMINS W/ FOLIC ACID TABLET (FP) PO SCH (09:44)
[2019-09-27] MEDS: NICOTINE 14 MG/24 HOURS TOPICAL PATCH TD SCH (10:44)
[2019-09-27] MEDS: INSULIN SLIDING SCALE (NOVOLOG) 1 VIAL SQ SCH (12:48)
[2019-09-27] MEDS: THIAMINE HCL 100 MG TABLET (FP) PO SCH (21:39)
[2019-09-27] MEDS: MELATONIN 5 MG TABLETS PO PRN (21:39)
[2019-09-28] MEDS: metFORMIN HCL 500 MG TABLET (FP) PO SCH ×2 (06:20→16:26)
[2019-09-28] MEDS: glipiZIDE 5 MG TABLET (FP) PO SCH (06:20)
[2019-09-28] MEDS ORDERED: INSULIN (NOVOLOG) ASPART 100 UNITS/ML 10ML VIAL ONE ×3 (06:21→16:24)
[2019-09-28] MEDS: NICOTINE POLACRILEX 2 MG GUM BUC PRN ×5 (06:22→21:12)
[2019-09-28] MEDS: PRENATAL VITAMINS W/ FOLIC ACID TABLET (FP) PO SCH (10:07)
[2019-09-28] MEDS: NICOTINE 14 MG/24 HOURS TOPICAL PATCH TD SCH (10:08)
[2019-09-28] MEDS: THIAMINE HCL 100 MG TABLET (FP) PO SCH (21:11)
[2019-09-28] MEDS: MELATONIN 5 MG TABLETS PO PRN (21:11)
[2019-09-29] MEDS: NICOTINE POLACRILEX 2 MG GUM BUC PRN ×5 (06:11→21:48)
[2019-09-29] MEDS: INSULIN SLIDING SCALE (NOVOLOG) 1 VIAL SQ SCH ×2 (07:04→11:50)
[2019-09-29] MEDS: metFORMIN HCL 500 MG TABLET (FP) PO SCH ×2 (07:05→16:49)
[2019-09-29] MEDS: glipiZIDE 5 MG TABLET (FP) PO SCH (07:05)
[2019-09-29] MEDS: PRENATAL VITAMINS W/ FOLIC ACID TABLET (FP) PO SCH (09:58)
[2019-09-29] MEDS: NICOTINE 14 MG/24 HOURS TOPICAL PATCH TD SCH (09:58)
[2019-09-29] MEDS ORDERED: INSULIN (NOVOLOG) ASPART 100 UNITS/ML 10ML VIAL ONE (13:19)
--- NOTE | 2019-09-29 15:43 | DS ---
[facility] Rehab Discharge Summary - [facility] Rehab Discharge Summary Admission Date: 09/16/19 Discharge Date: 09/30/19 - History Present History: Alcohol dependence, Cocaine dependence Pertinent Past History: Multiple admissions for this 38 yo for alcohol withdrawal and crack use disorder Discharged 07/16/19 and states began drinking and using crack the same day. Alcohol use began at age 19. Currently drinking 8 - 25 oz cans beer. Cocaine/crack use began at age 21. Nicotine use began at age 17. Current use 1/2 PPD. Denies benzo use. Denies hx seizures or overdoses. Hx Blackouts - last 4 years ago. Longest length of sobriety 7 months. PMHx: NIDDM: . MHHx: Depression. Denies thoughts of harming self or others. SHx: Homeless: Unemployed. - Discharge Physical Exam Vital Signs: Vital Signs Temperature 98.2 F 09/29/19 07:15 Pulse Rate 86 09/29/19 07:15 Respiratory Rate 20 09/29/19 07:15 Blood Pressure 120/74 09/29/19 07:15 O2 Sat by Pulse Oximetry (%) Pertinent Admission Physical Exam Findings: - Physical General Appearance: no apparent distress HEENTM: Normocephalic, Respiratory:Lungs Clear, Neck: Supple Cardiology: S1, S2, Abdominal: +Bowel Sounds,) Musculoskeletal: full range of Motion, Gait Steady Neurological: student support advisor II-XII NML intact, - Treatment Discharge Condition: Outpatient referral accepted (medically stable for discharge. patient will go to [facility].) Hospital Course: patient attended groups, had 1:1 meetings with his counselor, was adherent to his treatment plan and medication regimen. He did not have any acute or emergent medical problems while in rehab. - Medication Discharge Medications: Ambulatory Orders Sertraline HCl [Zoloft -] 50 mg PO DAILY 07/12/19 Glipizide 5 mg PO DAILY #30 tablet 09/29/19 metFORMIN HCL [Metformin HCl] 1,000 mg PO BID #20 tablet 09/29/19 - Medication-Assisted Treatment (MAT) Medication-Assisted Treatment (MAT): No - Discharge Instructions Diet, activity, other medical instructions: Diet: as tolerated, diabetic diet Activity: as tolerated Other medical instructions: Please keep aftercare appointment. Please make appointments with PCP, opthalmology, and podiatry for complications of DM2 - Diagnosis (1) Alcohol dependence Current Visit: Yes Status: Chronic Qualifiers: Substance use status: uncomplicated Qualified Code(s): F10.20 - Alcohol dependence, uncomplicated (2) Cocaine dependence Current Visit: Yes Status: Chronic Qualifiers: Substance use status: uncomplicated Qualified Code(s): F14.20 - Cocaine dependence, uncomplicated - Follow-up Referral Minutes to complete discharge: 20 - AMA Did Patient Leave Against Medical Advice: No
[2019-09-29] MEDS: THIAMINE HCL 100 MG TABLET (FP) PO SCH (21:47)
[2019-09-29] MEDS: MELATONIN 5 MG TABLETS PO PRN (21:47)
[2019-09-30 06:44] VITALS: BP 121/72; PULSE 91; TEMP 97.7
[2019-09-30] MEDS ORDERED: INSULIN (NOVOLOG) ASPART 100 UNITS/ML 10ML VIAL ONE (06:57)
[2019-09-30] MEDS: glipiZIDE 5 MG TABLET (FP) PO SCH (07:02)
[2019-09-30] MEDS: INSULIN SLIDING SCALE (NOVOLOG) 1 VIAL SQ SCH (07:02)
[2019-09-30] MEDS: metFORMIN HCL 500 MG TABLET (FP) PO SCH (07:02)
== END 2019-09-30 09:17 | disposition home or self-care (01) | DRG 772 ==
LOC: YASAS 09:48 → Y3W 11:15
PROVIDERS: ADMIT Neuromusculoskeletal Medicine & OMM; ATTEND Neuromusculoskeletal Medicine & OMM
PROC: HZ42ZZZ Group Counseling for Substance Abuse Treatment, Cognitive-Behavioral (ICD-10-PCS; principal; 2019-09-16)
DX: F10.20 Alcohol dependence, uncomplicated (principal); F14.20 Cocaine dependence, uncomplicated; F17.210 Nicotine dependence, cigarettes, uncomplicated; E11.9 Type 2 diabetes mellitus without complications; Z91.14 Patient's other noncompliance with medication regimen
CPT/HCPCS: 81003; 82962

== ENCOUNTER 2020-05-22 14:01 | Inpatient (IN) | payer OTHER ==
--- NOTE | 2020-05-22 15:11 | BHS.RME ---
Substance Use & Tx History - Substance Use History Alcohol Substance amount: 2 x 40 ounce beer Frequency of use: Daily Substance route: Oral Date of Last Use: 05/22/20 (First use age 19 y. No seizures, Blackout x 3 , last blackout 2012. 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) Cocaine-Crack Substance amount: $80 Frequency of use: Daily Substance route: Inhalation (ex: sniffing or snorting) Date of Last Use: 05/21/20 (First use age 21 y) Nicotine Substance amount: 1/2 pack Frequency of use: Daily Substance route: Smoking Date of Last Use: 05/22/20 (First use age 17 y) - Last Treatment Date of last treatment: 09/16/19 to 09/30/19 Where was last treatment: Rehab Physical/Psych/Mental Status - Behavior General Behavior: Increased activity (restlessness, agitation) Eye Contact: Normal - Cooperativeness Cooperativeness: Cooperative - Thinking Thought Processes: Tight Thought content: Future oriented - Physical Health Problems Is patient presently having any pain?: No Does patient presently have any injuries (include location): No Does patient currently have a fever: No CIWA Nausea/Vomitin-No Nausea/No Vomiting Muscle Tremors: 2 Anxiety: 3 Agitation: 1-Slight > Activity Paroxysmal Sweats: No Perspiration Orientation: 2-Disoriented Date<2 days Tacttile Disturbances: 0-None Auditory Disturbances: 0-None Visual Disturbances: 0-None Headache: 0-None Present CIWA-Ar Total Score: 8
[2020-05-22 16:34] VITALS: BMI 36.6
--- NOTE | 2020-05-22 16:51 | HP ---
"CIWA Score Nausea/Vomitin-No Nausea/No Vomiting Muscle Tremors: 2 Anxiety: 3 Agitation: 1-Slight > Activity Paroxysmal Sweats: No Perspiration Orientation: 2-Disoriented Date<2 days Tacttile Disturbances: 0-None Auditory Disturbances: 0-None Visual Disturbances: 0-None Headache: 0-None Present CIWA-Ar Total Score: 8 - Admission Criteria OASAS Guidelines: Admission for Medically Managed Detox: Requires at least one of the followin. CIWA greater than 12 2. Seizures within the past 24 hours 3. Delirium tremens within the past 24 hours 4. Hallucinations within the past 24 hours 5. Acute intervention needed for co occurring medical disorder 6. Acute intervention needed for co occurring psychiatric disorder 7. Severe withdrawal that cannot be handled at a lower level of care (continued vomiting, continued diarrhea, abnormal vital signs) requiring intravenous medication and/or fluids 8. Patient presents the following: Acute intervention needed for co-occurring med or psych disorder (DARRYL: 0.096 Hx depression (on meds) and diabetes mellitus) Admission Criteria Met: Admission criteria met Admitting History and Physical - Smoking History Smoking history: Current every day smoker Have you smoked in the past 12 months: Yes Aproximately how many cigarettes per day: 10 - Alcohol/Substance Use Hx Alcohol Use: Yes Admission ROS [facility] - HPI Chief Complaint: I drink alcohol and use cocaine. I'm here for detox. Allergies/Adverse Reactions: Allergies Allergy/AdvReac Type Severity Reaction Status Date / Time No Known Allergies Allergy Verified 09/16/19 09:59 History of Present Illness: 39 yo who presents w/ alcohol withdrawal and co-occurring crack use disorder seeking detox. Utox: + JUAN LUIS DARRYL: 0.096 Discharged from [facility] 2 weeks ago, after 7 months and relapsed immediately upon discharge. Encouraged to consider sober housing. Denies hx seizures or overdoses. Hx Blackouts- 2013. Alcohol use began at age 19. Currently drinking 2 - 40 oz beers daily x past 2 weeks. Cocaine/crack use began at age 21. Currently smokes $80/day. Nicotine use began at age 17. Current smokes 1/2 PPD. PMHx: Cough x 1 day; NIDDM: MHHx: Depression. Denies thoughts of harming self or others. States was on Zoloft and Metformin but stopped when left [facility]. SHx: Homeless: Unemployed. Search Terms: Magdiel Larose, 1980 Search Date: 05/22/2020 16:50:01 PM The Drug Utilization Report below displays all of the controlled substance prescriptions, if any, that your patient has filled in the last twelve months. The information displayed on this report is compiled from pharmacy submissions to the Department, and accurately reflects the information as submitted by the pharmacies. This report was requested by: Faviola Troy | Reference #: [id number] There are no results for the search terms that you entered. Exam Limitations: No Limitations - Ebola screening Have you traveled outside of the country in the last 21 days: No (Denies known COVID exposure) Have you had contact with anyone from an Ebola affected area: No Have you been sick,other than usual withdrawal symptoms: No Do you have a fever: No - Review of Systems Constitutional: Weight Stable EENT: reports: No Symptoms Reported Respiratory: reports: Cough (x 1 day) Cardiac: reports: No Symptoms Reported GI: reports: No Symptoms Reported : reports: No Symptoms Reported Musculoskeletal: reports: Other (Generalized achy muscles and bones -) Integumentary: reports: No Symptoms Reported Neuro: reports: Numbness (Numbness in feet) Endocrine: reports: Increased Thirst Hematology: reports: Anemia (Low iron) Psychiatric: reports: Mood/Affect Appropiate, Orientated x3, Anxious, Depressed (Denies thoughts of harming self or others) Patient History - Patient Medical History Hx Anemia: No Hx Asthma: No Hx Chronic Obstructive Pulmonary Disease (COPD): No Hx Cancer: No Hx Cardiac Disorders: No Hx Congestive Heart Failure: No Hx Hypertension: No Hx Hypercholesterolemia: No Hx Pacemaker: No HX Cerebrovascular Accident: No Hx Seizures: No Hx Dementia: No Hx Diabetes: Yes (NIDDM noncompliance) Hx Gastrointestinal Disorders: No Hx Liver Disease: No Hx Genitourinary Disorders: No Hx Sexually Transmitted Disorders: No Hx Renal Disease (ESRD): No Hx Thyroid Disease: No Hx Human Immunodeficiency Virus (HIV): No (negative 2016 last ) Hx Hepatitis C: No Hx Depression: No Hx Suicide Attempt: No Hx Bipolar Disorder: No Hx Schizophrenia: No - Patient Surgical History Past Surgical History: Yes Hx Neurologic Surgery: No Hx Cataract Extraction: No Hx Cardiac Surgery: No Hx Lung Surgery: No Hx Breast Surgery: No Hx Breast Biopsy: No Hx Abdominal Surgery: No Hx Appendectomy: Yes (age 15) Hx Cholecystectomy: Yes (lap cholecystectomy in 2014) Hx Genitourinary Surgery: No Hx Section: No Hx Orthopedic Surgery: No Other Surgical History: kidney stone 2012 Anesthesia Reaction: No - PPD History Previous Implant?: Yes Documented Results: Negative w/proof Implanted On Prior R Admission?: Yes Date: 11/26/18 Results: 0 mm PPD to be Administered?: Yes - Smoking Cessation Smoking history: Current every day smoker Have you smoked in the past 12 months: Yes Aproximately how many cigarettes per day: 10 Cigars Per Day: 0 Hx Chewing Tobacco Use: No Initiated information on smoking cessation: Yes 'Breaking Loose' booklet given: 05/22/20 - Substance & Tx. History Hx Alcohol Use: Yes Hx Substance Use: Yes Substance Use Type: Alcohol, Cocaine Hx Substance Use Treatment: Yes (detox, rehab, long-term) Admission Physical Exam BHS - Vital Signs Vital Signs: Vital Signs - 24 hr 05/22/20 16:32 Temperature 98.9 F Pulse Rate 100 H Respiratory 16 Rate Blood Pressure 146/49 L - Physical General Appearance: Yes: Nourished, Mild Distress, Alcohol on Breath, Obese, Tremorous, Anxious HEENTM: Yes: EOMI, Hearing grossly Normal, Normocephalic, Normal Voice, SHELIA, Pharynx Normal, Nasal Congestion Respiratory: Yes: Lungs Clear, Normal Breath Sounds, No Respiratory Distress Neck: Yes: No masses,lesions,Nodules, Supple Breast: Yes: Breast Exam Deferred Cardiology: Yes: Regular Rhythm, Regular Rate, S1, S2 Abdominal: Yes: Normal Bowel Sounds, Non Tender, Soft, Protuberent Genitourinary: Yes: Within Normal Limits Back: Yes: Normal Inspection Extremities: Yes: Normal Capillary Refill, Normal Inspection, Tremors (FAINT TREMORS FELT) Neurological: Yes: finishing technician II-XII NML intact, Alert, Motor Strength 5/5, Normal Response Integumentary: Yes: Normal Color, Warm Lymphatic: Yes: Within Normal Limits - Diagnostic (1) Cough Current Visit: Yes Status: Acute (2) Alcohol dependence with uncomplicated withdrawal Current Visit: Yes Status: Acute (3) DM2 (diabetes mellitus, type 2) Current Visit: Yes Status: Chronic Qualifiers: Diabetes mellitus nursing home insulin use: unspecified nursing home insulin use status Diabetes mellitus complication status: without complication Qualified Code(s): E11.9 - Type 2 diabetes mellitus without complications (4) Nicotine dependence Current Visit: Yes Status: Chronic Qualifiers: Nicotine product type: cigarettes Substance use status: uncomplicated Qualified Code(s): F17.210 - Nicotine dependence, cigarettes, uncomplicated (5) Obesity (BMI 30.0-34.9) Current Visit: Yes Status: Chronic (6) Cocaine dependence Current Visit: Yes Status: Chronic Qualifiers: Substance use status: uncomplicated Qualified Code(s): F14.20 - Cocaine dependence, uncomplicated (7) Intoxication Current Visit: Yes Status: Acute Cleared for Admission BHS - Detox or Rehab [facility] Level of Care: Medically Managed Detox Regimen/Protocol: Librium Claeared for Rehab Admission: No Breathalyzer - Breathalyzer Breathalyzer: 0.096 Urine Drug Screen - Test Device Lot number: [id number] Expiration date: 07/17/21 - Control Is test valid?: Yes - Results Drug screen NEGATIVE: No Urine drug screen results: JUAN LUIS-Cocaine Inpatient Rehab Admission - Rehab Decision to Admit Inpatient rehab admission?: No"
[2020-05-22] MEDS ORDERED: MAGNESIUM HYDROX 2400MG/30ML ORAL SUSPENSION 30 ML CUP PO PRN (17:12)
[2020-05-22] MEDS ORDERED: MAG HYDROX/AL HYDROX/SIMETH 30 ML UNIT-DOSE CUP PO PRN (17:12)
[2020-05-22] MEDS ORDERED: LOPERAMIDE HCL 2 MG CAPSULE PO PRN (17:12)
[2020-05-22] MEDS ORDERED: IBUPROFEN 400 MG TABLET (FP) PO PRN (17:12)
[2020-05-22] MEDS ORDERED: ACETAMINOPHEN 325 MG TABLET (FP) PO PRN (17:12)
[2020-05-22] MEDS ORDERED: chlordiazePOXIDE HCL 10 MG CAPSULE PO PRN (17:12)
[2020-05-22] MEDS ORDERED: MAGNESIUM CITRATE 300 ML BOTTLE PO PRN (17:12)
[2020-05-22] MEDS: guaiFENesin 200 MG/10 ML 10 ML UNIT-DOSE CUPS PO SCH ×2 (19:12→22:19)
[2020-05-22] MEDS: THIAMINE HCL 100 MG TABLET (FP) PO SCH (21:56)
[2020-05-22] MEDS: chlordiazePOXIDE HCL 25 MG CAPSULE PO SCH (21:56)
[2020-05-22] MEDS: MELATONIN 5 MG TABLETS PO SCH (22:19)
[2020-05-23 02:28] LABS: EPI CELLS 4 /uL (0-25.1); HYALINE CASTS 1 /uL (0-3.1); URINE APPEARANCE CLEAR; URINE BACTERIA 3 /uL (0-1359); URINE BILIRUBIN NEGATIVE (NEGATIVE); URINE COLOR YELLOW; URINE GLUCOSE (UA) 3+ (NEGATIVE); URINE KETONE NEGATIVE (NEGATIVE); URINE LEUK ESTERASE NEGATIVE (NEGATIVE); URINE NITRITE NEGATIVE (NEGATIVE); URINE PROTEIN 1+ (NEGATIVE); URINE RBC 10 /uL (0-23.9); URINE UROBILINOGEN 0.2 mg/dL (0.2-1.0); URINE WBC 1 /uL (0-25.8)
[2020-05-23] MEDS: guaiFENesin 200 MG/10 ML 10 ML UNIT-DOSE CUPS PO SCH ×4 (05:19→23:01)
[2020-05-23] MEDS: chlordiazePOXIDE HCL 25 MG CAPSULE PO SCH ×3 (05:19→22:28)
[2020-05-23] MEDS ORDERED: INSULIN SLIDING SCALE (NOVOLOG) 1 VIAL SQ ONE ×3 (07:37→22:25)
[2020-05-23] MEDS: metFORMIN HCL 500 MG TABLET (FP) PO SCH ×2 (07:40→16:40)
[2020-05-23] MEDS: INSULIN SLIDING SCALE (NOVOLOG) 1 VIAL SQ SCH ×4 (07:41→22:22)
--- NOTE | 2020-05-23 08:18 | CONSULT ---
[facility] Psychiatric Consult - Data Date of interview: 05/23/20 Admission source: Self-referred Identifying data: Mr Larose is a 39 years old single Black male, unemployed supporting self [facility], homeless seeking detox treatment for alcohol and cocaine Substance Abuse History: Reports history of alcohol and cocaine use. Refer to addiction counselor's summary for further information Medical History: Significant for type 2 diabetes mellitus, obesity, history of lithotrypsy, lap cholecystectomy in 2013 and appendectomy in 1996. Smokes 10 cigarettes daily Psychiatric History: Patient is known for multiple previous admissions to this facility. He reports that his first psychiatric contact occured in June 2019 while at [facility] for inpatient rehab, he was diagnosed with depression by a psychiatrist and he was started on Zoloft 50 mg/day. He denies ever receiving outpatient treatment but reports being administered that medication only during admissions to inpatient detox/rehab. During his most recent admission to this facility, he saw NELLIE Huynh on 08/17/19 and he was prescribed Zoloft 50 mg/day. Told lyric writer that after his discharge from this facility, he was referred to [facility] where he was continued on Zoloft. Reports that he was discharged from [facility] last month. Denies previous psychiatric hospitalization or suicidal attempt. At present, enies experiencing depressive symptoms, S/H ideations. However, reports feeling anxious. Requests to continue Zoloft Physical/Sexual Abuse/Trauma History: Denies history of emotional, physical or sexual abuse as well as DV relationship. No service Additional Comment: Reports history of multiple previous misdemeanor arrests. Denied being on probation at present Mental Status Exam - Mental Status Exam Alert and Oriented to: Time, Place, Person Cognitive Function: Fair Patient Appearance: Disheveled Mood: Anxious Affect: Appropriate Patient Behavior: Cooperative Speech Pattern: Clear Voice Loudness: Normal Thought Process: Intact, Goal Oriented Thought Disorder: Not Present Hallucinations: Denies Suicidal Ideation: Denies Homicidal Ideation: Denies Insight/Judgement: Fair, Poor Sleep: Well, Fair Appetite: Good Muscle strength/Tone: Normal Gait/Station: Normal Psychiatric Findings - Problem List ([place] 1, 2,3) (1) Depressive disorder Current Visit: Yes Status: Chronic (2) MDD (major depressive disorder) Current Visit: Yes Status: Ruled-out (3) Substance-induced anxiety disorder Current Visit: Yes Status: Acute (4) Alcohol dependence with uncomplicated withdrawal Current Visit: Yes Status: Acute (5) Cocaine dependence Current Visit: Yes Status: Acute Qualifiers: Substance use status: uncomplicated Qualified Code(s): F14.20 - Cocaine dependence, uncomplicated (6) Nicotine dependence Current Visit: Yes Status: Chronic Qualifiers: Nicotine product type: cigarettes Substance use status: uncomplicated Qualified Code(s): F17.210 - Nicotine dependence, cigarettes, uncomplicated (7) DM2 (diabetes mellitus, type 2) Current Visit: Yes Status: Chronic Qualifiers: Diabetes mellitus manager long term care insulin use: unspecified usp insulin use status Diabetes mellitus complication status: without complication Qualified Code(s): E11.9 - Type 2 diabetes mellitus without complications (8) Obesity (BMI 30.0-34.9) Current Visit: Yes Status: Chronic - Initial Treatment Plan Initial Treatment Plan: 1) Continue Zoloft 50 mg po daily. 2) Continue inpatient detoxification
[2020-05-23] MEDS ORDERED: glipiZIDE 10 MG TABLET (FP) PO SCH (10:00)
[2020-05-23] MEDS: NICOTINE 14 MG/24 HOURS TOPICAL PATCH TD SCH (10:22)
[2020-05-23] MEDS: PRENATAL VITAMINS W/ FOLIC ACID TABLET (FP) PO SCH (10:22)
[2020-05-23] MEDS: glipiZIDE 5 MG TABLET (FP) PO SCH (10:22)
[2020-05-23] MEDS: SERTRALINE HCL 50 MG TABLET (FP) PO SCH (10:23)
[2020-05-23 10:26] LABS: HEMOGLOBIN 13.2 GM/dL (11.7-16.9); MCH 26.1 pg (25.7-33.7); MCHC 32.2 g/dl (32.0-35.9); MEAN CELL VOLUME 80.8 fl (80-96); MEAN PLT VOLUME 9.4 fl (7.5-11.1); PLATELET COUNT 175 K/MM3 (134-434); RBC 5.07 M/mm3 (4.00-5.60); RDW 16.1 % (11.9-15.9); WHITE BLOOD COUNT 8.5 K/mm3 (4.0-10.0)
--- NOTE | 2020-05-23 10:34 | PN ---
S CIWA - CIWA Score Nausea/Vomitin Muscle Tremors: 2 Anxiety: 2 Agitation: 2 Paroxysmal Sweats: No Perspiration Orientation: 0-Oriented Tacttile Disturbances: 1-Very Mild Itch/Numbness Auditory Disturbances: 0-None Visual Disturbances: 0-None Headache: 2-Mild CIWA-Ar Total Score: 11 S Progress Note (SOAP) Subjective: alert,irritable,anxious,interrupted sleep,tremor,pain in the body and back,nausea Objective: 05/23/20 10:33 Laboratory Last Values POC Glucometer 435 UNITS (80-120) 05/23/20 05:14 Urine Color Yellow 05/22/20 22:49 Urine Appearance Clear 05/22/20 22:49 Urine pH 6.0 (5.0-8.0) 05/22/20 22:49 Ur Specific [place] 1.044 (1.010-1.035) H 05/22/20 22:49 Urine Protein 1+ (NEGATIVE) H 05/22/20 22:49 Urine Glucose (UA) 3+ (NEGATIVE) H 05/22/20 22:49 Urine Ketones Negative (NEGATIVE) 05/22/20 22:49 Urine Blood Trace (NEGATIVE) 05/22/20 22:49 Urine Nitrite Negative (NEGATIVE) 05/22/20 22:49 Urine Bilirubin Negative (NEGATIVE) 05/22/20 22:49 Urine Urobilinogen 0.2 mg/dL (0.2-1.0) 05/22/20 22:49 Ur Leukocyte Esterase Negative (NEGATIVE) 05/22/20 22:49 Urine WBC (Auto) 1 /uL (0-25.8) 05/22/20 22:49 Urine RBC (Auto) 10 /uL (0-23.9) 05/22/20 22:49 Urine Casts (Auto) 1 /uL (0-3.1) 05/22/20 22:49 U Epithel Cells (Auto) 4 /uL (0-25.1) 05/22/20 22:49 Urine Bacteria (Auto) 3 /uL (0-1359) 05/22/20 22:49 05/23/20 10:33 labs pending Assessment: 05/23/20 10:33 withdrawal symptom Plan: continue detox librium regimen,bgm monitoring with insulin coverage,
[2020-05-23 10:35] LABS: ALBUMIN 3.5 g/dl (3.4-5.0); BILIRUBIN,TOTAL 0.8 mg/dL (0.2-1); BLOOD UREA NITROGEN 7.8 mg/dL (7-18); CALCIUM 9.1 mg/dL (8.5-10.1); CREATININE 1.1 mg/dL (0.55-1.3); TOT PROT 7.8 g/dl (6.4-8.2)
--- NOTE | 2020-05-23 12:13 | EKG ---
Test Reason : Blood Pressure : / mmHG Vent. Rate : 086 BPM Atrial Rate : 086 BPM P-R Int : 166 ms QRS Dur : 076 ms QT Int : 382 ms P-R-T Axes : 069 071 027 degrees QTc Int : 457 ms NORMAL SINUS RHYTHM POSSIBLE LEFT ATRIAL ENLARGEMENT BORDERLINE ECG WHEN COMPARED WITH ECG OF 12-AUG-2018 19:03, NO SIGNIFICANT CHANGE WAS FOUND Confirmed by MD Jerome, Jayant ([id number]) on 05/23/2020 12:12:45 PM Referred By: Confirmed By:Jayant Cano MD
[2020-05-23] MEDS: MELATONIN 5 MG TABLETS PO SCH (22:28)
[2020-05-23] MEDS: THIAMINE HCL 100 MG TABLET (FP) PO SCH (22:28)
[2020-05-24] MEDS: guaiFENesin 200 MG/10 ML 10 ML UNIT-DOSE CUPS PO SCH ×4 (05:42→22:20)
[2020-05-24] MEDS: chlordiazePOXIDE 5 MG CAPSULE PO SCH ×3 (05:43→22:20)
[2020-05-24] MEDS: glipiZIDE 5 MG TABLET (FP) PO SCH (06:15)
[2020-05-24] MEDS: metFORMIN HCL 500 MG TABLET (FP) PO SCH ×2 (06:15→16:57)
[2020-05-24] MEDS: INSULIN SLIDING SCALE (NOVOLOG) 1 VIAL SQ SCH ×4 (07:47→22:34)
[2020-05-24] MEDS: NICOTINE 14 MG/24 HOURS TOPICAL PATCH TD SCH (10:28)
[2020-05-24] MEDS: SERTRALINE HCL 50 MG TABLET (FP) PO SCH (10:28)
[2020-05-24] MEDS: PRENATAL VITAMINS W/ FOLIC ACID TABLET (FP) PO SCH (10:28)
--- NOTE | 2020-05-24 10:37 | PN ---
S CIWA - CIWA Score Nausea/Vomitin-No Nausea/No Vomiting Muscle Tremors: 2 Anxiety: 1-Mildly Anxious Agitation: 2 Paroxysmal Sweats: 1-Minimal Palms Moist Orientation: 0-Oriented Tacttile Disturbances: 0-None Auditory Disturbances: 0-None Visual Disturbances: 0-None Headache: 0-None Present CIWA-Ar Total Score: 6 BHS Progress Note (SOAP) Subjective: feeling better little sweats little anxiety Objective: 05/24/20 10:41 Vital Signs Temperature 98.2 F 05/24/20 08:39 Pulse Rate 89 05/24/20 08:39 Respiratory Rate 16 05/24/20 08:39 Blood Pressure 135/91 05/24/20 08:39 O2 Sat by Pulse Oximetry (%) 100 05/24/20 05:12 aaox3 ambulating no acute distress Assessment: 05/24/20 10:41 mild withdrawals Plan: continue detox increase fluids
[2020-05-24] MEDS: MELATONIN 5 MG TABLETS PO SCH (22:20)
[2020-05-24] MEDS: THIAMINE HCL 100 MG TABLET (FP) PO SCH (22:20)
[2020-05-24] MEDS: NICOTINE POLACRILEX 2 MG GUM BC PRN (22:24)
[2020-05-25] MEDS ORDERED: chlordiazePOXIDE HCL 10 MG CAPSULE PO PRN
[2020-05-25] MEDS: chlordiazePOXIDE HCL 10 MG CAPSULE PO SCH ×3 (05:24→22:04)
[2020-05-25] MEDS: guaiFENesin 200 MG/10 ML 10 ML UNIT-DOSE CUPS PO SCH ×2 (05:24→10:21)
[2020-05-25] MEDS: metFORMIN HCL 500 MG TABLET (FP) PO SCH ×2 (07:18→17:16)
[2020-05-25] MEDS: glipiZIDE 5 MG TABLET (FP) PO SCH (07:19)
[2020-05-25] MEDS: INSULIN SLIDING SCALE (NOVOLOG) 1 VIAL SQ SCH ×4 (07:34→22:05)
[2020-05-25] MEDS ORDERED: INSULIN SLIDING SCALE (NOVOLOG) 1 VIAL SQ ONE (08:29)
--- NOTE | 2020-05-25 09:14 | PN ---
S CIWA - CIWA Score Nausea/Vomitin-Mild Nausea/No Vomiting Muscle Tremors: 2 Anxiety: 2 Agitation: 2 Paroxysmal Sweats: No Perspiration Orientation: 0-Oriented Tacttile Disturbances: 0-None Auditory Disturbances: 0-None Visual Disturbances: 0-None Headache: 1-Very Mild CIWA-Ar Total Score: 8 BHS Progress Note (SOAP) Subjective: alert,irritable,anxious,interrupted sleep,aching pain of body Objective: 05/25/20 09:12 Vital Signs Temperature 97.7 F 05/25/20 05:46 Pulse Rate 85 05/25/20 05:46 Respiratory Rate 18 05/25/20 05:46 Blood Pressure 125/53 L 05/25/20 05:46 O2 Sat by Pulse Oximetry (%) 99 05/25/20 05:46 05/25/20 09:13 bgm 309 Assessment: 05/25/20 09:13 withdrawal symptom Plan: continue detox with librium regimen,encourage fluid,bgm monitoring with in sulin coverage,discharge in am
[2020-05-25] MEDS: SERTRALINE HCL 50 MG TABLET (FP) PO SCH (10:20)
[2020-05-25] MEDS: NICOTINE 14 MG/24 HOURS TOPICAL PATCH TD SCH (10:20)
[2020-05-25] MEDS: PRENATAL VITAMINS W/ FOLIC ACID TABLET (FP) PO SCH (10:20)
[2020-05-25] MEDS: THIAMINE HCL 100 MG TABLET (FP) PO SCH (22:04)
[2020-05-25] MEDS: MELATONIN 5 MG TABLETS PO SCH (22:05)
[2020-05-25] MEDS: NICOTINE POLACRILEX 2 MG GUM BC PRN (22:05)
[2020-05-26] MEDS ORDERED: chlordiazePOXIDE HCL 10 MG CAPSULE PO ONE (05:00)
[2020-05-26] MEDS: glipiZIDE 5 MG TABLET (FP) PO SCH (06:28)
[2020-05-26] MEDS: metFORMIN HCL 500 MG TABLET (FP) PO SCH ×2 (06:28→16:49)
[2020-05-26] MEDS: INSULIN SLIDING SCALE (NOVOLOG) 1 VIAL SQ SCH ×3 (07:30→16:52)
--- NOTE | 2020-05-26 09:00 | PN ---
[facility] CIWA - CIWA Score Nausea/Vomitin-No Nausea/No Vomiting Muscle Tremors: None Anxiety: 1-Mildly Anxious Agitation: 0-Normal Activity Paroxysmal Sweats: No Perspiration Orientation: 0-Oriented Tacttile Disturbances: 0-None Auditory Disturbances: 0-None Visual Disturbances: 0-None Headache: 0-None Present CIWA-Ar Total Score: 1 S Progress Note (SOAP) Subjective: alert,no complaint Objective: 05/26/20 08:57 Vital Signs Temperature 97 F L 05/26/20 05:17 Pulse Rate 80 05/26/20 05:17 Respiratory Rate 16 05/26/20 05:17 Blood Pressure 129/88 05/26/20 05:17 O2 Sat by Pulse Oximetry (%) 99 05/26/20 05:17 05/26/20 08:58 Laboratory Last Values WBC 8.5 K/mm3 (4.0-10.0) 05/23/20 09:30 RBC 5.07 M/mm3 (4.00-5.60) 05/23/20 09:30 Hgb 13.2 GM/dL (11.7-16.9) 05/23/20 09:30 Hct 41.0 % (35.4-49) 05/23/20 09:30 MCV 80.8 fl (80-96) 05/23/20 09:30 MCH 26.1 pg (25.7-33.7) 05/23/20 09:30 MCHC 32.2 g/dl (32.0-35.9) 05/23/20 09:30 RDW 16.1 % (11.9-15.9) H 05/23/20 09:30 Plt Count 175 K/MM3 (134-434) D 05/23/20 09:30 MPV 9.4 fl (7.5-11.1) D 05/23/20 09:30 Sodium 134 mmol/L (136-145) L 05/23/20 08:00 Potassium 4.0 mmol/L (3.5-5.1) 05/23/20 08:00 Chloride 94 mmol/L (98-107) L 05/23/20 08:00 Carbon Dioxide 30 mmol/L (21-32) 05/23/20 08:00 Anion Gap 10 MMOL/L (8-16) 05/23/20 08:00 BUN 7.8 mg/dL (7-18) 05/23/20 08:00 Creatinine 1.1 mg/dL (0.55-1.3) 05/23/20 08:00 Est GFR (CKD-EPI)AfAm 98.87 05/23/20 08:00 Est GFR (CKD-EPI)NonAf 85.31 05/23/20 08:00 POC Glucometer 273 UNITS (80-120) 05/26/20 05:28 Random Glucose 289 mg/dL (74-106) H 05/23/20 08:00 Calcium 9.1 mg/dL (8.5-10.1) 05/23/20 08:00 Total Bilirubin 0.8 mg/dL (0.2-1) 05/23/20 08:00 AST 45 U/L (15-37) H 05/23/20 08:00 ALT 66 U/L (13-61) H 05/23/20 08:00 Alkaline Phosphatase 129 U/L (45-117) H 05/23/20 08:00 Total Protein 7.8 g/dl (6.4-8.2) 05/23/20 08:00 Albumin 3.5 g/dl (3.4-5.0) 05/23/20 08:00 Urine Color Yellow 05/22/20 22:49 Urine Appearance Clear 05/22/20 22:49 Urine pH 6.0 (5.0-8.0) 05/22/20 22:49 Ur Specific [place] 1.044 (1.010-1.035) H 05/22/20 22:49 Urine Protein 1+ (NEGATIVE) H 05/22/20 22:49 Urine Glucose (UA) 3+ (NEGATIVE) H 05/22/20 22:49 Urine Ketones Negative (NEGATIVE) 05/22/20 22:49 Urine Blood Trace (NEGATIVE) 05/22/20 22:49 Urine Nitrite Negative (NEGATIVE) 05/22/20 22:49 Urine Bilirubin Negative (NEGATIVE) 05/22/20 22:49 Urine Urobilinogen 0.2 mg/dL (0.2-1.0) 05/22/20 22:49 Ur Leukocyte Esterase Negative (NEGATIVE) 05/22/20 22:49 Urine WBC (Auto) 1 /uL (0-25.8) 05/22/20 22:49 Urine RBC (Auto) 10 /uL (0-23.9) 05/22/20 22:49 Urine Casts (Auto) 1 /uL (0-3.1) 05/22/20 22:49 U Epithel Cells (Auto) 4 /uL (0-25.1) 05/22/20 22:49 Urine Bacteria (Auto) 3 /uL (0-1359) 05/22/20 22:49 Syphilis Serology Non-reactive (NONREACTIVE) 05/23/20 08:00 COVID-19 ([facility]A) Not detected (Not Detected) 05/22/20 18:25 05/26/20 08:58 bgm 273 Assessment: 05/26/20 08:59 detox completed,no withdrawal symptom Plan: stable for discharge today,follow up with after care program as arrangement
--- NOTE | 2020-05-26 09:02 | DS ---
[facility] Detox Discharge Summary Admission Date: 05/22/20 Discharge Date: 05/26/20 - History Present History: Alcohol Dependence, Cocaine Dependence Additional Comments: alert,oriented x3 ambulation on the unit lung clear on auscultation bilaterally abdomen soft,no distension,no pain,no tenderness detox completed,no withdrawal symptom stable for discharge today follow up with after care program as arrangement [facility] total time of discharge spending 35 minutes Pertinent Past History: type 2 dm depression nicotine dependence - Physical Exam Results Vital Signs: Vital Signs Temperature 97 F L 05/26/20 05:17 Pulse Rate 80 05/26/20 05:17 Respiratory Rate 16 05/26/20 05:17 Blood Pressure 129/88 05/26/20 05:17 O2 Sat by Pulse Oximetry (%) 99 05/26/20 05:17 Pertinent Admission Physical Exam Findings: withdrawal signs and symptom Vital Signs Temperature 97 F L 05/26/20 05:17 Pulse Rate 80 05/26/20 05:17 Respiratory Rate 16 05/26/20 05:17 Blood Pressure 129/88 05/26/20 05:17 O2 Sat by Pulse Oximetry (%) 99 05/26/20 05:17 Laboratory Last Values WBC 8.5 K/mm3 (4.0-10.0) 05/23/20 09:30 RBC 5.07 M/mm3 (4.00-5.60) 05/23/20 09:30 Hgb 13.2 GM/dL (11.7-16.9) 05/23/20 09:30 Hct 41.0 % (35.4-49) 05/23/20 09:30 MCV 80.8 fl (80-96) 05/23/20 09:30 MCH 26.1 pg (25.7-33.7) 05/23/20 09:30 MCHC 32.2 g/dl (32.0-35.9) 05/23/20 09:30 RDW 16.1 % (11.9-15.9) H 05/23/20 09:30 Plt Count 175 K/MM3 (134-434) D 05/23/20 09:30 MPV 9.4 fl (7.5-11.1) D 05/23/20 09:30 Sodium 134 mmol/L (136-145) L 05/23/20 08:00 Potassium 4.0 mmol/L (3.5-5.1) 05/23/20 08:00 Chloride 94 mmol/L (98-107) L 05/23/20 08:00 Carbon Dioxide 30 mmol/L (21-32) 05/23/20 08:00 Anion Gap 10 MMOL/L (8-16) 05/23/20 08:00 BUN 7.8 mg/dL (7-18) 05/23/20 08:00 Creatinine 1.1 mg/dL (0.55-1.3) 05/23/20 08:00 Est GFR (CKD-EPI)AfAm 98.87 05/23/20 08:00 Est GFR (CKD-EPI)NonAf 85.31 05/23/20 08:00 POC Glucometer 273 UNITS (80-120) 05/26/20 05:28 Random Glucose 289 mg/dL (74-106) H 05/23/20 08:00 Calcium 9.1 mg/dL (8.5-10.1) 05/23/20 08:00 Total Bilirubin 0.8 mg/dL (0.2-1) 05/23/20 08:00 AST 45 U/L (15-37) H 05/23/20 08:00 ALT 66 U/L (13-61) H 05/23/20 08:00 Alkaline Phosphatase 129 U/L (45-117) H 05/23/20 08:00 Total Protein 7.8 g/dl (6.4-8.2) 05/23/20 08:00 Albumin 3.5 g/dl (3.4-5.0) 05/23/20 08:00 Urine Color Yellow 05/22/20 22:49 Urine Appearance Clear 05/22/20 22:49 Urine pH 6.0 (5.0-8.0) 05/22/20 22:49 Ur Specific [place] 1.044 (1.010-1.035) H 05/22/20 22:49 Urine Protein 1+ (NEGATIVE) H 05/22/20 22:49 Urine Glucose (UA) 3+ (NEGATIVE) H 05/22/20 22:49 Urine Ketones Negative (NEGATIVE) 05/22/20 22:49 Urine Blood Trace (NEGATIVE) 05/22/20 22:49 Urine Nitrite Negative (NEGATIVE) 05/22/20 22:49 Urine Bilirubin Negative (NEGATIVE) 05/22/20 22:49 Urine Urobilinogen 0.2 mg/dL (0.2-1.0) 05/22/20 22:49 Ur Leukocyte Esterase Negative (NEGATIVE) 05/22/20 22:49 Urine WBC (Auto) 1 /uL (0-25.8) 05/22/20 22:49 Urine RBC (Auto) 10 /uL (0-23.9) 05/22/20 22:49 Urine Casts (Auto) 1 /uL (0-3.1) 05/22/20 22:49 U Epithel Cells (Auto) 4 /uL (0-25.1) 05/22/20 22:49 Urine Bacteria (Auto) 3 /uL (0-1359) 05/22/20 22:49 Syphilis Serology Non-reactive (NONREACTIVE) 05/23/20 08:00 COVID-19 ([facility]) Not detected (Not Detected) 05/22/20 18:25 - Treatment Hospital Course: Detox Protocol Followed, Detoxed Safely, Responded well, Discharged Condition Good, Rehab Referral Accepted Patient has Accepted a Rehab Referral to: [facility] - Medication Discharge Medications: Ambulatory Orders Sertraline HCl [Zoloft -] 50 mg PO DAILY 07/12/19 Glipizide 5 mg PO DAILY #30 tablet 09/29/19 metFORMIN HCL [Metformin HCl] 1,000 mg PO BID #20 tablet 09/29/19 - Diagnosis (1) Alcohol dependence with uncomplicated withdrawal Current Visit: Yes Status: Acute (2) Cocaine dependence Current Visit: Yes Status: Acute Qualifiers: Substance use status: uncomplicated Qualified Code(s): F14.20 - Cocaine dependence, uncomplicated (3) DM2 (diabetes mellitus, type 2) Current Visit: Yes Status: Chronic Qualifiers: Diabetes mellitus moth exterminator insulin use: unspecified intermediate insulin use status Diabetes mellitus complication status: without complication Qualified Code(s): E11.9 - Type 2 diabetes mellitus without complications (4) Depressive disorder Current Visit: Yes Status: Chronic (5) Nicotine dependence Current Visit: Yes Status: Chronic Qualifiers: Nicotine product type: cigarettes Substance use status: uncomplicated Qualified Code(s): F17.210 - Nicotine dependence, cigarettes, uncomplicated (6) Obesity (BMI 30.0-34.9) Current Visit: Yes Status: Chronic - AMA Did Patient Leave Against Medical Advice: No
[2020-05-26] MEDS: NICOTINE 14 MG/24 HOURS TOPICAL PATCH TD SCH (10:26)
[2020-05-26] MEDS: SERTRALINE HCL 50 MG TABLET (FP) PO SCH (10:26)
[2020-05-26] MEDS: PRENATAL VITAMINS W/ FOLIC ACID TABLET (FP) PO SCH (10:26)
[2020-05-26 12:50] VITALS: BP 148/75; PULSE 87; TEMP 97.8
== END 2020-05-26 17:15 | disposition other institution (70) | DRG 775 ==
LOC: YASAS 14:01 → Y6N 17:33
PROVIDERS: ADMIT Allergy & Immunology; ATTEND Allergy & Immunology
PROC: HZ2ZZZZ Detoxification Services for Substance Abuse Treatment (ICD-10-PCS; principal; 2020-05-22)
DX: F10.230 Alcohol dependence with withdrawal, uncomplicated (principal); F17.210 Nicotine dependence, cigarettes, uncomplicated; F19.280 Other psychoactive substance dependence with psychoactive substance-induced anxiety disorder; F32.9 Major depressive disorder, single episode, unspecified; D50.9 Iron deficiency anemia, unspecified; E11.9 Type 2 diabetes mellitus without complications; Z79.84 Long term (current) use of oral hypoglycemic drugs; E66.9 Obesity, unspecified; Z68.36 Body mass index [BMI] 36.0-36.9, adult; Z87.442 Personal history of urinary calculi; Z90.49 Acquired absence of other specified parts of digestive tract; Z98.890 Other specified postprocedural states; Z91.14 Patient's other noncompliance with medication regimen; Z59.0 Homelessness
CPT/HCPCS: 36415; 80053; 81003; 82962; 85027; 86780; 93005; 93010; U0003

== ENCOUNTER 2020-05-26 14:26 | Inpatient (IN) | payer OTHER ==
[2020-05-26] MEDS ORDERED: MAGNESIUM CITRATE 300 ML BOTTLE PO PRN (14:44)
[2020-05-26] MEDS ORDERED: guaiFENesin 200 MG/10 ML 10 ML UNIT-DOSE CUPS PO PRN (14:44)
[2020-05-26] MEDS ORDERED: MENTHOL/PHENOL 1 EACH UD MM PRN (14:44)
[2020-05-26] MEDS ORDERED: LOPERAMIDE HCL 2 MG CAPSULE PO PRN (14:44)
[2020-05-26] MEDS ORDERED: P-EPHED 60MG/TRIPROLIDI 2.5MG TABLET PO PRN (14:44)
[2020-05-26] MEDS ORDERED: MAGNESIUM HYDROX 2400MG/30ML ORAL SUSPENSION 30 ML CUP PO PRN (14:44)
[2020-05-26] MEDS ORDERED: IBUPROFEN 400 MG TABLET (FP) PO PRN (14:44)
[2020-05-26] MEDS ORDERED: MAG HYDROX/AL HYDROX/SIMETH 30 ML UNIT-DOSE CUP PO PRN (14:44)
[2020-05-26] MEDS ORDERED: ACETAMINOPHEN 325 MG TABLET (FP) PO PRN (14:44)
--- NOTE | 2020-05-26 14:44 | HP ---
[facility] Rehab Assess/Revision - Admission History Admitted to Rehab from: [facility] [place] Date of Admission to Rehab: 05/26/2020 - Findings Detox History & Physical reviewed: Yes Concur with findings: Yes Comments/Additional Findings: for rehab as protocol Inpatient Rehab Admission - Rehab Decision to Admit Inpatient rehab admission?: Yes - Initial Determination Are CD services needed?: Yes Free of communicable disease: Yes Not in need of hospitalization: Yes - Rehab Admission Criteria Previous failed treatment: Yes Poor recovery environment: Yes Comorbidities: Yes Lacks judgement: No Patient is meeting Inpatient Rehab admission criteria:: Yes
--- NOTE | 2020-05-26 17:15 | CONSULT ---
[facility] Psychiatric Consult - Data Date of interview: 05/26/20 Admission source: [facility] Identifying data: Patient is a 39 year old single Black male, unemployed, homeless, and supports self by panhandling. This is one of multiple admissions for patient. Patient will be admitted to rehab for alcohol and cocaine dependence. Substance Abuse History: Smoking Cessation. Smoking history: Current every day smoker. Have you smoked in the past 12 months: Yes. Aproximately how many cigarettes per day: 10. Cigars Per Day: 0. Hx Chewing Tobacco Use: No. Initiated information on smoking cessation: Yes. 'Breaking Loose' booklet given: 05/22/20. - Substance & Tx. History. Hx Alcohol Use: Yes. Hx Substance Use: Yes. Substance Use Type: Alcohol, Cocaine. Hx Substance Use Treatment: Yes (detox, rehab, long-term) Medical History: Significant for type 2 diabetes mellitus, obesity, history of lithotrypsy, lap cholecystectomy in 2013 and appendectomy in 1996 Psychiatric History: Mr. Larose denies history of psychiatric hospitalizations and suicide attempt. Reports receiving treatment at [facility] rehab in June of 2019 and was prescribed zoloft 50mg. Patient also received zoloft while in detox at [facility] on 07/12/19. Patient seen by Dr. Armijo in detox and was resumed on zoloft 50mg daily after reporting that [facility] continued him Zoloft last month. Mr. Larose denies history of outpatient psychiatric care. Physical/Sexual Abuse/Trauma History: denies. Mental Status Exam - Mental Status Exam Alert and Oriented to: Time, Place, Person Cognitive Function: Good Patient Appearance: Unkempt Mood: Hopeful Affect: Appropriate Patient Behavior: Appropriate, Cooperative Speech Pattern: Appropriate Voice Loudness: Normal Thought Process: Intact, Goal Oriented Thought Disorder: Not Present Hallucinations: Denies Suicidal Ideation: Denies Homicidal Ideation: Denies Insight/Judgement: Poor Sleep: Fair Appetite: Fair Muscle strength/Tone: Normal Gait/Station: Normal Psychiatric Findings - Problem List ([place] 1, 2,3) (1) Alcohol use disorder Current Visit: Yes Status: Acute (2) Cocaine dependence Current Visit: Yes Status: Acute Qualifiers: Substance use status: uncomplicated Qualified Code(s): F14.20 - Cocaine dependence, uncomplicated (3) Substance-induced anxiety disorder Current Visit: Yes Status: Acute (4) Depressive disorder Current Visit: Yes Status: Chronic (5) Nicotine dependence Current Visit: Yes Status: Chronic Qualifiers: Nicotine product type: cigarettes Substance use status: uncomplicated Qualified Code(s): F17.210 - Nicotine dependence, cigarettes, uncomplicated - Initial Treatment Plan Initial Treatment Plan: Psychoeducation provided. Detoxification in progress. Will continue Zoloft 50mg daily. Benefits and side effects discussed. Verbal consent given.
[2020-05-26] MEDS: metFORMIN HCL 500 MG TABLET (FP) PO SCH (17:40)
[2020-05-26] MEDS: INSULIN (NOVOLOG) ASPART 100 UNITS/ML 10ML VIAL SQ SCH ×2 (17:40→22:48)
[2020-05-26] MEDS: hydrOXYzine PAMOATE 25 MG CAPSULE (FP) PO SCH ×2 (18:20→22:48)
[2020-05-26] MEDS: NICOTINE POLACRILEX 2 MG GUM BUC PRN (22:48)
[2020-05-26] MEDS: THIAMINE HCL 100 MG TABLET (FP) PO SCH (22:48)
[2020-05-26] MEDS: MELATONIN 5 MG TABLETS PO SCH (22:48)
[2020-05-26] MEDS ORDERED: INSULIN (NOVOLOG) ASPART 100 UNITS/ML 10ML VIAL ONE (22:51)
[2020-05-27] MEDS ORDERED: PT OWN MED DRAWER 7, Y5N ONE (03:19)
[2020-05-27] MEDS: glipiZIDE 5 MG TABLET (FP) PO SCH (06:52)
[2020-05-27] MEDS: metFORMIN HCL 500 MG TABLET (FP) PO SCH ×2 (06:52→17:00)
[2020-05-27] MEDS: hydrOXYzine PAMOATE 25 MG CAPSULE (FP) PO SCH ×5 (06:52→22:16)
[2020-05-27] MEDS: INSULIN (NOVOLOG) ASPART 100 UNITS/ML 10ML VIAL SQ SCH ×4 (07:54→22:20)
[2020-05-27] MEDS ORDERED: INSULIN (NOVOLOG) ASPART 100 UNITS/ML 10ML VIAL ONE ×4 (07:56→22:18)
[2020-05-27] MEDS: NICOTINE POLACRILEX 2 MG GUM BUC PRN ×2 (09:39→22:20)
[2020-05-27] MEDS: SERTRALINE HCL 50 MG TABLET (FP) PO SCH (09:39)
[2020-05-27] MEDS: NICOTINE 21 MG/24 HOURS TOPICAL PATCH TD SCH (09:39)
[2020-05-27] MEDS: PRENATAL VITAMINS W/ FOLIC ACID TABLET (FP) PO SCH (09:39)
[2020-05-27] MEDS: THIAMINE HCL 100 MG TABLET (FP) PO SCH (22:16)
[2020-05-27] MEDS: MELATONIN 5 MG TABLETS PO SCH (22:16)
[2020-05-28] MEDS ORDERED: PT OWN MED DRAWER 7, Y5N ONE (03:15)
[2020-05-28] MEDS: glipiZIDE 5 MG TABLET (FP) PO SCH (06:34)
[2020-05-28] MEDS: hydrOXYzine PAMOATE 25 MG CAPSULE (FP) PO SCH ×5 (06:34→21:34)
[2020-05-28] MEDS: metFORMIN HCL 500 MG TABLET (FP) PO SCH ×2 (06:34→17:04)
[2020-05-28] MEDS: INSULIN (NOVOLOG) ASPART 100 UNITS/ML 10ML VIAL SQ SCH ×4 (07:48→21:33)
[2020-05-28] MEDS ORDERED: INSULIN (NOVOLOG) ASPART 100 UNITS/ML 10ML VIAL ONE ×4 (07:58→21:33)
[2020-05-28] MEDS: SERTRALINE HCL 50 MG TABLET (FP) PO SCH (09:49)
[2020-05-28] MEDS: PRENATAL VITAMINS W/ FOLIC ACID TABLET (FP) PO SCH (09:49)
[2020-05-28] MEDS: NICOTINE 21 MG/24 HOURS TOPICAL PATCH TD SCH (09:54)
[2020-05-28] MEDS: NICOTINE POLACRILEX 2 MG GUM BUC PRN (21:34)
[2020-05-28] MEDS: THIAMINE HCL 100 MG TABLET (FP) PO SCH (21:34)
[2020-05-28] MEDS: MELATONIN 5 MG TABLETS PO SCH (21:34)
[2020-05-29] MEDS ORDERED: PT OWN MED DRAWER 7, Y5N ONE (03:11)
[2020-05-29] MEDS: metFORMIN HCL 500 MG TABLET (FP) PO SCH ×2 (06:39→17:00)
[2020-05-29] MEDS: hydrOXYzine PAMOATE 25 MG CAPSULE (FP) PO SCH ×5 (06:40→22:07)
[2020-05-29] MEDS: glipiZIDE 5 MG TABLET (FP) PO SCH (06:40)
[2020-05-29] MEDS: INSULIN (NOVOLOG) ASPART 100 UNITS/ML 10ML VIAL SQ SCH ×4 (07:41→22:05)
[2020-05-29] MEDS ORDERED: INSULIN (NOVOLOG) ASPART 100 UNITS/ML 10ML VIAL ONE ×4 (07:42→22:06)
[2020-05-29] MEDS: SERTRALINE HCL 50 MG TABLET (FP) PO SCH (10:10)
[2020-05-29] MEDS: NICOTINE 21 MG/24 HOURS TOPICAL PATCH TD SCH (10:10)
[2020-05-29] MEDS: PRENATAL VITAMINS W/ FOLIC ACID TABLET (FP) PO SCH (10:10)
[2020-05-29] MEDS: THIAMINE HCL 100 MG TABLET (FP) PO SCH (22:07)
[2020-05-29] MEDS: MELATONIN 5 MG TABLETS PO SCH (22:07)
[2020-05-29] MEDS: NICOTINE POLACRILEX 2 MG GUM BUC PRN (22:08)
[2020-05-30] MEDS ORDERED: PT OWN MED DRAWER 7, Y5N ONE (05:47)
[2020-05-30] MEDS: metFORMIN HCL 500 MG TABLET (FP) PO SCH ×2 (06:25→16:51)
[2020-05-30] MEDS: hydrOXYzine PAMOATE 25 MG CAPSULE (FP) PO SCH ×5 (06:26→20:59)
[2020-05-30] MEDS: glipiZIDE 5 MG TABLET (FP) PO SCH (06:26)
[2020-05-30] MEDS ORDERED: INSULIN (NOVOLOG) ASPART 100 UNITS/ML 10ML VIAL ONE ×4 (07:58→20:57)
[2020-05-30] MEDS: INSULIN (NOVOLOG) ASPART 100 UNITS/ML 10ML VIAL SQ SCH ×4 (08:01→20:59)
[2020-05-30] MEDS: NICOTINE POLACRILEX 2 MG GUM BUC PRN ×2 (08:02→17:29)
[2020-05-30] MEDS: PRENATAL VITAMINS W/ FOLIC ACID TABLET (FP) PO SCH (09:46)
[2020-05-30] MEDS: NICOTINE 21 MG/24 HOURS TOPICAL PATCH TD SCH (09:46)
[2020-05-30] MEDS: SERTRALINE HCL 50 MG TABLET (FP) PO SCH (09:46)
[2020-05-30] MEDS: THIAMINE HCL 100 MG TABLET (FP) PO SCH (20:59)
[2020-05-30] MEDS: MELATONIN 5 MG TABLETS PO SCH (22:46)
[2020-05-31] MEDS ORDERED: PT OWN MED DRAWER 7, Y5N ONE ×3 (03:21→11:51)
[2020-05-31] MEDS: hydrOXYzine PAMOATE 25 MG CAPSULE (FP) PO SCH ×5 (06:32→21:18)
[2020-05-31] MEDS: metFORMIN HCL 500 MG TABLET (FP) PO SCH ×2 (06:32→16:34)
[2020-05-31] MEDS: glipiZIDE 5 MG TABLET (FP) PO SCH (06:32)
[2020-05-31] MEDS: INSULIN (NOVOLOG) ASPART 100 UNITS/ML 10ML VIAL SQ SCH ×4 (07:41→21:20)
[2020-05-31] MEDS ORDERED: INSULIN (NOVOLOG) ASPART 100 UNITS/ML 10ML VIAL ONE ×4 (07:42→20:58)
[2020-05-31] MEDS: SERTRALINE HCL 50 MG TABLET (FP) PO SCH (09:39)
[2020-05-31] MEDS: PRENATAL VITAMINS W/ FOLIC ACID TABLET (FP) PO SCH (09:39)
[2020-05-31] MEDS: NICOTINE 21 MG/24 HOURS TOPICAL PATCH TD SCH (09:39)
[2020-05-31] MEDS: NICOTINE POLACRILEX 2 MG GUM BUC PRN ×3 (09:40→21:18)
[2020-05-31] MEDS: THIAMINE HCL 100 MG TABLET (FP) PO SCH (21:18)
[2020-05-31] MEDS: MELATONIN 5 MG TABLETS PO SCH (21:18)
[2020-06-01] MEDS ORDERED: PT OWN MED DRAWER 7, Y5N ONE (03:09)
[2020-06-01] MEDS: metFORMIN HCL 500 MG TABLET (FP) PO SCH ×2 (06:23→17:31)
[2020-06-01] MEDS: glipiZIDE 5 MG TABLET (FP) PO SCH (06:23)
[2020-06-01] MEDS: hydrOXYzine PAMOATE 25 MG CAPSULE (FP) PO SCH ×5 (06:23→21:08)
[2020-06-01] MEDS: INSULIN (NOVOLOG) ASPART 100 UNITS/ML 10ML VIAL SQ SCH ×4 (08:02→21:08)
[2020-06-01] MEDS ORDERED: INSULIN (NOVOLOG) ASPART 100 UNITS/ML 10ML VIAL ONE ×3 (08:06→21:58)
[2020-06-01] MEDS: NICOTINE 21 MG/24 HOURS TOPICAL PATCH TD SCH (09:46)
[2020-06-01] MEDS: PRENATAL VITAMINS W/ FOLIC ACID TABLET (FP) PO SCH (09:46)
[2020-06-01] MEDS: SERTRALINE HCL 50 MG TABLET (FP) PO SCH (09:47)
[2020-06-01] MEDS: NICOTINE POLACRILEX 2 MG GUM BUC PRN ×2 (14:03→17:35)
[2020-06-01] MEDS: MELATONIN 5 MG TABLETS PO SCH (21:08)
[2020-06-01] MEDS: THIAMINE HCL 100 MG TABLET (FP) PO SCH (21:08)
[2020-06-02] MEDS ORDERED: PT OWN MED DRAWER 7, Y5N ONE ×2 (03:32→11:31)
[2020-06-02] MEDS: hydrOXYzine PAMOATE 25 MG CAPSULE (FP) PO SCH ×5 (06:23→21:50)
[2020-06-02] MEDS: glipiZIDE 5 MG TABLET (FP) PO SCH (06:23)
[2020-06-02] MEDS: metFORMIN HCL 500 MG TABLET (FP) PO SCH ×2 (06:23→17:06)
[2020-06-02] MEDS ORDERED: INSULIN (NOVOLOG) ASPART 100 UNITS/ML 10ML VIAL ONE ×4 (08:19→22:05)
[2020-06-02] MEDS: INSULIN (NOVOLOG) ASPART 100 UNITS/ML 10ML VIAL SQ SCH ×4 (08:20→21:51)
[2020-06-02] MEDS: NICOTINE 21 MG/24 HOURS TOPICAL PATCH TD SCH (09:28)
[2020-06-02] MEDS: PRENATAL VITAMINS W/ FOLIC ACID TABLET (FP) PO SCH (09:28)
[2020-06-02] MEDS: SERTRALINE HCL 50 MG TABLET (FP) PO SCH (09:29)
[2020-06-02] MEDS: NICOTINE POLACRILEX 2 MG GUM BUC PRN ×3 (09:29→21:52)
[2020-06-02] MEDS: THIAMINE HCL 100 MG TABLET (FP) PO SCH (21:50)
[2020-06-02] MEDS: MELATONIN 5 MG TABLETS PO SCH (21:50)
[2020-06-03] MEDS ORDERED: PT OWN MED DRAWER 7, Y5N ONE (05:22)
[2020-06-03] MEDS: hydrOXYzine PAMOATE 25 MG CAPSULE (FP) PO SCH ×5 (06:45→21:05)
[2020-06-03] MEDS: glipiZIDE 5 MG TABLET (FP) PO SCH (06:45)
[2020-06-03] MEDS: metFORMIN HCL 500 MG TABLET (FP) PO SCH ×2 (06:45→17:02)
[2020-06-03] MEDS: INSULIN (NOVOLOG) ASPART 100 UNITS/ML 10ML VIAL SQ SCH ×4 (07:48→21:08)
[2020-06-03] MEDS ORDERED: INSULIN (NOVOLOG) ASPART 100 UNITS/ML 10ML VIAL ONE ×4 (08:27→21:07)
[2020-06-03] MEDS: PRENATAL VITAMINS W/ FOLIC ACID TABLET (FP) PO SCH (09:30)
[2020-06-03] MEDS: SERTRALINE HCL 50 MG TABLET (FP) PO SCH (09:30)
[2020-06-03] MEDS: NICOTINE 21 MG/24 HOURS TOPICAL PATCH TD SCH (09:31)
[2020-06-03] MEDS: NICOTINE POLACRILEX 2 MG GUM BUC PRN ×2 (12:15→21:06)
[2020-06-03] MEDS: THIAMINE HCL 100 MG TABLET (FP) PO SCH (21:05)
[2020-06-03] MEDS: MELATONIN 5 MG TABLETS PO SCH (21:05)
[2020-06-04] MEDS ORDERED: PT OWN MED DRAWER 7, Y5N ONE ×2 (05:17→07:38)
[2020-06-04] MEDS: hydrOXYzine PAMOATE 25 MG CAPSULE (FP) PO SCH ×5 (06:29→22:40)
[2020-06-04] MEDS: glipiZIDE 5 MG TABLET (FP) PO SCH (06:29)
[2020-06-04] MEDS: metFORMIN HCL 500 MG TABLET (FP) PO SCH ×2 (06:29→16:57)
[2020-06-04] MEDS: INSULIN (NOVOLOG) ASPART 100 UNITS/ML 10ML VIAL SQ SCH ×4 (07:33→22:39)
[2020-06-04] MEDS ORDERED: INSULIN (NOVOLOG) ASPART 100 UNITS/ML 10ML VIAL ONE ×3 (07:38→17:07)
[2020-06-04] MEDS: PRENATAL VITAMINS W/ FOLIC ACID TABLET (FP) PO SCH (09:34)
[2020-06-04] MEDS: NICOTINE 21 MG/24 HOURS TOPICAL PATCH TD SCH (09:35)
[2020-06-04] MEDS: SERTRALINE HCL 50 MG TABLET (FP) PO SCH (09:35)
[2020-06-04] MEDS: NICOTINE POLACRILEX 2 MG GUM BUC PRN ×3 (13:07→22:12)
[2020-06-04] MEDS: THIAMINE HCL 100 MG TABLET (FP) PO SCH (22:10)
[2020-06-04] MEDS: MELATONIN 5 MG TABLETS PO SCH (22:12)
[2020-06-05] MEDS: metFORMIN HCL 500 MG TABLET (FP) PO SCH ×2 (06:41→16:28)
[2020-06-05] MEDS: hydrOXYzine PAMOATE 25 MG CAPSULE (FP) PO SCH ×5 (06:41→21:34)
[2020-06-05] MEDS: glipiZIDE 5 MG TABLET (FP) PO SCH (06:41)
[2020-06-05] MEDS: INSULIN (NOVOLOG) ASPART 100 UNITS/ML 10ML VIAL SQ SCH ×4 (07:33→21:37)
[2020-06-05] MEDS ORDERED: INSULIN (NOVOLOG) ASPART 100 UNITS/ML 10ML VIAL ONE ×3 (07:33→16:28)
[2020-06-05] MEDS: PRENATAL VITAMINS W/ FOLIC ACID TABLET (FP) PO SCH (10:16)
[2020-06-05] MEDS: NICOTINE 21 MG/24 HOURS TOPICAL PATCH TD SCH (10:16)
[2020-06-05] MEDS: SERTRALINE HCL 50 MG TABLET (FP) PO SCH (10:16)
[2020-06-05] MEDS: NICOTINE POLACRILEX 2 MG GUM BUC PRN ×3 (10:17→21:39)
[2020-06-05] MEDS: THIAMINE HCL 100 MG TABLET (FP) PO SCH (21:34)
[2020-06-05] MEDS: MELATONIN 5 MG TABLETS PO SCH (21:34)
[2020-06-05] MEDS ORDERED: INSULIN (LEVEMIR) 100 UNITS/ML UNITS SQ ONE (22:00)
[2020-06-06] MEDS: metFORMIN HCL 500 MG TABLET (FP) PO SCH ×2 (06:26→16:45)
[2020-06-06] MEDS: hydrOXYzine PAMOATE 25 MG CAPSULE (FP) PO SCH ×5 (06:26→21:48)
[2020-06-06] MEDS: glipiZIDE 5 MG TABLET (FP) PO SCH (06:26)
[2020-06-06] MEDS: INSULIN (NOVOLOG) ASPART 100 UNITS/ML 10ML VIAL SQ SCH ×4 (07:40→21:53)
[2020-06-06] MEDS ORDERED: INSULIN (NOVOLOG) ASPART 100 UNITS/ML 10ML VIAL ONE ×2 (07:43→11:34)
[2020-06-06] MEDS: NICOTINE 21 MG/24 HOURS TOPICAL PATCH TD SCH (09:57)
[2020-06-06] MEDS: PRENATAL VITAMINS W/ FOLIC ACID TABLET (FP) PO SCH (09:57)
[2020-06-06] MEDS: SERTRALINE HCL 50 MG TABLET (FP) PO SCH (09:57)
[2020-06-06] MEDS: NICOTINE POLACRILEX 2 MG GUM BUC PRN ×2 (12:59→21:48)
[2020-06-06] MEDS: MELATONIN 5 MG TABLETS PO SCH (21:48)
[2020-06-06] MEDS: THIAMINE HCL 100 MG TABLET (FP) PO SCH (21:49)
[2020-06-07] MEDS: metFORMIN HCL 500 MG TABLET (FP) PO SCH ×2 (06:02→16:35)
[2020-06-07] MEDS: glipiZIDE 5 MG TABLET (FP) PO SCH (06:02)
[2020-06-07] MEDS: hydrOXYzine PAMOATE 25 MG CAPSULE (FP) PO SCH ×5 (06:02→21:36)
[2020-06-07] MEDS: INSULIN (NOVOLOG) ASPART 100 UNITS/ML 10ML VIAL SQ SCH ×4 (07:31→21:38)
[2020-06-07] MEDS ORDERED: INSULIN (NOVOLOG) ASPART 100 UNITS/ML 10ML VIAL ONE (07:34)
[2020-06-07] MEDS: NICOTINE 21 MG/24 HOURS TOPICAL PATCH TD SCH (09:55)
[2020-06-07] MEDS: PRENATAL VITAMINS W/ FOLIC ACID TABLET (FP) PO SCH (09:55)
[2020-06-07] MEDS: SERTRALINE HCL 50 MG TABLET (FP) PO SCH (09:56)
[2020-06-07] MEDS: NICOTINE POLACRILEX 2 MG GUM BUC PRN ×3 (09:56→19:16)
[2020-06-07] MEDS: MELATONIN 5 MG TABLETS PO SCH (21:36)
[2020-06-07] MEDS: THIAMINE HCL 100 MG TABLET (FP) PO SCH (21:36)
[2020-06-08] MEDS: glipiZIDE 5 MG TABLET (FP) PO SCH (06:18)
[2020-06-08] MEDS: hydrOXYzine PAMOATE 25 MG CAPSULE (FP) PO SCH ×5 (06:18→21:33)
[2020-06-08] MEDS: metFORMIN HCL 500 MG TABLET (FP) PO SCH ×2 (06:18→16:43)
[2020-06-08] MEDS: INSULIN (NOVOLOG) ASPART 100 UNITS/ML 10ML VIAL SQ SCH ×4 (07:37→21:35)
[2020-06-08] MEDS ORDERED: INSULIN (NOVOLOG) ASPART 100 UNITS/ML 10ML VIAL ONE ×3 (07:43→16:32)
[2020-06-08] MEDS: NICOTINE POLACRILEX 2 MG GUM BUC PRN ×2 (08:47→14:00)
[2020-06-08] MEDS: PRENATAL VITAMINS W/ FOLIC ACID TABLET (FP) PO SCH (09:43)
[2020-06-08] MEDS: NICOTINE 21 MG/24 HOURS TOPICAL PATCH TD SCH (09:43)
[2020-06-08] MEDS: SERTRALINE HCL 50 MG TABLET (FP) PO SCH (09:44)
--- NOTE | 2020-06-08 15:02 | PN ---
S Progress Note Note: Patient is scheduled for discharge to [facility]. Script for 30 days supply of Zoloft 50 mg/day will be electronically transmitted to [facility], [address] [place] [id number]
[2020-06-08] MEDS: THIAMINE HCL 100 MG TABLET (FP) PO SCH (21:32)
[2020-06-08] MEDS: MELATONIN 5 MG TABLETS PO SCH (21:32)
[2020-06-09] MEDS: hydrOXYzine PAMOATE 25 MG CAPSULE (FP) PO SCH ×2 (06:41→09:26)
[2020-06-09] MEDS: metFORMIN HCL 500 MG TABLET (FP) PO SCH (06:41)
[2020-06-09] MEDS: glipiZIDE 5 MG TABLET (FP) PO SCH (06:41)
[2020-06-09 07:08] VITALS: BP 116/81; PULSE 84; TEMP 97.7
[2020-06-09] MEDS: INSULIN (NOVOLOG) ASPART 100 UNITS/ML 10ML VIAL SQ SCH (07:54)
[2020-06-09] MEDS ORDERED: INSULIN (NOVOLOG) ASPART 100 UNITS/ML 10ML VIAL ONE (08:04)
[2020-06-09] MEDS: SERTRALINE HCL 50 MG TABLET (FP) PO SCH (09:26)
[2020-06-09] MEDS: PRENATAL VITAMINS W/ FOLIC ACID TABLET (FP) PO SCH (09:26)
[2020-06-09] MEDS: NICOTINE 21 MG/24 HOURS TOPICAL PATCH TD SCH (09:26)
[2020-06-09] MEDS: NICOTINE POLACRILEX 2 MG GUM BUC PRN (09:26)
--- NOTE | 2020-06-09 11:49 | DS ---
[facility] Rehab Discharge Summary - [facility] Rehab Discharge Summary Admission Date: 05/26/20 Discharge Date: 06/09/20 - History Present History: Alcohol dependence - Discharge Physical Exam Vital Signs: Vital Signs Temperature 97.7 F 06/09/20 07:06 Pulse Rate 84 06/09/20 07:06 Respiratory Rate 18 06/09/20 07:06 Blood Pressure 116/81 06/09/20 07:06 O2 Sat by Pulse Oximetry (%) 98 06/09/20 07:06 Laboratory Tests 05/26/20 05/27/20 05/27/20 22:47 06:51 11:06 POC Glucometer 229 244 243 05/27/20 05/27/20 05/28/20 16:46 22:15 06:33 POC Glucometer 327 221 244 05/28/20 05/28/20 05/28/20 11:10 16:24 21:31 POC Glucometer 350 291 169 05/29/20 05/29/20 05/29/20 06:39 11:32 16:43 POC Glucometer 241 318 294 05/29/20 05/30/20 05/30/20 22:03 06:25 11:49 POC Glucometer 335 233 358 05/30/20 05/30/20 05/31/20 16:47 20:55 06:31 POC Glucometer 336 262 228 05/31/20 05/31/20 05/31/20 11:46 16:31 20:17 POC Glucometer 307 226 298 06/01/20 06/01/20 06/01/20 06:22 12:10 17:04 POC Glucometer 250 190 287 06/01/20 06/01/20 06/02/20 20:03 20:36 06:23 POC Glucometer 260 249 241 06/02/20 06/02/20 06/02/20 11:26 17:04 21:49 POC Glucometer 276 362 281 06/03/20 06/03/20 06/03/20 06:45 11:28 17:00 POC Glucometer 289 199 371 06/03/20 06/04/20 06/04/20 21:04 06:28 11:31 POC Glucometer 328 217 245 06/04/20 06/05/20 06/05/20 16:39 06:40 11:43 POC Glucometer 336 242 332 06/05/20 06/05/20 06/06/20 16:26 21:36 06:26 POC Glucometer 297 295 239 06/06/20 06/06/20 06/06/20 11:31 16:47 21:53 POC Glucometer 226 292 312 06/07/20 06/07/20 06/07/20 06:01 11:06 16:35 POC Glucometer 256 216 300 06/07/20 06/08/20 06/08/20 21:38 06:17 11:29 POC Glucometer 298 363 225 06/08/20 06/08/20 06/09/20 16:42 21:35 06:40 POC Glucometer 345 353 245 ROS: denies alcohol cravings, shakes, sweating, restlessness, fever, cough, sore throat and SOB. PE alert and oriented x 3 skin warm and dry in nad car s1s2, rrr resp cta bl, no wheezing, rales ext full rom, amb ad nay no tremors denies si/hi a/p: etoh dependence dm cocaine use patient medically stable for discharge aftercare arranged for [facility], appt 06/12/2020 - Treatment Discharge Condition: Discharge condition good Hospital Course: Patient discharged from rehab today for alcohol and cocaine dependence. During treatment course, he remained medically stable, attended group meetings and 1:1 sessions with counselor. He was also evaluated and treated by Psych team. Aftercare arranged for [facility], appt 06/12/2020. Patient is motivated to maintain sobriety and advised to follow up with PCP as recommended. - Medication Discharge Medications: Ambulatory Orders Insulin Sliding Scale [Novolog Vial Sliding Scale -] 1 vial SQ ACHS units 05/26/20 Glipizide 5 mg PO DAILY #30 tablet 06/08/20 Nicotine Patch [Nicoderm Patch -] 14 mg TD DAILY #14 patch 06/08/20 Nicotine Polacrilex [Nicorelief -] 2 mg BC Q2H PRN #60 gum 06/08/20 Sertraline HCl [Zoloft -] 50 mg PO DAILY #30 tablet 06/08/20 metFORMIN HCL [Metformin HCl] 1,000 mg PO BID #20 tablet 06/08/20 - Medication-Assisted Treatment (MAT) Medication-Assisted Treatment (MAT): No MAT Follow-up Referral: [facility], appt 06/12/2020 - Discharge Instructions Diet, activity, other medical instructions: Diet: Activity: Other medical instructions: - Follow-up Referral Minutes to complete discharge: 40 - AMA Did Patient Leave Against Medical Advice: No
== END 2020-06-09 09:35 | disposition home or self-care (01) | DRG 772 ==
LOC: YASAS 14:26 → Y3E 14:35
PROVIDERS: ADMIT Allergy & Immunology; ATTEND Allergy & Immunology
PROC: HZ42ZZZ Group Counseling for Substance Abuse Treatment, Cognitive-Behavioral (ICD-10-PCS; principal; 2020-05-26)
DX: F10.20 Alcohol dependence, uncomplicated (principal); F14.20 Cocaine dependence, uncomplicated; F17.210 Nicotine dependence, cigarettes, uncomplicated; F19.280 Other psychoactive substance dependence with psychoactive substance-induced anxiety disorder; F32.9 Major depressive disorder, single episode, unspecified; E11.9 Type 2 diabetes mellitus without complications; Z79.4 Long term (current) use of insulin; E66.9 Obesity, unspecified; Z68.36 Body mass index [BMI] 36.0-36.9, adult; Z56.0 Unemployment, unspecified; Z59.0 Homelessness
CPT/HCPCS: 82962

== ENCOUNTER 2021-03-05 09:57 | Inpatient (IN) | payer OTHER ==
[2021-03-05 10:45] VITALS: BMI 35.9
[2021-03-05] MEDS ORDERED: ONDANSETRON *ODT* 4 MG TABLET SL PRN (11:28)
[2021-03-05] MEDS ORDERED: IBUPROFEN 400 MG TABLET (FP) PO PRN (11:28)
[2021-03-05] MEDS ORDERED: ACETAMINOPHEN 325 MG TABLET (FP) PO PRN ×2 (11:28)
[2021-03-05] MEDS ORDERED: MAGNESIUM HYDROX 2400MG/30ML ORAL SUSPENSION 30 ML CUP PO PRN (11:28)
[2021-03-05] MEDS ORDERED: MENTHOL/PHENOL 1 EACH UD MM PRN (11:28)
[2021-03-05] MEDS ORDERED: MAG HYDROX/AL HYDROX/SIMETH 30 ML UNIT-DOSE CUP PO PRN (11:28)
[2021-03-05] MEDS ORDERED: MAGNESIUM CITRATE 300 ML BOTTLE PO PRN (11:28)
[2021-03-05] MEDS ORDERED: BISMUTH SUBSALICYLATE 524 MG/30 ML UD PO PRN (11:28)
[2021-03-05] MEDS ORDERED: METHOCARBAMOL 500 MG TABLET PO PRN (11:28)
[2021-03-05] MEDS ORDERED: chlordiazePOXIDE HCL 25 MG CAPSULE PO PRN (11:28)
[2021-03-05] MEDS ORDERED: INSULIN (NOVOLOG) ASPART 100 UNITS/ML 10ML VIAL ONE (11:32)
[2021-03-05] MEDS ORDERED: INSULIN (NOVOLOG) ASPART 100 UNITS/ML 10ML VIAL SQ ONE (12:10)
[2021-03-05] MEDS: PRENATAL VITAMINS W/ FOLIC ACID TABLET (FP) PO SCH (13:24)
[2021-03-05] MEDS: chlordiazePOXIDE HCL 25 MG CAPSULE PO SCH ×3 (13:24→22:58)
[2021-03-05] MEDS: NICOTINE 21 MG/24 HOURS TOPICAL PATCH TD SCH (13:24)
[2021-03-05] MEDS: hydrOXYzine PAMOATE 25 MG CAPSULE (FP) PO SCH ×3 (13:26→22:58)
[2021-03-05] MEDS: NICOTINE POLACRILEX 2 MG GUM BUC PRN ×2 (13:26→18:13)
[2021-03-05 15:39] LABS: HEMATOCRIT 41.2 % (35.4-49); HEMOGLOBIN 13.2 GM/dL (11.7-16.9); MCH 25.9 pg (25.7-33.7); MEAN CELL VOLUME 80.7 fl (80-96); MEAN PLT VOLUME 9.4 fl (7.5-11.1); PLATELET COUNT 298 K/MM3 (134-434); RDW 15.8 % (11.9-15.9); WHITE BLOOD COUNT 8.5 K/mm3 (4.0-10.0)
[2021-03-05 15:42] LABS: CHLORIDE 99 mmol/L (98-107); SODIUM 134 mmol/L (136-145)
[2021-03-05 15:49] LABS: ALBUMIN 3.7 g/dl (3.4-5.0)
[2021-03-05 15:50] LABS: ANION GAP 9 MMOL/L (8-16); CALCIUM 8.8 mg/dL (8.5-10.1); CO2 26 mmol/L (21-32)
[2021-03-05 15:53] LABS: BILIRUBIN,TOTAL 0.4 mg/dL (0.2-1); SGOT/AST 23 U/L (15-37); SGPT/ALT 34 U/L (13-61)
[2021-03-05 15:54] LABS: ALK PHOS 133 U/L (45-117); CREATININE 1.1 mg/dL (0.55-1.3)
[2021-03-05 15:55] LABS: TOT PROT 7.8 g/dl (6.4-8.2)
[2021-03-05 16:04] LABS: GLUCOSE,RANDOM 496 mg/dL (74-106)
[2021-03-05] MEDS ORDERED: INSULIN SLIDING SCALE (NOVOLOG) 1 VIAL SQ SCH ×2 (16:30)
[2021-03-05] MEDS: metFORMIN HCL 500 MG TABLET (FP) PO SCH (17:14)
[2021-03-05] MEDS: THIAMINE HCL 100 MG TABLET (FP) PO SCH (22:58)
[2021-03-05] MEDS: MELATONIN 5 MG TABLETS PO SCH (23:06)
[2021-03-05] MEDS: INSULIN SLIDING SCALE (NOVOLOG) 1 VIAL SQ SCH (23:07)
[2021-03-06] MEDS: hydrOXYzine PAMOATE 25 MG CAPSULE (FP) PO SCH ×2 (05:38→11:04)
[2021-03-06] MEDS: chlordiazePOXIDE HCL 25 MG CAPSULE PO SCH ×4 (05:39→22:35)
[2021-03-06] MEDS: metFORMIN HCL 500 MG TABLET (FP) PO SCH ×2 (06:18→17:18)
[2021-03-06] MEDS: INSULIN SLIDING SCALE (NOVOLOG) 1 VIAL SQ SCH ×4 (06:19→22:34)
[2021-03-06] MEDS: glipiZIDE 10 MG TABLET (FP) PO SCH (07:39)
[2021-03-06] MEDS ORDERED: hydrOXYzine PAMOATE 25 MG CAPSULE (FP) PO PRN (10:28)
[2021-03-06] MEDS: SERTRALINE HCL 50 MG TABLET (FP) PO SCH (10:47)
[2021-03-06] MEDS: PRENATAL VITAMINS W/ FOLIC ACID TABLET (FP) PO SCH (10:47)
[2021-03-06] MEDS: NICOTINE 21 MG/24 HOURS TOPICAL PATCH TD SCH (10:48)
[2021-03-06] MEDS ORDERED: INSULIN SLIDING SCALE (NOVOLOG) 1 VIAL SQ ONE ×2 (16:55→21:56)
[2021-03-06] MEDS: THIAMINE HCL 100 MG TABLET (FP) PO SCH (22:34)
[2021-03-06] MEDS: MELATONIN 5 MG TABLETS PO SCH (22:34)
[2021-03-06] MEDS: NICOTINE POLACRILEX 2 MG GUM BUC PRN (22:37)
[2021-03-07] MEDS: chlordiazePOXIDE HCL 25 MG CAPSULE PO SCH ×2 (05:34→10:10)
[2021-03-07] MEDS: NICOTINE POLACRILEX 2 MG GUM BUC PRN ×2 (05:35→10:10)
[2021-03-07] MEDS: INSULIN SLIDING SCALE (NOVOLOG) 1 VIAL SQ SCH ×2 (06:25→12:02)
[2021-03-07] MEDS: glipiZIDE 10 MG TABLET (FP) PO SCH (06:35)
[2021-03-07] MEDS: metFORMIN HCL 500 MG TABLET (FP) PO SCH (06:36)
[2021-03-07] MEDS ORDERED: glipiZIDE 5 MG TABLET (FP) PO SCH (08:45)
[2021-03-07 09:27] VITALS: TEMP 97.1
[2021-03-07] MEDS: PRENATAL VITAMINS W/ FOLIC ACID TABLET (FP) PO SCH (10:10)
[2021-03-07] MEDS: SERTRALINE HCL 50 MG TABLET (FP) PO SCH (10:10)
[2021-03-07] MEDS: NICOTINE 21 MG/24 HOURS TOPICAL PATCH TD SCH (10:10)
[2021-03-07 13:54] VITALS: BP 126/77; PULSE 94
[2021-03-08] MEDS ORDERED: chlordiazePOXIDE HCL 10 MG CAPSULE PO PRN
[2021-03-08] MEDS ORDERED: chlordiazePOXIDE HCL 10 MG CAPSULE PO SCH (05:00)
[2021-03-08 10:21] LABS: SARS-CoV-2 NAA Not Detected (Not Detected)
[2021-03-09] MEDS ORDERED: chlordiazePOXIDE HCL 10 MG CAPSULE PO SCH (05:00)
[2021-03-10] MEDS ORDERED: chlordiazePOXIDE HCL 10 MG CAPSULE PO ONE (05:00)
== END 2021-03-07 03:37 | disposition left against medical advice (07) | DRG 770 ==
LOC: YASAS 09:57 → Y3N 11:57
PROVIDERS: ADMIT Allergy & Immunology; ATTEND Allergy & Immunology
PROC: HZ2ZZZZ Detoxification Services for Substance Abuse Treatment (ICD-10-PCS; principal; 2021-03-05)
DX: F10.230 Alcohol dependence with withdrawal, uncomplicated (principal); F14.20 Cocaine dependence, uncomplicated; F17.210 Nicotine dependence, cigarettes, uncomplicated; F10.282 Alcohol dependence with alcohol-induced sleep disorder; F10.280 Alcohol dependence with alcohol-induced anxiety disorder; F32.9 Major depressive disorder, single episode, unspecified; E11.65 Type 2 diabetes mellitus with hyperglycemia; Z79.4 Long term (current) use of insulin; B35.3 Tinea pedis; E66.9 Obesity, unspecified; Z68.35 Body mass index [BMI] 35.0-35.9, adult; Z59.0 Homelessness; Z56.0 Unemployment, unspecified
CPT/HCPCS: 36415; 80053; 82962; 85027; 86780; C9803; U0003; U0005

== ENCOUNTER 2021-05-02 09:50 | Inpatient (IN) | payer OTHER ==
[2021-05-02 11:43] VITALS: BMI 36.2
[2021-05-02] MEDS ORDERED: IBUPROFEN 400 MG TABLET (FP) PO PRN (12:12)
[2021-05-02] MEDS ORDERED: ONDANSETRON *ODT* 4 MG TABLET SL PRN (12:12)
[2021-05-02] MEDS ORDERED: BISMUTH SUBSALICYLATE 524 MG/30 ML PO PRN (12:12)
[2021-05-02] MEDS ORDERED: diazePAM 5 MG TABLET PO PRN (12:12)
[2021-05-02] MEDS ORDERED: MAG HYDROX/AL HYDROX/SIMETH 30 ML UNIT-DOSE CUP PO PRN (12:12)
[2021-05-02] MEDS ORDERED: METHOCARBAMOL 500 MG TABLET PO PRN (12:12)
[2021-05-02] MEDS ORDERED: ACETAMINOPHEN 325 MG TABLET (FP) PO PRN ×2 (12:12)
[2021-05-02] MEDS ORDERED: MAGNESIUM HYDROX 2400MG/30ML ORAL SUSPENSION 30 ML CUP PO PRN (12:12)
[2021-05-02] MEDS ORDERED: MENTHOL/PHENOL 1 EACH UD MM PRN (12:12)
[2021-05-02] MEDS ORDERED: MAGNESIUM CITRATE 300 ML BOTTLE PO PRN (12:12)
[2021-05-02] MEDS: PRENATAL VITAMINS W/ FOLIC ACID TABLET (FP) PO SCH (13:32)
[2021-05-02] MEDS: hydrOXYzine PAMOATE 25 MG CAPSULE (FP) PO SCH ×3 (13:32→22:21)
[2021-05-02] MEDS: NICOTINE 7 MG/24 HOURS TOPICAL PATCH TD SCH (13:32)
[2021-05-02] MEDS: diazePAM 5 MG TABLET PO SCH ×3 (13:32→22:20)
[2021-05-02] MEDS: NICOTINE POLACRILEX 2 MG GUM BUC PRN (20:44)
[2021-05-02] MEDS ORDERED: MELATONIN 5 MG TABLETS PO SCH (22:00)
[2021-05-02] MEDS: THIAMINE HCL 100 MG TABLET (FP) PO SCH (22:21)
[2021-05-02] MEDS: MELATONIN 5 MG TABLETS PO PRN (22:21)
[2021-05-03] MEDS: diazePAM 5 MG TABLET PO SCH ×4 (06:33→22:13)
[2021-05-03] MEDS: hydrOXYzine PAMOATE 25 MG CAPSULE (FP) PO SCH ×5 (06:34→22:13)
[2021-05-03] MEDS ORDERED: INSULIN (NOVOLOG) ASPART 100 UNITS/ML 10ML VIAL SQ ONE (09:52)
[2021-05-03] MEDS: PRENATAL VITAMINS W/ FOLIC ACID TABLET (FP) PO SCH (10:30)
[2021-05-03] MEDS: glipiZIDE 5 MG TABLET (FP) PO SCH (10:31)
[2021-05-03] MEDS: NICOTINE 7 MG/24 HOURS TOPICAL PATCH TD SCH (10:33)
[2021-05-03] MEDS ORDERED: INSULIN (NOVOLOG) ASPART 100 UNITS/ML 10ML VIAL ONE ×4 (10:35→22:04)
[2021-05-03] MEDS: NICOTINE POLACRILEX 2 MG GUM BUC PRN ×3 (10:36→22:17)
[2021-05-03 11:06] LABS: HEMATOCRIT 37.8 % (35.4-49); HEMOGLOBIN 11.8 GM/dL (11.7-16.9); MCH 25.1 pg (25.7-33.7); MCHC 31.3 g/dl (32.0-35.9); MEAN CELL VOLUME 80.2 fl (80-96); MEAN PLT VOLUME 9.4 fl (7.5-11.1); PLATELET COUNT 206 10^3/uL (134-434); RBC 4.71 M/mm3 (4.00-5.60); RDW 15.7 % (11.9-15.9); WHITE BLOOD COUNT 6.1 K/mm3 (4.0-10.0)
[2021-05-03 11:10] LABS: CHLORIDE 100 mmol/L (98-107); SODIUM 136 mmol/L (136-145)
[2021-05-03 11:20] LABS: CALCIUM 8.7 mg/dL (8.5-10.1)
[2021-05-03 11:21] LABS: ANION GAP 11 MMOL/L (8-16); BLOOD UREA NITROGEN 13.3 mg/dL (7-18); CO2 25 mmol/L (21-32)
[2021-05-03 11:24] LABS: ALBUMIN 3.1 g/dl (3.4-5.0); CREATININE 0.9 mg/dL (0.55-1.3); SGPT/ALT 32 U/L (13-61)
[2021-05-03 11:25] LABS: BILIRUBIN,TOTAL 0.5 mg/dL (0.2-1)
[2021-05-03 11:27] LABS: ALK PHOS 151 U/L (45-117); SGOT/AST 29 U/L (15-37)
[2021-05-03] MEDS: INSULIN (NOVOLOG) ASPART 100 UNITS/ML 10ML VIAL SQ SCH ×3 (11:31→22:16)
[2021-05-03 11:43] LABS: GLUCOSE,RANDOM 412 mg/dL (74-106)
[2021-05-03] MEDS: metFORMIN HCL 500 MG TABLET (FP) PO SCH (17:08)
[2021-05-03] MEDS: THIAMINE HCL 100 MG TABLET (FP) PO SCH (22:13)
[2021-05-03] MEDS: MELATONIN 5 MG TABLETS PO PRN (22:14)
[2021-05-04] MEDS: diazePAM 5 MG TABLET PO SCH ×3 (05:14→22:28)
[2021-05-04] MEDS: hydrOXYzine PAMOATE 25 MG CAPSULE (FP) PO SCH ×5 (05:14→23:26)
[2021-05-04] MEDS: NICOTINE POLACRILEX 2 MG GUM BUC PRN ×3 (05:14→22:28)
[2021-05-04] MEDS: glipiZIDE 5 MG TABLET (FP) PO SCH (06:26)
[2021-05-04] MEDS: metFORMIN HCL 500 MG TABLET (FP) PO SCH ×2 (06:26→16:46)
[2021-05-04] MEDS ORDERED: INSULIN (NOVOLOG) ASPART 100 UNITS/ML 10ML VIAL ONE ×4 (07:42→16:57)
[2021-05-04] MEDS: INSULIN (NOVOLOG) ASPART 100 UNITS/ML 10ML VIAL SQ SCH ×4 (07:46→23:26)
[2021-05-04] MEDS: NICOTINE 7 MG/24 HOURS TOPICAL PATCH TD SCH (10:34)
[2021-05-04] MEDS: PRENATAL VITAMINS W/ FOLIC ACID TABLET (FP) PO SCH (10:34)
[2021-05-04] MEDS: THIAMINE HCL 100 MG TABLET (FP) PO SCH (22:28)
[2021-05-04] MEDS ORDERED: INSULIN SLIDING SCALE (NOVOLOG) 1 VIAL SQ ONE (23:16)
[2021-05-05] MEDS: diazePAM 5 MG TABLET PO SCH ×2 (05:25→17:27)
[2021-05-05] MEDS: hydrOXYzine PAMOATE 25 MG CAPSULE (FP) PO SCH ×5 (05:25→22:21)
[2021-05-05] MEDS: glipiZIDE 5 MG TABLET (FP) PO SCH (06:16)
[2021-05-05] MEDS: metFORMIN HCL 500 MG TABLET (FP) PO SCH ×2 (06:16→17:27)
[2021-05-05] MEDS ORDERED: INSULIN SLIDING SCALE (NOVOLOG) 1 VIAL SQ ONE ×2 (08:02→11:27)
[2021-05-05] MEDS: INSULIN (NOVOLOG) ASPART 100 UNITS/ML 10ML VIAL SQ SCH ×4 (08:23→22:26)
[2021-05-05] MEDS: PRENATAL VITAMINS W/ FOLIC ACID TABLET (FP) PO SCH (10:43)
[2021-05-05] MEDS: NICOTINE 7 MG/24 HOURS TOPICAL PATCH TD SCH (10:45)
[2021-05-05] MEDS: NICOTINE POLACRILEX 2 MG GUM BUC PRN (10:47)
[2021-05-05] MEDS ORDERED: INSULIN (NOVOLOG) ASPART 100 UNITS/ML 10ML VIAL ONE ×2 (17:02→22:13)
[2021-05-05] MEDS ORDERED: INSULIN (LEVEMIR) 100 UNITS/ML UNITS SQ ONE (21:13)
[2021-05-05] MEDS ORDERED: INSULIN (LEVEMIR) 100 UNITS/ML UNITS SQ SCH (22:00)
[2021-05-05] MEDS: MELATONIN 5 MG TABLETS PO PRN (22:21)
[2021-05-05] MEDS: THIAMINE HCL 100 MG TABLET (FP) PO SCH (22:21)
[2021-05-06] MEDS: NICOTINE POLACRILEX 2 MG GUM BUC PRN (05:14)
[2021-05-06] MEDS: hydrOXYzine PAMOATE 25 MG CAPSULE (FP) PO SCH (05:17)
[2021-05-06] MEDS ORDERED: diazePAM 5 MG TABLET PO ONE (06:00)
[2021-05-06] MEDS: metFORMIN HCL 500 MG TABLET (FP) PO SCH (07:14)
[2021-05-06] MEDS ORDERED: INSULIN (NOVOLOG) ASPART 100 UNITS/ML 10ML VIAL ONE (08:22)
[2021-05-06] MEDS: INSULIN (NOVOLOG) ASPART 100 UNITS/ML 10ML VIAL SQ SCH (08:31)
[2021-05-06] MEDS ORDERED: MASKS NR ONE (09:22)
[2021-05-06 09:48] VITALS: BP 136/77; PULSE 82; TEMP 98.1
== END 2021-05-06 09:26 | disposition other institution (70) | DRG 774 ==
LOC: YASAS 09:50 → Y6N 12:35
PROVIDERS: ADMIT Allergy & Immunology; ATTEND Allergy & Immunology
PROC: HZ2ZZZZ Detoxification Services for Substance Abuse Treatment (ICD-10-PCS; principal; 2021-05-02)
DX: F10.230 Alcohol dependence with withdrawal, uncomplicated (principal); F14.20 Cocaine dependence, uncomplicated; F17.210 Nicotine dependence, cigarettes, uncomplicated; F19.282 Other psychoactive substance dependence with psychoactive substance-induced sleep disorder; F19.280 Other psychoactive substance dependence with psychoactive substance-induced anxiety disorder; F19.24 Other psychoactive substance dependence with psychoactive substance-induced mood disorder; F32.9 Major depressive disorder, single episode, unspecified; I10 Essential (primary) hypertension; E11.65 Type 2 diabetes mellitus with hyperglycemia; Z79.4 Long term (current) use of insulin; E66.9 Obesity, unspecified; Z68.36 Body mass index [BMI] 36.0-36.9, adult; Z56.0 Unemployment, unspecified; Z59.0 Homelessness; Z98.890 Other specified postprocedural states
CPT/HCPCS: 36415; 80053; 82962; 83036; 85027; 86780; C9803; Q0162; U0003; U0005

== ENCOUNTER 2022-09-14 18:14 | Inpatient (IN) | payer OTHER ==
[2022-09-14] MEDS ORDERED: SODIUM CHLORIDE 0.9% 500 ML INFUS.BAG IV ONE (19:28)
[2022-09-14] MEDS ORDERED: morphine CARPU-JECT 4 MG/1 ML DISP.SYRIN IVPUSH ONE (19:28)
[2022-09-14] MEDS ORDERED: morphine SULFATE 4 MG/ML VIAL ONE (19:49)
[2022-09-14 20:05] LABS: BASO % 0.3 % (0-2.0); HEMATOCRIT 36.8 % (35.4-49); HEMOGLOBIN 11.9 GM/dL (11.7-16.9); LYMPH % 7.8 % (8-40); MCH 25.2 pg (25.7-33.7); MCHC 32.3 g/dl (32.0-35.9); MEAN CELL VOLUME 77.9 fl (80-96); MEAN PLT VOLUME 8.4 fl (7.5-11.1); MONO % 7.6 % (3.8-10.2); NEUT % 84.3 % (42.8-82.8); PLATELET COUNT 275 10^3/uL (134-434); RBC 4.73 M/mm3 (4.00-5.60); RDW 14.8 % (11.9-15.9); WHITE BLOOD COUNT 17.7 K/mm3 (4.0-10.0)
[2022-09-14 20:13] LABS: INR 1.09 (0.83-1.09); PROTHROMBIN TIME (PATIENT) 12.5 SEC (9.7-13.0)
[2022-09-14 20:16] LABS: ACTIVATED PTT 34.6 SECONDS (25.2-36.5)
[2022-09-14 20:18] LABS: CHLORIDE 96 mmol/L (98-107); SODIUM 131 mmol/L (136-145)
[2022-09-14 20:19] LABS: ALBUMIN 3.9 g/dl (3.4-5.0); ANION GAP 12 MMOL/L (8-16); CALCIUM 8.7 mg/dL (8.5-10.1); CO2 22 mmol/L (21-32); GLUCOSE,RANDOM 155 mg/dL (74-106); LIPASE 46 U/L (73-393)
[2022-09-14 20:22] LABS: CREATININE 0.9 mg/dL (0.55-1.3); SGOT/AST 948 U/L (15-37); SGPT/ALT 216 U/L (13-61)
[2022-09-14 20:25] LABS: BILIRUBIN,TOTAL 0.3 mg/dL (0.2-1)
[2022-09-14 20:26] LABS: ALK PHOS 116 U/L (45-117)
[2022-09-14] MEDS ORDERED: KETOROLAC TROMETHAMINE 15 MG/ML VIAL IVPUSH ONE (20:59)
[2022-09-14] MEDS ORDERED: KETOROLAC TROMETHAMINE 15 MG/ML VIAL ONE (21:07)
[2022-09-14 22:33] LABS: EPI CELLS >36 /uL (0-25.1); HYALINE CASTS 8 /uL (0-3.1); PH,URINE 5.5 (5.0-8.0); URINE APPEARANCE TURBID; URINE BILIRUBIN NEGATIVE (NEGATIVE); URINE COLOR ORANGE; URINE GLUCOSE (UA) NEGATIVE (NEGATIVE); URINE KETONE 1+ (NEGATIVE); URINE LEUK ESTERASE TRACE (NEGATIVE); URINE NITRITE NEGATIVE (NEGATIVE); URINE PROTEIN 3+ (NEGATIVE); URINE UROBILINOGEN 0.2 mg/dL (0.2-1.0); URINE WBC 167 /uL (0-25.8)
[2022-09-14] MEDS ORDERED: LACTATED RINGERS SOLUTION 1000 ML INFUS.BAG IV ONE (23:30)
[2022-09-15 00:11] LABS: URINE BACTERIA 0 /uL (0-1359); URINE RBC 20.3 /uL (0-23.9)
[2022-09-15] MEDS ORDERED: SODIUM CHLORIDE 1,000 ML IV SCH (01:45)
[2022-09-15] MEDS ORDERED: PIPERACILLIN/TAZOB 3.375 GM 3.375 GM in DEXTROSE 5%-WATER - 50 ML IVPB SCH (02:15)
[2022-09-15] MEDS ORDERED: LORazepam 1 MG TABLET PO PRN (02:17)
[2022-09-15] MEDS ORDERED: PIPERACILLIN/TAZOB 3.375 GM 3.375 GM/50 ML BAG IVPB ONE (03:09)
[2022-09-15] MEDS: SODIUM CHLORIDE 1,000 ML IV SCH ×3 (03:23→18:41)
[2022-09-15] MEDS: PIPERACILLIN/TAZOB 3.375 GM 3.375 GM in DEXTROSE 5%-WATER - 50 ML IVPB SCH ×3 (03:23→18:51)
[2022-09-15 05:52] LABS: PHENCYCLIDINE,URINE NEGATIVE (NEGATIVE); URINE BARBITURATES NEGATIVE (NEGATIVE)
[2022-09-15 05:53] LABS: METHADONE, UR NEGATIVE (NEGATIVE); URINE BENZODIAZEPINES NEGATIVE (NEGATIVE)
[2022-09-15] MEDS: INSULIN SLIDING SCALE (NOVOLOG) 1 VIAL SQ SCH ×4 (07:00→21:19)
[2022-09-15 07:20] LABS: COCAINE, UR POSITIVE (NEGATIVE); OPIATES, URI POSITIVE (NEGATIVE); URINE AMPHETAMINES NEGATIVE (NEGATIVE)
[2022-09-15 07:36] LABS: BASO % 0.4 % (0-2.0); HEMATOCRIT 33.4 % (35.4-49); LYMPH % 7.6 % (8-40); MCH 25.9 pg (25.7-33.7); MEAN CELL VOLUME 78.5 fl (80-96); MEAN PLT VOLUME 8.2 fl (7.5-11.1); MONO % 10.4 % (3.8-10.2); NEUT % 81.6 % (42.8-82.8); PLATELET COUNT 254 10^3/uL (134-434); RBC 4.26 M/mm3 (4.00-5.60); RDW 14.7 % (11.9-15.9); WHITE BLOOD COUNT 12.7 K/mm3 (4.0-10.0)
[2022-09-15 07:45] LABS: CALCIUM 8.1 mg/dL (8.5-10.1)
[2022-09-15 07:47] LABS: ALBUMIN 3.3 g/dl (3.4-5.0); BLOOD UREA NITROGEN 14.1 mg/dL (7-18); MAGNESIUM 2.3 mg/dL (1.8-2.4)
[2022-09-15 07:49] LABS: CREATININE 0.9 mg/dL (0.55-1.3); PHOSPHOROUS 2.8 mg/dL (2.5-4.9)
[2022-09-15 07:51] LABS: BILIRUBIN,TOTAL 0.4 mg/dL (0.2-1); TOT PROT 6.9 g/dl (6.4-8.2)
[2022-09-15 08:17] LABS: INR 1.13 (0.83-1.09)
[2022-09-15 08:19] LABS: ACTIVATED PTT 32.4 SECONDS (25.2-36.5)
[2022-09-15] MEDS: THIAMINE HCL 100 MG TABLET (FP) PO SCH (09:43)
[2022-09-15] MEDS: FOLIC ACID 1 MG TABLET (FP) PO SCH (09:43)
[2022-09-15] MEDS ORDERED: LIDOCAINE 5% TOPICAL PATCH TP ONE (22:49)
[2022-09-16] MEDS: PIPERACILLIN/TAZOB 3.375 GM 3.375 GM in DEXTROSE 5%-WATER - 50 ML IVPB SCH (01:04)
[2022-09-16] MEDS: SODIUM CHLORIDE 1,000 ML IV SCH ×2 (01:10→16:11)
[2022-09-16] MEDS: INSULIN SLIDING SCALE (NOVOLOG) 1 VIAL SQ SCH ×4 (06:08→22:09)
[2022-09-16] MEDS ORDERED: IBUPROFEN 200 MG TABLET PO ONE ×2 (06:08→13:00)
[2022-09-16] MEDS ORDERED: IBUPROFEN 400 MG TABLET (FP) PO ONE ×2 (07:30→15:15)
[2022-09-16] MEDS ORDERED: LIDOCAINE PATCH REMOVAL MC ONE (11:00)
[2022-09-16 11:34] LABS: HEMATOCRIT 36.2 % (35.4-49); HEMOGLOBIN 11.4 GM/dL (11.7-16.9); MCH 24.9 pg (25.7-33.7); MCHC 31.4 g/dl (32.0-35.9); MEAN CELL VOLUME 79.1 fl (80-96); MEAN PLT VOLUME 8.4 fl (7.5-11.1); PLATELET COUNT 259 10^3/uL (134-434); RBC 4.58 M/mm3 (4.00-5.60); RDW 14.7 % (11.9-15.9); WHITE BLOOD COUNT 15.4 K/mm3 (4.0-10.0)
[2022-09-16 11:51] LABS: CALCIUM 8.4 mg/dL (8.5-10.1)
[2022-09-16 11:52] LABS: BLOOD UREA NITROGEN 11.3 mg/dL (7-18)
[2022-09-16 11:54] LABS: CREATININE 1.1 mg/dL (0.55-1.3)
[2022-09-16 11:56] LABS: BILIRUBIN,TOTAL 0.6 mg/dL (0.2-1); TOT PROT 6.5 g/dl (6.4-8.2)
[2022-09-16] MEDS: FOLIC ACID 1 MG TABLET (FP) PO SCH (13:07)
[2022-09-16] MEDS: THIAMINE HCL 100 MG TABLET (FP) PO SCH (13:07)
[2022-09-16] MEDS: CEFEPIME 1 GM in DEXTROSE 5%-WATER 100 ML IVPB SCH ×2 (16:09→23:08)
[2022-09-16 18:07] LABS: EPI CELLS 6 /uL (0-25.1); HYALINE CASTS 1 /uL (0-3.1); URINE APPEARANCE CLEAR; URINE BACTERIA 3 /uL (0-1359); URINE BILIRUBIN NEGATIVE (NEGATIVE); URINE COLOR YELLOW; URINE GLUCOSE (UA) 1+ (NEGATIVE); URINE KETONE 3+ (NEGATIVE); URINE LEUK ESTERASE NEGATIVE (NEGATIVE); URINE NITRITE NEGATIVE (NEGATIVE); URINE PROTEIN 2+ (NEGATIVE); URINE RBC 23 /uL (0-23.9); URINE UROBILINOGEN 0.2 mg/dL (0.2-1.0); URINE WBC 8 /uL (0-25.8)
[2022-09-16] MEDS ORDERED: INSULIN (NOVOLOG) ASPART 100 UNITS/ML 10ML VIAL ONE (22:05)
[2022-09-17] MEDS: SODIUM CHLORIDE 1,000 ML IV SCH ×4 (00:11→17:29)
[2022-09-17] MEDS ORDERED: IBUPROFEN 200 MG TABLET PO ONE ×3 (01:20→10:49)
[2022-09-17] MEDS ORDERED: LIDOCAINE 5% TOPICAL PATCH TP ONE (01:21)
[2022-09-17] MEDS: CEFEPIME 1 GM in DEXTROSE 5%-WATER 100 ML IVPB SCH ×3 (06:59→22:58)
[2022-09-17] MEDS: INSULIN SLIDING SCALE (NOVOLOG) 1 VIAL SQ SCH ×4 (07:04→21:18)
[2022-09-17] MEDS: FOLIC ACID 1 MG TABLET (FP) PO SCH (09:28)
[2022-09-17] MEDS: THIAMINE HCL 100 MG TABLET (FP) PO SCH (09:28)
[2022-09-17 10:33] LABS: HEMATOCRIT 32.7 % (35.4-49); HEMOGLOBIN 10.7 GM/dL (11.7-16.9); MCH 25.9 pg (25.7-33.7); MCHC 32.7 g/dl (32.0-35.9); MEAN CELL VOLUME 79.1 fl (80-96); MEAN PLT VOLUME 8.2 fl (7.5-11.1); PLATELET COUNT 249 10^3/uL (134-434); RBC 4.13 M/mm3 (4.00-5.60); RDW 14.5 % (11.9-15.9); WHITE BLOOD COUNT 13.9 K/mm3 (4.0-10.0)
[2022-09-17 11:01] LABS: CHLORIDE 108 mmol/L (98-107); SODIUM 139 mmol/L (136-145)
[2022-09-17 11:06] LABS: CALCIUM 8.4 mg/dL (8.5-10.1)
[2022-09-17 11:07] LABS: ALBUMIN 2.6 g/dl (3.4-5.0); ANION GAP 9 MMOL/L (8-16); CO2 23 mmol/L (21-32); GLUCOSE,RANDOM 258 mg/dL (74-106)
[2022-09-17 11:10] LABS: SGOT/AST 523 U/L (15-37); SGPT/ALT 264 U/L (13-61)
[2022-09-17 11:12] LABS: ALK PHOS 89 U/L (45-117); BILIRUBIN,TOTAL 0.5 mg/dL (0.2-1); TOT PROT 6.2 g/dl (6.4-8.2)
[2022-09-17] MEDS ORDERED: IBUPROFEN 400 MG TABLET (FP) PO ONE (12:00)
[2022-09-17] MEDS ORDERED: INSULIN (NOVOLOG) ASPART 100 UNITS/ML 10ML VIAL ONE (12:06)
[2022-09-17] MEDS: INSULIN (LEVEMIR) 100 UNITS/ML UNITS SQ SCH (21:18)
[2022-09-17] MEDS: LIDOCAINE PATCH REMOVAL MC SCH (21:23)
[2022-09-17] MEDS ORDERED: CEFEPIME HCL 1 GM VIAL (RESTRICTED TO ID) ONE (22:54)
[2022-09-18] MEDS ORDERED: LORazepam 0.5 MG TABLET PO PRN
[2022-09-18] MEDS: SODIUM CHLORIDE 1,000 ML IV SCH (02:00)
[2022-09-18] MEDS: INSULIN SLIDING SCALE (NOVOLOG) 1 VIAL SQ SCH ×4 (06:01→22:16)
[2022-09-18] MEDS ORDERED: CEFEPIME HCL 1 GM VIAL (RESTRICTED TO ID) ONE (06:31)
[2022-09-18] MEDS: CEFEPIME 1 GM in DEXTROSE 5%-WATER 100 ML IVPB SCH ×2 (06:32→17:52)
[2022-09-18] MEDS ORDERED: SODIUM CHLORIDE 1,000 ML IV SCH ×2 (08:20→08:21)
[2022-09-18] MEDS: THIAMINE HCL 100 MG TABLET (FP) PO SCH (10:45)
[2022-09-18 10:54] LABS: HEMATOCRIT 30.2 % (35.4-49); HEMOGLOBIN 9.9 GM/dL (11.7-16.9); MCH 25.8 pg (25.7-33.7); MCHC 32.8 g/dl (32.0-35.9); MEAN CELL VOLUME 78.8 fl (80-96); MEAN PLT VOLUME 8.6 fl (7.5-11.1); PLATELET COUNT 254 10^3/uL (134-434); RBC 3.84 M/mm3 (4.00-5.60); RDW 14.5 % (11.9-15.9); WHITE BLOOD COUNT 11.7 K/mm3 (4.0-10.0)
[2022-09-18] MEDS: FOLIC ACID 1 MG TABLET (FP) PO SCH (11:00)
[2022-09-18 11:23] LABS: BLOOD UREA NITROGEN 7.3 mg/dL (7-18); CALCIUM 8.3 mg/dL (8.5-10.1)
[2022-09-18 11:24] LABS: ALBUMIN 2.4 g/dl (3.4-5.0); CREATININE 0.9 mg/dL (0.55-1.3)
[2022-09-18 11:26] LABS: TOT PROT 5.9 g/dl (6.4-8.2)
[2022-09-18 11:28] LABS: BILIRUBIN,TOTAL 0.5 mg/dL (0.2-1)
[2022-09-18] MEDS ORDERED: INSULIN (NOVOLOG) ASPART 100 UNITS/ML 10ML VIAL ONE (17:05)
[2022-09-18] MEDS: LIDOCAINE PATCH REMOVAL MC SCH (22:13)
[2022-09-18] MEDS: INSULIN (LEVEMIR) 100 UNITS/ML UNITS SQ SCH (22:16)
[2022-09-18] MEDS: CYCLOBENZAPRINE HCL 10 MG TABLET (FP) PO PRN (22:19)
[2022-09-19] MEDS: INSULIN SLIDING SCALE (NOVOLOG) 1 VIAL SQ SCH ×4 (06:31→21:38)
[2022-09-19] MEDS: CYCLOBENZAPRINE HCL 10 MG TABLET (FP) PO PRN (06:31)
[2022-09-19] MEDS: THIAMINE HCL 100 MG TABLET (FP) PO SCH (09:16)
[2022-09-19] MEDS: FOLIC ACID 1 MG TABLET (FP) PO SCH (09:16)
[2022-09-19] MEDS: LIDOCAINE 5% TOPICAL PATCH TP SCH (09:16)
[2022-09-19 10:28] LABS: HEMOGLOBIN 10.2 GM/dL (11.7-16.9); MCH 25.2 pg (25.7-33.7); MCHC 31.9 g/dl (32.0-35.9); MEAN PLT VOLUME 8.7 fl (7.5-11.1); PLATELET COUNT 296 10^3/uL (134-434); RBC 4.05 M/mm3 (4.00-5.60); RDW 14.4 % (11.9-15.9); WHITE BLOOD COUNT 10.7 K/mm3 (4.0-10.0)
[2022-09-19 10:54] LABS: BLOOD UREA NITROGEN 7.5 mg/dL (7-18)
[2022-09-19 10:57] LABS: ALBUMIN 2.4 g/dl (3.4-5.0); CALCIUM 8.8 mg/dL (8.5-10.1)
[2022-09-19 10:59] LABS: CREATININE 0.8 mg/dL (0.55-1.3)
[2022-09-19 11:00] LABS: BILIRUBIN,TOTAL 0.4 mg/dL (0.2-1); TOT PROT 6.3 g/dl (6.4-8.2)
[2022-09-19] MEDS ORDERED: INSULIN (NOVOLOG) ASPART 100 UNITS/ML 10ML VIAL ONE (11:08)
[2022-09-19] MEDS ORDERED: KETOROLAC TROMETHAMINE 15 MG/ML VIAL IVPUSH ONE (17:28)
[2022-09-19] MEDS ORDERED: IBUPROFEN 600 MG TABLET (FP) PO PRN (17:38)
[2022-09-19] MEDS ORDERED: KETOROLAC TROMETHAMINE 15 MG/ML VIAL IM ONE (17:44)
[2022-09-19] MEDS: INSULIN (LEVEMIR) 100 UNITS/ML UNITS SQ SCH (21:34)
[2022-09-19] MEDS: LIDOCAINE PATCH REMOVAL MC SCH (21:36)
[2022-09-19] MEDS ORDERED: LIDOCAINE PATCH REMOVAL MC SCH (22:00)
[2022-09-20] MEDS: INSULIN SLIDING SCALE (NOVOLOG) 1 VIAL SQ SCH ×2 (06:36→11:44)
[2022-09-20] MEDS: FOLIC ACID 1 MG TABLET (FP) PO SCH (09:31)
[2022-09-20] MEDS: THIAMINE HCL 100 MG TABLET (FP) PO SCH (09:31)
[2022-09-20] MEDS: LIDOCAINE 5% TOPICAL PATCH TP SCH (09:31)
[2022-09-20] MEDS ORDERED: predniSONE 20 MG TABLET (UD) PO SCH (10:00)
[2022-09-20 10:32] LABS: BASO % 0.7 % (0-2.0); HEMATOCRIT 31.2 % (35.4-49); HEMOGLOBIN 9.9 GM/dL (11.7-16.9); LYMPH % 17.2 % (8-40); MCH 25.2 pg (25.7-33.7); MCHC 31.9 g/dl (32.0-35.9); MEAN CELL VOLUME 79.1 fl (80-96); MEAN PLT VOLUME 8.6 fl (7.5-11.1); MONO % 10.1 % (3.8-10.2); PLATELET COUNT 322 10^3/uL (134-434); RBC 3.94 M/mm3 (4.00-5.60); RDW 14.4 % (11.9-15.9); WHITE BLOOD COUNT 10.2 K/mm3 (4.0-10.0)
[2022-09-20 10:55] LABS: CALCIUM 8.4 mg/dL (8.5-10.1)
[2022-09-20 10:56] LABS: ALBUMIN 2.4 g/dl (3.4-5.0); BLOOD UREA NITROGEN 10.2 mg/dL (7-18)
[2022-09-20 11:00] LABS: BILIRUBIN,TOTAL 0.2 mg/dL (0.2-1); CREATININE 0.8 mg/dL (0.55-1.3); TOT PROT 6.2 g/dl (6.4-8.2)
[2022-09-20 16:45] VITALS: BP 126/86; PULSE 98; RESP 18; TEMP 97.8; BMI 36.2
== END 2022-09-20 06:30 | disposition home or self-care (01) | DRG 351 ==
LOC: JER 18:14 → JERBED 23:01 → J6S 09-15 06:40
PROVIDERS: ADMIT Internal Medicine; ATTEND Internal Medicine
DX: M60.9 Myositis, unspecified (principal); M62.82 Rhabdomyolysis; I10 Essential (primary) hypertension; Z79.4 Long term (current) use of insulin; F32.A Depression, unspecified; E66.9 Obesity, unspecified; F14.10 Cocaine abuse, uncomplicated; F10.10 Alcohol abuse, uncomplicated; Z68.36 Body mass index [BMI] 36.0-36.9, adult; E87.1 Hypo-osmolality and hyponatremia; F17.210 Nicotine dependence, cigarettes, uncomplicated; R79.89 Other specified abnormal findings of blood chemistry; E11.65 Type 2 diabetes mellitus with hyperglycemia; R74.01 Elevation of levels of liver transaminase levels
CPT/HCPCS: 36415; 71045-TC-FY; 72157-TC; 72158-TC; 74176-TC; 76604; 76705-TC; 80053; 80307; 81003; 82550; 82553; 82962; 83605; 83690; 83735; 83874; 84100; 84443; 85025; 85027; 85610; 85730; 86038; 86431; 86704; 86705; 86709; 86803; 87040; 87086; 87340; 87517; 93005; 93010; 99285-25; C9803-CS; U0003; U0005

== ENCOUNTER 2022-09-20 15:22 | Inpatient (IN) | payer OTHER ==
[2022-09-20] MEDS ORDERED: guaiFENesin 200 MG/10 ML 10 ML UNIT-DOSE CUPS PO PRN (17:55)
[2022-09-20] MEDS ORDERED: NICOTINE 10 MG CARTRIDGE (INHALER) IH PRN (17:55)
[2022-09-20] MEDS ORDERED: IBUPROFEN 400 MG TABLET (FP) PO PRN (17:55)
[2022-09-20] MEDS ORDERED: LOPERAMIDE HCL 2 MG CAPSULE PO PRN (17:55)
[2022-09-20] MEDS ORDERED: MAG HYDROX/AL HYDROX/SIMETH 30 ML UNIT-DOSE CUP PO PRN (17:55)
[2022-09-20] MEDS ORDERED: MAGNESIUM CITRATE 300 ML BOTTLE PO PRN (17:55)
[2022-09-20] MEDS ORDERED: ACETAMINOPHEN 325 MG TABLET (FP) PO PRN (17:55)
[2022-09-20] MEDS ORDERED: P-EPHED 60MG/TRIPROLIDI 2.5MG TABLET PO PRN (17:55)
[2022-09-20] MEDS ORDERED: MAGNESIUM HYDROX 2400MG/30ML ORAL SUSPENSION 30 ML CUP PO PRN (17:55)
[2022-09-20 19:10] VITALS: BMI 36.2
[2022-09-20] MEDS ORDERED: TUBERCULIN PPD 5 TU/0.1ML VIAL ID ONE (21:04)
[2022-09-20] MEDS: LIDOCAINE PATCH REMOVAL MC SCH (22:41)
[2022-09-20] MEDS: MELATONIN 5 MG TABLETS PO SCH (22:46)
[2022-09-20] MEDS: THIAMINE HCL 100 MG TABLET (FP) PO SCH (22:46)
[2022-09-20] MEDS: INSULIN (LEVEMIR) 100 UNITS/ML UNITS SQ SCH (22:48)
[2022-09-21] MEDS: glipiZIDE 5 MG TABLET (FP) PO SCH (07:12)
[2022-09-21] MEDS: metFORMIN HCL 500 MG TABLET (FP) PO SCH ×2 (07:12→17:03)
[2022-09-21] MEDS: PRENATAL VITAMINS W/ FOLIC ACID TABLET (FP) PO SCH (09:34)
[2022-09-21] MEDS: LIDOCAINE 5% TOPICAL PATCH TP SCH (09:35)
[2022-09-21] MEDS: predniSONE 20 MG TABLET (UD) PO SCH (09:36)
[2022-09-21] MEDS ORDERED: NICOTINE 7 MG/24 HOURS TOPICAL PATCH TD SCH (10:00)
[2022-09-21 11:11] LABS: HEMATOCRIT 31.4 % (35.4-49); MCH 25.1 pg (25.7-33.7); MCHC 31.7 g/dl (32.0-35.9); MEAN CELL VOLUME 79.1 fl (80-96); PLATELET COUNT 359 10^3/uL (134-434); RBC 3.97 M/mm3 (4.00-5.60); RDW 14.4 % (11.9-15.9); WHITE BLOOD COUNT 12.8 K/mm3 (4.0-10.0)
[2022-09-21 11:16] LABS: CALCIUM 8.3 mg/dL (8.5-10.1)
[2022-09-21 11:17] LABS: ALBUMIN 2.7 g/dl (3.4-5.0)
[2022-09-21 11:20] LABS: CREATININE 0.9 mg/dL (0.55-1.3)
[2022-09-21 11:22] LABS: BILIRUBIN,TOTAL 0.1 mg/dL (0.2-1); TOT PROT 6.7 g/dl (6.4-8.2)
[2022-09-21] MEDS: NICOTINE POLACRILEX 2 MG GUM BUC PRN ×2 (17:13→21:27)
[2022-09-21] MEDS: INSULIN (LEVEMIR) 100 UNITS/ML UNITS SQ SCH (21:26)
[2022-09-21] MEDS: THIAMINE HCL 100 MG TABLET (FP) PO SCH (21:26)
[2022-09-21] MEDS: MELATONIN 5 MG TABLETS PO SCH (21:26)
[2022-09-21] MEDS: LIDOCAINE PATCH REMOVAL MC SCH (22:23)
[2022-09-22] MEDS: glipiZIDE 5 MG TABLET (FP) PO SCH (06:21)
[2022-09-22] MEDS: metFORMIN HCL 500 MG TABLET (FP) PO SCH ×2 (06:21→17:20)
[2022-09-22] MEDS: PRENATAL VITAMINS W/ FOLIC ACID TABLET (FP) PO SCH (09:51)
[2022-09-22] MEDS: LIDOCAINE 5% TOPICAL PATCH TP SCH (09:51)
[2022-09-22] MEDS: predniSONE 20 MG TABLET (UD) PO SCH (09:52)
[2022-09-22] MEDS: NICOTINE POLACRILEX 2 MG GUM BUC PRN (09:53)
[2022-09-22] MEDS: MELATONIN 5 MG TABLETS PO SCH (21:36)
[2022-09-22] MEDS: THIAMINE HCL 100 MG TABLET (FP) PO SCH (21:36)
[2022-09-22] MEDS: INSULIN (LEVEMIR) 100 UNITS/ML UNITS SQ SCH (23:07)
[2022-09-22] MEDS: LIDOCAINE PATCH REMOVAL MC SCH (23:08)
[2022-09-23] MEDS: metFORMIN HCL 500 MG TABLET (FP) PO SCH ×2 (06:42→16:59)
[2022-09-23] MEDS: glipiZIDE 5 MG TABLET (FP) PO SCH (06:42)
[2022-09-23] MEDS: LIDOCAINE 5% TOPICAL PATCH TP SCH (09:56)
[2022-09-23] MEDS: PRENATAL VITAMINS W/ FOLIC ACID TABLET (FP) PO SCH (09:56)
[2022-09-23] MEDS: predniSONE 20 MG TABLET (UD) PO SCH (09:56)
[2022-09-23] MEDS: NICOTINE POLACRILEX 2 MG GUM BUC PRN (09:57)
[2022-09-23 15:46] LABS: EPI CELLS 6 /uL (0-25.1); HYALINE CASTS 1 /uL (0-3.1); URINE APPEARANCE CLEAR; URINE BACTERIA 2 /uL (0-1359); URINE BILIRUBIN NEGATIVE (NEGATIVE); URINE COLOR YELLOW; URINE GLUCOSE (UA) NEGATIVE (NEGATIVE); URINE KETONE NEGATIVE (NEGATIVE); URINE LEUK ESTERASE NEGATIVE (NEGATIVE); URINE NITRITE NEGATIVE (NEGATIVE); URINE PROTEIN 1+ (NEGATIVE); URINE RBC 12 /uL (0-23.9); URINE UROBILINOGEN 0.2 mg/dL (0.2-1.0); URINE WBC 13 /uL (0-25.8)
[2022-09-23] MEDS: MELATONIN 5 MG TABLETS PO SCH (21:38)
[2022-09-23] MEDS: THIAMINE HCL 100 MG TABLET (FP) PO SCH (21:38)
[2022-09-23] MEDS: INSULIN (LEVEMIR) 100 UNITS/ML UNITS SQ SCH (21:38)
[2022-09-23] MEDS: LIDOCAINE PATCH REMOVAL MC SCH (21:39)
[2022-09-24] MEDS: metFORMIN HCL 500 MG TABLET (FP) PO SCH ×2 (06:12→17:10)
[2022-09-24] MEDS: glipiZIDE 5 MG TABLET (FP) PO SCH (06:12)
[2022-09-24] MEDS: NICOTINE POLACRILEX 2 MG GUM BUC PRN ×2 (06:13→10:08)
[2022-09-24] MEDS: LIDOCAINE 5% TOPICAL PATCH TP SCH (10:07)
[2022-09-24] MEDS: PRENATAL VITAMINS W/ FOLIC ACID TABLET (FP) PO SCH (10:07)
[2022-09-24] MEDS: predniSONE 20 MG TABLET (UD) PO SCH (10:08)
[2022-09-24 10:57] LABS: BASO % 0.5 % (0-2.0); EOS % 1.6 % (0-4.5); HEMATOCRIT 31.8 % (35.4-49); HEMOGLOBIN 10.3 GM/dL (11.7-16.9); LYMPH % 26.1 % (8-40); MCH 25.5 pg (25.7-33.7); MCHC 32.3 g/dl (32.0-35.9); MEAN CELL VOLUME 78.9 fl (80-96); MEAN PLT VOLUME 8.3 fl (7.5-11.1); MONO % 8.4 % (3.8-10.2); NEUT % 63.4 % (42.8-82.8); PLATELET COUNT 467 10^3/uL (134-434); RBC 4.02 M/mm3 (4.00-5.60); RDW 14.8 % (11.9-15.9); WHITE BLOOD COUNT 15.4 K/mm3 (4.0-10.0)
[2022-09-24] MEDS: MELATONIN 5 MG TABLETS PO SCH (21:36)
[2022-09-24] MEDS: THIAMINE HCL 100 MG TABLET (FP) PO SCH (21:36)
[2022-09-24] MEDS: LIDOCAINE PATCH REMOVAL MC SCH (21:37)
[2022-09-24] MEDS: INSULIN (LEVEMIR) 100 UNITS/ML UNITS SQ SCH (21:39)
[2022-09-25] MEDS: metFORMIN HCL 500 MG TABLET (FP) PO SCH ×2 (07:01→16:48)
[2022-09-25] MEDS: glipiZIDE 5 MG TABLET (FP) PO SCH (07:01)
[2022-09-25] MEDS: PRENATAL VITAMINS W/ FOLIC ACID TABLET (FP) PO SCH (10:00)
[2022-09-25] MEDS: predniSONE 20 MG TABLET (UD) PO SCH (10:01)
[2022-09-25] MEDS: LIDOCAINE 5% TOPICAL PATCH TP SCH (10:01)
[2022-09-25] MEDS ORDERED: LACTULOSE 20 GM/30 ML UDC (FOR ORAL USE ONLY) PO PRN (14:00)
[2022-09-25] MEDS: THIAMINE HCL 100 MG TABLET (FP) PO SCH (21:26)
[2022-09-25] MEDS: MELATONIN 5 MG TABLETS PO SCH (21:26)
[2022-09-25] MEDS: LACTULOSE 20 GM/30 ML UDC (FOR ORAL USE ONLY) PO SCH (21:26)
[2022-09-25] MEDS: LIDOCAINE PATCH REMOVAL MC SCH (21:26)
[2022-09-25] MEDS: INSULIN (LEVEMIR) 100 UNITS/ML UNITS SQ SCH (21:26)
[2022-09-25] MEDS: NICOTINE POLACRILEX 2 MG GUM BUC PRN (21:27)
[2022-09-26] MEDS: LACTULOSE 20 GM/30 ML UDC (FOR ORAL USE ONLY) PO SCH ×3 (06:46→21:44)
[2022-09-26] MEDS: glipiZIDE 5 MG TABLET (FP) PO SCH (06:46)
[2022-09-26] MEDS: metFORMIN HCL 500 MG TABLET (FP) PO SCH ×2 (06:46→17:03)
[2022-09-26] MEDS: predniSONE 20 MG TABLET (UD) PO SCH (10:05)
[2022-09-26] MEDS: PRENATAL VITAMINS W/ FOLIC ACID TABLET (FP) PO SCH (10:05)
[2022-09-26] MEDS: NICOTINE POLACRILEX 2 MG GUM BUC PRN ×2 (10:06→21:46)
[2022-09-26] MEDS: LIDOCAINE 5% TOPICAL PATCH TP SCH (10:06)
[2022-09-26] MEDS: INSULIN (LEVEMIR) 100 UNITS/ML UNITS SQ SCH (21:43)
[2022-09-26] MEDS: MELATONIN 5 MG TABLETS PO SCH (21:44)
[2022-09-26] MEDS: THIAMINE HCL 100 MG TABLET (FP) PO SCH (21:44)
[2022-09-26] MEDS: LIDOCAINE PATCH REMOVAL MC SCH (21:45)
[2022-09-27] MEDS: metFORMIN HCL 500 MG TABLET (FP) PO SCH ×2 (06:15→16:12)
[2022-09-27] MEDS: glipiZIDE 5 MG TABLET (FP) PO SCH (06:15)
[2022-09-27] MEDS: LACTULOSE 20 GM/30 ML UDC (FOR ORAL USE ONLY) PO SCH ×3 (06:15→21:32)
[2022-09-27] MEDS: INSULIN SLIDING SCALE (NOVOLOG) 1 VIAL SQ SCH ×2 (06:16→16:12)
[2022-09-27] MEDS: FERROUS SO4 325 MG TABLET (FP) PO SCH (10:04)
[2022-09-27] MEDS: predniSONE 20 MG TABLET (UD) PO SCH (10:04)
[2022-09-27] MEDS: PRENATAL VITAMINS W/ FOLIC ACID TABLET (FP) PO SCH (10:04)
[2022-09-27] MEDS: LIDOCAINE 5% TOPICAL PATCH TP SCH (10:04)
[2022-09-27] MEDS: NICOTINE POLACRILEX 2 MG GUM BUC PRN ×2 (10:05→21:33)
[2022-09-27] MEDS ORDERED: INSULIN (NOVOLOG) ASPART 100 UNITS/ML 10ML VIAL ONE (16:07)
[2022-09-27] MEDS: THIAMINE HCL 100 MG TABLET (FP) PO SCH (21:32)
[2022-09-27] MEDS: MELATONIN 5 MG TABLETS PO SCH (21:32)
[2022-09-27] MEDS: LIDOCAINE PATCH REMOVAL MC SCH (22:00)
[2022-09-27] MEDS: INSULIN (LEVEMIR) 100 UNITS/ML UNITS SQ SCH (22:00)
[2022-09-28] MEDS: glipiZIDE 5 MG TABLET (FP) PO SCH (06:35)
[2022-09-28] MEDS: metFORMIN HCL 500 MG TABLET (FP) PO SCH ×2 (06:35→17:09)
[2022-09-28] MEDS: LACTULOSE 20 GM/30 ML UDC (FOR ORAL USE ONLY) PO SCH ×3 (06:35→21:31)
[2022-09-28] MEDS: INSULIN SLIDING SCALE (NOVOLOG) 1 VIAL SQ SCH ×2 (07:46→17:09)
[2022-09-28] MEDS: LIDOCAINE 5% TOPICAL PATCH TP SCH (09:54)
[2022-09-28] MEDS: FERROUS SO4 325 MG TABLET (FP) PO SCH (09:54)
[2022-09-28] MEDS: PRENATAL VITAMINS W/ FOLIC ACID TABLET (FP) PO SCH (09:54)
[2022-09-28] MEDS: NICOTINE POLACRILEX 2 MG GUM BUC PRN ×3 (09:55→18:36)
[2022-09-28] MEDS: THIAMINE HCL 100 MG TABLET (FP) PO SCH (21:31)
[2022-09-28] MEDS: LIDOCAINE PATCH REMOVAL MC SCH (21:31)
[2022-09-28] MEDS: INSULIN (LEVEMIR) 100 UNITS/ML UNITS SQ SCH (21:31)
[2022-09-28] MEDS: MELATONIN 5 MG TABLETS PO SCH (21:31)
[2022-09-29 05:53] VITALS: RESP 18
[2022-09-29] MEDS: metFORMIN HCL 500 MG TABLET (FP) PO SCH ×2 (06:06→16:52)
[2022-09-29] MEDS: NICOTINE POLACRILEX 2 MG GUM BUC PRN (06:07)
[2022-09-29] MEDS: LACTULOSE 20 GM/30 ML UDC (FOR ORAL USE ONLY) PO SCH ×3 (06:07→21:23)
[2022-09-29] MEDS: INSULIN SLIDING SCALE (NOVOLOG) 1 VIAL SQ SCH ×2 (07:27→16:53)
[2022-09-29] MEDS: glipiZIDE 5 MG TABLET (FP) PO SCH (07:50)
[2022-09-29] MEDS: PRENATAL VITAMINS W/ FOLIC ACID TABLET (FP) PO SCH (10:00)
[2022-09-29] MEDS: LIDOCAINE 5% TOPICAL PATCH TP SCH (10:00)
[2022-09-29] MEDS: FERROUS SO4 325 MG TABLET (FP) PO SCH (10:00)
[2022-09-29] MEDS: THIAMINE HCL 100 MG TABLET (FP) PO SCH (21:23)
[2022-09-29] MEDS: MELATONIN 5 MG TABLETS PO SCH (21:23)
[2022-09-29] MEDS: INSULIN (LEVEMIR) 100 UNITS/ML UNITS SQ SCH (21:23)
[2022-09-29] MEDS: LIDOCAINE PATCH REMOVAL MC SCH (21:24)
[2022-09-30] MEDS: metFORMIN HCL 500 MG TABLET (FP) PO SCH ×2 (07:09→16:36)
[2022-09-30] MEDS: glipiZIDE 5 MG TABLET (FP) PO SCH (07:09)
[2022-09-30] MEDS: INSULIN SLIDING SCALE (NOVOLOG) 1 VIAL SQ SCH ×2 (07:11→16:38)
[2022-09-30] MEDS ORDERED: INSULIN (NOVOLOG) ASPART 100 UNITS/ML 10ML VIAL ONE (07:19)
[2022-09-30] MEDS: PRENATAL VITAMINS W/ FOLIC ACID TABLET (FP) PO SCH (10:05)
[2022-09-30] MEDS: NICOTINE POLACRILEX 2 MG GUM BUC PRN ×3 (10:06→21:32)
[2022-09-30] MEDS: LIDOCAINE 5% TOPICAL PATCH TP SCH (10:06)
[2022-09-30] MEDS: FERROUS SO4 325 MG TABLET (FP) PO SCH (10:06)
[2022-09-30] MEDS: LACTULOSE 20 GM/30 ML UDC (FOR ORAL USE ONLY) PO SCH ×2 (14:51→22:21)
[2022-09-30] MEDS: INSULIN (LEVEMIR) 100 UNITS/ML UNITS SQ SCH (21:33)
[2022-09-30] MEDS: LIDOCAINE PATCH REMOVAL MC SCH (21:38)
[2022-09-30] MEDS: MELATONIN 5 MG TABLETS PO SCH (21:39)
[2022-09-30] MEDS: THIAMINE HCL 100 MG TABLET (FP) PO SCH (21:39)
[2022-10-01] MEDS: LACTULOSE 20 GM/30 ML UDC (FOR ORAL USE ONLY) PO SCH ×2 (01:12→06:42)
[2022-10-01] MEDS: INSULIN SLIDING SCALE (NOVOLOG) 1 VIAL SQ SCH ×2 (06:43→16:42)
[2022-10-01] MEDS: glipiZIDE 5 MG TABLET (FP) PO SCH (06:43)
[2022-10-01] MEDS: metFORMIN HCL 500 MG TABLET (FP) PO SCH ×2 (06:43→16:42)
[2022-10-01] MEDS: LIDOCAINE 5% TOPICAL PATCH TP SCH (09:56)
[2022-10-01] MEDS: PRENATAL VITAMINS W/ FOLIC ACID TABLET (FP) PO SCH (09:56)
[2022-10-01] MEDS: FERROUS SO4 325 MG TABLET (FP) PO SCH (09:56)
[2022-10-01] MEDS: NICOTINE POLACRILEX 2 MG GUM BUC PRN (09:56)
[2022-10-01] MEDS: LIDOCAINE PATCH REMOVAL MC SCH (21:11)
[2022-10-01] MEDS: INSULIN (LEVEMIR) 100 UNITS/ML UNITS SQ SCH (21:11)
[2022-10-01] MEDS: MELATONIN 5 MG TABLETS PO SCH (21:11)
[2022-10-01] MEDS: THIAMINE HCL 100 MG TABLET (FP) PO SCH (21:11)
[2022-10-02] MEDS: glipiZIDE 5 MG TABLET (FP) PO SCH (06:11)
[2022-10-02] MEDS: metFORMIN HCL 500 MG TABLET (FP) PO SCH ×2 (06:11→16:52)
[2022-10-02] MEDS: INSULIN SLIDING SCALE (NOVOLOG) 1 VIAL SQ SCH ×2 (07:21→16:52)
[2022-10-02] MEDS: PRENATAL VITAMINS W/ FOLIC ACID TABLET (FP) PO SCH (09:54)
[2022-10-02] MEDS: LIDOCAINE 5% TOPICAL PATCH TP SCH (09:54)
[2022-10-02] MEDS: FERROUS SO4 325 MG TABLET (FP) PO SCH (09:55)
[2022-10-02] MEDS: NICOTINE POLACRILEX 2 MG GUM BUC PRN ×2 (09:56→21:30)
[2022-10-02] MEDS: INSULIN (LEVEMIR) 100 UNITS/ML UNITS SQ SCH (21:28)
[2022-10-02] MEDS: THIAMINE HCL 100 MG TABLET (FP) PO SCH (21:29)
[2022-10-02] MEDS: LIDOCAINE PATCH REMOVAL MC SCH (21:29)
[2022-10-02] MEDS: MELATONIN 5 MG TABLETS PO SCH (21:29)
[2022-10-03] MEDS: metFORMIN HCL 500 MG TABLET (FP) PO SCH ×2 (06:07→16:35)
[2022-10-03] MEDS: glipiZIDE 5 MG TABLET (FP) PO SCH (06:07)
[2022-10-03] MEDS: INSULIN SLIDING SCALE (NOVOLOG) 1 VIAL SQ SCH ×2 (07:05→16:34)
[2022-10-03] MEDS: FERROUS SO4 325 MG TABLET (FP) PO SCH (09:44)
[2022-10-03] MEDS: PRENATAL VITAMINS W/ FOLIC ACID TABLET (FP) PO SCH (09:44)
[2022-10-03] MEDS: LIDOCAINE 5% TOPICAL PATCH TP SCH (09:44)
[2022-10-03] MEDS: NICOTINE POLACRILEX 2 MG GUM BUC PRN ×2 (09:45→20:51)
[2022-10-03] MEDS: MELATONIN 5 MG TABLETS PO SCH (21:17)
[2022-10-03] MEDS: THIAMINE HCL 100 MG TABLET (FP) PO SCH (21:17)
[2022-10-03] MEDS: LIDOCAINE PATCH REMOVAL MC SCH (21:18)
[2022-10-03] MEDS: INSULIN (LEVEMIR) 100 UNITS/ML UNITS SQ SCH (21:18)
[2022-10-04] MEDS: glipiZIDE 5 MG TABLET (FP) PO SCH (06:30)
[2022-10-04] MEDS: metFORMIN HCL 500 MG TABLET (FP) PO SCH ×2 (06:30→16:40)
[2022-10-04] MEDS: INSULIN SLIDING SCALE (NOVOLOG) 1 VIAL SQ SCH ×2 (07:21→16:40)
[2022-10-04] MEDS: NICOTINE POLACRILEX 2 MG GUM BUC PRN ×3 (08:56→21:16)
[2022-10-04] MEDS: LIDOCAINE 5% TOPICAL PATCH TP SCH (09:50)
[2022-10-04] MEDS: PRENATAL VITAMINS W/ FOLIC ACID TABLET (FP) PO SCH (09:50)
[2022-10-04] MEDS: FERROUS SO4 325 MG TABLET (FP) PO SCH (09:50)
[2022-10-04] MEDS: INSULIN (LEVEMIR) 100 UNITS/ML UNITS SQ SCH (21:13)
[2022-10-04] MEDS: THIAMINE HCL 100 MG TABLET (FP) PO SCH (21:13)
[2022-10-04] MEDS: MELATONIN 5 MG TABLETS PO SCH (21:13)
[2022-10-04] MEDS: LIDOCAINE PATCH REMOVAL MC SCH (21:15)
[2022-10-05] MEDS: glipiZIDE 5 MG TABLET (FP) PO SCH (06:28)
[2022-10-05] MEDS: metFORMIN HCL 500 MG TABLET (FP) PO SCH ×2 (06:28→16:22)
[2022-10-05] MEDS ORDERED: INSULIN (NOVOLOG) ASPART 100 UNITS/ML 10ML VIAL ONE (06:50)
[2022-10-05] MEDS: INSULIN SLIDING SCALE (NOVOLOG) 1 VIAL SQ SCH ×2 (07:11→16:21)
[2022-10-05] MEDS: FERROUS SO4 325 MG TABLET (FP) PO SCH (09:36)
[2022-10-05] MEDS: PRENATAL VITAMINS W/ FOLIC ACID TABLET (FP) PO SCH (09:36)
[2022-10-05] MEDS: LIDOCAINE 5% TOPICAL PATCH TP SCH (09:36)
[2022-10-05] MEDS: NICOTINE POLACRILEX 2 MG GUM BUC PRN ×2 (16:22→21:14)
[2022-10-05] MEDS: INSULIN (LEVEMIR) 100 UNITS/ML UNITS SQ SCH (21:12)
[2022-10-05] MEDS: LIDOCAINE PATCH REMOVAL MC SCH (21:13)
[2022-10-05] MEDS: THIAMINE HCL 100 MG TABLET (FP) PO SCH (21:13)
[2022-10-05] MEDS: MELATONIN 5 MG TABLETS PO SCH (21:13)
[2022-10-06] MEDS: metFORMIN HCL 500 MG TABLET (FP) PO SCH ×2 (06:21→16:25)
[2022-10-06] MEDS: glipiZIDE 5 MG TABLET (FP) PO SCH (06:21)
[2022-10-06] MEDS: INSULIN SLIDING SCALE (NOVOLOG) 1 VIAL SQ SCH ×2 (07:19→16:24)
[2022-10-06] MEDS: FERROUS SO4 325 MG TABLET (FP) PO SCH (09:27)
[2022-10-06] MEDS: PRENATAL VITAMINS W/ FOLIC ACID TABLET (FP) PO SCH (09:27)
[2022-10-06] MEDS: NICOTINE POLACRILEX 2 MG GUM BUC PRN ×3 (09:28→21:27)
[2022-10-06] MEDS: LIDOCAINE 5% TOPICAL PATCH TP SCH (11:13)
[2022-10-06] MEDS ORDERED: INSULIN (NOVOLOG) ASPART 100 UNITS/ML 10ML VIAL ONE (16:21)
[2022-10-06] MEDS: MELATONIN 5 MG TABLETS PO SCH (21:24)
[2022-10-06] MEDS: THIAMINE HCL 100 MG TABLET (FP) PO SCH (21:24)
[2022-10-06] MEDS: LIDOCAINE PATCH REMOVAL MC SCH (21:24)
[2022-10-06] MEDS: INSULIN (LEVEMIR) 100 UNITS/ML UNITS SQ SCH (21:26)
[2022-10-07] MEDS ORDERED: INSULIN (NOVOLOG) ASPART 100 UNITS/ML 10ML VIAL ONE ×2 (04:11→16:28)
[2022-10-07] MEDS: metFORMIN HCL 500 MG TABLET (FP) PO SCH ×2 (06:47→16:49)
[2022-10-07] MEDS: glipiZIDE 5 MG TABLET (FP) PO SCH (06:48)
[2022-10-07] MEDS: INSULIN SLIDING SCALE (NOVOLOG) 1 VIAL SQ SCH ×2 (06:48→16:48)
[2022-10-07] MEDS: NICOTINE POLACRILEX 2 MG GUM BUC PRN ×4 (09:27→21:16)
[2022-10-07] MEDS: PRENATAL VITAMINS W/ FOLIC ACID TABLET (FP) PO SCH (09:27)
[2022-10-07] MEDS: LIDOCAINE 5% TOPICAL PATCH TP SCH (09:27)
[2022-10-07] MEDS: FERROUS SO4 325 MG TABLET (FP) PO SCH (09:27)
[2022-10-07] MEDS: THIAMINE HCL 100 MG TABLET (FP) PO SCH (21:15)
[2022-10-07] MEDS: INSULIN (LEVEMIR) 100 UNITS/ML UNITS SQ SCH (21:15)
[2022-10-07] MEDS: MELATONIN 5 MG TABLETS PO SCH (21:15)
[2022-10-07] MEDS: LIDOCAINE PATCH REMOVAL MC SCH (21:15)
[2022-10-08] MEDS: metFORMIN HCL 500 MG TABLET (FP) PO SCH ×2 (06:58→16:52)
[2022-10-08] MEDS: glipiZIDE 5 MG TABLET (FP) PO SCH (06:59)
[2022-10-08] MEDS: INSULIN SLIDING SCALE (NOVOLOG) 1 VIAL SQ SCH ×2 (06:59→16:54)
[2022-10-08] MEDS ORDERED: INSULIN (NOVOLOG) ASPART 100 UNITS/ML 10ML VIAL ONE ×2 (08:33→16:30)
[2022-10-08] MEDS: LIDOCAINE 5% TOPICAL PATCH TP SCH (09:38)
[2022-10-08] MEDS: PRENATAL VITAMINS W/ FOLIC ACID TABLET (FP) PO SCH (09:38)
[2022-10-08] MEDS: NICOTINE POLACRILEX 2 MG GUM BUC PRN ×3 (09:39→21:18)
[2022-10-08] MEDS: FERROUS SO4 325 MG TABLET (FP) PO SCH (09:39)
[2022-10-08] MEDS ORDERED: LIDOCAINE 5% TOPICAL PATCH TP PRN (16:05)
[2022-10-08] MEDS: THIAMINE HCL 100 MG TABLET (FP) PO SCH (21:17)
[2022-10-08] MEDS: INSULIN (LEVEMIR) 100 UNITS/ML UNITS SQ SCH (21:17)
[2022-10-08] MEDS: MELATONIN 5 MG TABLETS PO SCH (21:17)
[2022-10-08] MEDS: LIDOCAINE PATCH REMOVAL MC SCH (21:18)
[2022-10-09] MEDS: metFORMIN HCL 500 MG TABLET (FP) PO SCH ×2 (06:35→16:30)
[2022-10-09] MEDS: glipiZIDE 5 MG TABLET (FP) PO SCH (06:35)
[2022-10-09] MEDS ORDERED: INSULIN (NOVOLOG) ASPART 100 UNITS/ML 10ML VIAL ONE ×2 (06:37→16:25)
[2022-10-09] MEDS: INSULIN SLIDING SCALE (NOVOLOG) 1 VIAL SQ SCH ×2 (07:21→16:29)
[2022-10-09] MEDS: PRENATAL VITAMINS W/ FOLIC ACID TABLET (FP) PO SCH (09:42)
[2022-10-09] MEDS: FERROUS SO4 325 MG TABLET (FP) PO SCH (09:42)
[2022-10-09] MEDS: NICOTINE POLACRILEX 2 MG GUM BUC PRN ×3 (09:43→18:18)
[2022-10-09] MEDS: INSULIN (LEVEMIR) 100 UNITS/ML UNITS SQ SCH (21:17)
[2022-10-09] MEDS: THIAMINE HCL 100 MG TABLET (FP) PO SCH (21:17)
[2022-10-09] MEDS: MELATONIN 5 MG TABLETS PO SCH (21:17)
[2022-10-09] MEDS: LIDOCAINE PATCH REMOVAL MC SCH (22:05)
[2022-10-10] MEDS ORDERED: INSULIN (NOVOLOG) ASPART 100 UNITS/ML 10ML VIAL ONE (04:12)
[2022-10-10] MEDS: metFORMIN HCL 500 MG TABLET (FP) PO SCH ×2 (06:21→16:43)
[2022-10-10] MEDS: glipiZIDE 5 MG TABLET (FP) PO SCH (06:21)
[2022-10-10] MEDS: INSULIN SLIDING SCALE (NOVOLOG) 1 VIAL SQ SCH ×2 (07:27→16:46)
[2022-10-10] MEDS: PRENATAL VITAMINS W/ FOLIC ACID TABLET (FP) PO SCH (09:37)
[2022-10-10] MEDS: FERROUS SO4 325 MG TABLET (FP) PO SCH (09:38)
[2022-10-10] MEDS: NICOTINE POLACRILEX 2 MG GUM BUC PRN ×2 (09:39→14:03)
[2022-10-10] MEDS ORDERED: INSULIN (LEVEMIR) 100 UNITS/ML UNITS SQ SCH (13:26)
[2022-10-10] MEDS: MELATONIN 5 MG TABLETS PO SCH (21:22)
[2022-10-10] MEDS: LIDOCAINE PATCH REMOVAL MC SCH (21:22)
[2022-10-10] MEDS: THIAMINE HCL 100 MG TABLET (FP) PO SCH (21:22)
[2022-10-10] MEDS: INSULIN (LEVEMIR) 100 UNITS/ML UNITS SQ SCH (21:22)
[2022-10-11] MEDS: INSULIN SLIDING SCALE (NOVOLOG) 1 VIAL SQ SCH ×2 (07:17→16:17)
[2022-10-11] MEDS ORDERED: INSULIN (NOVOLOG) ASPART 100 UNITS/ML 10ML VIAL ONE (07:19)
[2022-10-11] MEDS: glipiZIDE 5 MG TABLET (FP) PO SCH (07:20)
[2022-10-11] MEDS: metFORMIN HCL 500 MG TABLET (FP) PO SCH ×2 (07:20→16:16)
[2022-10-11] MEDS: PRENATAL VITAMINS W/ FOLIC ACID TABLET (FP) PO SCH (09:38)
[2022-10-11] MEDS: FERROUS SO4 325 MG TABLET (FP) PO SCH (09:39)
[2022-10-11] MEDS: hydrOXYzine PAMOATE 25 MG CAPSULE (FP) PO PRN (09:40)
[2022-10-11] MEDS: amLODIPine BESYLATE 5 MG TABLET (FP) PO SCH (14:49)
[2022-10-11] MEDS: THIAMINE HCL 100 MG TABLET (FP) PO SCH (21:24)
[2022-10-11] MEDS: INSULIN (LEVEMIR) 100 UNITS/ML UNITS SQ SCH (21:26)
[2022-10-11] MEDS: MELATONIN 5 MG TABLETS PO SCH (21:26)
[2022-10-11] MEDS: LIDOCAINE PATCH REMOVAL MC SCH (21:26)
[2022-10-12] MEDS: glipiZIDE 5 MG TABLET (FP) PO SCH (06:38)
[2022-10-12] MEDS: metFORMIN HCL 500 MG TABLET (FP) PO SCH ×2 (06:39→16:25)
[2022-10-12] MEDS: INSULIN SLIDING SCALE (NOVOLOG) 1 VIAL SQ SCH ×2 (07:35→16:25)
[2022-10-12] MEDS: amLODIPine BESYLATE 5 MG TABLET (FP) PO SCH (09:41)
[2022-10-12] MEDS: PRENATAL VITAMINS W/ FOLIC ACID TABLET (FP) PO SCH (09:41)
[2022-10-12] MEDS: NICOTINE POLACRILEX 2 MG GUM BUC PRN ×3 (09:41→21:26)
[2022-10-12] MEDS: FERROUS SO4 325 MG TABLET (FP) PO SCH (09:41)
[2022-10-12] MEDS: MELATONIN 5 MG TABLETS PO SCH (21:25)
[2022-10-12] MEDS: THIAMINE HCL 100 MG TABLET (FP) PO SCH (21:25)
[2022-10-12] MEDS: INSULIN (LEVEMIR) 100 UNITS/ML UNITS SQ SCH (21:26)
[2022-10-12] MEDS: LIDOCAINE PATCH REMOVAL MC SCH (21:55)
[2022-10-13] MEDS: glipiZIDE 5 MG TABLET (FP) PO SCH (06:13)
[2022-10-13] MEDS: metFORMIN HCL 500 MG TABLET (FP) PO SCH ×2 (06:13→16:48)
[2022-10-13] MEDS ORDERED: INSULIN (NOVOLOG) ASPART 100 UNITS/ML 10ML VIAL ONE ×2 (06:45→16:18)
[2022-10-13] MEDS: INSULIN SLIDING SCALE (NOVOLOG) 1 VIAL SQ SCH ×2 (07:35→16:49)
[2022-10-13] MEDS: NICOTINE POLACRILEX 2 MG GUM BUC PRN ×2 (08:25→18:15)
[2022-10-13] MEDS: PRENATAL VITAMINS W/ FOLIC ACID TABLET (FP) PO SCH (09:43)
[2022-10-13] MEDS: FERROUS SO4 325 MG TABLET (FP) PO SCH (09:44)
[2022-10-13] MEDS: amLODIPine BESYLATE 5 MG TABLET (FP) PO SCH (09:44)
[2022-10-13] MEDS: THIAMINE HCL 100 MG TABLET (FP) PO SCH (21:18)
[2022-10-13] MEDS: MELATONIN 5 MG TABLETS PO SCH (21:18)
[2022-10-13] MEDS: INSULIN (LEVEMIR) 100 UNITS/ML UNITS SQ SCH (21:19)
[2022-10-13] MEDS: LIDOCAINE PATCH REMOVAL MC SCH (21:21)
[2022-10-14] MEDS ORDERED: INSULIN (NOVOLOG) ASPART 100 UNITS/ML 10ML VIAL ONE ×2 (05:54→16:34)
[2022-10-14] MEDS: metFORMIN HCL 500 MG TABLET (FP) PO SCH ×2 (06:17→16:44)
[2022-10-14] MEDS: glipiZIDE 5 MG TABLET (FP) PO SCH (06:17)
[2022-10-14] MEDS: INSULIN SLIDING SCALE (NOVOLOG) 1 VIAL SQ SCH ×2 (07:19→16:44)
[2022-10-14] MEDS: FERROUS SO4 325 MG TABLET (FP) PO SCH (09:45)
[2022-10-14] MEDS: PRENATAL VITAMINS W/ FOLIC ACID TABLET (FP) PO SCH (09:45)
[2022-10-14] MEDS: amLODIPine BESYLATE 5 MG TABLET (FP) PO SCH (09:45)
[2022-10-14] MEDS: NICOTINE POLACRILEX 2 MG GUM BUC PRN ×2 (12:52→23:00)
[2022-10-14] MEDS: MELATONIN 5 MG TABLETS PO SCH (21:23)
[2022-10-14] MEDS: THIAMINE HCL 100 MG TABLET (FP) PO SCH (21:23)
[2022-10-14] MEDS: INSULIN (LEVEMIR) 100 UNITS/ML UNITS SQ SCH (21:24)
[2022-10-14] MEDS: LIDOCAINE PATCH REMOVAL MC SCH (21:24)
[2022-10-15] MEDS ORDERED: INSULIN (NOVOLOG) ASPART 100 UNITS/ML 10ML VIAL ONE ×2 (06:03→16:23)
[2022-10-15] MEDS: hydrOXYzine PAMOATE 25 MG CAPSULE (FP) PO PRN ×3 (06:04→21:24)
[2022-10-15] MEDS: glipiZIDE 5 MG TABLET (FP) PO SCH (06:04)
[2022-10-15] MEDS: metFORMIN HCL 500 MG TABLET (FP) PO SCH ×2 (06:04→16:40)
[2022-10-15] MEDS: INSULIN SLIDING SCALE (NOVOLOG) 1 VIAL SQ SCH ×2 (06:05→16:40)
[2022-10-15] MEDS: amLODIPine BESYLATE 5 MG TABLET (FP) PO SCH (09:51)
[2022-10-15] MEDS: FERROUS SO4 325 MG TABLET (FP) PO SCH (09:51)
[2022-10-15] MEDS: PRENATAL VITAMINS W/ FOLIC ACID TABLET (FP) PO SCH (09:51)
[2022-10-15] MEDS: NICOTINE POLACRILEX 2 MG GUM BUC PRN (09:52)
[2022-10-15] MEDS: MELATONIN 5 MG TABLETS PO SCH (21:24)
[2022-10-15] MEDS: INSULIN (LEVEMIR) 100 UNITS/ML UNITS SQ SCH (21:26)
[2022-10-15] MEDS: LIDOCAINE PATCH REMOVAL MC SCH (21:28)
[2022-10-15] MEDS: THIAMINE HCL 100 MG TABLET (FP) PO SCH (21:29)
[2022-10-16] MEDS ORDERED: INSULIN (NOVOLOG) ASPART 100 UNITS/ML 10ML VIAL ONE ×2 (04:00→17:02)
[2022-10-16] MEDS: metFORMIN HCL 500 MG TABLET (FP) PO SCH ×2 (06:24→17:03)
[2022-10-16] MEDS: glipiZIDE 5 MG TABLET (FP) PO SCH (06:25)
[2022-10-16] MEDS: INSULIN SLIDING SCALE (NOVOLOG) 1 VIAL SQ SCH ×2 (07:24→17:03)
[2022-10-16] MEDS: PRENATAL VITAMINS W/ FOLIC ACID TABLET (FP) PO SCH (09:44)
[2022-10-16] MEDS: hydrOXYzine PAMOATE 25 MG CAPSULE (FP) PO PRN (09:44)
[2022-10-16] MEDS: FERROUS SO4 325 MG TABLET (FP) PO SCH (09:44)
[2022-10-16] MEDS: amLODIPine BESYLATE 5 MG TABLET (FP) PO SCH (09:44)
[2022-10-16] MEDS: NICOTINE POLACRILEX 2 MG GUM BUC PRN ×2 (09:45→21:29)
[2022-10-16] MEDS: MELATONIN 5 MG TABLETS PO SCH (21:28)
[2022-10-16] MEDS: THIAMINE HCL 100 MG TABLET (FP) PO SCH (21:28)
[2022-10-16] MEDS: INSULIN (LEVEMIR) 100 UNITS/ML UNITS SQ SCH (21:29)
[2022-10-16] MEDS: LIDOCAINE PATCH REMOVAL MC SCH (21:36)
[2022-10-17] MEDS ORDERED: INSULIN (NOVOLOG) ASPART 100 UNITS/ML 10ML VIAL ONE ×2 (03:58→07:24)
[2022-10-17] MEDS: glipiZIDE 5 MG TABLET (FP) PO SCH (06:32)
[2022-10-17] MEDS: metFORMIN HCL 500 MG TABLET (FP) PO SCH (06:32)
[2022-10-17] MEDS: INSULIN SLIDING SCALE (NOVOLOG) 1 VIAL SQ SCH (07:22)
[2022-10-17 08:16] VITALS: TEMP 97.5
[2022-10-17] MEDS: amLODIPine BESYLATE 5 MG TABLET (FP) PO SCH (09:25)
[2022-10-17] MEDS: PRENATAL VITAMINS W/ FOLIC ACID TABLET (FP) PO SCH (09:25)
[2022-10-17] MEDS: FERROUS SO4 325 MG TABLET (FP) PO SCH (09:25)
[2022-10-17 11:44] VITALS: BP 134/80; PULSE 103
[2022-10-17] MEDS: NICOTINE POLACRILEX 2 MG GUM BUC PRN (13:05)
== END 2022-10-17 13:50 | disposition home or self-care (01) | DRG 772 ==
LOC: YASAS 15:22 → Y5N 20:45
PROVIDERS: ADMIT Allergy & Immunology; ATTEND Psychiatry & Neurology Pain Medicine
PROC: HZ42ZZZ Group Counseling for Substance Abuse Treatment, Cognitive-Behavioral (ICD-10-PCS; principal; 2022-09-20)
DX: F10.20 Alcohol dependence, uncomplicated (principal); F14.20 Cocaine dependence, uncomplicated; F17.210 Nicotine dependence, cigarettes, uncomplicated; F19.282 Other psychoactive substance dependence with psychoactive substance-induced sleep disorder; F19.280 Other psychoactive substance dependence with psychoactive substance-induced anxiety disorder; F10.282 Alcohol dependence with alcohol-induced sleep disorder; M62.82 Rhabdomyolysis; I10 Essential (primary) hypertension; E11.9 Type 2 diabetes mellitus without complications; Z79.4 Long term (current) use of insulin; R74.01 Elevation of levels of liver transaminase levels; D72.829 Elevated white blood cell count, unspecified; R79.89 Other specified abnormal findings of blood chemistry; R00.0 Tachycardia, unspecified; B35.3 Tinea pedis; E66.9 Obesity, unspecified; Z68.36 Body mass index [BMI] 36.0-36.9, adult; Z59.00 Homelessness unspecified
CPT/HCPCS: 36415; 80053; 81003; 82140; 82962; 85025; 85027; 86780; 87811; C9803-CS; U0003; U0005

== ENCOUNTER 2022-12-09 08:13 | Inpatient (IN) | payer OTHER ==
[2022-12-09 09:02] VITALS: BMI 37.9
[2022-12-09] MEDS ORDERED: hydrOXYzine PAMOATE 25 MG CAPSULE (FP) PO PRN (10:00)
[2022-12-09] MEDS ORDERED: DICYCLOMINE HCL 10 MG CAPSULE PO PRN (10:00)
[2022-12-09] MEDS ORDERED: IBUPROFEN 400 MG TABLET (FP) PO PRN (10:00)
[2022-12-09] MEDS ORDERED: POLYETHYLENE GLYCOL (HEALTHYLAX) 3350 17 GM PACKET PO PRN (10:00)
[2022-12-09] MEDS ORDERED: LOPERAMIDE HCL 2 MG CAPSULE PO PRN (10:00)
[2022-12-09] MEDS ORDERED: IBUPROFEN 600 MG TABLET (FP) PO PRN (10:00)
[2022-12-09] MEDS ORDERED: ONDANSETRON *ODT* 4 MG TABLET SL PRN (10:00)
[2022-12-09] MEDS ORDERED: MAGNESIUM HYDROX 2400MG/30ML ORAL SUSPENSION 30 ML CUP PO PRN (10:00)
[2022-12-09] MEDS ORDERED: NALOXONE HCL (KLOXXADO) 8 MG SPRAY NS PRN (10:00)
[2022-12-09] MEDS ORDERED: NICOTINE 10 MG CARTRIDGE (INHALER) IH PRN (10:00)
[2022-12-09] MEDS ORDERED: BISMUTH SUBSALICYLATE 262 MG/15 ML BTL PO PRN (10:00)
[2022-12-09] MEDS ORDERED: ACETAMINOPHEN 325 MG TABLET (FP) PO PRN ×2 (10:00)
[2022-12-09] MEDS ORDERED: METHOCARBAMOL 500 MG TABLET PO PRN (10:00)
[2022-12-09] MEDS ORDERED: BENZOCAINE/MENTHOL (CHLORASEPTIC ) LOZENGE MM PRN (10:00)
[2022-12-09] MEDS ORDERED: MAG HYDROX/AL HYDROX/SIMETH 30 ML UNIT-DOSE CUP PO PRN (10:00)
[2022-12-09] MEDS ORDERED: amLODIPine BESYLATE 5 MG TABLET (FP) ONE (10:15)
[2022-12-09] MEDS ORDERED: amLODIPine BESYLATE 5 MG TABLET (FP) PO ONE (10:19)
[2022-12-09] MEDS ORDERED: PRENATAL VITAMINS W/ FOLIC ACID TABLET (FP) PO ONE (10:28)
[2022-12-09] MEDS: INSULIN SLIDING SCALE (NOVOLOG) 1 VIAL SQ SCH ×3 (10:32→22:17)
[2022-12-09] MEDS: PRENATAL VITAMINS W/ FOLIC ACID TABLET (FP) PO SCH (10:33)
[2022-12-09 15:46] LABS: CHLORIDE 100 mmol/L (98-107); SODIUM 136 mmol/L (136-145)
[2022-12-09 15:48] LABS: ALBUMIN 3.3 g/dl (3.4-5.0); ANION GAP 10 MMOL/L (8-16); CALCIUM 8.3 mg/dL (8.5-10.1); CO2 25 mmol/L (21-32)
[2022-12-09 15:51] LABS: SGPT/ALT 52 U/L (13-61)
[2022-12-09 15:52] LABS: CREATININE 1.1 mg/dL (0.55-1.3); SGOT/AST 45 U/L (15-37)
[2022-12-09 15:53] LABS: BILIRUBIN,TOTAL 0.4 mg/dL (0.2-1)
[2022-12-09 15:54] LABS: ALK PHOS 113 U/L (45-117)
[2022-12-09 16:08] LABS: HEMATOCRIT 35.8 % (35.4-49); HEMOGLOBIN 11.4 GM/dL (11.7-16.9); MCH 24.9 pg (25.7-33.7); MCHC 31.8 g/dl (32.0-35.9); MEAN CELL VOLUME 78.4 fl (80-96); MEAN PLT VOLUME 8.4 fl (7.5-11.1); PLATELET COUNT 299 10^3/uL (134-434); RBC 4.56 M/mm3 (4.00-5.60); RDW 16.6 % (11.9-15.9); WHITE BLOOD COUNT 8.9 K/mm3 (4.0-10.0)
[2022-12-09 16:09] LABS: GLUCOSE,RANDOM 580 mg/dL (74-106)
[2022-12-09] MEDS ORDERED: INSULIN (NOVOLOG) ASPART 100 UNITS/ML 10ML VIAL SQ ONE (17:11)
[2022-12-09] MEDS: metFORMIN HCL 500 MG TABLET (FP) PO SCH (17:33)
[2022-12-09] MEDS ORDERED: MELATONIN 5 MG TABLETS PO SCH (22:00)
[2022-12-09] MEDS ORDERED: THIAMINE HCL 100 MG TABLET (FP) PO SCH (22:00)
[2022-12-09] MEDS ORDERED: INSULIN (LEVEMIR) 100 UNITS/ML UNITS SQ SCH (22:00)
[2022-12-09] MEDS: BACITRACIN 0.9 GM PACKET TP SCH (22:43)
[2022-12-10] MEDS: metFORMIN HCL 500 MG TABLET (FP) PO SCH (07:02)
[2022-12-10] MEDS: INSULIN SLIDING SCALE (NOVOLOG) 1 VIAL SQ SCH ×2 (07:24→12:09)
[2022-12-10] MEDS: BACITRACIN 0.9 GM PACKET TP SCH (09:52)
[2022-12-10] MEDS: PRENATAL VITAMINS W/ FOLIC ACID TABLET (FP) PO SCH (09:52)
[2022-12-10] MEDS ORDERED: amLODIPine BESYLATE 5 MG TABLET (FP) PO SCH (10:00)
[2022-12-10] MEDS ORDERED: INSULIN SLIDING SCALE (NOVOLOG) 1 VIAL SQ ONE (12:06)
[2022-12-10 13:19] VITALS: BP 165/83; PULSE 110; RESP 20; TEMP 97.8
== END 2022-12-10 13:37 | disposition other institution (70) | DRG 774 ==
LOC: YASAS 08:13 → Y3N 10:04
PROVIDERS: ADMIT Allergy & Immunology; ATTEND Family Medicine
PROC: HZ2ZZZZ Detoxification Services for Substance Abuse Treatment (ICD-10-PCS; principal; 2022-12-09)
DX: F10.20 Alcohol dependence, uncomplicated (principal); F14.20 Cocaine dependence, uncomplicated; F17.210 Nicotine dependence, cigarettes, uncomplicated; F32.A Depression, unspecified; G47.00 Insomnia, unspecified; B35.3 Tinea pedis; E11.65 Type 2 diabetes mellitus with hyperglycemia; Z79.4 Long term (current) use of insulin; E66.9 Obesity, unspecified; Z68.37 Body mass index [BMI] 37.0-37.9, adult; Z91.14 Patient's other noncompliance with medication regimen
CPT/HCPCS: 36415; 80053; 82962; 85027; 86780; 87811; C9803-CS; U0003; U0005

== ENCOUNTER 2022-12-10 13:42 | Inpatient (IN) | payer OTHER ==
[2022-12-10] MEDS ORDERED: ACETAMINOPHEN 325 MG TABLET (FP) PO PRN (15:57)
[2022-12-10] MEDS ORDERED: P-EPHED 60MG/TRIPROLIDI 2.5MG TABLET PO PRN (15:57)
[2022-12-10] MEDS ORDERED: MAGNESIUM HYDROX 2400MG/30ML ORAL SUSPENSION 30 ML CUP PO PRN (15:57)
[2022-12-10] MEDS ORDERED: IBUPROFEN 400 MG TABLET (FP) PO PRN (15:57)
[2022-12-10] MEDS ORDERED: POLYETHYLENE GLYCOL (HEALTHYLAX) 3350 17 GM PACKET PO PRN (15:57)
[2022-12-10] MEDS ORDERED: MAG HYDROX/AL HYDROX/SIMETH 30 ML UNIT-DOSE CUP PO PRN (15:57)
[2022-12-10] MEDS ORDERED: NICOTINE 10 MG CARTRIDGE (INHALER) IH PRN (15:57)
[2022-12-10] MEDS ORDERED: hydrOXYzine PAMOATE 25 MG CAPSULE (FP) PO PRN (15:57)
[2022-12-10] MEDS ORDERED: guaiFENesin 200 MG/10 ML 10 ML UNIT-DOSE CUPS PO PRN (15:57)
[2022-12-10] MEDS ORDERED: BENZOCAINE/MENTHOL (CHLORASEPTIC ) LOZENGE MM PRN (15:57)
[2022-12-10] MEDS ORDERED: LOPERAMIDE HCL 2 MG CAPSULE PO PRN (15:57)
[2022-12-10] MEDS: metFORMIN HCL 500 MG TABLET (FP) PO SCH (16:31)
[2022-12-10] MEDS: INSULIN SLIDING SCALE (NOVOLOG) 1 VIAL SQ SCH (16:34)
[2022-12-10] MEDS: MELATONIN 5 MG TABLETS PO SCH (21:04)
[2022-12-10] MEDS: INSULIN (LEVEMIR) 100 UNITS/ML UNITS SQ SCH (21:04)
[2022-12-10] MEDS: THIAMINE HCL 100 MG TABLET (FP) PO SCH (21:04)
[2022-12-11] MEDS: metFORMIN HCL 500 MG TABLET (FP) PO SCH ×2 (06:37→16:50)
[2022-12-11] MEDS: INSULIN SLIDING SCALE (NOVOLOG) 1 VIAL SQ SCH ×2 (06:38→16:52)
[2022-12-11] MEDS: PRENATAL VITAMINS W/ FOLIC ACID TABLET (FP) PO SCH (09:45)
[2022-12-11] MEDS: amLODIPine BESYLATE 5 MG TABLET (FP) PO SCH (09:45)
[2022-12-11] MEDS ORDERED: NICOTINE 7 MG/24 HOURS TOPICAL PATCH TD SCH (10:00)
[2022-12-11] MEDS ORDERED: NICOTINE 7 MG/24 HOURS TOPICAL PATCH TD PRN (16:00)
[2022-12-11] MEDS: MELATONIN 5 MG TABLETS PO SCH (21:14)
[2022-12-11] MEDS: THIAMINE HCL 100 MG TABLET (FP) PO SCH (21:14)
[2022-12-11] MEDS: INSULIN (LEVEMIR) 100 UNITS/ML UNITS SQ SCH (21:15)
[2022-12-11] MEDS: NICOTINE POLACRILEX 4 MG GUM BUC PRN (21:16)
[2022-12-12] MEDS: metFORMIN HCL 500 MG TABLET (FP) PO SCH ×2 (06:07→16:15)
[2022-12-12] MEDS: INSULIN SLIDING SCALE (NOVOLOG) 1 VIAL SQ SCH ×2 (06:10→16:18)
[2022-12-12] MEDS: PRENATAL VITAMINS W/ FOLIC ACID TABLET (FP) PO SCH (09:21)
[2022-12-12] MEDS: amLODIPine BESYLATE 5 MG TABLET (FP) PO SCH (09:21)
[2022-12-12] MEDS: NICOTINE POLACRILEX 4 MG GUM BUC PRN ×2 (09:22→21:04)
[2022-12-12] MEDS: THIAMINE HCL 100 MG TABLET (FP) PO SCH (21:03)
[2022-12-12] MEDS: MELATONIN 5 MG TABLETS PO SCH (21:03)
[2022-12-12] MEDS: INSULIN (LEVEMIR) 100 UNITS/ML UNITS SQ SCH (21:04)
[2022-12-13] MEDS: metFORMIN HCL 500 MG TABLET (FP) PO SCH ×2 (06:33→16:42)
[2022-12-13] MEDS: INSULIN SLIDING SCALE (NOVOLOG) 1 VIAL SQ SCH ×2 (06:36→16:42)
[2022-12-13] MEDS: amLODIPine BESYLATE 5 MG TABLET (FP) PO SCH (09:32)
[2022-12-13] MEDS: PRENATAL VITAMINS W/ FOLIC ACID TABLET (FP) PO SCH (09:32)
[2022-12-13] MEDS: NICOTINE POLACRILEX 4 MG GUM BUC PRN ×3 (09:33→20:32)
[2022-12-13] MEDS: THIAMINE HCL 100 MG TABLET (FP) PO SCH (21:24)
[2022-12-13] MEDS: INSULIN (LEVEMIR) 100 UNITS/ML UNITS SQ SCH (21:24)
[2022-12-13] MEDS: MELATONIN 5 MG TABLETS PO SCH (21:24)
[2022-12-14] MEDS: metFORMIN HCL 500 MG TABLET (FP) PO SCH ×2 (06:34→16:23)
[2022-12-14] MEDS: INSULIN SLIDING SCALE (NOVOLOG) 1 VIAL SQ SCH ×2 (06:34→16:29)
[2022-12-14] MEDS: NICOTINE POLACRILEX 4 MG GUM BUC PRN ×4 (06:37→21:22)
[2022-12-14] MEDS: amLODIPine BESYLATE 5 MG TABLET (FP) PO SCH (10:19)
[2022-12-14] MEDS: PRENATAL VITAMINS W/ FOLIC ACID TABLET (FP) PO SCH (10:19)
[2022-12-14] MEDS: THIAMINE HCL 100 MG TABLET (FP) PO SCH (21:21)
[2022-12-14] MEDS: INSULIN (LEVEMIR) 100 UNITS/ML UNITS SQ SCH (21:21)
[2022-12-14] MEDS: MELATONIN 5 MG TABLETS PO SCH (21:21)
[2022-12-15] MEDS: metFORMIN HCL 500 MG TABLET (FP) PO SCH ×2 (06:28→17:03)
[2022-12-15] MEDS: INSULIN SLIDING SCALE (NOVOLOG) 1 VIAL SQ SCH ×2 (06:30→17:21)
[2022-12-15] MEDS: NICOTINE POLACRILEX 4 MG GUM BUC PRN (09:49)
[2022-12-15] MEDS: amLODIPine BESYLATE 5 MG TABLET (FP) PO SCH (09:49)
[2022-12-15] MEDS: PRENATAL VITAMINS W/ FOLIC ACID TABLET (FP) PO SCH (09:49)
[2022-12-15] MEDS: MELATONIN 5 MG TABLETS PO SCH (21:08)
[2022-12-15] MEDS: THIAMINE HCL 100 MG TABLET (FP) PO SCH (21:08)
[2022-12-15] MEDS: INSULIN (LEVEMIR) 100 UNITS/ML UNITS SQ SCH (21:09)
[2022-12-16] MEDS: metFORMIN HCL 500 MG TABLET (FP) PO SCH ×2 (06:26→16:40)
[2022-12-16] MEDS: INSULIN SLIDING SCALE (NOVOLOG) 1 VIAL SQ SCH ×2 (06:29→16:42)
[2022-12-16] MEDS: NICOTINE POLACRILEX 4 MG GUM BUC PRN ×4 (06:29→21:01)
[2022-12-16] MEDS: PRENATAL VITAMINS W/ FOLIC ACID TABLET (FP) PO SCH (09:40)
[2022-12-16] MEDS: amLODIPine BESYLATE 5 MG TABLET (FP) PO SCH (09:40)
[2022-12-16] MEDS: MELATONIN 5 MG TABLETS PO SCH (21:00)
[2022-12-16] MEDS: THIAMINE HCL 100 MG TABLET (FP) PO SCH (21:00)
[2022-12-16] MEDS: INSULIN (LEVEMIR) 100 UNITS/ML UNITS SQ SCH (21:01)
[2022-12-17] MEDS: INSULIN SLIDING SCALE (NOVOLOG) 1 VIAL SQ SCH ×2 (06:29→16:55)
[2022-12-17] MEDS: metFORMIN HCL 500 MG TABLET (FP) PO SCH ×2 (06:31→16:55)
[2022-12-17] MEDS: NICOTINE POLACRILEX 4 MG GUM BUC PRN ×3 (06:31→14:19)
[2022-12-17] MEDS: amLODIPine BESYLATE 5 MG TABLET (FP) PO SCH (09:42)
[2022-12-17] MEDS: PRENATAL VITAMINS W/ FOLIC ACID TABLET (FP) PO SCH (09:42)
[2022-12-17] MEDS ORDERED: INSULIN SLIDING SCALE (NOVOLOG) 1 VIAL SQ ONE (16:33)
[2022-12-17] MEDS: THIAMINE HCL 100 MG TABLET (FP) PO SCH (21:00)
[2022-12-17] MEDS: MELATONIN 5 MG TABLETS PO SCH (21:00)
[2022-12-17] MEDS: INSULIN (LEVEMIR) 100 UNITS/ML UNITS SQ SCH (21:01)
[2022-12-18] MEDS: metFORMIN HCL 500 MG TABLET (FP) PO SCH ×2 (06:33→16:19)
[2022-12-18] MEDS: INSULIN SLIDING SCALE (NOVOLOG) 1 VIAL SQ SCH ×2 (06:35→16:20)
[2022-12-18] MEDS: NICOTINE POLACRILEX 4 MG GUM BUC PRN ×4 (06:36→21:29)
[2022-12-18] MEDS: PRENATAL VITAMINS W/ FOLIC ACID TABLET (FP) PO SCH (10:07)
[2022-12-18] MEDS: amLODIPine BESYLATE 5 MG TABLET (FP) PO SCH (10:07)
[2022-12-18] MEDS: MELATONIN 5 MG TABLETS PO SCH (21:30)
[2022-12-18] MEDS: INSULIN (LEVEMIR) 100 UNITS/ML UNITS SQ SCH (21:30)
[2022-12-18] MEDS: THIAMINE HCL 100 MG TABLET (FP) PO SCH (21:30)
[2022-12-19] MEDS: metFORMIN HCL 500 MG TABLET (FP) PO SCH ×2 (06:15→16:42)
[2022-12-19] MEDS: INSULIN SLIDING SCALE (NOVOLOG) 1 VIAL SQ SCH ×2 (06:17→16:43)
[2022-12-19] MEDS: NICOTINE POLACRILEX 4 MG GUM BUC PRN ×3 (08:31→21:08)
[2022-12-19] MEDS: PRENATAL VITAMINS W/ FOLIC ACID TABLET (FP) PO SCH (09:45)
[2022-12-19] MEDS: amLODIPine BESYLATE 5 MG TABLET (FP) PO SCH (09:45)
[2022-12-19] MEDS: INSULIN (LEVEMIR) 100 UNITS/ML UNITS SQ SCH (21:08)
[2022-12-19] MEDS: MELATONIN 5 MG TABLETS PO SCH (21:08)
[2022-12-19] MEDS: THIAMINE HCL 100 MG TABLET (FP) PO SCH (21:08)
[2022-12-20] MEDS: metFORMIN HCL 500 MG TABLET (FP) PO SCH ×2 (06:16→16:57)
[2022-12-20] MEDS: INSULIN SLIDING SCALE (NOVOLOG) 1 VIAL SQ SCH ×2 (06:18→16:58)
[2022-12-20] MEDS: NICOTINE POLACRILEX 4 MG GUM BUC PRN ×4 (06:19→18:09)
[2022-12-20] MEDS: amLODIPine BESYLATE 5 MG TABLET (FP) PO SCH (09:25)
[2022-12-20] MEDS: PRENATAL VITAMINS W/ FOLIC ACID TABLET (FP) PO SCH (09:25)
[2022-12-20] MEDS: THIAMINE HCL 100 MG TABLET (FP) PO SCH (21:23)
[2022-12-20] MEDS: MELATONIN 5 MG TABLETS PO SCH (21:23)
[2022-12-20] MEDS: INSULIN (LEVEMIR) 100 UNITS/ML UNITS SQ SCH (21:24)
[2022-12-21] MEDS: metFORMIN HCL 500 MG TABLET (FP) PO SCH ×2 (06:18→17:02)
[2022-12-21] MEDS: INSULIN SLIDING SCALE (NOVOLOG) 1 VIAL SQ SCH ×2 (06:21→17:03)
[2022-12-21] MEDS: NICOTINE POLACRILEX 4 MG GUM BUC PRN ×5 (06:22→21:57)
[2022-12-21] MEDS: amLODIPine BESYLATE 5 MG TABLET (FP) PO SCH (09:40)
[2022-12-21] MEDS: PRENATAL VITAMINS W/ FOLIC ACID TABLET (FP) PO SCH (09:40)
[2022-12-21] MEDS: MELATONIN 5 MG TABLETS PO SCH (21:57)
[2022-12-21] MEDS: THIAMINE HCL 100 MG TABLET (FP) PO SCH (21:57)
[2022-12-21] MEDS: INSULIN (LEVEMIR) 100 UNITS/ML UNITS SQ SCH (22:00)
[2022-12-22] MEDS: metFORMIN HCL 500 MG TABLET (FP) PO SCH ×2 (06:31→16:34)
[2022-12-22] MEDS: NICOTINE POLACRILEX 4 MG GUM BUC PRN ×4 (06:32→22:19)
[2022-12-22] MEDS: INSULIN SLIDING SCALE (NOVOLOG) 1 VIAL SQ SCH ×2 (06:34→16:36)
[2022-12-22] MEDS: amLODIPine BESYLATE 5 MG TABLET (FP) PO SCH (09:27)
[2022-12-22] MEDS: PRENATAL VITAMINS W/ FOLIC ACID TABLET (FP) PO SCH (09:27)
[2022-12-22] MEDS: MELATONIN 5 MG TABLETS PO SCH (21:00)
[2022-12-22] MEDS: INSULIN (LEVEMIR) 100 UNITS/ML UNITS SQ SCH (21:00)
[2022-12-22] MEDS: THIAMINE HCL 100 MG TABLET (FP) PO SCH (21:00)
[2022-12-23] MEDS: metFORMIN HCL 500 MG TABLET (FP) PO SCH ×2 (06:35→17:18)
[2022-12-23] MEDS ORDERED: INSULIN SLIDING SCALE (NOVOLOG) 1 VIAL SQ ONE (06:35)
[2022-12-23] MEDS: NICOTINE POLACRILEX 4 MG GUM BUC PRN ×4 (06:37→21:38)
[2022-12-23 07:19] VITALS: RESP 18
[2022-12-23] MEDS: INSULIN SLIDING SCALE (NOVOLOG) 1 VIAL SQ SCH ×2 (08:05→17:21)
[2022-12-23] MEDS: amLODIPine BESYLATE 5 MG TABLET (FP) PO SCH (10:09)
[2022-12-23] MEDS: PRENATAL VITAMINS W/ FOLIC ACID TABLET (FP) PO SCH (10:09)
[2022-12-23] MEDS: MELATONIN 5 MG TABLETS PO SCH (21:36)
[2022-12-23] MEDS: INSULIN (LEVEMIR) 100 UNITS/ML UNITS SQ SCH (21:36)
[2022-12-23] MEDS: THIAMINE HCL 100 MG TABLET (FP) PO SCH (21:40)
[2022-12-24] MEDS: INSULIN SLIDING SCALE (NOVOLOG) 1 VIAL SQ SCH ×2 (06:13→16:22)
[2022-12-24] MEDS: metFORMIN HCL 500 MG TABLET (FP) PO SCH ×2 (06:14→16:16)
[2022-12-24] MEDS: NICOTINE POLACRILEX 4 MG GUM BUC PRN ×5 (06:15→19:08)
[2022-12-24] MEDS: amLODIPine BESYLATE 10 MG TABLET (FP) PO SCH (09:37)
[2022-12-24] MEDS: PRENATAL VITAMINS W/ FOLIC ACID TABLET (FP) PO SCH (09:37)
[2022-12-24] MEDS: INSULIN (LEVEMIR) 100 UNITS/ML UNITS SQ SCH (21:05)
[2022-12-24] MEDS: MELATONIN 5 MG TABLETS PO SCH (21:05)
[2022-12-24] MEDS: THIAMINE HCL 100 MG TABLET (FP) PO SCH (21:05)
[2022-12-25] MEDS: INSULIN SLIDING SCALE (NOVOLOG) 1 VIAL SQ SCH ×2 (06:44→16:24)
[2022-12-25] MEDS: metFORMIN HCL 500 MG TABLET (FP) PO SCH ×2 (06:45→16:23)
[2022-12-25] MEDS: NICOTINE POLACRILEX 4 MG GUM BUC PRN ×5 (06:46→21:04)
[2022-12-25] MEDS: PRENATAL VITAMINS W/ FOLIC ACID TABLET (FP) PO SCH (09:41)
[2022-12-25] MEDS: amLODIPine BESYLATE 10 MG TABLET (FP) PO SCH (09:41)
[2022-12-25] MEDS: MELATONIN 5 MG TABLETS PO SCH (21:03)
[2022-12-25] MEDS: THIAMINE HCL 100 MG TABLET (FP) PO SCH (21:03)
[2022-12-25] MEDS: INSULIN (LEVEMIR) 100 UNITS/ML UNITS SQ SCH (21:04)
[2022-12-26] MEDS: metFORMIN HCL 500 MG TABLET (FP) PO SCH ×2 (06:38→16:29)
[2022-12-26] MEDS: NICOTINE POLACRILEX 4 MG GUM BUC PRN ×4 (06:39→21:01)
[2022-12-26] MEDS: INSULIN SLIDING SCALE (NOVOLOG) 1 VIAL SQ SCH ×2 (06:41→16:32)
[2022-12-26] MEDS: PRENATAL VITAMINS W/ FOLIC ACID TABLET (FP) PO SCH (10:19)
[2022-12-26] MEDS: amLODIPine BESYLATE 10 MG TABLET (FP) PO SCH (10:21)
[2022-12-26] MEDS: THIAMINE HCL 100 MG TABLET (FP) PO SCH (21:00)
[2022-12-26] MEDS: MELATONIN 5 MG TABLETS PO SCH (21:00)
[2022-12-26] MEDS: INSULIN (LEVEMIR) 100 UNITS/ML UNITS SQ SCH (21:00)
[2022-12-27] MEDS: metFORMIN HCL 500 MG TABLET (FP) PO SCH (06:25)
[2022-12-27] MEDS: NICOTINE POLACRILEX 4 MG GUM BUC PRN ×2 (06:26→09:49)
[2022-12-27] MEDS: INSULIN SLIDING SCALE (NOVOLOG) 1 VIAL SQ SCH (06:27)
[2022-12-27 07:21] VITALS: BP 124/76; PULSE 103; TEMP 97.8
[2022-12-27] MEDS: amLODIPine BESYLATE 10 MG TABLET (FP) PO SCH (09:48)
[2022-12-27] MEDS: PRENATAL VITAMINS W/ FOLIC ACID TABLET (FP) PO SCH (09:48)
== END 2022-12-27 10:00 | disposition home or self-care (01) | DRG 772 ==
LOC: YASAS 13:42 → Y3W 13:46
PROVIDERS: ADMIT Allergy & Immunology; ATTEND Psychiatry & Neurology Pain Medicine
PROC: HZ42ZZZ Group Counseling for Substance Abuse Treatment, Cognitive-Behavioral (ICD-10-PCS; principal; 2022-12-10)
DX: F10.20 Alcohol dependence, uncomplicated (principal); F14.20 Cocaine dependence, uncomplicated; F17.210 Nicotine dependence, cigarettes, uncomplicated; F32.A Depression, unspecified; I10 Essential (primary) hypertension; E11.9 Type 2 diabetes mellitus without complications; Z79.4 Long term (current) use of insulin; B35.3 Tinea pedis; L84 Corns and callosities
CPT/HCPCS: 36415; 82140; 82962; 86803

== ENCOUNTER 2023-02-25 08:14 | Inpatient (IN) | payer OTHER ==
[2023-02-25 08:49] VITALS: BMI 41.5
[2023-02-25] MEDS ORDERED: POLYETHYLENE GLYCOL (HEALTHYLAX) 3350 17 GM PACKET PO PRN (09:03)
[2023-02-25] MEDS ORDERED: IBUPROFEN 600 MG TABLET (FP) PO PRN (09:03)
[2023-02-25] MEDS ORDERED: LOPERAMIDE HCL 2 MG CAPSULE PO PRN (09:03)
[2023-02-25] MEDS ORDERED: MAG HYDROX/AL HYDROX/SIMETH 30 ML UNIT-DOSE CUP PO PRN (09:03)
[2023-02-25] MEDS ORDERED: ACETAMINOPHEN 325 MG TABLET (FP) PO PRN (09:03)
[2023-02-25] MEDS ORDERED: NICOTINE 10 MG CARTRIDGE (INHALER) IH PRN (09:03)
[2023-02-25] MEDS ORDERED: ONDANSETRON *ODT* 4 MG TABLET SL PRN (09:03)
[2023-02-25] MEDS ORDERED: DICYCLOMINE HCL 10 MG CAPSULE PO PRN (09:03)
[2023-02-25] MEDS ORDERED: BISMUTH SUBSALICYLATE 262 MG/15 ML BTL PO PRN (09:03)
[2023-02-25] MEDS ORDERED: guaiFENesin 600 MG TABLET.ER (FP) PO PRN (09:03)
[2023-02-25] MEDS ORDERED: MAGNESIUM HYDROX 2400MG/30ML ORAL SUSPENSION 30 ML CUP PO PRN (09:03)
[2023-02-25] MEDS ORDERED: IBUPROFEN 400 MG TABLET (FP) PO PRN (09:03)
[2023-02-25] MEDS ORDERED: NICOTINE 14 MG/24 HOURS TOPICAL PATCH TD PRN (09:03)
[2023-02-25] MEDS ORDERED: BENZOCAINE/MENTHOL (CHLORASEPTIC ) LOZENGE MM PRN (09:03)
[2023-02-25] MEDS ORDERED: BENZONATATE 200 MG CAPSULE PO PRN (09:03)
[2023-02-25] MEDS ORDERED: amLODIPine BESYLATE 10 MG TABLET (FP) PO SCH (10:00)
[2023-02-25] MEDS: PRENATAL VITAMINS W/ FOLIC ACID TABLET (FP) PO SCH (10:35)
[2023-02-25 11:48] LABS: HEMATOCRIT 35.9 % (35.4-49); HEMOGLOBIN 11.6 GM/dL (11.7-16.9); MCH 24.6 pg (25.7-33.7); MCHC 32.3 g/dl (32.0-35.9); MEAN CELL VOLUME 76.1 fl (80-96); MEAN PLT VOLUME 8.4 fl (7.5-11.1); PLATELET COUNT 316 10^3/uL (134-434); RBC 4.72 M/mm3 (4.00-5.60); WHITE BLOOD COUNT 15.9 K/mm3 (4.0-10.0)
[2023-02-25 11:55] LABS: ALBUMIN 3.3 g/dl (3.4-5.0); BLOOD UREA NITROGEN 8.9 mg/dL (7-18)
[2023-02-25 11:59] LABS: TOT PROT 7.7 g/dl (6.4-8.2)
[2023-02-25 12:00] LABS: BILIRUBIN,TOTAL 0.4 mg/dL (0.2-1)
[2023-02-25] MEDS: INSULIN SLIDING SCALE (NOVOLOG) 1 VIAL SQ SCH ×3 (14:55→22:08)
[2023-02-25] MEDS ORDERED: PATIENT'S OWN MEDICATION (NON-FORMULARY) (Metformin Hcl [Metformin Er Gastric] 1,000 MG Ta PO SCH (16:30)
[2023-02-25] MEDS: hydrOXYzine PAMOATE 25 MG CAPSULE (FP) PO PRN (22:02)
[2023-02-25] MEDS: MELATONIN 5 MG TABLETS PO SCH (22:02)
[2023-02-25] MEDS: THIAMINE HCL 100 MG TABLET (FP) PO SCH (22:02)
[2023-02-25] MEDS ORDERED: INSULIN (NOVOLOG) ASPART 100 UNITS/ML 10ML VIAL ONE (22:05)
[2023-02-25] MEDS: INSULIN (LEVEMIR) 100 UNITS/ML UNITS SQ SCH (22:08)
[2023-02-26] MEDS: INSULIN SLIDING SCALE (NOVOLOG) 1 VIAL SQ SCH ×4 (06:49→22:47)
[2023-02-26] MEDS: amLODIPine BESYLATE 10 MG TABLET (FP) PO SCH (10:16)
[2023-02-26] MEDS: PRENATAL VITAMINS W/ FOLIC ACID TABLET (FP) PO SCH (10:16)
[2023-02-26] MEDS: METHOCARBAMOL 500 MG TABLET PO PRN (10:17)
[2023-02-26] MEDS: LORazepam 2 MG TABLET PO SCH ×3 (11:51→22:47)
[2023-02-26] MEDS: INSULIN (LEVEMIR) 100 UNITS/ML UNITS SQ SCH (22:47)
[2023-02-26] MEDS: MELATONIN 5 MG TABLETS PO SCH (22:47)
[2023-02-26] MEDS: THIAMINE HCL 100 MG TABLET (FP) PO SCH (22:47)
[2023-02-27] MEDS: LORazepam 2 MG TABLET PO SCH ×4 (06:02→22:07)
[2023-02-27] MEDS: INSULIN SLIDING SCALE (NOVOLOG) 1 VIAL SQ SCH ×4 (06:30→22:07)
[2023-02-27] MEDS: PRENATAL VITAMINS W/ FOLIC ACID TABLET (FP) PO SCH (10:19)
[2023-02-27] MEDS: amLODIPine BESYLATE 10 MG TABLET (FP) PO SCH (10:20)
[2023-02-27] MEDS ORDERED: INSULIN (NOVOLOG) ASPART 100 UNITS/ML 10ML VIAL ONE ×2 (12:00→22:05)
[2023-02-27 16:19] LABS: BASO % 0.6 % (0-2.0); HEMATOCRIT 34.8 % (35.4-49); HEMOGLOBIN 11.2 GM/dL (11.7-16.9); LYMPH % 31.8 % (8-40); MCH 24.2 pg (25.7-33.7); MCHC 32.3 g/dl (32.0-35.9); MEAN CELL VOLUME 75.1 fl (80-96); MEAN PLT VOLUME 7.8 fl (7.5-11.1); MONO % 9.6 % (3.8-10.2); PLATELET COUNT 316 10^3/uL (134-434); RBC 4.63 M/mm3 (4.00-5.60); RDW 15.3 % (11.9-15.9)
[2023-02-27 16:26] LABS: ALBUMIN 2.9 g/dl (3.4-5.0); BLOOD UREA NITROGEN 9.5 mg/dL (7-18)
[2023-02-27 16:30] LABS: CREATININE 0.7 mg/dL (0.55-1.3)
[2023-02-27 16:31] LABS: BILIRUBIN,TOTAL 0.2 mg/dL (0.2-1)
[2023-02-27 16:32] LABS: TOT PROT 7.1 g/dl (6.4-8.2)
[2023-02-27] MEDS: MELATONIN 5 MG TABLETS PO SCH (22:06)
[2023-02-27] MEDS: INSULIN (LEVEMIR) 100 UNITS/ML UNITS SQ SCH (22:06)
[2023-02-27] MEDS: THIAMINE HCL 100 MG TABLET (FP) PO SCH (22:07)
[2023-02-28] MEDS: LORazepam 1 MG TABLET PO SCH ×4 (05:18→22:17)
[2023-02-28] MEDS ORDERED: INSULIN (NOVOLOG) ASPART 100 UNITS/ML 10ML VIAL ONE (06:27)
[2023-02-28] MEDS: INSULIN SLIDING SCALE (NOVOLOG) 1 VIAL SQ SCH ×4 (07:07→22:45)
[2023-02-28] MEDS: PRENATAL VITAMINS W/ FOLIC ACID TABLET (FP) PO SCH (10:34)
[2023-02-28] MEDS: METHOCARBAMOL 500 MG TABLET PO PRN (10:34)
[2023-02-28] MEDS: amLODIPine BESYLATE 10 MG TABLET (FP) PO SCH (10:34)
[2023-02-28] MEDS: hydrOXYzine PAMOATE 25 MG CAPSULE (FP) PO PRN (10:34)
[2023-02-28] MEDS: MELATONIN 5 MG TABLETS PO SCH (22:17)
[2023-02-28] MEDS: THIAMINE HCL 100 MG TABLET (FP) PO SCH (22:17)
[2023-02-28] MEDS: INSULIN (LEVEMIR) 100 UNITS/ML UNITS SQ SCH (22:44)
[2023-03-01] MEDS: LORazepam 0.5 MG TABLET PO SCH ×4 (06:01→22:16)
[2023-03-01] MEDS: INSULIN SLIDING SCALE (NOVOLOG) 1 VIAL SQ SCH ×4 (06:10→22:17)
[2023-03-01] MEDS: amLODIPine BESYLATE 10 MG TABLET (FP) PO SCH (10:22)
[2023-03-01] MEDS: PRENATAL VITAMINS W/ FOLIC ACID TABLET (FP) PO SCH (10:22)
[2023-03-01] MEDS: NICOTINE POLACRILEX 2 MG GUM BUC PRN ×2 (10:23→22:18)
[2023-03-01] MEDS: MELATONIN 5 MG TABLETS PO SCH (22:16)
[2023-03-01] MEDS: INSULIN (LEVEMIR) 100 UNITS/ML UNITS SQ SCH (22:16)
[2023-03-01] MEDS: THIAMINE HCL 100 MG TABLET (FP) PO SCH (22:16)
[2023-03-02] MEDS ORDERED: LORazepam 0.5 MG TABLET PO ONE (05:00)
[2023-03-02] MEDS: INSULIN SLIDING SCALE (NOVOLOG) 1 VIAL SQ SCH ×2 (06:02→10:35)
[2023-03-02] MEDS: NICOTINE POLACRILEX 2 MG GUM BUC PRN (06:05)
[2023-03-02] MEDS: PRENATAL VITAMINS W/ FOLIC ACID TABLET (FP) PO SCH (10:32)
[2023-03-02] MEDS: amLODIPine BESYLATE 10 MG TABLET (FP) PO SCH (10:33)
[2023-03-02 14:27] VITALS: BP 151/81; PULSE 102; RESP 17; TEMP 98.1
== END 2023-03-02 11:55 | disposition home or self-care (01) | DRG 774 ==
LOC: YASAS 08:14 → Y6N 10:12
PROVIDERS: ADMIT Allergy & Immunology; ATTEND Surgery
PROC: HZ2ZZZZ Detoxification Services for Substance Abuse Treatment (ICD-10-PCS; principal; 2023-02-25)
DX: F10.230 Alcohol dependence with withdrawal, uncomplicated (principal); F14.20 Cocaine dependence, uncomplicated; F17.210 Nicotine dependence, cigarettes, uncomplicated; F32.A Depression, unspecified; E10.9 Type 1 diabetes mellitus without complications; Z79.4 Long term (current) use of insulin; E66.01 Morbid (severe) obesity due to excess calories; Z68.41 Body mass index [BMI] 40.0-44.9, adult; M54.50 Low back pain, unspecified; M25.552 Pain in left hip; W19.XXXA Unspecified fall, initial encounter; Y92.9 Unspecified place or not applicable
CPT/HCPCS: 36415; 70450-TC; 70551-TC; 72125-TC; 72170-TC-FY; 73521-TC-FY; 80053; 82962; 85025; 85027; 86780; 99282-25; C9803-CS; U0003; U0005

== ENCOUNTER 2024-07-19 09:37 | Inpatient (IN) | payer OTHER ==
[2024-07-19 10:27] VITALS: BMI 39.2
[2024-07-19] MEDS ORDERED: ACETAMINOPHEN 325 MG TABLET (FP) PO PRN (10:52)
[2024-07-19] MEDS ORDERED: DICYCLOMINE HCL 10 MG CAPSULE PO PRN (10:52)
[2024-07-19] MEDS ORDERED: LOPERAMIDE HCL 2 MG CAPSULE PO PRN (10:52)
[2024-07-19] MEDS ORDERED: IBUPROFEN 600 MG TABLET (FP) PO PRN (10:52)
[2024-07-19] MEDS ORDERED: guaiFENesin 600 MG TABLET.ER (FP) PO PRN (10:52)
[2024-07-19] MEDS ORDERED: ONDANSETRON *ODT* 4 MG TABLET SL PRN (10:52)
[2024-07-19] MEDS ORDERED: IBUPROFEN 400 MG TABLET (FP) PO PRN (10:52)
[2024-07-19] MEDS ORDERED: MAG HYDROX/AL HYDROX/SIMETH 30 ML UNIT-DOSE CUP PO PRN (10:52)
[2024-07-19] MEDS ORDERED: BENZONATATE 200 MG CAPSULE PO PRN (10:52)
[2024-07-19] MEDS ORDERED: BISMUTH SUBSALICYLATE 524 MG/30 ML PO PRN (10:52)
[2024-07-19] MEDS ORDERED: MAGNESIUM HYDROX 2400MG/30ML ORAL SUSPENSION 30 ML CUP PO PRN (10:52)
[2024-07-19] MEDS ORDERED: POLYETHYLENE GLYCOL (HEALTHYLAX) 3350 17 GM PACKET PO PRN (10:52)
[2024-07-19] MEDS ORDERED: BENZOCAINE/MENTHOL (CHLORASEPTIC ) LOZENGE MM PRN (10:52)
[2024-07-19] MEDS ORDERED: METOPROLOL TARTRATE 25 MG TABLET (FP) ONE (11:53)
[2024-07-19] MEDS: METOPROLOL TARTRATE 25 MG TABLET (FP) PO ONE (11:56)
[2024-07-19] MEDS ORDERED: INSULIN (NOVOLOG) ASPART 100 UNITS/ML 10ML VIAL ONE ×4 (12:32→22:11)
[2024-07-19] MEDS: INSULIN ASPART SLIDING SCALE (NOVOLOG) 1 VIAL SQ SCH (12:38)
[2024-07-19] MEDS: glipiZIDE 10 MG TABLET (FP) PO SCH (13:50)
[2024-07-19] MEDS ORDERED: INSULIN ASPART SLIDING SCALE (NOVOLOG) 1 VIAL SQ SCH (16:30)
[2024-07-19] MEDS: INSULIN (LEVEMIR) 100 UNITS/ML UNITS SQ SCH (21:54)
[2024-07-19] MEDS: hydrOXYzine PAMOATE 25 MG CAPSULE (FP) PO PRN (21:56)
[2024-07-19] MEDS: METHOCARBAMOL 500 MG TABLET PO PRN (21:56)
[2024-07-19] MEDS: MELATONIN 5 MG TABLETS PO SCH (21:56)
[2024-07-19] MEDS: THIAMINE 100 MG TABLET PO SCH (21:56)
[2024-07-19] MEDS: INSULIN (NOVOLOG) ASPART 100 UNITS/ML 10ML VIAL SQ ONE (22:00)
[2024-07-20] MEDS ORDERED: LORazepam 1 MG TABLET PO PRN (09:08)
[2024-07-20] MEDS: amLODIPine BESYLATE 10 MG TABLET (FP) PO SCH (10:11)
[2024-07-20] MEDS: LORazepam 2 MG TABLET PO SCH (10:11)
[2024-07-20] MEDS: PRENATAL VITAMINS W/ FOLIC ACID TABLET (FP) PO SCH (10:11)
[2024-07-20 11:31] LABS: HEMATOCRIT 37.7 % (35.4-49); HEMOGLOBIN 12.1 GM/dL (11.7-16.9); MCH 25.7 pg (25.7-33.7); MEAN CELL VOLUME 80.2 fl (80-96); PLATELET COUNT 289 10^3/uL (134-434); RDW 15.1 % (11.9-15.9); WHITE BLOOD COUNT 7.3 K/mm3 (4.0-10.0)
[2024-07-20 11:41] LABS: CHLORIDE 100 mmol/L (98-107); POTASSIUM 4.6 mmol/L (3.5-5.1); SODIUM 133 mmol/L (136-145)
[2024-07-20] MEDS ORDERED: INSULIN (NOVOLOG) ASPART 100 UNITS/ML 10ML VIAL ONE ×2 (11:43→22:17)
[2024-07-20 11:55] LABS: BLOOD UREA NITROGEN 24.7 mg/dL (7-18); CALCIUM 8.4 mg/dL (8.5-10.1)
[2024-07-20 11:56] LABS: ALBUMIN 3.1 g/dl (3.4-5.0); ANION GAP 9 mmol/L (4-13); CO2 24 mmol/L (21-32)
[2024-07-20 11:58] LABS: GLUCOSE,RANDOM 401 mg/dL (74-106)
[2024-07-20 11:59] LABS: CREATININE 1.2 mg/dL (0.55-1.3); SGOT/AST 59 U/L (15-37); SGPT/ALT 54 U/L (13-61)
[2024-07-20 12:01] LABS: BILIRUBIN,TOTAL 0.4 mg/dL (0.2-1); TOT PROT 7.4 g/dl (6.4-8.2)
[2024-07-20 12:02] LABS: ALK PHOS 152 U/L (45-117)
[2024-07-20] MEDS: INSULIN (NOVOLOG) ASPART 100 UNITS/ML 10ML VIAL SQ ONE ×2 (17:12→19:12)
[2024-07-20] MEDS: INSULIN (LEVEMIR) 100 UNITS/ML UNITS SQ SCH (22:12)
[2024-07-21] MEDS ORDERED: INSULIN (NOVOLOG) ASPART 100 UNITS/ML 10ML VIAL ONE ×3 (10:16→21:53)
[2024-07-21] MEDS: INSULIN (LEVEMIR) 100 UNITS/ML UNITS SQ SCH (21:53)
[2024-07-22] MEDS: LORazepam 1 MG TABLET PO SCH (05:33)
[2024-07-22] MEDS ORDERED: INSULIN (NOVOLOG) ASPART 100 UNITS/ML 10ML VIAL ONE ×2 (11:48→17:12)
[2024-07-22] MEDS: metFORMIN HCL 500 MG TABLET (FP) PO SCH (17:13)
[2024-07-22] MEDS: INSULIN (NOVOLOG) ASPART 100 UNITS/ML 10ML VIAL SQ ONE (23:21)
[2024-07-23] MEDS ORDERED: LORazepam 0.5 MG TABLET PO PRN
[2024-07-23] MEDS: LORazepam 0.5 MG TABLET PO SCH (05:29)
[2024-07-23] MEDS ORDERED: glipiZIDE 5 MG TABLET (FP) ONE (07:09)
[2024-07-23] MEDS: INSULIN (LEVEMIR) 100 UNITS/ML UNITS SQ SCH (07:20)
[2024-07-23 08:45] VITALS: BP 128/80; PULSE 98; RESP 18; TEMP 98.6
[2024-07-24] MEDS ORDERED: LORazepam 0.5 MG TABLET PO ONE (05:00)
== END 2024-07-23 10:05 | disposition other institution (70) | DRG 774 ==
LOC: YASAS 09:37 → Y6N 12:15
PROVIDERS: ADMIT Neuromusculoskeletal Medicine & OMM; ATTEND Surgery
PROC: HZ2ZZZZ Detoxification Services for Substance Abuse Treatment (ICD-10-PCS; principal; 2024-07-19)
DX: F10.230 Alcohol dependence with withdrawal, uncomplicated (principal); F14.20 Cocaine dependence, uncomplicated; F17.210 Nicotine dependence, cigarettes, uncomplicated; F19.282 Other psychoactive substance dependence with psychoactive substance-induced sleep disorder; I10 Essential (primary) hypertension; E11.65 Type 2 diabetes mellitus with hyperglycemia; Z79.4 Long term (current) use of insulin; Z79.84 Long term (current) use of oral hypoglycemic drugs; B35.3 Tinea pedis
CPT/HCPCS: 36415; 80053; 80305; 80307; 82962; 83036; 85027; 86780; 93005; 93010

== ENCOUNTER 2024-09-06 08:02 | Inpatient (IN) | payer OTHER ==
[2024-09-06 08:56] VITALS: BMI 37.9
[2024-09-06] MEDS ORDERED: IBUPROFEN 400 MG TABLET (FP) PO PRN (10:19)
[2024-09-06] MEDS ORDERED: MAGNESIUM HYDROX 2400MG/30ML ORAL SUSPENSION 30 ML CUP PO PRN (10:19)
[2024-09-06] MEDS ORDERED: guaiFENesin 600 MG TABLET.ER (FP) PO PRN (10:19)
[2024-09-06] MEDS ORDERED: BENZONATATE 200 MG CAPSULE PO PRN (10:19)
[2024-09-06] MEDS ORDERED: NALOXONE (NARCAN) HCL 4 MG/0.1 ML SPRAY NS PRN (10:19)
[2024-09-06] MEDS ORDERED: MAG HYDROX/AL HYDROX/SIMETH 30 ML UNIT-DOSE CUP PO PRN (10:19)
[2024-09-06] MEDS ORDERED: ACETAMINOPHEN 325 MG TABLET (FP) PO PRN (10:19)
[2024-09-06] MEDS ORDERED: chlordiazePOXIDE HCL 25 MG CAPSULE PO PRN (10:19)
[2024-09-06] MEDS ORDERED: DICYCLOMINE HCL 10 MG CAPSULE PO PRN (10:19)
[2024-09-06] MEDS ORDERED: BENZOCAINE/MENTHOL (CHLORASEPTIC ) LOZENGE MM PRN (10:19)
[2024-09-06] MEDS ORDERED: NALOXONE (NYS OPIOID OVERDOSE PROGRAM) 4 MG/0.1 ML SPRAY NS PRN (10:19)
[2024-09-06] MEDS ORDERED: ONDANSETRON *ODT* 4 MG TABLET SL PRN (10:19)
[2024-09-06] MEDS ORDERED: LOPERAMIDE HCL 2 MG CAPSULE PO PRN (10:19)
[2024-09-06] MEDS ORDERED: POLYETHYLENE GLYCOL (HEALTHYLAX) 3350 17 GM PACKET PO PRN (10:19)
[2024-09-06] MEDS ORDERED: NICOTINE POLACRILEX 4 MG LOZENGE BC PRN (10:19)
[2024-09-06] MEDS ORDERED: BISMUTH SUBSALICYLATE 262 MG/15 ML BTL PO PRN (10:19)
[2024-09-06] MEDS ORDERED: amLODIPine BESYLATE 5 MG TABLET (FP) ONE (11:24)
[2024-09-06] MEDS: amLODIPine BESYLATE 10 MG TABLET (FP) PO SCH (11:29)
[2024-09-06] MEDS: glipiZIDE 10 MG TABLET (FP) PO SCH (11:30)
[2024-09-06] MEDS ORDERED: INSULIN (NOVOLOG) ASPART 100 UNITS/ML 10ML VIAL ONE ×2 (11:49→17:03)
[2024-09-06] MEDS: NALTREXONE HCL 50 MG TABLET PO ONE (11:58)
[2024-09-06] MEDS: INSULIN ASPART SLIDING SCALE (NOVOLOG) 1 VIAL SQ SCH (13:07)
[2024-09-06] MEDS: INSULIN (NOVOLOG) ASPART 100 UNITS/ML 10ML VIAL SQ ONE ×2 (13:16→23:10)
[2024-09-06] MEDS: METHOCARBAMOL 500 MG TABLET PO PRN (14:00)
[2024-09-06] MEDS ORDERED: INSULIN (LEVEMIR) 100 UNITS/ML UNITS SQ ONE (20:59)
[2024-09-06] MEDS: THIAMINE 100 MG TABLET PO SCH (21:18)
[2024-09-06] MEDS: MELATONIN 5 MG TABLETS PO SCH (21:18)
[2024-09-06] MEDS: INSULIN (LEVEMIR) 100 UNITS/ML UNITS SQ SCH (21:19)
[2024-09-06] MEDS: chlordiazePOXIDE HCL 25 MG CAPSULE PO SCH (22:06)
[2024-09-07] MEDS: NALTREXONE HCL 50 MG TABLET PO SCH (10:10)
[2024-09-07] MEDS: PRENATAL VITAMINS W/ FOLIC ACID TABLET (FP) PO SCH (10:13)
[2024-09-07 10:30] LABS: HEMATOCRIT 35.8 % (35.4-49); HEMOGLOBIN 11.5 GM/dL (11.7-16.9); MCH 25.1 pg (25.7-33.7); MCHC 32.2 g/dl (32.0-35.9); MEAN CELL VOLUME 77.9 fl (80-96); MEAN PLT VOLUME 9.4 fl (7.5-11.1); PLATELET COUNT 220 10^3/uL (134-434); RBC 4.59 M/mm3 (4.00-5.60); RDW 15.3 % (11.9-15.9); WHITE BLOOD COUNT 5.3 K/mm3 (4.0-10.0)
[2024-09-07 10:37] LABS: CALCIUM 8.4 mg/dL (8.5-10.1)
[2024-09-07 10:40] LABS: CREATININE 1.6 mg/dL (0.55-1.3)
[2024-09-07 10:41] LABS: BILIRUBIN,TOTAL 0.4 mg/dL (0.2-1); TOT PROT 6.7 g/dl (6.4-8.2)
[2024-09-07] MEDS ORDERED: INSULIN (NOVOLOG) ASPART 100 UNITS/ML 10ML VIAL ONE (11:29)
[2024-09-07] MEDS: INSULIN (NOVOLOG) ASPART 100 UNITS/ML 10ML VIAL SQ ONE ×2 (17:16→22:13)
[2024-09-07] MEDS: INSULIN (LEVEMIR) 100 UNITS/ML UNITS SQ SCH (22:14)
[2024-09-07] MEDS: NICOTINE POLACRILEX 4 MG GUM BUC PRN (22:17)
[2024-09-08] MEDS: chlordiazePOXIDE HCL 25 MG CAPSULE PO SCH (05:35)
[2024-09-08] MEDS: INSULIN (LEVEMIR) 100 UNITS/ML UNITS SQ SCH (06:53)
[2024-09-08] MEDS: LISINOPRIL 10 MG TABLET PO SCH (10:07)
[2024-09-08] MEDS: IBUPROFEN 600 MG TABLET (FP) PO PRN (10:08)
[2024-09-08] MEDS: hydrOXYzine PAMOATE 25 MG CAPSULE (FP) PO PRN (17:20)
[2024-09-08] MEDS ORDERED: INSULIN (NOVOLOG) ASPART 100 UNITS/ML 10ML VIAL ONE ×2 (17:23→22:57)
[2024-09-08] MEDS: INSULIN (NOVOLOG) ASPART 100 UNITS/ML 10ML VIAL SQ ONE ×2 (17:50→22:56)
[2024-09-09] MEDS ORDERED: chlordiazePOXIDE HCL 10 MG CAPSULE PO PRN
[2024-09-09] MEDS: chlordiazePOXIDE HCL 10 MG CAPSULE PO SCH (05:45)
[2024-09-09] MEDS ORDERED: glipiZIDE 5 MG TABLET (FP) ONE (06:31)
[2024-09-09] MEDS: INSULIN (LEVEMIR) 100 UNITS/ML UNITS SQ SCH ×2 (07:51→22:09)
[2024-09-09] MEDS ORDERED: INSULIN (LEVEMIR) 100 UNITS/ML UNITS SQ SCH (10:43)
[2024-09-09] MEDS ORDERED: INSULIN (NOVOLOG) ASPART 100 UNITS/ML 10ML VIAL ONE ×2 (17:44→23:25)
[2024-09-09] MEDS: INSULIN (NOVOLOG) ASPART 100 UNITS/ML 10ML VIAL SQ ONE (23:27)
[2024-09-09] MEDS: INSULIN (LEVEMIR) 100 UNITS/ML UNITS SQ ONE (23:27)
[2024-09-10] MEDS: chlordiazePOXIDE HCL 10 MG CAPSULE PO SCH (05:55)
[2024-09-10] MEDS: INSULIN ASPART SLIDING SCALE (NOVOLOG) 1 VIAL SQ SCH ×2 (07:00→23:06)
[2024-09-10] MEDS: INSULIN (LEVEMIR) 100 UNITS/ML UNITS SQ SCH (07:05)
[2024-09-10 12:03] LABS: POTASSIUM 4.2 mmol/L (3.5-5.1)
[2024-09-10 12:08] LABS: BLOOD UREA NITROGEN 9.7 mg/dL (7-18); CALCIUM 8.7 mg/dL (8.5-10.1)
[2024-09-10 12:09] LABS: ALBUMIN 2.6 g/dl (3.4-5.0)
[2024-09-10 12:12] LABS: CREATININE 0.9 mg/dL (0.55-1.3); PHOSPHOROUS 3.6 mg/dL (2.5-4.9)
[2024-09-10] MEDS ORDERED: INSULIN (NOVOLOG) ASPART 100 UNITS/ML 10ML VIAL ONE (23:05)
[2024-09-11] MEDS: chlordiazePOXIDE HCL 10 MG CAPSULE PO ONE (05:54)
[2024-09-11 09:23] VITALS: BP 147/73; PULSE 100; RESP 16; TEMP 98
== END 2024-09-11 11:35 | disposition home or self-care (01) | DRG 774 ==
LOC: YASAS 08:02 → Y6N 11:18
PROVIDERS: ADMIT Allergy & Immunology; ATTEND Allergy & Immunology
PROC: HZ2ZZZZ Detoxification Services for Substance Abuse Treatment (ICD-10-PCS; principal; 2024-09-06)
DX: F10.230 Alcohol dependence with withdrawal, uncomplicated (principal); F14.20 Cocaine dependence, uncomplicated; F17.210 Nicotine dependence, cigarettes, uncomplicated; F19.282 Other psychoactive substance dependence with psychoactive substance-induced sleep disorder; F32.9 Major depressive disorder, single episode, unspecified; I10 Essential (primary) hypertension; E10.9 Type 1 diabetes mellitus without complications; Z79.4 Long term (current) use of insulin
CPT/HCPCS: 36415; 80053; 80069; 80305; 80307; 82962; 85027; 86780; 93005; 93010

== ENCOUNTER 2025-04-18 15:06 | Inpatient (IN) | payer OTHER ==
[2025-04-18] MEDS ORDERED: LOPERAMIDE HCL 2 MG CAPSULE PO PRN (15:54)
[2025-04-18] MEDS ORDERED: MAGNESIUM HYDROX 2400MG/30ML ORAL SUSPENSION 30 ML CUP PO PRN (15:54)
[2025-04-18] MEDS ORDERED: NALOXONE HCL 0.4 MG/ML VIAL IVPUSH PRN (15:54)
[2025-04-18] MEDS ORDERED: MAG HYDROX/AL HYDROX/SIMETH 30 ML UNIT-DOSE CUP PO PRN (15:54)
[2025-04-18] MEDS ORDERED: BENZONATATE 200 MG CAPSULE PO PRN (15:54)
[2025-04-18] MEDS ORDERED: IBUPROFEN 600 MG TABLET (FP) PO PRN (15:54)
[2025-04-18] MEDS ORDERED: hydrOXYzine PAMOATE 25 MG CAPSULE (FP) PO PRN (15:54)
[2025-04-18] MEDS ORDERED: guaiFENesin 600 MG TABLET.ER (FP) PO PRN (15:54)
[2025-04-18] MEDS ORDERED: BENZOCAINE/MENTHOL (CHLORASEPTIC ) LOZENGE MM PRN (15:54)
[2025-04-18] MEDS ORDERED: IBUPROFEN 400 MG TABLET (FP) PO PRN (15:54)
[2025-04-18] MEDS ORDERED: METHOCARBAMOL 500 MG TABLET PO PRN (15:54)
[2025-04-18] MEDS ORDERED: NALOXONE (NARCAN) HCL 4 MG/0.1 ML SPRAY NS PRN (15:54)
[2025-04-18] MEDS ORDERED: POLYETHYLENE GLYCOL (HEALTHYLAX) 3350 17 GM PACKET PO PRN (15:54)
[2025-04-18] MEDS ORDERED: ACETAMINOPHEN 325 MG TABLET (FP) PO PRN (15:54)
[2025-04-18] MEDS: INSULIN ASPART SLIDING SCALE (NOVOLOG) 1 VIAL SQ SCH (16:41)
[2025-04-18] MEDS: THIAMINE 100 MG TABLET PO SCH (21:21)
[2025-04-18] MEDS: MELATONIN 5 MG TABLETS PO SCH (21:21)
[2025-04-18] MEDS: INSULIN GLARGINE (LANTUS) 100 UNITS/ML UNITS SQ SCH (21:22)
[2025-04-19] MEDS: glipiZIDE 10 MG TABLET (FP) PO SCH (06:03)
[2025-04-19] MEDS: PRENATAL VITAMINS W/ FOLIC ACID TABLET (FP) PO SCH (09:35)
[2025-04-19] MEDS: amLODIPine BESYLATE 10 MG TABLET (FP) PO SCH (09:35)
[2025-04-19] MEDS: SERTRALINE HCL 50 MG TABLET (FP) PO SCH (09:35)
[2025-04-19] MEDS: NALTREXONE HCL 50 MG TABLET PO SCH (09:35)
[2025-04-19 13:38] LABS: HCV DIAGNOSTIC IN-HOUSE W/RFLX NON-REACTIVE (NONREACTIVE); HIV INTERPRETATION NEGATIVE (NEGATIVE)
[2025-04-20] MEDS ORDERED: glipiZIDE 5 MG TABLET (FP) ONE (06:09)
[2025-04-20] MEDS ORDERED: INSULIN ASPART SLIDING SCALE (NOVOLOG) 1 VIAL SQ ONE (06:10)
[2025-04-20] MEDS: NICOTINE POLACRILEX 2 MG GUM BUC PRN (15:32)
[2025-04-20] MEDS: traZODone HCL 50 MG TABLET (FP) PO SCH (21:03)
[2025-04-21] MEDS ORDERED: glipiZIDE 5 MG TABLET (FP) ONE (06:48)
[2025-04-21] MEDS ORDERED: INSULIN ASPART SLIDING SCALE (NOVOLOG) 1 VIAL SQ ONE (07:01)
[2025-04-21] MEDS: INSULIN (NOVOLOG) ASPART 100 UNITS/ML 10ML VIAL SQ SCH (12:10)
[2025-04-22] MEDS ORDERED: INSULIN ASPART SLIDING SCALE (NOVOLOG) 1 VIAL SQ ONE ×2 (06:00→06:09)
[2025-04-22] MEDS ORDERED: glipiZIDE 5 MG TABLET (FP) ONE (06:00)
[2025-04-23] MEDS ORDERED: glipiZIDE 5 MG TABLET (FP) ONE (05:03)
[2025-04-24] MEDS ORDERED: glipiZIDE 5 MG TABLET (FP) ONE (05:14)
[2025-04-24] MEDS ORDERED: INSULIN ASPART SLIDING SCALE (NOVOLOG) 1 VIAL SQ ONE (12:04)
[2025-04-26] MEDS ORDERED: glipiZIDE 5 MG TABLET (FP) ONE (06:37)
[2025-04-26] MEDS ORDERED: INSULIN ASPART SLIDING SCALE (NOVOLOG) 1 VIAL SQ ONE (06:38)
[2025-04-26] MEDS: INSULIN GLARGINE (LANTUS) 100 UNITS/ML UNITS SQ SCH (21:01)
[2025-04-27] MEDS ORDERED: glipiZIDE 5 MG TABLET (FP) ONE (06:30)
[2025-04-28] MEDS ORDERED: glipiZIDE 5 MG TABLET (FP) ONE (06:26)
[2025-04-28] MEDS ORDERED: INSULIN ASPART SLIDING SCALE (NOVOLOG) 1 VIAL SQ ONE ×2 (06:33→12:11)
[2025-04-29] MEDS ORDERED: glipiZIDE 5 MG TABLET (FP) ONE (05:45)
[2025-04-29] MEDS ORDERED: INSULIN ASPART SLIDING SCALE (NOVOLOG) 1 VIAL SQ ONE ×3 (05:46→07:26)
[2025-04-30] MEDS ORDERED: glipiZIDE 5 MG TABLET (FP) ONE (06:35)
[2025-05-01] MEDS ORDERED: INSULIN ASPART SLIDING SCALE (NOVOLOG) 1 VIAL SQ ONE (06:11)
[2025-05-02] MEDS ORDERED: INSULIN ASPART SLIDING SCALE (NOVOLOG) 1 VIAL SQ ONE ×2 (07:03→07:04)
[2025-05-03] MEDS ORDERED: glipiZIDE 5 MG TABLET (FP) ONE (04:44)
[2025-05-04] MEDS ORDERED: INSULIN ASPART SLIDING SCALE (NOVOLOG) 1 VIAL SQ ONE (06:04)
[2025-05-05] MEDS ORDERED: INSULIN ASPART SLIDING SCALE (NOVOLOG) 1 VIAL SQ ONE (06:09)
[2025-05-06] MEDS ORDERED: INSULIN ASPART SLIDING SCALE (NOVOLOG) 1 VIAL SQ ONE ×4 (06:27→20:19)
[2025-05-06] MEDS: LISINOPRIL 5 MG TABLET PO SCH (14:08)
[2025-05-07] MEDS ORDERED: glipiZIDE 5 MG TABLET (FP) ONE (04:55)
[2025-05-07] MEDS ORDERED: INSULIN ASPART SLIDING SCALE (NOVOLOG) 1 VIAL SQ ONE ×2 (07:28→14:59)
[2025-05-08] MEDS ORDERED: glipiZIDE 5 MG TABLET (FP) ONE (04:54)
[2025-05-08] MEDS ORDERED: INSULIN ASPART SLIDING SCALE (NOVOLOG) 1 VIAL SQ ONE (12:14)
[2025-05-09] MEDS ORDERED: INSULIN ASPART SLIDING SCALE (NOVOLOG) 1 VIAL SQ ONE (07:14)
[2025-05-10] MEDS ORDERED: INSULIN ASPART SLIDING SCALE (NOVOLOG) 1 VIAL SQ ONE (08:10)
[2025-05-11] MEDS ORDERED: INSULIN ASPART SLIDING SCALE (NOVOLOG) 1 VIAL SQ ONE (06:36)
[2025-05-11] MEDS: INSULIN (NOVOLOG) ASPART 100 UNITS/ML 10ML VIAL SQ SCH (16:50)
[2025-05-12] MEDS ORDERED: INSULIN ASPART SLIDING SCALE (NOVOLOG) 1 VIAL SQ ONE (06:40)
[2025-05-13] MEDS ORDERED: INSULIN ASPART SLIDING SCALE (NOVOLOG) 1 VIAL SQ ONE (07:21)
[2025-05-15] MEDS ORDERED: INSULIN ASPART SLIDING SCALE (NOVOLOG) 1 VIAL SQ ONE ×2 (06:05→22:16)
[2025-05-16 06:03] VITALS: BP 127/75; PULSE 98; RESP 18; TEMP 97.1
[2025-05-16] MEDS ORDERED: INSULIN ASPART SLIDING SCALE (NOVOLOG) 1 VIAL SQ ONE (06:25)
== END 2025-05-16 09:03 | disposition home or self-care (01) | DRG 772 ==
LOC: YASAS 15:06 → Y3W 15:07 → Y3NR 04-27 10:31 → Y3W 04-27 10:33
PROVIDERS: ADMIT Psychiatry & Neurology Pain Medicine; ATTEND Psychiatry & Neurology Pain Medicine
PROC: HZ42ZZZ Group Counseling for Substance Abuse Treatment, Cognitive-Behavioral (ICD-10-PCS; principal; 2025-04-18)
DX: F10.20 Alcohol dependence, uncomplicated (principal); F14.20 Cocaine dependence, uncomplicated; F12.20 Cannabis dependence, uncomplicated; F17.210 Nicotine dependence, cigarettes, uncomplicated; F19.282 Other psychoactive substance dependence with psychoactive substance-induced sleep disorder; F32.9 Major depressive disorder, single episode, unspecified; B35.3 Tinea pedis; I10 Essential (primary) hypertension; E11.9 Type 2 diabetes mellitus without complications; Z79.4 Long term (current) use of insulin; Z79.84 Long term (current) use of oral hypoglycemic drugs; Z59.02 Unsheltered homelessness
CPT/HCPCS: 36415; 82962; 86803; 87389